=== PATIENT | female | born 1965 | race Two or more races ===

== ENCOUNTER 2024-06-18 14:33 | Emergency (ER) | payer MEDICAID, SELFPAY ==
[2024-06-18 14:44] VITALS: BP 122/66; PULSE 85; RESP 20; TEMP 37.2; O2SAT 97; BMI 31.4
--- NOTE | 2024-06-18 14:49 | XR_ITS ---
Examination: CT abdomen and pelvis without contrast. Coronal 3-D reconstructions. Sagittal 2-D reconstructions. Date and time of exam:June 18, 2024 1520 hours INDICATIONS: Onset generalized abdominal pain today COMPARISON: July 17, 2021 CTDI: vol (mGy): 10.1 DLP: (mGycm): 578 Technique: Axial images of the abdomen have been obtained, 3 mm slice thickness Intravenous contrast material has not been administered. Low dose protocols were performed. One or more of the following dose reduction techniques were used; automated exposure control, adjustment of the mA and/or KV according to patient size, use of iterative reconstruction technique. Findings: Cirrhosis, liver nodular in contour Mild ascites No focal liver lesions Esophageal and perigastric varices Significant splenomegaly Distended gallbladder No hydronephrosis renal or ureteral calculi Aorta is not enlarged Diffuse thickening of the colonic baxter, hepatic colopathy appearance No bowel obstruction Urinary bladder intact Moderate osteopenia IMPRESSION: Cirrhosis. Mild ascites Significant splenomegaly. Esophageal, perigastric varices Diffuse hepatic colopathy
--- NOTE | 2024-06-18 14:49 | EKG_ITS ---
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
--- NOTE | 2024-06-18 14:49 | PD.EDRME ---
Rapid Medical Screening Exam RME Arrival date/time: 06/18/24 14:33 58-year-old female presents to the emergency department complaints of abdominal pain nausea and vomiting Chief Complaint: Abdominal Pain Time Seen by Provider: 06/18/24 14:38 Vital signs: Vital Signs Temperature 99 F 06/18/24 14:44 Pulse Rate 85 06/18/24 14:44 Respiratory Rate 20 06/18/24 14:44 Blood Pressure 122/66 06/18/24 14:44 Pulse Oximetry (%) 97 06/18/24 14:44 Oxygen Delivery Method Room Air 06/18/24 14:44
[2024-06-18] MEDS: HYDROcodone/APAP 5/325 TABLET 1 TAB PO (15:12)
[2024-06-18] MEDS: METOCLOPRAMIDE 5 MG TABLET 10 MG PO (15:12)
[2024-06-18 15:26] LABS: Basophils % (Auto) 0 % (0-2.5); Eosinophils % (Auto) 0 % (0-10); Hematocrit 29.3 % (36.0-46.0); Hemoglobin 9.3 g/dL (12.0-16.0); Immature Granulocytes % (Auto) 0 % (0-0); Immature Granulocytes Auto 0.02 Thou/mm3 (0.00-0.00); Lymphocytes # (Auto) 0.5 Thou/mm3 (1.0-4.8); Lymphocytes % (Auto) 10 % (10-50); Mean Corpuscular HGB Conc 31.7 g/dl (31.0-37.0); Mean Corpuscular Hemoglobin 25.6 pg (25.0-35.0); Mean Corpuscular Volume 81 fL (80-100); Monocytes # (Auto) 0.5 Thou/mm3 (0.0-0.8); Monocytes % (Auto) 9 % (0-12); Neutrophils # (Auto) 4.3 Thou/mm3 (1.8-7.7); Neutrophils % (Auto) 80 % (37-80); Nucleated Red Blood Cell % 0 /100 WBC (0); Platelet Count 110 Thou/mm3 (140-440); RDW Standard Deviation 56.4 fL (36.4-46.3); Red Blood Count 3.63 Miln/mm3 (4.00-5.20); White Blood Count 5.4 Thou/mm3 (3.6-11.0)
[2024-06-18 15:35] LABS: Collection Type, Urine Clean Catch
[2024-06-18 15:43] LABS: Alanine Aminotransferase 63 U/L (10-49); Albumin, Serum 3.4 gm/dL (3.4-4.8); Alkaline Phosphatase 241 U/L (46-116); Anion Gap 6 (7-16); Aspartate Amino Transferase 111 U/L (0-34); BUN/Creatinine Ratio 18 Ratio (12-20); Bilirubin,Total 2.5 mg/dL (0.3-1.2); Blood Urea Nitrogen 14 mg/dL (9-23); Calcium 8.6 mg/dL (8.3-10.6); Calcium (Corrected) 9.1 mg/dL (8.5-10.1); Carbon Dioxide 22.8 mMol/L (20.0-31.0); Chloride 112 mMol/L (98-107); Creatinine (Component) 0.8 mg/dL (0.6-1.3); Estimated Creatinine Clearance 80.8 mL/min (>60); Globulin 3.4 gm/dL (2.3-3.5); Glucose 107 mg/dL (74-106); Lipase 56 U/L (12-53); Osmolality,Calculated 281 (275-295); Sodium 141 mMol/L (136-145); Total Protein 6.8 gm/dL (5.7-8.2); Troponin I < 0.020 ng/mL (0.0-0.045); eGFR > 60 See Note
[2024-06-18 15:54] LABS: Bacteria,Urine Rare; Bilirubin,Urine 1+ (Negative); Blood,Urine Negative (Negative); Color,Urine Drk-Yellow (Lt Yel-Yel); Culture Indicated,Urine Not Indicated; Glucose, Urine Negative (Negative); Ketones,Urine Trace (Negative); Leukocyte Esterase,Urine Positive (Negative); Nitrite,Urine Negative (Negative); PH,Urine 5.5 (5.0-7.0); Protein,Urine 1+ (Neg - Trace); RBC,Urine 9 /hpf (0-3); Specific Gravity,Urine 1.033 (1.001-1.035); Squamous Epithelial Cell,Urine 25 /hpf (0-5); WBC,Urine 4 /hpf (0-5)
[2024-06-18 15:57] LABS: Clarity,Urine Hazy (Clear/Hazy)
--- NOTE | 2024-06-18 16:38 | PD.EDABDPN ---
ED Abdominal Pain RME/HPI General Chief Complaint: Abdominal Pain Stated complaint: Abdominal pain since last night, vomiting Time seen by provider: 06/18/24 14:38 Arrival date/time: 06/18/24 14:33 RME / HPI RME / HPI narrative: 58-year-old female presents to the emergency department complaints of abdominal pain nausea and vomiting. Onset of symptoms since last night. Vomiting is nonbloody. Denies any diarrhea. Denies any fever. Denies any confusion. Denies any other complaints. Patient is taking medication for her liver cirrhosis. Related Data Home Medications ?Medication ?Instructions ?Recorded ?Confirmed furosemide 20 mg tablet 20 mg PO QDAY 05/15/21 05/15/21 Previous Rx's ?Medication ?Instructions ?Recorded rifaximin 550 mg tablet (Xifaxan) 550 mg PO BID #60 tabs 06/26/21 metoclopramide HCl 10 mg tablet 10 mg PO Q6H PRN nausea and 06/18/24 (Reglan) vomiting #20 tabs pantoprazole 40 mg tablet,delayed 40 mg PO QDAY #30 tabs 06/18/24 release (Protonix) Allergies Allergy/AdvReac Type Severity Reaction Status Date / Time No Known Allergies Allergy Verified 04/29/22 22:41 Review of Systems Review of Systems Narrative Review of Systems: Review of system reviewed and within normal limits except mentioned in HPI ED Exam Narrative Physical exam: VITAL SIGNS: Reviewed. GENERAL APPEARANCE: Alert and interactive, follows commands, no acute distress, HEAD AND FACE: Non-traumatic. ENT: PERRL, pale conjunctiva, eyelid no trauma, Mucous membrane moist. NECK: Supple, nontender, no nuchal rigidity. CHEST: No tenderness, no crepitus, no paradoxical movement, no retractions. LUNGS: Clear, well ventilated, symmetric, no rales, no wheezing, no ronchi, no stridor, good breath sounds bilaterally. HEART: Regular rate, regular rhythm, no murmur, no gallops. ABDOMEN: Soft, positive bowel sounds, nondistended, no guarding, nontender, no rebound, no masses, RECTAL: Deferred. GENITAL: Deferred. NEUROLOGICAL: Gross motor function intact sensory function intact, Appropriate for age. MUSCULOSKELETAL: low back nontender, full range of motion. EXTREMITIES: Nontender, full range of motion. SKIN: Color pale, dry, no rash, no lacerations, no abrasions, no contusions. LYMPHATICS: Deferred. Course Quality Measures none Orders Category Date Time Status EKG (ED ONLY) *Do not use* NOW Care 06/18/24 14:[address] abdomen pelvis wo con Stat Exams 06/18/24 14:49 Completed EKG (ED Only) Stat Exams 06/18/24 14:49 Draft CBC Stat Lab 06/18/24 14:59 Completed Comprehensive Metabolic Panel Stat Lab 06/18/24 14:59 Completed Lipase Stat Lab 06/18/24 14:59 Completed Troponin I Stat Lab 06/18/24 14:59 Completed UA, C/S IF [Urinalysis, C/S if Indicated] Stat Lab 06/18/24 15:16 Completed HYDROcodone*/APAP 5/325 [Sanderson 5/325] Med 06/18/24 14:49 Discontinued 1 tab PO X1 ONE Metoclopramide [Reglan] Med 06/18/24 14:49 Discontinued 10 mg PO X1 ONE Vital Signs Vital signs: Vital Signs Temperature 99 F 06/18/24 14:44 Pulse Rate 85 06/18/24 14:44 Respiratory Rate 20 06/18/24 14:44 Blood Pressure 122/66 06/18/24 14:44 Pulse Oximetry (%) 97 06/18/24 14:44 Oxygen Delivery Method Room Air 06/18/24 14:44 Abdominal Pain MDM MDM Narrative MDM Narrative:: 58-year-old female presents to the emergency department complaints of abdominal pain nausea and vomiting. Onset of symptoms since last night. Vomiting is nonbloody. Denies any diarrhea. Denies any fever. Denies any confusion. Denies any other complaints. Patient is taking medication for her liver cirrhosis. Laboratory workup all came back unremarkable except for hemoglobin of 9.28 hematocrit of 29.3 CMP significant for total bili of 12.5 AST of 111 ALT of 63 alkaline phos of 241. Urinalysis no UTI CT scan of the abdomen and pelvis showed no acute pathology except for liver cirrhosis. Results discussed with the patient and family. Patient will be sent home on Protonix and Reglan. Patient data External records reviewed:: None Clinical information provided by:: patient Social determinants that could affect healthcare access:: none Patient has the following chronic illnesses:: Liver cirrhosis How is presenting disease/condition affected by chronic disease/condition?: exacerbated by Evaluation data The following diagnostics were reviewed and interpreted by me:: lab results, radiology exam(s) and EKG tracing(s) Lab and/or radiology exams considered but not ordered:: None Interpretation Summary: Laboratory workup all came back unremarkable except for hemoglobin of 9.28 hematocrit of 29.3 CMP significant for total bili of 12.5 AST of 111 ALT of 63 alkaline phos of 241. Urinalysis no UTI CT scan of the abdomen and pelvis showed Cirrhosis. Mild ascites Significant splenomegaly. Esophageal, perigastric varices Diffuse hepatic colopathy EKG showed normal sinus rhythm, ventricular rate of 62 bpm, no ST segment elevation depression noted. Results discussed with the patient's and family. Medications / Prescriptions Medications or Prescriptions considered but not ordered:: None Medication administrations:: Medication Administration History Discontinued Medications Hydrocodone Bitart/Acetaminophen (Hydrocodone/Apap 5/325 Tablet) 1 tab PO X1 ONE Stop: 06/18/24 14:50 Last Admin: 06/18/24 15:12 Dose: 1 tab Documented By: Metoclopramide HCl (Metoclopramide 5 Mg Tablet) 10 mg PO X1 ONE Stop: 06/18/24 14:50 Last Admin: 06/18/24 15:12 Dose: 10 mg Documented By: Sanderson and Regtyson Consultations Consultation(s) initiated? (list below): No Diagnosis Differential diagnosis abdominal pain: abdominal pain, gastroenteritis and pancreatitis Most likely diagnosis given after review of the tests above:: Abdominal pain Admission Indicated Admission indicated?: not indicated Explain why admission is indicated or not indicated:: Stable for discharge. Patient told me that her abdominal pain is totally gone with Reglan and Sanderson Admission Request Was there a request for admission?: No Disposition Plan Disposition Plan: Discharge Discharge Attestation Discharge Attestation: The patient and all family members were given an opportunity to ask questions and understood the discharge instructions. Discharge instructions specifically effects, indications for sooner follow up or return to the emergency department, and the expected course of current diagnosis. Patient condition: Stable Discharge Plan Plan Patient Disposition: HOME (Self Care) Disposition Comment: stable Prescriptions/Referrals Prescriptions/Med Rec: New pantoprazole [Protonix] 40 mg tablet,delayed release (DR/EC) 40 mg PO QDAY Qty: 30 0RF metoclopramide HCl [Reglan] 10 mg tablet 10 mg PO Q6H PRN (Reason: nausea and vomiting) Qty: 20 0RF No Action Xifaxan 550 mg Tablet 550 mg PO BID Qty: 60 0RF furosemide 20 mg Tablet 20 mg PO QDAY Referrals: Michael Mcneal MD [Primary Care Provider] - In 1 week Problem List Clinical Impression: Abdominal pain, Cirrhosis of liver Patient/Caregiver Discharge Instructions Discharge Activity: activity as tolerated Education Materials: Abdominal Pain Additional Instructions: Thank you for the opportunity for serving you today. You are stable for discharged . You are advised to: Follow-up with your PCP in 1 to 2 days Return to ED for worsening of symptoms Take medication as prescribed Print Language: Syrian Stand Alone Forms: Elvi Award Info., Patient Portal Info Letter PA/KO Supervising Physician PA/KO Supervising Physician: MD Janay
== END 2024-06-18 17:16 | disposition home or self-care (01) ==
PROVIDERS: Nurse Practitioner Primary Care; Emergency Provider Emergency Medicine; PCP Family Medicine
DX: K74.60 Unspecified cirrhosis of liver (principal); R18.8 Other ascites; R16.1 Splenomegaly, not elsewhere classified; I85.10 Secondary esophageal varices without bleeding; I86.4 Gastric varices
CPT/HCPCS: 36415; 74176; 80053; 81001; 83690; 84484; 85025; 93005; 99284; A9270

== ENCOUNTER 2025-01-24 00:01 | Inpatient (IN) | payer MEDICAID, SELFPAY ==
[2025-01-24 00:57] VITALS: BP 118/72; PULSE 78; RESP 18; TEMP 36.9; O2SAT 97; BMI 29.3
--- NOTE | 2025-01-24 01:01 | PD.EDRME ---
Rapid Medical Screening Exam RME Arrival date/time: 01/24/25 00:01 Chief Complaint: Abdominal Pain Time Seen by Provider: 01/24/25 00:03 Vital signs: Vital Signs Temperature 98.4 F 01/24/25 00:57 Pulse Rate 78 01/24/25 00:57 Respiratory Rate 18 01/24/25 00:57 Blood Pressure 118/72 01/24/25 00:57 Pulse Oximetry (%) 97 01/24/25 00:57 Oxygen Delivery Method Room Air 01/24/25 00:57 RME Narrative: Upper abdominal pain, n/v since yesterday. hx cirrhosis
--- NOTE | 2025-01-24 01:04 | EKG_ITS ---
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
--- NOTE | 2025-01-24 01:05 | XR_ITS ---
Examination: CT abdomen and pelvis without contrast. Coronal 3-D reconstructions. Sagittal 2-D reconstructions. Date and time of exam:January 24, 2025, 0235 hours, comparison June 18, 2024 INDICATIONS: Diagnosis cirrhosis, upper abdominal pain today CTDI: vol (mGy): 8. DLP: (mGycm): 490. Technique: Axial images of the abdomen have been obtained, 3 mm slice thickness Intravenous contrast material has not been administered. Low dose protocols were performed. One or more of the following dose reduction techniques were used; automated exposure control, adjustment of the mA and/or KV according to patient size, use of iterative reconstruction technique. Findings: Poorly defined masslike area in the retroareolar region right breast 4.4 cm with skin thickening Cirrhosis, liver nodular in contour Esophageal varices Significant splenomegaly Perigastric varices Portosystemic collateral vessels medial to the spleen Small gallstones and abnormal gallbladder wall thickening Lymph nodes in the anterior mesentery No hydronephrosis No bowel obstruction Normal appendix No diverticulitis Atrophic uterus Rectal wall thickening Urinary bladder wall thickening up to 7 mm Severe osteopenia IMPRESSION: Cirrhosis Esophageal and perigastric varices Splenomegaly. Portal hypertension. Numerous lymph nodes in the anterior mesentery. Normal appendix. Rectal wall thickening, proctitis included in the differential Urinary bladder wall thickening, cystitis included in the differential
[2025-01-24 01:28] LABS: Basophils # (Auto) 0.0 Thou/mm3 (0.0-0.2); Basophils % (Auto) 1 % (0-2.5); Eosinophils # (Auto) 0.0 Thou/mm3 (0.0-0.5); Eosinophils % (Auto) 1 % (0-10); Hematocrit 31.9 % (36.0-46.0); Hemoglobin 10.4 g/dL (12.0-16.0); Immature Granulocytes Auto 0.02 Thou/mm3 (0.00-0.00); Lymphocytes # (Auto) 0.4 Thou/mm3 (1.0-4.8); Lymphocytes % (Auto) 8 % (10-50); Mean Corpuscular HGB Conc 32.6 g/dl (31.0-37.0); Mean Corpuscular Hemoglobin 26.1 pg (25.0-35.0); Mean Corpuscular Volume 80 fL (80-100); Monocytes # (Auto) 0.3 Thou/mm3 (0.0-0.8); Monocytes % (Auto) 5 % (0-12); Neutrophils # (Auto) 4.4 Thou/mm3 (1.8-7.7); Neutrophils % (Auto) 85 % (37-80); Nucleated Red Blood Cell # 0.00 Thou/mm3 (0.00-0.00); Nucleated Red Blood Cell % 0 /100 WBC (0); Platelet Count 103 Thou/mm3 (140-440); RDW Standard Deviation 62.6 fL (36.4-46.3); Red Blood Count 3.99 Miln/mm3 (4.00-5.20); White Blood Count 5.2 Thou/mm3 (3.6-11.0)
[2025-01-24 01:50] LABS: Collection Type, Urine Clean Catch
[2025-01-24 01:56] LABS: Alanine Aminotransferase 29 U/L (10-49); Albumin, Serum 3.3 gm/dL (3.4-4.8); Albumin/Globulin Ratio 0.9 (1.2-2.2); Alkaline Phosphatase 174 U/L (46-116); Anion Gap 7 (7-16); Aspartate Amino Transferase 56 U/L (0-34); BUN/Creatinine Ratio 16 Ratio (12-20); Bilirubin,Total 1.9 mg/dL (0.3-1.2); Blood Urea Nitrogen 13 mg/dL (9-23); Calcium 8.6 mg/dL (8.3-10.6); Calcium (Corrected) 9.2 mg/dL (8.5-10.1); Carbon Dioxide 23.3 mMol/L (20.0-31.0); Chloride 111 mMol/L (98-107); Creatinine (Component) 0.8 mg/dL (0.6-1.3); Estimated Creatinine Clearance 80.0 mL/min (>60); Globulin 3.5 gm/dL (2.3-3.5); Glucose 153 mg/dL (74-106); Lipase 873 U/L (12-53); Osmolality,Calculated 284 (275-295); Potassium 4.0 mMol/L (3.4-5.1); Sodium 141 mMol/L (136-145); Total Protein 6.8 gm/dL (5.7-8.2); Troponin I < 0.020 ng/mL (0.0-0.045); eGFR > 60 See Note
[2025-01-24 01:57] LABS: Bacteria,Urine 3+; Bilirubin,Urine Negative (Negative); Blood,Urine Trace (Negative); Clarity,Urine Turbid (Clear/Hazy); Color,Urine Yellow (Lt Yel-Yel); Glucose, Urine 1+ (Negative); Hyaline Casts,Urine < 1 /hpf (0-1); Ketones,Urine Trace (Negative); Leukocyte Esterase,Urine Negative (Negative); Nitrite,Urine Negative (Negative); PH,Urine 5.5 (5.0-7.0); Protein,Urine 1+ (Neg - Trace); RBC,Urine 8 /hpf (0-3); Specific Gravity,Urine 1.037 (1.001-1.035); Squamous Epithelial Cell,Urine 24 /hpf (0-5); Urobilinogen,Urine Negative mg/dL (0.0-1.0); WBC,Urine 3 /hpf (0-5)
--- NOTE | 2025-01-24 02:00 | XR_ITS ---
Examination: Abdominal series 3 views including upright PA chest TECHNIQUE: Upright PA chest, AP upright AP supine abdomen 3 views Date and time: January 24, 2025, 0 3415 hours INDICATIONS: Abdominal pain today FINDINGS: Mild enlargement cardiac contour with pulmonary vascular congestion Abundant stool in the right colon and rectosigmoid No obstruction No free air IMPRESSION: Suspicious for mild heart failure. Abundant stool in the right colon and rectosigmoid
--- NOTE | 2025-01-24 02:00 | XR_ITS ---
Examination: Abdomen sonogram, Limited Date and time of exam: January 24, 2025, 0218 hours INDICATIONS: Abdominal pain with vomiting beginning several hours ago Technique: Real-time alfaro scale transabdominal sonographic images of the upper abdomen obtained. Findings: Gallbladder sludge, no gallstones, no gallbladder wall thickening Normal common bile duct 0.2 cm Pancreatic head 3.6 cm Liver 15.6 cm lobular contour fatty infiltration Normal hepatopedal portal venous flow Patent IVC IMPRESSION: Negative for cholelithiasis, negative for cholecystitis Suspect primary hepatocellular disease
--- NOTE | 2025-01-24 03:17 | PRELIM_ITS ---
Ultrasound Abdomen. January 24, 2025 0218 hours Clinical history: epigastric abdominal pain, cirrhosis Technique: Grayscale and color flow images of the abdomen are provided. Hepatic and portal veins were also imaged with color flow images. Comparison: Correlated with the prior US study dated December 02, 2024. Findings: The liver demonstrate irrugular borbers. No intrahepatic biliary ductal dilatation. No or pericholecystic fluid is demonstrated. Dependent hyperdensity is identified within the gallbladder, which may represent sludge or small layering calculi. The common bile duct is normal in caliber at 2 mm. The gall bladder wall measures 2 mm. No free fluid is demonstrated on the submitted images. The pancreas is unremarkable to the extent visualized. The inferior vena cava to the extent visualized is within normal limits. Impression: Hepatic cirrhosis. Dependent hyperdensity is identified within the gallbladder, which may represent sludge or small layering calculi. Recommend clinical correlation and follow-up. Report Electronically Signed By: Elmo Ortega 01/24/2025 3:16:46 AM [EST]
--- NOTE | 2025-01-24 03:17 | PRELIM_ITS ---
CT scan of the abdomen and pelvis without intravenous contrast (axial sections with sagittal and coronal reformats) January 24, 2025 at 0235 hours Clinical History: Upper abdominal pain, nausea/vomiting. History of cirrhosis. Comparison: Reference is made to the prior report dated December 02, 2020. Findings: The skin of the right breast is mildly thickened. There is a small 2 cm periareolar solid node of the right breast (axial image 12/279).. Bibasilar dependent and streaky atelectasis are noted. There is no focal consolidation. The liver demonstrates surface nodularity with relative hypertrophy of the left lobe and caudate lobe, suggestive of cirrhosis. The portal vein is mildly dilated and measures 1.7 cm. Periesophageal and upper abdominal collateral veins are prominent. The gallbladder is mildly distended. There is mild gallbladder wall thickening. No pericholecystic fluid is seen. Dependent hyperdensity is identified within the gallbladder, which may represent sludge or small layering calculi. The spleen is borderline enlarged and measures up to 13 cm. The pancreas, spleen, kidneys and adrenals are unremarkable on this noncontrast study. No evidence of bowel obstruction. The appendix is within normal limits (image 192/279). Mild rectal prolapse is seen. Moderate amount of fecal material is present in the colon and rectum, consistent with constipation. There are small paraesophageal and perigastric lymph nodes. The urinary bladder is unremarkable. The uterus and adnexa are unremarkable. There is no free fluid or free air. There is a small uncomplicated fat- containing umbilical hernia. Osseous degenerative changes are noted. Impression: 1. Hepatic cirrhosis with borderline splenomegaly, portal hypertension and collateral veins. 2. Mildly distended gallbladder with apparent wall thickening and sludge or small layering calculi. This may reflect cirrhotic cholecystopathy. 3.Small periareolar solid nodule of the right breast with associated skin thickening, which may reflect malignancy. 4. Other findings as described above. Recommend clinical correlation and follow-up. Report Electronically Signed By: Elmo Ortega 01/24/2025 3:16:58 AM [EST]
[2025-01-24 06:12] VITALS: BP 119/68; PULSE 77; RESP 16; TEMP 36.9; O2SAT 98
[2025-01-24 08:58] VITALS: BP 132/78; PULSE 77; RESP 19; TEMP 37.2; O2SAT 98
--- NOTE | 2025-01-24 08:58 | PC.NURSE ---
PATIENT ATTEMPTED TO GIVE STOOL SAMPLE. WAS NOT ABLE TO. DEMAR RICHARD MADE AWARE
--- NOTE | 2025-01-24 09:26 | PD.EDABDPN ---
ED Abdominal Pain RME/HPI General Chief Complaint: Abdominal Pain Stated complaint: ABD PAIN Time seen by provider: 01/24/25 00:03 Arrival date/time: 01/24/25 00:01 This is a case of 59-year-old female with history of chronic cirrhosis and portal hypertension splenomegaly and varices came in in the emergency room due to abdominal pain on and off for 3 days associated with nausea vomiting worsening of the symptoms this patient decided to sought consult here in the emergency room denies constipation diarrhea or blood in stool Limitations: no limitations RME / HPI RME / HPI narrative: Upper abdominal pain, n/v since yesterday. hx cirrhosis Related Data Home Medications ?Medication ?Instructions ?Recorded ?Confirmed furosemide 20 mg tablet 20 mg PO QDAY 05/15/21 05/15/21 Previous Rx's ?Medication ?Instructions ?Recorded rifaximin 550 mg tablet (Xifaxan) 550 mg PO BID #60 tabs 06/26/21 metoclopramide HCl 10 mg tablet 10 mg PO Q6H PRN nausea and 06/18/24 (Reglan) vomiting #20 tabs pantoprazole 40 mg tablet,delayed 40 mg PO QDAY #30 tabs 06/18/24 release (Protonix) Allergies Allergy/AdvReac Type Severity Reaction Status Date / Time No Known Allergies Allergy Verified 01/24/25 00:01 Review of Systems Review of Systems Systems Reviewed: All systems reviewed, normal except as documented Constitutional Constitutional: Reports system reviewed and no additional complaints, except as documented, Reports as per HPI, Denies anorexia, Denies chills and Denies fever(s) ENT Ears, Nose, Mouth, and Throat: Denies dysphagia and Denies odynophagia Cardiovascular Cardiovascular: Reports system reviewed and no additional complaints, except as documented, Reports as per HPI, Denies chest pain, Denies dyspnea, Denies irregular heart rhythm, Denies rapid heart rate, Denies slow heart rate and Denies syncope Respiratory Respiratory: Reports system reviewed and no additional complaints, except as documented, Denies cough and Denies dyspnea Gastrointestinal Gastrointestinal: Reports system reviewed and no additional complaints, except as documented, Reports abdominal pain, Denies belching, Denies bloating, Denies change in bowel habits, Denies change in stool character, Denies coffee ground emesis, Denies constipation, Denies cramping, Denies diarrhea, Denies dyspepsia, Denies dysphagia, Denies early satiety, Denies excessive flatus, Denies fecal incontinence, Denies heartburn, Denies hematemesis, Denies hematochezia, Denies loose stools, Denies melena, Reports nausea, Denies odynophagia, Denies tenesmus and Reports vomiting Genitourinary Genitourinary: Reports system reviewed and no additional complaints, except as documented and Reports as per HPI Neurologic Neurologic: Reports system reviewed and no additional complaints, except as documented, Reports as per HPI and Denies syncope Past Medical History Past Medical History CARDIAC: Negative Congestive Heart Failure or Hypertension RESPIRATORY: Negative Chronic Obstructive Pulmonary Disease (COPD) GASTROINTESTINAL: Positive Cirrhosis GENITOURINARY: Negative Renal Disease ENDOCRINE: Negative Diabetes Mellitus Type 1 or Diabetes Mellitus Type 2 Surgical History SURGICAL: Positive Tubal Ligation Social History SMOKING STATUS: Never smoker SUBSTANCE USE: does not use ED Exam General Limitations: Present no limitations General appearance: Present alert and in no apparent distress; Absent appears intoxicated, anxious or lethargic Head Head exam: Present atraumatic, normocephalic and normal inspection Eye Eye exam: Present normal appearance, PERRL and EOMI ENT ENT exam: Present normal exam, normal oropharynx and mucous membranes moist Neck Neck exam: Present normal inspection, full ROM and trachea midline Chest Chest inspection: Present normal inspection and symmetric chest wall rise; Absent tenderness, rash or abscess Respiratory Respiratory exam: Present normal lung sounds bilaterally; Absent respiratory distress, wheezes, stridor, accessory muscle use or prolonged expiratory phase Cardiovascular Cardiovascular exam: Present regular rate, normal rhythm and normal heart sounds; Absent bradycardia, tachycardia, irregular rhythm, systolic murmur or diastolic murmur Abdominal Exam Abdominal exam: Present soft, distention (Mild distention), tenderness (Mild to moderate tenderness on all quadrants of the abdomen no guarding no rebound no rigidity negative psoas and obturator negative Rovsing's negative McBurney's negative Aldridge sign negative CVA tenderness), normal bowel sounds and ascites; Absent guarding, rebound, rigidity, diminished bowel sounds, hyperactive bowel sounds, hypoactive bowel sounds, organomegaly, trauma, incision, psoas sign, obturator sign, heel tap sign, Aldridge's sign, Rovsing's sign, tenderness at McBurney's Point, mass, pulsatile mass, hernia or scar Abdominal tenderness: Present RUQ, RLQ, LUQ, LLQ and mild Extremities Exam Extremities exam: Present normal inspection and full ROM Back Exam Back exam: Present normal inspection and full ROM Neurological Exam Neurological exam: Present alert, oriented X3, CN II-XII intact, normal gait and reflexes normal; Absent motor sensory deficit Psychiatric Psychiatric exam: Present normal affect and normal mood Skin Skin exam: Present warm, dry, intact and normal color Course Quality Measures none Orders Category Date Time Status COVID-19 Screening Questionnaire NOW Care 01/24/25 09:20 Active Decision to Admit X1 Care 01/24/25 09:20 Active EKG (ED ONLY) *Do not use* NOW Care 01/24/25 01:04 Completed NPO NOW Care 01/24/25 09:25 Active Occult Blood,Stool (Nursing) NOW Care 01/24/25 08:08 Active Consult to Gastroenterology Stat Cons 01/24/25 09:24 Ordered Diet NPO (NOW) Diet 01/24/25 09:[address] abdomen pelvis wo con Stat Exams 01/24/25 01:05 Completed EKG (ED Only) Stat Exams 01/24/25 01:04 Draft US abdomen limited Stat Exams 01/24/25 02:00 Completed XR abdomen series w chest 1V Stat Exams 01/24/25 02:00 Completed Amylase Stat Lab 01/25/25 06:00 Ordered BNP [B-Type Natriuretic Peptide] Stat Lab 01/24/25 09:24 Ordered CBC Stat Lab 01/24/25 01:17 Completed CMP [Comprehensive Metabolic Panel] Stat Lab 01/24/25 01:17 Completed Lipase Stat Lab 01/24/25 01:17 Completed Lipase Stat Lab 01/25/25 06:00 Ordered Troponin I Stat Lab 01/24/25 01:17 Completed UA [Urinalysis] Stat Lab 01/24/25 01:40 Completed Vital Signs Vital signs: Vital Signs Temperature 98.4 F 01/24/25 00:57 Pulse Rate 78 01/24/25 00:57 Respiratory Rate 18 01/24/25 00:57 Blood Pressure 118/72 01/24/25 00:57 Pulse Oximetry (%) 97 01/24/25 00:57 Oxygen Delivery Method Room Air 01/24/25 00:57 Patient is afebrile not tachycardic not tachypneic not hypoxic BP stable oxygen saturation is 97% in room air Abdominal Pain MDM MDM Narrative MDM Narrative:: This is a case of 59-year-old female with history of chronic cirrhosis and portal hypertension splenomegaly and varices came in in the emergency room due to abdominal pain on and off for 3 days associated with nausea vomiting worsening of the symptoms this patient decided to sought consult here in the emergency room denies constipation diarrhea or blood in stool physical examination patient is awake alert oriented not in distress not toxic looking vital signs stable afebrile nontachycardic nontachypneic BP stable nonhypoxic abdominal exam is noted to be mild distention mild to moderate tenderness on all quadrants no guarding no rebound no rigidity negative psoas negative straight or negative Rovsing's negative McBurney's negative Aldridge sign negative CVA tenderness lungs sound is clear no crackles no rales no retraction no stridor heart normal rate regular rhythm no murmur patient is not complaining of chest pain shortness of breath or palpitation blood test showed no leukocytosis anemia her hemoglobin is 10 thrombocytopenia platelet is 103 patient liver function is elevated total bilirubin is 1.6 AST is 56 alkaline phosphatase is 176 lipase is 873 stool occult blood is negative CT scan showed a cirrhosis gallstone ultrasound showed gallstones chest x-ray showed early possible heart failure based on the result of the blood tests and CT scan and imaging decision to admit the patient was obtained I discussed with Dr. Sommer patient condition history and physical examination relayed the result of the blood tests and CT scan and imaging and agreed that the patient need to be admitted for pancreatitis for elevated lipase Place the patient n.p.o. repeat amylase and lipase and he will be the GI consult I discussed with Dr. Palomo patient condition history and physical examination result of the blood test and CT scan agreed that the patient need to be admitted and accept patient care I discussed with the patient and the daughter who is a OB nurse here the treatment plan admission and agreed Patient data External records reviewed:: [facility] previous records Clinical information provided by:: patient and family Social determinants that could affect healthcare access:: none Patient has the following chronic illnesses:: Cirrhosis How is presenting disease/condition affected by chronic disease/condition?: exacerbated by (Cirrhosis) Evaluation data The following diagnostics were reviewed and interpreted by me:: lab results and radiology exam(s) Lab and/or radiology exams considered but not ordered:: Reviewed Interpretation Summary: Reviewed Medications / Prescriptions Medications or Prescriptions considered but not ordered:: Given Medication administrations:: Given Consultations Consultation(s) initiated? (list below): Yes Consultation #1 (Physician, Specialty, Details): Dr. Sommer discussed patient condition history and physical examination relayed the results of the blood test and imaging agreed that the patient need to be admitted for acute pancreatitis due to elevated lipase Time: 09:00 Time: 09:32 Consultation #3 (Physician, Specialty, Details): Dr. Palomo discussed patient condition history and physical examination and agreed the patient need to be admitted and accept patient care and admission Diagnosis Differential diagnosis abdominal pain: abdominal pain, acute appendicitis, calculus of kidney, diverticulitis, gastroenteritis, pancreatitis and other (Cholelithiasis pancreatitis) Most likely diagnosis given after review of the tests above:: Pancreatitis Admission Indicated Admission indicated?: not indicated Admission Request Was there a request for admission?: Yes Admission Attestation Admission request attestation: Discussed case with [] from Hospitalist service regarding admission. Discussed patients ED course, exam findings, labs, and radiology results. The Hospitalist [agrees,declines] to accept the patient for admission. Disposition Plan Disposition Plan: Admit Discharge Plan Plan Patient Disposition: Admit Acute Care w/in Hospital Patient condition on transfer: Stable Prescriptions/Referrals Prescriptions/Med Rec: No Action Xifaxan 550 mg Tablet 550 mg PO BID Qty: 60 0RF furosemide 20 mg Tablet 20 mg PO QDAY pantoprazole [Protonix] 40 mg tablet,delayed release (DR/EC) 40 mg PO QDAY Qty: 30 0RF metoclopramide HCl [Reglan] 10 mg tablet 10 mg PO Q6H PRN (Reason: nausea and vomiting) Qty: 20 0RF Referrals: Elma Franz MD [Primary Care Provider] - In 1 week Problem List Clinical Impression: Abdominal pain, Cirrhosis, Pancreatitis, Cholelithiasis Patient/Caregiver Discharge Instructions Education Materials: Abdominal Pain, Treating Gallstones, ED Cirrhosis, ED Pancreatitis Print Language: [place] Stand Alone Forms: Elvi Award Info., Patient Portal Info Letter PA/ASSISTANT ASSOCIATE PROFESSOR Supervising Physician PA/ASSISTANT ASSOCIATE PROFESSOR Supervising Physician: dr nunez
[2025-01-24 10:14] LABS: B-Type Natriuretic Peptide 35 pg/mL (0-100)
--- NOTE | 2025-01-24 10:17 | XR_ITS ---
Examination: TULIO, hepatobiliary radioisotope scan Date and time of exam: January 25, 2025 1255 hours INDICATIONS: Diagnosis cirrhosis portal hypertension splenomegaly abdominal pain nausea and vomiting the last 24 hours with elevated bilirubin and alkaline phosphatase Technique: 5.7 mCi of 99M Hepatolite administered. Serial imaging then obtained from immediate through 60 minutes. . Findings: Radioisotope activity within the liver is reasonably homogenous. Common bile duct small bowel activity noted Impression: No definite gallbladder activity consistent with cystic duct obstruction
[2025-01-24] MEDS: HEPARIN SOD INJ 5000 UNIT/ML VIAL SC ×2 (10:46→21:06)
[2025-01-24] MEDS: RINGERS LACTATED 1000 ML 1,000 ML 125 ML IV (10:52)
[2025-01-24] MEDS: cefTRIAXone/D5w 1gm IV premix 1 GM/50 ML BAG IV (10:52)
--- NOTE | 2025-01-24 10:52 | ESHP_ITS ---
<Statement entered by Oumar Houston MD - 01/25/25 17:12> I Oumar Houston MD reviewed the note and agree with the resident's assessment & plan with exceptions as below. I have personally reviewed labs, imaging, home meds/prior records, examined the patient, formulated and discussed management plan with the IM team. A 59-year-old female with history of cirrhosis and variceal bleeding in the past presented to ED with abdominal pain, nausea intractable vomiting noted to have elevated lipase of 800 consistent with acute pancreatitis. Will start on IV fluid resuscitation with NS 125 mL an hour, keep n.p.o, GI is on board, plan for obtain HIDA scan. Will also obtain TTE in the setting of methamphetamine use. Obtain BNP and lipid panel. Will gradually start on clear liquid as tolerated. Patient also noted to have breast mass with nipple retraction, obtain CT chest wall/breast for further delineation of the mass. Documentation for date of: 01/24/25 HPI History of Present Illness History of present illness: 59-year-old female with past medical history of nonalcoholic related liver cirrhosis, portal hypertension, splenomegaly, esophageal varices status post bandage presented to ED with chief complaints of abdominal pain, nausea and vomiting. Patient stated that for the last 24 hours patient symptoms significantly got worse prompting her to present to ED. Patient denied any recent diet changes, any blood in the vomit, any diarrhea or constipation. On presentation patient was hemodynamically stable, further labs revealed anemia of 10.4, thrombocytopenia platelets of 103, T. bili was 1.9, AST 56, ALP 174, albumin 3.3, lipase is 873. Patient stated that doesn't have an history of alcohol use, however previously she was diagnosed with cirrhosis and had EGD done, had 2 banded esophageal varices. Patient also stated that for the last month she has been having more shortness of breath and was feeling more weak.Denied any chest pain, palpitation, diarrhea,/constipation, or any other associated symptoms. Patient will describe pain as colicky, 8 out of 10, mainly in epigastric area and will radiate to the back. Pain is not constant, with, , however the discomfort is constant. The patient reported that for the past 8 months, she has noticed a mass in her left breast. On physical examination, the mass is hard with firmness noted on all to lower quadrants. There is associated nipple retraction and visible scratch georges on the left breast. Patient also endorsed intermittent itching in the area. She stated that the symptoms began approximately 8 months ago, but she has not sought any medical attention until now. Imaging CT A/P showed cirrhosis, esophageal and perigastric varices, splenomegaly, portal hypertension, numerous lymph nodes in the anterolateral mesentery, rectal wall thickening, proctitis included in the differential. Urinary bladder wall thickening, cystitis pattern. Abdominal ultrasound was done which was negative for cholelithiasis, negative for cholecystitis, suspect primary hepatocellular disease. In ED GI was consulted and recommended to admit the patient for further evaluation of idiopathic pancreatitis, patient might need a HIDA scan as well as will continue close monitoring symptoms, approach conservatively at this point #Past medical history as above #Past surgical history unremarkable, negative for major abdominal surgeries #Allergies NKDA #Family history per patient's mother had hepatitis #Social history patient lives with her at home, denies alcohol use, denies smoking or any recreational drug use Exam Vital Signs Temp Pulse Resp BP Pulse Ox O2 Del Method 98.9 F 77 19 132/78 H 98 Room Air 01/24/25 08:58 01/24/25 08:58 01/24/25 08:58 01/24/25 08:58 01/24/25 08:58 01/24/25 08:58 Narrative Exam GENERAL: no acute distress, AAO x3, well nourished. Bulgarian-speaking female HEENT: Head AT/ NC. Mucous membranes moist. PERRL. NECK: Supple, no lymphadenopathy, no carotid bruits. CARDIOVASCULAR: RRR. Normal S1/S2, No m/r/g. No pitting edema of bilateral LEs. RESPIRATORY: CTAB. No wheezing, rhonchi, crackles. GASTROINTESTINAL: Abdomen soft, mild tenderness on epigastric area, negative Aldridge sign. Bowel sounds present in all 4 quadrants. MUSCULOSKELETAL:? No cyanosis or edema, no visible joint swelling. NEUROLOGICAL: CN II-XII grossly intact. No focal deficits. Sensation intact, symmetric. PSYCHIATRIC: Awake and alert, not agitated, normal mood and affect. INTEGUMENTARY: No obvious rashes, no jaundice, normal turgor. Results: Labs 01/24/25 01:17 01/24/25 01:17 Labs: Short CBC 01/24/25 Range/Units 01:17 WBC 5.2 (3.6-11.0) Thou/mm3 Hgb 10.4 L (12.0-16.0) g/dL Hct 31.9 L (36.0-46.0) % Plt Count 103 L (140-440) Thou/mm3 BMP 01/24/25 01:17 Sodium 141 Potassium 4.0 Chloride 111 H Carbon Dioxide 23.3 BUN 13 Creatinine 0.8 Glucose 153 H Calcium 8.6 Cardiac Enzymes 01/24/25 Range/Units 01:17 Troponin I < 0.020 (0.0-0.045) ng/mL Liver Function 01/24/25 Range/Units 01:17 Total Bilirubin 1.9 H (0.3-1.2) mg/dL AST 56 H (0-34) U/L ALT 29 (10-49) U/L Alkaline Phosphatase 174 H (46-116) U/L Albumin 3.3 L (3.4-4.8) gm/dL Urine 01/24/25 Range/Units 01:40 Urine Color Yellow (Lt Yel-Yel) Urine Clarity Turbid A (Clear/Hazy) Urine pH 5.5 (5.0-7.0) Ur Specific [place] 1.037 H (1.001-1.035) Urine Protein 1+ A (Neg - Trace) Urine Glucose (UA) 1+ A (Negative) Quality Measures Quality Measures none Medications Home Medications and Allergies Home Medications ?Medication ?Instructions ?Recorded ?Confirmed ?Type furosemide 20 mg tablet 20 mg PO QDAY 05/15/2105/15 History Allergies Allergy/AdvReac Type Severity Reaction Status Date / Time No Known Allergies Allergy Verified 01/24/25 00:01 Visit Medications Acetaminophen (Acetaminophen 325 Mg Tablet) 650 mg PO Q6HR PRN PRN Reason: PAIN OR FEVER > 101 Stop: 02/23/25 10:09 Heparin Sodium (Porcine) (Heparin Sod Inj 5000 Unit/Ml Vial) 5,000 unit SC Q12HR IGLESIA Stop: 02/07/25 10:14 Lactated Ringer's (Lactated Ringers) 1,000 mls @ 125 mls/hr IV .Q8H ONE Stop: 01/24/25 18:12 Ceftriaxone Sodium/Dextrose (Rocephin/D5w 1gm Iv Premix) 1 gm in 50 mls @ 100 mls/hr IV QDAY [facility] Stop: 01/31/25 10:17 Ondansetron HCl (Ondansetron Inj 2 Mg/Ml Inj 2 Ml) 4 mg IVP Q6H PRN; Protocol PRN Reason: NAUSEA OR VOMITING Stop: 02/23/25 10:09 Pantoprazole Sodium (Pantoprazole 40 Mg Tablet) 40 mg PO Q12HR [facility] Stop: 02/23/25 20:59 Assessment & Plan Plan 59-year-old female with past medical history of nonalcoholic related liver cirrhosis, hypertension, splenomegaly, esophageal varices status post banding age was admitted for abdominal pain secondary due to most likely idiopathic pancreatitis versus biliary dyskinesia treatment and management. #Abdominal pain likely secondary due to pancreatitis given elevated lipase #Pancreatitis most likely idiopathic, as ultrasound is negative for cholelithiasis, patient denies any use of alcohol, currently is not on any medication that can cause drug-induced pancreatitis, will continue further workup.Labs revealed elevated lipase, AST, ALP T.bili are elevated Presented with complaint of abdominal pain, mainly located on epigastric area that would radiate to the back. ? Keep n.p.o. ? IV hydration ? Symptomatic management with pain medication as needed and Zofran ? Will evaluate patient, advance diet as tolerates, but for now keep n.p.o. #? Biliary dyskinesia The symptoms may have been related to gallbladder hypomotility or dyskinesia Patient presented with complaints of pain, Aldridge sign is negative, patient will describe pain as dull and aching Pain does radiate to the shoulder and back, which can also be related with pancreatic symptoms Patient was complaining of nausea, vomiting indigestion, bloating Ultrasound was negative for gallstones ? Keep n.p.o. ? Pending HIDA scan ? Patient may need EUS if there is a suspicion of biliary tract disease that is not visible on the regular ultrasound ? The management would be conservative, dietary modification, low-fat diet to reduce the need for bile secretion and decrease symptoms, pain management as needed, for now continue with IV fluid, conservative with pain management and will follow-up with GI recommendations. #Noncirrhotic portal hypertension CT imaging showed esophageal varices, splenomegaly, patient does have a thrombocytopenia ?We may consider beta-blockers such as propranolol for esophageal varices, however patient currently denies any bleeding, hematemesis, will continue close monitor, has a history of bandage ? HIDA scan to assess biliary function and exclude biliary pathology, cholelithiasis, dysfunction that could explain the abdominal symptoms ?Obtain hepatitis panel ? GI was consulted, recommendations appreciated #Orthopnea Patient presented with complaints of orthopnea that was progressively getting worse Physical exam is negative for crackles and lower extremity edema ? Will obtain echo ? Avoid aggressive IV fluids, close monitor for oxygenation. #Left breast mass with nipple retraction The patient reported that for the past 8 months, she has noticed a mass in her left breast. On physical examination, the mass is hard with firmness noted on all to lower quadrants. There is associated nipple retraction and visible scratch georges on the left breast. Patient also endorsed intermittent itching in the area. She stated that the symptoms began approximately 8 months ago, but she has not sought any medical attention until now - Will obtain breast ultrasound - Ordered CT chest with contrast to rule out any malignancy/metastatic disease - Will follow-up with the results, patient may need a biopsy. #Numerous mesenteric lymph nodes seen on CT The presence of numerous mesenteric lymph nodes in this patient could be related to portal hypertension, chronic liver disease or inflammatory process such as IBD or infectious causes. It also could be a sign of malignancy, either from abdominal cancer example colorectal cancer or gastric cancer or lymphoma. Given the patient's complex presentation, further diagnostic workup including imaging and potentially biopsy will be necessary to clarify the cause. ? GI doctor is on board, will follow-up with the results, ?plan is to update the patient about the CT finding Disposition: MedSurg DVT prophylaxis: Heparin GI prophylaxis: PPI Diet: N.p.o. Lines: PIV CODE STATUS:Full code Patient care was discussed with attending physician Dr. Celso Issa MD PGY-2
[2025-01-24 10:57] LABS: B-Type Natriuretic Peptide 41 pg/mL (0-100)
--- NOTE | 2025-01-24 16:03 | PC.NURSE ---
Report called to MAMTA Alanis. No further questions
[2025-01-24 16:04] VITALS: BP 120/68; PULSE 73; RESP 16; TEMP 36.8; O2SAT 95
[2025-01-24 16:34] VITALS: BMI 29.8
--- NOTE | 2025-01-24 17:20 | PD.IMCONS ---
HPI Data of Consult Requesting Physician: Oumar Houston MD Primary Care Provider: Elam Franz MD Consult Narrative Reason for consult: Pain abdomen, nausea vomiting History of present illness: 59 years old female presents to the hospital for severe abdominal pain and nausea vomiting CT scan of the abdomen pelvis showed cirrhosis splenomegaly numerous anterior mesentery lymph nodes rectal wall thickening as well as periesophageal and perigastric varices, portosystemic collaterals Patient has found to have a lipase of 873 total bilirubin 1.9 AST ALT 5629 and alk phos of 174 Abdominal ultrasound shows biliary sludge no stones Patient no history of any drinking alcohol she most likely has [place] cirrhosis She was subsequently admitted cc:: cc: Oumar Houston MD Review of Systems Review of Systems Systems Reviewed: All systems reviewed, normal except as documented Past Medical History Surgical History OTHER SURGICAL HX: As in the history of present illness Meds Home Medications and Allergies Home Medications ?Medication ?Instructions ?Recorded ?Confirmed ?Type furosemide 20 mg tablet 20 mg PO QDAY 05/15/21 05/15/21 History Allergies Allergy/AdvReac Type Severity Reaction Status Date / Time No Known Allergies Allergy Verified 01/24/25 00:01 Exam Vital Signs Temp Pulse Resp BP Pulse Ox O2 Del Method 98.3 F 73 16 120/68 95 Room Air 01/24/25 16:04 01/24/25 16:04 01/24/25 16:04 01/24/25 16:04 01/24/25 16:04 01/24/25 16:04 Constitutional Comments: Alert oriented Routine Respiratory Exam Comments: Normal to auscultation Routine Abdominal Exam Comments: Soft generalized tenderness Results Labs 01/24/25 01:17 01/24/25 01:17 Labs: Short CBC 01/24/25 Range/Units 01:17 WBC 5.2 (3.6-11.0) Thou/mm3 Hgb 10.4 L (12.0-16.0) g/dL Hct 31.9 L (36.0-46.0) % Plt Count 103 L (140-440) Thou/mm3 BMP 01/24/25 01:17 Sodium 141 Potassium 4.0 Chloride 111 H Carbon Dioxide 23.3 BUN 13 Creatinine 0.8 Glucose 153 H Calcium 8.6 Cardiac Enzymes 01/24/25 Range/Units 01:17 Troponin I < 0.020 (0.0-0.045) ng/mL Liver Function 01/24/25 Range/Units 01:17 Total Bilirubin 1.9 H (0.3-1.2) mg/dL AST 56 H (0-34) U/L ALT 29 (10-49) U/L Alkaline Phosphatase 174 H (46-116) U/L Albumin 3.3 L (3.4-4.8) gm/dL Urine 01/24/25 Range/Units 01:40 Urine Color Yellow (Lt Yel-Yel) Urine Clarity Turbid A (Clear/Hazy) Urine pH 5.5 (5.0-7.0) Ur Specific [place] 1.037 H (1.001-1.035) Urine Protein 1+ A (Neg - Trace) Urine Glucose (UA) 1+ A (Negative) Assessment and Plan Additional Assessment & Plan Additional Plan: # Idiopathic pancreatitis N.p.o. IV Protonix CCK HIDA scan with ejection fraction of the gallbladder Consider fiberoptic esophagogastroduodenoscopy with prophylactic band ligation of the esophageal varices and also evaluate her symptoms of nausea vomiting abdominal pain which could be only related to acute idiopathic pancreatitis Lipid panel ANYA Will follow the patient # Chest x-ray shows pulmonary vascular congestion # AXR shows a lot of stool impaction complicated by rectal wall thickening on CT scan imaging Once her nausea vomiting is better she has to be flushed out and possible colonoscopy prior to discharge to biopsy rectal area Thank you very much for the opportunity to participate in care of this patient
--- NOTE | 2025-01-24 17:26 | XR_ITS ---
Examination: Breast ultrasound, unilateral, left Date and time of exam: January 24, 20252013 hours INDICATIONS: Left breast pain several weeks Technique: Real-time alfaro scale ultrasonographic imaging performed left breast including all 4 quadrants as well as nipple retroareolar and axillary region. Findings: No cystic or solid mass IMPRESSION: BI-RADS Category 0: Incomplete examination Need additional imaging evaluation Recommend diagnostic mammography follow-up
--- NOTE | 2025-01-24 17:29 | XR_ITS ---
Examination: CT chest with intravenous contrast 2-D sagittal and coronal reconstructions Exam date and time: January 25, 2025 1131 hours Comparison July 17, 2021 INDICATIONS: Left breast pain several weeks, diagnosis left breast malignancy CTDI:vol (mGy) 13.6 DLP: (mGycm) 573 Technique: Multiple axial sections of the thorax have been obtained. Sections have been obtained, 3 mm slice thickness. Mediastinal and lung density settings have been obtained. Intravenous contrast administered, 60 cc Isovue-370. 2-D sagittal, coronal images obtained. Low dose protocols were performed. One or more of the following dose reduction techniques were used; automated exposure control, adjustment of the mA and/or KV according to patient size, use of iterative reconstruction technique. Findings: No thoracic aortic aneurysm dilatation No pulmonary artery filling defects on this non-CTA study No paratracheal tracheobronchial or bronchopulmonary adenopathy. Complex mass retroareolar region right breast measuring up to 5 cm in thickness with skin thickening 8mm right axillary lymph node At least 6 subcentimeter noncalcified pulmonary nodules No lobar pneumonia Cirrhosis, liver nodular in contour Gallbladder wall is thickened with possible gallstones Esophageal varices Significant splenomegaly Portosystemic collateral vessels medial to the spleen No pancreatic mass Prominent osteopenia IMPRESSION: Complex right breast mass retroareolar with adjacent skin thickening as above, recommend right breast sonography and diagnostic mammography follow-up to assess for breast cancer Noncalcified likely metastatic pulmonary nodules Cirrhosis Esophageal varices Recommend hepatobiliary sonography follow-up Portal hypertension Significant splenomegaly
--- NOTE | 2025-01-24 18:15 | PC.NURSE ---
med rec not done, pt's will bring medication list when he comes in.
[2025-01-24 20:00] VITALS: BP 102/58; PULSE 70; RESP 16; TEMP 36.7; O2SAT 95
[2025-01-24 20:22] LABS: Hepatitis A Antibody IgM Non Reactive (Non React); Hepatitis B Core Antibody IgM Non Reactive (Non React); Hepatitis B Surface Antigen Non Reactive (Non React); Hepatitis C Antibody Non Reactive (Non React)
[2025-01-24] MEDS: RINGERS LACTATED 1000 ML 1,000 ML 100 ML IV (21:05)
[2025-01-24 21:27] VITALS: PULSE 66; RESP 20; RESP 97
[2025-01-25] VITALS (17 sets, daily range): BP systolic 86–134; BP diastolic 49–67; PULSE 64–92; RESP 17–98; TEMP 36.3–37.1; O2SAT 93–98
[2025-01-25 07:08] LABS: Basophils # (Auto) 0.0 Thou/mm3 (0.0-0.2); Basophils % (Auto) 1 % (0-2.5); Eosinophils # (Auto) 0.2 Thou/mm3 (0.0-0.5); Eosinophils % (Auto) 6 % (0-10); Hematocrit 28.4 % (36.0-46.0); Hemoglobin 9.1 g/dL (12.0-16.0); Immature Granulocytes Auto 0.01 Thou/mm3 (0.00-0.00); Lymphocytes # (Auto) 1.2 Thou/mm3 (1.0-4.8); Lymphocytes % (Auto) 35 % (10-50); Mean Corpuscular HGB Conc 32.0 g/dl (31.0-37.0); Mean Corpuscular Hemoglobin 26.1 pg (25.0-35.0); Mean Corpuscular Volume 81 fL (80-100); Monocytes # (Auto) 0.4 Thou/mm3 (0.0-0.8); Monocytes % (Auto) 12 % (0-12); Neutrophils # (Auto) 1.6 Thou/mm3 (1.8-7.7); Neutrophils % (Auto) 46 % (37-80); Nucleated Red Blood Cell # 0.00 Thou/mm3 (0.00-0.00); Nucleated Red Blood Cell % 0 /100 WBC (0); Platelet Count 100 Thou/mm3 (140-440); RDW Standard Deviation 63.1 fL (36.4-46.3); Red Blood Count 3.49 Miln/mm3 (4.00-5.20); White Blood Count 3.4 Thou/mm3 (3.6-11.0)
[2025-01-25 07:20] LABS: INR 1.3 (0.9-1.3); Partial Thromboplastin Time 33.5 Seconds (22.0-36.0); Prothrombin Time 13.9 Seconds (9.0-12.2)
[2025-01-25 07:35] LABS: Alanine Aminotransferase 24 U/L (10-49); Albumin, Serum 2.7 gm/dL (3.4-4.8); Albumin/Globulin Ratio 0.9 (1.2-2.2); Alkaline Phosphatase 121 U/L (46-116); Amylase 68 U/L (30-118); Anion Gap 5 (7-16); Aspartate Amino Transferase 49 U/L (0-34); BUN/Creatinine Ratio 16 Ratio (12-20); Bilirubin,Total 2.2 mg/dL (0.3-1.2); Blood Urea Nitrogen 11 mg/dL (9-23); Calcium 7.8 mg/dL (8.3-10.6); Calcium (Corrected) 8.8 mg/dL (8.5-10.1); Carbon Dioxide 25.1 mMol/L (20.0-31.0); Cardiac Risk Estimate 3.0 RATIO (3.7-5.6); Chloride 113 mMol/L (98-107); Cholesterol 133 mg/dL (132-200); Creatinine (Component) 0.7 mg/dL (0.6-1.3); Estimated Creatinine Clearance 92.1 mL/min (>60); Globulin 2.9 gm/dL (2.3-3.5); Glucose 82 mg/dL (74-106); HDL Cholesterol 45 mg/dL (40-60); LDL Cholesterol,Calculated 72 mg/dL (0-130); Lipase 35 U/L (12-53); Magnesium 1.9 mg/dL (1.6-2.6); Osmolality,Calculated 283 (275-295); Phosphorous 2.6 mg/dL (2.4-5.1); Potassium 4.1 mMol/L (3.4-5.1); Sodium 143 mMol/L (136-145); Thyroid Stimulating Hormone 1.16 uIU/mL (0.55-4.78); Total Protein 5.6 gm/dL (5.7-8.2); Triglycerides 82 mg/dL (30-150); eGFR > 60 See Note
[2025-01-25] MEDS: HEPARIN SOD INJ 5000 UNIT/ML VIAL SC (09:14)
[2025-01-25] MEDS: cefTRIAXone/D5w 1gm IV premix 1 GM/50 ML BAG IV (09:14)
--- NOTE | 2025-01-25 09:45 | ESPR_ITS ---
Documentation for date of: 01/25/25 Subjective Subjective Interval history: Patient was seen and examined at bedside. No acute overnight events. Labs and vitals stable, without significant changes. Patient remains n.p.o., pending HIDA scan and therapeutic EGD for possible band ligation and GI is on board, will follow-up with recommendations. CT with contrast revealed CT chest revealed complex mass retroareolar region right breast measuring up to 5 cm in thickness with skin thickening. 8 mm right axillary lymph node. At least 6 subcentimeter noncalcified pulmonary nodules, likely metastatic. The left breast ultrasound is within normal limits. Dr. Gustafson was consulted, Biopsy is necessary to determine the type of cancer, or to confirm whether the patient has cancer at all. Will follow-up with pathology results. Daughter was at bedside, updated regarding ongoing concerns and future plan. All questions and concerns were addressed. Exam Vital Signs Temp Pulse Resp BP Pulse Ox O2 Del Method 97.5 F 78 18 117/49 L 94 L Room Air 01/25/25 07:59 01/25/25 07:59 01/25/25 07:59 01/25/25 07:59 01/25/25 07:59 01/25/25 07:59 Narrative Exam GENERAL: no acute distress, AAO x3, well nourished. Icelandic-speaking female HEENT: Head AT/ NC. Mucous membranes moist. PERRL. NECK: Supple, no lymphadenopathy, no carotid bruits. CARDIOVASCULAR: RRR. Normal S1/S2, No m/r/g. No pitting edema of bilateral LEs. L breast mass with firmness noted on lower quadrants. There is associated nipple retraction and visible scratch georges on the left breast. Patient also endorsed intermittent itching in the area. RESPIRATORY: CTAB. No wheezing, rhonchi, crackles. GASTROINTESTINAL: Abdomen soft, mild tenderness on epigastric area, negative Aldridge sign. Bowel sounds present in all 4 quadrants. MUSCULOSKELETAL:? No cyanosis or edema, no visible joint swelling. NEUROLOGICAL: CN II-XII grossly intact. No focal deficits. Sensation intact, symmetric. PSYCHIATRIC: Awake and alert, not agitated, normal mood and affect. INTEGUMENTARY: No obvious rashes, no jaundice, normal turgor. Objective Labs 01/28/25 04:45 01/28/25 04:45 Labs: Laboratory Results - last 24 hr 01/24/25 01/24/25 01/25/25 01:17 10:25 06:40 WBC 3.4 L RBC 3.49 L Hgb 9.1 L Hct 28.4 L MCV 81 MCH 26.1 MCHC 32.0 RDW Std Deviation 63.1 H Plt Count 100 L Neut % (Auto) 46 Lymph % (Auto) 35 [place] % (Auto) 12 Eos % (Auto) 6 Baso % (Auto) 1 Neut # (Auto) 1.6 L Lymph # (Auto) 1.2 [place] # (Auto) 0.4 Eos # (Auto) 0.2 Baso # (Auto) 0.0 Immature Gran # (Auto) 0.01 H Absolute Nucleated RBC 0.00 Immature Gran % 0 Nucleated RBC % 0 PT 13.9 H INR 1.3 APTT 33.5 Sodium 143 Potassium 4.1 Chloride 113 H Carbon Dioxide 25.1 Anion Gap 5 L BUN 11 Creatinine 0.7 Estim Creat Clear Calc 92.1 eGFR > 60 BUN/Creatinine Ratio 16 Glucose 82 D Calculated Osmolality 283 Calcium 7.8 L Corrected Calcium 8.8 Phosphorus 2.6 Magnesium 1.9 Total Bilirubin 2.2 H AST 49 H ALT 24 Alkaline Phosphatase 121 H D B-Natriuretic Peptide 35 41 Total Protein 5.6 L Albumin 2.7 L D Globulin 2.9 Albumin/Globulin Ratio 0.9 L Triglycerides 82 Cholesterol 133 LDL Cholesterol, Calc 72 HDL Cholesterol 45 Cholesterol/HDL Ratio 3.0 L Amylase 68 Lipase 35 D TSH 1.16 Hepatitis A IgM Ab Non Reactive Hep Bs Antigen Non Reactive Hep B Core IgM Ab Non Reactive Hepatitis C Antibody Non Reactive Quality Measures Quality Measures none Assessment & Plan Assessment Current Active Medications: Generic Name Dose Route Start Last Admin Trade Name Freq PRN Reason Stop Dose Admin Acetaminophen 650 mg 01/24/25 17:41 Acetaminophen 325 Mg Tablet PO 02/23/25 10:09 Q6HR PRN PAIN OR FEVER > 101 Hydrocodone Bitart/Acetaminophen 1 tab 01/24/25 17:39 Hydrocodone/Apap 5/325 Tablet PO 01/29/25 17:38 Q6HR PRN PAIN SCALE 4-10(Mod-Sev Heparin Sodium (Porcine) 5,000 unit 01/24/25 10:15 01/25/25 09:14 Heparin Sod Inj 5000 Unit/Ml Vial SC 02/07/25 10:14 5,000 unit Q12HR IGLESIA Administration Ceftriaxone Sodium/Dextrose 1 gm in 50 mls @ 100 mls/hr 01/24/25 10:18 01/25/25 09:14 Rocephin/D5w 1gm Iv Premix IV 01/31/25 10:17 100 mls/hr QDAY IGLESIA Administration Ondansetron HCl 4 mg 01/24/25 10:10 Ondansetron Inj 2 Mg/Ml Inj 2 Ml IVP 02/23/25 10:09 Q6H PRN NAUSEA OR VOMITING Protocol Pantoprazole Sodium 40 mg 01/25/25 09:00 01/25/25 09:12 Pantoprazole Inj 40 Mg Vial IVP 02/24/25 08:59 40 mg BID IGLESIA Administration Plan 59-year-old female with past medical history of nonalcoholic related liver cirrhosis, hypertension, splenomegaly, esophageal varices status post banding age was admitted for abdominal pain secondary due to most likely idiopathic pancreatitis versus biliary dyskinesia treatment and management. #Abdominal pain likely secondary due to pancreatitis given elevated lipase- resolved #Pancreatitis most likely idiopathic, as ultrasound is negative for cholelithiasis, patient denies any use of alcohol, currently is not on any medication that can cause drug-induced pancreatitis, will continue further workup.Labs revealed elevated lipase, AST, ALP T.bili are elevated Presented with complaint of abdominal pain, mainly located on epigastric area that would radiate to the back. ? Keep n.p.o. pending EGD and HIDA scan ? IV hydration, gentle hydration given the history of orthopnea, pending echo ? Symptomatic management with pain medication as needed and Zofran, although pain completely resolved, patient did not need any opioids for pain management. However we will keep n.p.o. for studies, diet per GI ? Will evaluate patient, advance diet as tolerates, #? Biliary dyskinesia The symptoms may have been related to gallbladder hypomotility or dyskinesia Patient presented with complaints of pain, Aldridge sign is negative, patient will describe pain as dull and aching Pain does radiate to the shoulder and back, which can also be related with pancreatic symptoms Patient was complaining of nausea, vomiting indigestion, bloating Ultrasound was negative for gallstones ? Keep n.p.o. for now HIDA scan is taken, pending results, patient will have a EGD done today, after the procedures, diet can be resumed to clear liquid advance as tolerates ? HIDA scan, taken, pending results ? Patient may need EUS if there is a suspicion of biliary tract disease that is not visible on the regular ultrasound ? The management would be conservative, dietary modification, low-fat diet to reduce the need for bile secretion and decrease symptoms, pain management as needed, for now continue with IV fluid, conservative with pain management and will follow-up with GI recommendations. #Portal hypertension CT imaging showed esophageal varices, splenomegaly, patient does have a thrombocytopenia ?We may consider beta-blockers such as propranolol for esophageal varices, however patient currently denies any bleeding, hematemesis, ? Dr. Sommer was consulted, and recommended to do therapeutic EGD for possible bandage ? HIDA scan to assess biliary function and exclude biliary pathology, cholelithiasis, dysfunction that could explain the abdominal symptoms ? Hepatitis panel is negative ? GI was consulted, recommendations appreciated #Orthopnea Patient presented with complaints of orthopnea that was progressively getting worse Physical exam is negative for crackles and lower extremity edema ? Will obtain echo ? Avoid aggressive IV fluids, close monitor for oxygenation. #Left breast mass with nipple retraction The patient reported that for the past 8 months, she has noticed a mass in her left breast. On physical examination, the mass is hard with firmness noted on all to lower quadrants. There is associated nipple retraction and visible scratch georges on the left breast. Patient also endorsed intermittent itching in the area. She stated that the symptoms began approximately 8 months ago, but she has not sought any medical attention until now CT chest revealed complex mass retroareolar region right breast measuring up to 5 cm in thickness with skin thickening. 8 mm right axillary lymph node At least 6 subcentimeter noncalcified pulmonary nodules, likely metastatic The left breast ultrasound is within normal limits. The right breast ultrasound is still pending. ?Dr. Gustafson was consulted, Biopsy is necessary to determine the type of cancer, or to confirm whether the patient has cancer at all ?Ultrasound-guided RT biopsy was ordered, will follow-up with results ?Daughter was at bedside, was updated regarding current concerns and ongoing workup. #Numerous mesenteric lymph nodes seen on CT The presence of numerous mesenteric lymph nodes in this patient could be related to portal hypertension, chronic liver disease or inflammatory process such as IBD or infectious causes. It also could be a sign of malignancy, either from abdominal cancer example colorectal cancer or gastric cancer or lymphoma. Given the patient's complex presentation, further diagnostic workup including imaging and potentially biopsy will be necessary to clarify the cause. Disposition: MedSurg DVT prophylaxis: Heparin GI prophylaxis: PPI Diet: N.p.o. pending EGD, after procedure diet to be resumed per GI Lines: PIV CODE STATUS:Full code Patient care was discussed with attending physician Dr. Colleen Issa MD PGY-2 Attending Provider Attestation/Addendum I have examined the patient, reviewed labs and imaging findings, discussed the case with the resident(s), and reviewed entered orders. I agree with the plan of care as outlined in this note. Dr. Colleen MD
--- NOTE | 2025-01-25 10:14 | ECHO_ITS ---
Transthoracic Echo Report Ht (in): 66 Wt (lb): 182 Exam Location: Echo Lab Status: Inpatient Portrait Painter: Indications: Procedure Performed: BP: 106 / 59 HR: 92 Technical Quality: Adequate MEASUREMENTS (Male / Female) Normal Values 2D ECHO LV Diastolic Diameter PLAX 5.1 cm 4.2 - 5.9 / 3.9 - 5.3 cm LV Systolic Diameter PLAX 2.4 cm IVS Diastolic Thickness 0.8 cm 0.6 - 1.0 / 0.6 - 0.9 cm LVPW Diastolic Thickness 0.8 cm 0.6 - 1.0 / 0.6 - 0.9 cm LV Relative Wall Thickness 0.3 LVOT Diameter 1.9 cm LA Volume Index 51.8 cm?/m? 16 - 28 cm?/m? Ascending Aorta Diameter 3.0 cm DOPPLER AV Peak Velocity 224.0 cm/s AV Peak Gradient 20.1 mmHg AV Mean Gradient 10.0 mmHg AV Velocity Time Integral 48.9 cm LVOT Peak Velocity 132.5 cm/s LVOT Peak Gradient 7.0 mmHg LVOT Velocity Time Integral 31.7 cm LVOT Cardiac Index 4167.8 cm?/min?m? AV Area Cont Eq vti 1.8 cm? AV Area Cont Eq pk 1.7 cm? MV Area PHT 2.6 cm? Mitral E Point Velocity 114.0 cm/s Mitral A Point Velocity 96.0 cm/s Mitral E to A Ratio 1.2 LV E' Lateral Velocity 11.7 cm/s Mitral E to LV E' Lateral Ratio 9.7 LV E' Septal Velocity 6.3 cm/s Mitral E to LV E' Septal Ratio 18.1 PV Peak Velocity 117.0 cm/s PV Peak Gradient 5.5 mmHg FINDINGS Left Ventricle Normal left ventricular size, wall thickness, systolic function with no obvious regional wall motion abnormalities. Normal left ventricular diastolic filling pattern for age. The ejection fraction is visually estimated at 65 %. Right Ventricle The right ventricle is normal in size and systolic function. The estimated right ventricular systolic pressure can not be determined due to innadequate tricuspid signal. Left Atrium The left atrial cavity size is severely increased. Right Atrium The right atrial cavity size is severely increased. Atrial Septum The interatrial septum appears normal with no evidence of a shunt. Aorta The aorta is normal by two-dimensional, color flow and Doppler interrogation. Mitral Valve The mitral valve is normal by two-dimensional, color flow and Doppler interrogation. There is trace mitral valve regurgitation. Aortic Valve The aortic valve is trileaflet and normal by two-dimensional, color flow and Doppler interrogation. There is no significant aortic valve regurgitation. Tricuspid Valve The tricuspid valve is normal by two-dimensional, color flow and Doppler interrogation. There is trace tricuspid valve regurgitation. Pulmonic Valve The pulmonic valve is not well visualized. There is no significant pulmonic valve regurgitation. Vessels The pulmonary artery appears normal. The inferior vena cava pulmonary and hepatic veins appear normal. Pericardium The pericardium is normal by two-dimensional imaging. There is no significant pericardial effusion. CONCLUSIONS Indications: SOB LV Normal. Estimated EF 65%. Normal Diastology. RV Normal. Severe RACHID Trace MR, TR. No Pericardial Effusion. Doug Bradley (Electronically Signed) Final Date: 26 January 2025 11:48
--- NOTE | 2025-01-25 14:04 | XR_ITS ---
Examinations: Ultrasound-guided percutaneous breast biopsy, right breast retroareolar mass Right breast sonography limited. Exam date and time: January 25, 2025 1147 hours INDICATIONS: Complex right breast mass retroareolar with skin thickening on CT chest 05/27/2025. Informed consent provided. Technique: A timeout was completed verifying correct patient, procedure, site, positioning, and special equipment if applicable Informed consent provided. The patient was placed in a supine position for the breast biopsy. Sonographic images of the breast were performed for localization of the suspicious nodule The patient's breast was prepped and draped in sterile fashion. Maximum sterile barrier technique, hand hygiene, ultrasound sterile technique 1% lidocaine was used to anesthetize the skin and breast adjacent to the suspicious nodule. Utilizing ultrasonographic guidance, 8 core biopsies were obtained of the suspicious nodule utilizing an 18-gauge BioPince needle. The specimens appears satisfactory. US guided breast biopsy marker placement. Estimated blood loss 3 cc. The patient tolerated the procedure well and there were no complications. Impression: Successful ultrasound-guided percutaneous breast biopsy, right breast retroareolar mass. Ultrasound guided breast biopsy marker placement.
--- NOTE | 2025-01-25 15:20 | PC.SS ---
SS follow up note; Patient is pending a Hyda-scan and breast biopsy.
--- NOTE | 2025-01-25 15:31 | SUR.PHASEI ---
1531: Pt. wakes to name then drifts back to sleep, vitals stable, breathing unlabored, no complaint of pain or nausea, no dressing in place, no active bleed noted, report received from Viviane OLEARY.
--- NOTE | 2025-01-25 15:42 | PC.SS ---
Patient Radha Perera is a 59 Year old female admitted for Nausea, vomiting. SS met with patient at bedside, however patient was asleep. SS contacted patient's daughter, Jessi Marquez who reports herself and her father Stevan Marquez are medical decision makers, [phone] and [phone]. She reports patient lives at home with her father. Patient is able to complete ADL's and does not utilize any source of DME to assist with ambulation, however patient does need assistance with meal preparation. choice of pharmacy is [facility]. PCP is Elma Franz. At time of discharge patient will return back home. family will provide transportation. Discharge plan: Home NExt of kin: , Stevan Marquez and Daughter, Jessi Marquez
--- NOTE | 2025-01-25 15:55 | SUR.PHASEI ---
1555: Pt. AAOx4, vitals stable, breathing unlabored, no complaint of pain or nausea, no dressing in place, no active bleed noted, report given to Maria L OLEARY prior to transfer to room 355. Family made aware of transfer to room.
--- NOTE | 2025-01-25 16:20 | PD.ONCCONS ---
HPI Data of Consult Consult date: 01/25/25 Requesting Physician: Oumar Houston MD Primary Care Provider: Elma Franz MD Consult Narrative Reason for consult: Suspected advanced left breast cancer History of present illness: Patient is a 59-year-old lady with nonalcohol related liver cirrhosis portal hypertension varices admitted with abdominal pain nausea vomiting who underwent upper endoscopy today, revealing grade 2 esophageal varices banded complete eradicated. CT chest 01/24/2025 revealed esophageal varices portal hypertension significant splenomegaly, but also revealed complex right breast mass retroareolar with skin thickening and likely metastatic pulmonary nodules. Patient reportedly had known growing lesion there for several months duration did not seek medical help. Had HIDA scan showing no definite gallbladder activity consistent with cystic duct obstruction. Labs 01/25/2025 3.4 WBC 9.1 hemoglobin platelets 100,000. CMP mildly elevated alk phos bilirubin AST. Ultrasound-guided biopsy of the right breast has been ordered for tomorrow. cc:: cc: Oumar Houston MD Past Medical History Family History OTHER FAMILY HX: Mother had hepatitis Social History SOCIAL: Denies alcohol abuse Past Medical History Comments PMH COMMENT: Nonalcohol related liver cirrhosis portal hypertension splenomegaly esophageal varices Meds Home Medications and Allergies Home Medications ?Medication ?Instructions ?Recorded ?Confirmed ?Type cardo nicol 120 mg PO DAILY liver 01/25/25 01/25/25 History neomixen 250 mg PO DAILY 01/25/25 01/25/25 History ulsen 20 mg PO DAILY PRN for stomach 01/25/25 01/25/25 History Allergies Allergy/AdvReac Type Severity Reaction Status Date / Time No Known Allergies Allergy Verified 01/24/25 00:01 Exam Vital Signs Temp Pulse Resp BP Pulse Ox O2 Del Method O2 Flow Rate 98.6 F 76 20 86/63 L 94 L Room Air 2 01/25/25 15:52 01/25/25 15:52 01/25/25 15:52 01/25/25 15:52 01/25/25 15:52 01/25/25 07:59 01/25/25 15:52 Narrative Exam Thickened right breast with palpable mass at least 5 cm Results Labs 01/25/25 06:40 01/25/25 06:40 Labs: Short CBC 01/25/25 Range/Units 06:40 WBC 3.4 L (3.6-11.0) Thou/mm3 Hgb 9.1 L (12.0-16.0) g/dL Hct 28.4 L (36.0-46.0) % Plt Count 100 L (140-440) Thou/mm3 BMP 01/25/25 06:40 Sodium 143 Potassium 4.1 Chloride 113 H Carbon Dioxide 25.1 BUN 11 Creatinine 0.7 Glucose 82 D Calcium 7.8 L Liver Function 01/25/25 Range/Units 06:40 Total Bilirubin 2.2 H (0.3-1.2) mg/dL AST 49 H (0-34) U/L ALT 24 (10-49) U/L Alkaline Phosphatase 121 H D (46-116) U/L Albumin 2.7 L D (3.4-4.8) gm/dL Assessment and Plan Additional Assessment & Plan Additional Plan: 1. 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 2. Ultrasound-guided biopsy pending for AM. 3. Underwent upper endoscopy today revealing grade [address] Sommer 4. Nonalcohol related cirrhosis of the liver idiopathic pancreatitis thickened rectal wall, further GI workup in progress. 5. Spoke with patient's family about seeing patient next week at the cancer center following biopsy of the breast and further workup and subsequent treatment to be discussed. 6. Thank you for allowing me to evaluate this patient.
[2025-01-26] VITALS (8 sets, daily range): BP systolic 104–121; BP diastolic 52–66; PULSE 65–76; RESP 16–98; TEMP 36.4–36.6; O2SAT 94–97
[2025-01-26 05:31] LABS: Basophils # (Auto) 0.0 Thou/mm3 (0.0-0.2); Basophils % (Auto) 1 % (0-2.5); Eosinophils # (Auto) 0.2 Thou/mm3 (0.0-0.5); Eosinophils % (Auto) 8 % (0-10); Hematocrit 28.5 % (36.0-46.0); Hemoglobin 9.0 g/dL (12.0-16.0); Immature Granulocytes Auto 0.00 Thou/mm3 (0.00-0.00); Lymphocytes # (Auto) 0.8 Thou/mm3 (1.0-4.8); Lymphocytes % (Auto) 32 % (10-50); Mean Corpuscular HGB Conc 31.6 g/dl (31.0-37.0); Mean Corpuscular Hemoglobin 25.8 pg (25.0-35.0); Mean Corpuscular Volume 82 fL (80-100); Monocytes # (Auto) 0.4 Thou/mm3 (0.0-0.8); Monocytes % (Auto) 14 % (0-12); Neutrophils # (Auto) 1.2 Thou/mm3 (1.8-7.7); Neutrophils % (Auto) 46 % (37-80); Nucleated Red Blood Cell # 0.00 Thou/mm3 (0.00-0.00); Nucleated Red Blood Cell % 0 /100 WBC (0); Platelet Count 92 Thou/mm3 (140-440); RDW Standard Deviation 62.4 fL (36.4-46.3); Red Blood Count 3.49 Miln/mm3 (4.00-5.20)
[2025-01-26 05:41] LABS: Alanine Aminotransferase 23 U/L (10-49); Albumin, Serum 2.7 gm/dL (3.4-4.8); Albumin/Globulin Ratio 0.9 (1.2-2.2); Alkaline Phosphatase 116 U/L (46-116); Anion Gap 3 (7-16); Aspartate Amino Transferase 45 U/L (0-34); BUN/Creatinine Ratio 11 Ratio (12-20); Bilirubin,Total 2.4 mg/dL (0.3-1.2); Blood Urea Nitrogen 9 mg/dL (9-23); Calcium 7.8 mg/dL (8.3-10.6); Calcium (Corrected) 8.8 mg/dL (8.5-10.1); Carbon Dioxide 27.2 mMol/L (20.0-31.0); Chloride 113 mMol/L (98-107); Creatinine (Component) 0.8 mg/dL (0.6-1.3); Estimated Creatinine Clearance 80.6 mL/min (>60); Globulin 2.9 gm/dL (2.3-3.5); Glucose 87 mg/dL (74-106); Magnesium 2.0 mg/dL (1.6-2.6); Osmolality,Calculated 282 (275-295); Phosphorous 3.4 mg/dL (2.4-5.1); Potassium 3.9 mMol/L (3.4-5.1); Sodium 143 mMol/L (136-145); Total Protein 5.6 gm/dL (5.7-8.2); White Blood Count 2.6 Thou/mm3 (3.6-11.0); eGFR > 60 See Note
[2025-01-26] MEDS: cefTRIAXone/D5w 1gm IV premix 1 GM/50 ML BAG IV (09:15)
[2025-01-26] MEDS: ACETAMINOPHEN 325 MG TABLET 650 MG PO (09:15)
--- NOTE | 2025-01-26 09:38 | ESPR_ITS ---
<Statement entered by Sharif Spears MD - 01/28/25 09:23> I have discussed and was present for the essential components of the history, physical examination, diagnosis, and treatment plan with the resident. I agree with the patient's care as documented by the resident and amended herein by me. Sharif Spears MD FACP. Documentation for date of: 01/26/25 Subjective Subjective Interval history: Patient was seen and examined at bedside. No acute overnight events. Labs and vitals stable, without significant changes. Patient reports good appetite, eating and drinking her morning breakfast. She has not had a bowel movement in a day. Yesterday GI performed HIDA scan that positive for cystic duct obstruction with no gall bladder activity. Also performed was a therapeutic EGD with band ligation x2 ion the lower 3rd esophagus, will continue to follow-up with recommendations. CT with contrast revealed CT chest revealed complex mass retroareolar region right breast measuring up to 5 cm in thickness with skin thickening. 8 mm right axillary lymph node. At least 6 subcentimeter noncalcified pulmonary nodules, likely metastatic. The left breast ultrasound is within normal limits. Dr. Gustafson was consulted, Biopsy is necessary to determine the type of cancer, or to confirm whether the patient has cancer at all. Will follow-up with pathology results. Daughter was at bedside, updated regarding ongoing concerns and future plan. All questions and concerns were addressed. Exam Vital Signs Temp Pulse Resp BP Pulse Ox O2 Del Method O2 Flow Rate 97.5 F 67 16 121/59 L 95 Room Air 1 01/26/25 08:00 01/26/25 08:00 01/26/25 08:00 01/26/25 08:00 01/26/25 08:00 01/26/25 08:00 01/26/25 04:00 Narrative Exam VITALS:? All vitals were reviewed and the pulse ox is 95% on room air HEENT: Normocephalic, atraumatic.? Pupils are equal and reactive.? Oral mucosa is moist. Patent Nares NECK: Supple, nontender, no thyromegaly, no meningismus, no JVD, no step offs CARDIOVASCULAR: Heart regular rhythm no murmur or gallop rub or extra beats. LUNGS: Clear to auscultation bilaterally with symmetrical chest rise.? No laboring tachypnea or wheezing.? No intercostal subcostal retraction.? No rales and no rhonchi. ABDOMEN: Soft, flat, nontender to palpation, no guarding or rebound tenderness.? There are no abnormal masses palpated.? Active and normal bowel sounds. EXTREMITIES: Nontender.? No edema.? No cyanosis.? Patient is able to move all 4 extremities well, with full ROM and good CSM. SKIN: Warm and dry, no jaundice or rashes noted. MUSCULOSKELETAL: No lumbar or midline bony tenderness.?s. NEURO: Patient is WILSON x 4, Cranial nerves II through XII grossly intact.? There is no focal neurologic deficits noted.? GCS is 15, PNS and LINING BRUSHER appear grossly intact. PSYCHIATRIC: Patient is in normal mood and affect, cooperative, no SI or HI or hallucinations. Detailed Breast Exam left lower outer: Comments: mass is hard with firmness noted on all to lower quadrants. There is associated nipple retraction and visible scratch georges on the left breast.\ Objective Labs 01/26/25 04:55 01/26/25 04:55 Labs: Laboratory Results - last 24 hr 01/26/25 04:55 WBC 2.6 L RBC 3.49 L Hgb 9.0 L Hct 28.5 L MCV 82 MCH 25.8 MCHC 31.6 RDW Std Deviation 62.4 H Plt Count 92 L Neut % (Auto) 46 Lymph % (Auto) 32 [place] % (Auto) 14 H Eos % (Auto) 8 Baso % (Auto) 1 Neut # (Auto) 1.2 L Lymph # (Auto) 0.8 L [place] # (Auto) 0.4 Eos # (Auto) 0.2 Baso # (Auto) 0.0 Immature Gran # (Auto) 0.00 Absolute Nucleated RBC 0.00 Immature Gran % 0 Nucleated RBC % 0 Sodium 143 Potassium 3.9 Chloride 113 H Carbon Dioxide 27.2 Anion Gap 3 L BUN 9 Creatinine 0.8 Estim Creat Clear Calc 80.6 eGFR > 60 BUN/Creatinine Ratio 11 L Glucose 87 Calculated Osmolality 282 Calcium 7.8 L Corrected Calcium 8.8 Phosphorus 3.4 Magnesium 2.0 Total Bilirubin 2.4 H AST 45 H ALT 23 Alkaline Phosphatase 116 Total Protein 5.6 L Albumin 2.7 L Globulin 2.9 Albumin/Globulin Ratio 0.9 L Quality Measures Quality Measures none Assessment & Plan Assessment Current Active Medications: Generic Name Dose Route Start Last Admin Trade Name Freq PRN Reason Stop Dose Admin Acetaminophen 650 mg 01/24/25 17:41 01/26/25 09:15 Acetaminophen 325 Mg Tablet PO 02/23/25 10:09 650 mg Q6HR PRN Administration PAIN OR FEVER > 101 Hydrocodone Bitart/Acetaminophen 1 tab 01/24/25 17:39 Hydrocodone/Apap 5/325 Tablet PO 01/29/25 17:38 Q6HR PRN PAIN SCALE 4-10(Mod-Sev Heparin Sodium (Porcine) 5,000 unit 01/24/25 10:15 01/25/25 09:14 Heparin Sod Inj 5000 Unit/Ml Vial SC 02/07/25 10:14 5,000 unit Q12HR IGLESIA Administration Ceftriaxone Sodium/Dextrose 1 gm in 50 mls @ 100 mls/hr 01/24/25 10:18 01/26/25 09:15 Rocephin/D5w 1gm Iv Premix IV 01/31/25 10:17 100 mls/hr QDAY IGLESIA Administration Ondansetron HCl 4 mg 01/24/25 10:10 Ondansetron Inj 2 Mg/Ml Inj 2 Ml IVP 02/23/25 10:09 Q6H PRN NAUSEA OR VOMITING Protocol Pantoprazole Sodium 40 mg 01/25/25 09:00 01/26/25 09:15 Pantoprazole Inj 40 Mg Vial IVP 02/24/25 08:59 40 mg BID IGLESIA Administration Plan 59-year-old female with past medical history of nonalcoholic related liver cirrhosis, hypertension, splenomegaly, esophageal varices status post banding age was admitted for abdominal pain secondary due to most likely idiopathic pancreatitis versus biliary dyskinesia treatment and management. #Abdominal pain likely secondary due to pancreatitis given elevated lipase- resolved #Pancreatitis most likely idiopathic, as ultrasound is negative for cholelithiasis, patient denies any use of alcohol, currently is not on any medication that can cause drug-induced pancreatitis, will continue further workup.Labs revealed elevated lipase, AST, ALP T.bili are elevated Presented with complaint of abdominal pain, mainly located on epigastric area that would radiate to the back. ? No longer NPO. Diet can be resumed to clear liquids and solid foods. Per IR patient NPO on Saturday, 01/27, midnight for biliary drainage . ? IV hydration, gentle hydration given the history of orthopnea, pending echo ? Symptomatic management with pain medication as needed and Zofran, although pain completely resolved, patient did not need any opioids for pain management. However we will keep n.p.o. for studies, diet per GI ? Will evaluate patient, advance diet as tolerates, #? Biliary dyskinesia The symptoms may have been related to gallbladder hypomotility or dyskinesia Patient presented with complaints of pain, Ald[place] sign is negative, patient will describe pain as dull and aching Pain does radiate to the shoulder and back, which can also be related with pancreatic symptoms Patient was complaining of nausea, vomiting indigestion, bloating Ultrasound was negative for gallstones ?No longer NPO. Diet can be resumed to clear liquids and solid foods. Per IR patient NPO on Saturday, 01/27, midnight for biliary drainage . ? HIDA scan, cystic duct obstruction noted. - Plan for IR Biliary Drainage, order placed 01/26/2025 -Plan for . Hold heparin due to low platelets. ?EGD showed grade 2 varices in lower 3rd of esophagus, 2 bands placed that resolved. Erythema gastric mucousa noted without active bleeding. ? Patient may need EUS if there is a suspicion of biliary tract disease that is not visible on the regular ultrasound ? The management would be conservative, dietary modification, low-fat diet to reduce the need for bile secretion and decrease symptoms, pain management as needed, for now continue with IV fluid, conservative with pain management and will follow-up with GI recommendations. #Portal hypertension CT imaging showed esophageal varices, splenomegaly, patient does have a thrombocytopenia ?We may consider beta-blockers such as propranolol for esophageal varices, however patient currently denies any bleeding, hematemesis, ? Dr. Sommer was consulted, and recommended to do therapeutic EGD for possible bandage. EGD showed grade 2 varices in lower 3rd of esophagus, 2 bands placed that resolved. Erythema gastric mucousa noted without active bleeding. ? HIDA scan, cystic duct obstruction noted. ? Hepatitis panel is negative ? GI was consulted, recommendations appreciated #Orthopnea Patient presented with complaints of orthopnea that was progressively getting worse Physical exam is negative for crackles and lower extremity edema ? Will obtain echo ? Avoid aggressive IV fluids, close monitor for oxygenation. #Left breast mass with nipple retraction The patient reported that for the past 8 months, she has noticed a mass in her left breast. On physical examination, the mass is hard with firmness noted on all to lower quadrants. There is associated nipple retraction and visible scratch [place] on the left breast. Patient also endorsed intermittent itching in the area. She stated that the symptoms began approximately 8 months ago, but she has not sought any medical attention until now CT chest revealed complex mass retroareolar region right breast measuring up to 5 cm in thickness with skin thickening. 8 mm right axillary lymph node At least 6 subcentimeter noncalcified pulmonary nodules, likely metastatic The left breast ultrasound is within normal limits. The right breast ultrasound is still pending. ?Dr. Gustafson was consulted, Biopsy is necessary to determine the type of cancer, or to confirm whether the patient has cancer at all ?Ultrasound-guided RT biopsy was ordered, will follow-up with results ?Daughter was at bedside, was updated regarding current concerns and ongoing workup. #Numerous mesenteric lymph nodes seen on CT The presence of numerous mesenteric lymph nodes in this patient could be related to portal hypertension, chronic liver disease or inflammatory process such as IBD or infectious causes. It also could be a sign of malignancy, either from abdominal cancer example colorectal cancer or gastric cancer or lymphoma. Given the patient's complex presentation, further diagnostic workup including imaging and potentially biopsy will be necessary to clarify the cause. Disposition: MedSur DVT prophylaxis: Heparin GI prophylaxis: PPI Diet: N.p.o. pending EGD, after procedure diet to be resumed per GI Lines: PIV CODE STATUS:Full code Patient care was discussed with attending physician Dr. Tory Lay MD PGY-1 Patient seen and examined at bedside, no acute overnight events. I discussed and supervised with the machine learning intern physician who tookj care of this patient. I personally saw and examined the patient. I agree with most of the assessment and plan. Patient abdominal pain improving, will continue to advance diet. HIDA scan consistent with cystic duct obstruction, holding heparin with plan for IR percutaneous drain placment 01/28. Biopsy of right breast mass performed, results pending. Plan of care discussed with attending Dr. Spears. Esau Garvin MD PGY-2
[2025-01-26 10:39] LABS: OBS QC OK? Yes
[2025-01-26 10:45] LABS: Occult Blood, Stool Negative (Negative)
--- NOTE | 2025-01-26 14:01 | PC.NURSE ---
consulted Dr. Bansal regarding order for percutanous biliary drain placement, went over labs including platelets currently 92 and patient received last heparin injection yesterday 01/25/25, procedure postponed for possible 01/28/25 if platelet levels improve. Med Surg Nurse Kelley made aware of patient plan of care.
--- NOTE | 2025-01-26 17:08 | ESPR_ITS ---
Documentation for date of: 01/26/25 Subjective Subjective Interval history: Hemoglobin hematocrit 9.0 and 28.5 patient status post band ligation of esophageal varices Advance to peptic ulcer disease diet Exam Vital Signs Temp Pulse Resp BP Pulse Ox O2 Del Method O2 Flow Rate 97.7 F 76 18 109/52 L 94 L Room Air 1 01/26/25 12:00 01/26/25 12:00 01/26/25 12:00 01/26/25 12:00 01/26/25 12:00 01/26/25 12:00 01/26/25 04:00 Objective Labs 01/26/25 04:55 01/26/25 04:55 Labs: Laboratory Results - last 24 hr 01/24/25 01/26/25 09:40 04:55 WBC 2.6 L RBC 3.49 L Hgb 9.0 L Hct 28.5 L MCV 82 MCH 25.8 MCHC 31.6 RDW Std Deviation 62.4 H Plt Count 92 L Neut % (Auto) 46 Lymph % (Auto) 32 [place] % (Auto) 14 H Eos % (Auto) 8 Baso % (Auto) 1 Neut # (Auto) 1.2 L Lymph # (Auto) 0.8 L [place] # (Auto) 0.4 Eos # (Auto) 0.2 Baso # (Auto) 0.0 Immature Gran # (Auto) 0.00 Absolute Nucleated RBC 0.00 Immature Gran % 0 Nucleated RBC % 0 Sodium 143 Potassium 3.9 Chloride 113 H Carbon Dioxide 27.2 Anion Gap 3 L BUN 9 Creatinine 0.8 Estim Creat Clear Calc 80.6 eGFR > 60 BUN/Creatinine Ratio 11 L Glucose 87 Calculated Osmolality 282 Calcium 7.8 L Corrected Calcium 8.8 Phosphorus 3.4 Magnesium 2.0 Total Bilirubin 2.4 H AST 45 H ALT 23 Alkaline Phosphatase 116 Total Protein 5.6 L Albumin 2.7 L Globulin 2.9 Albumin/Globulin Ratio 0.9 L Stool Occult Blood Negative Impressions Impression: Acute posthemorrhagic anemia Esophageal varices requiring band ligation doing well Advance diet Assessment & Plan A&P Narrative 1. 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 2. Ultrasound-guided biopsy pending for AM. 3. Underwent upper endoscopy today revealing grade [address] Sommer 4. Nonalcohol related cirrhosis of the liver idiopathic pancreatitis thickened rectal wall, further GI workup in progress. 5. Spoke with patient's family about seeing patient next week at the cancer center following biopsy of the breast and further workup and subsequent treatment to be discussed. 6. Thank you for allowing me to evaluate this patient. Time Spent With Patient Time: Total time spent is greater than 50% in coordination of care (as documented) at patient's floor/unit and/or counseling patient:
[2025-01-27] VITALS (7 sets, daily range): BP systolic 98–126; BP diastolic 51–69; PULSE 60–74; RESP 16–92; TEMP 36.4–36.8; O2SAT 95–98
[2025-01-27 06:09] LABS: Basophils # (Auto) 0.0 Thou/mm3 (0.0-0.2); Basophils % (Auto) 1 % (0-2.5); Eosinophils # (Auto) 0.2 Thou/mm3 (0.0-0.5); Eosinophils % (Auto) 7 % (0-10); Hematocrit 28.4 % (36.0-46.0); Hemoglobin 9.2 g/dL (12.0-16.0); Immature Granulocytes Auto 0.01 Thou/mm3 (0.00-0.00); Lymphocytes # (Auto) 0.7 Thou/mm3 (1.0-4.8); Lymphocytes % (Auto) 26 % (10-50); Mean Corpuscular HGB Conc 32.4 g/dl (31.0-37.0); Mean Corpuscular Hemoglobin 26.4 pg (25.0-35.0); Mean Corpuscular Volume 81 fL (80-100); Monocytes # (Auto) 0.3 Thou/mm3 (0.0-0.8); Monocytes % (Auto) 12 % (0-12); Neutrophils # (Auto) 1.5 Thou/mm3 (1.8-7.7); Neutrophils % (Auto) 53 % (37-80); Nucleated Red Blood Cell # 0.00 Thou/mm3 (0.00-0.00); Nucleated Red Blood Cell % 0 /100 WBC (0); Platelet Count 86 Thou/mm3 (140-440); RDW Standard Deviation 62.0 fL (36.4-46.3); Red Blood Count 3.49 Miln/mm3 (4.00-5.20)
[2025-01-27 06:34] LABS: White Blood Count 2.7 Thou/mm3 (3.6-11.0)
[2025-01-27 07:31] LABS: Alanine Aminotransferase 25 U/L (10-49); Albumin, Serum 2.8 gm/dL (3.4-4.8); Albumin/Globulin Ratio 0.9 (1.2-2.2); Alkaline Phosphatase 120 U/L (46-116); Anion Gap 6 (7-16); Aspartate Amino Transferase 52 U/L (0-34); BUN/Creatinine Ratio 11 Ratio (12-20); Bilirubin,Total 2.2 mg/dL (0.3-1.2); Blood Urea Nitrogen 9 mg/dL (9-23); Calcium 8.0 mg/dL (8.3-10.6); Calcium (Corrected) 9.0 mg/dL (8.5-10.1); Carbon Dioxide 25.6 mMol/L (20.0-31.0); Chloride 112 mMol/L (98-107); Creatinine (Component) 0.8 mg/dL (0.6-1.3); Estimated Creatinine Clearance 80.6 mL/min (>60); Globulin 3.0 gm/dL (2.3-3.5); Glucose 78 mg/dL (74-106); Magnesium 2.0 mg/dL (1.6-2.6); Osmolality,Calculated 284 (275-295); Phosphorous 3.2 mg/dL (2.4-5.1); Potassium 4.4 mMol/L (3.4-5.1); Sodium 144 mMol/L (136-145); Total Protein 5.8 gm/dL (5.7-8.2); eGFR > 60 See Note
[2025-01-27] MEDS: cefTRIAXone/D5w 1gm IV premix 1 GM/50 ML BAG IV (08:07)
--- NOTE | 2025-01-27 11:44 | PC.SS ---
SS follow up note; IR Guided Drainage tomorrow. Pending Breast biopsy. Patient will return back home when medically cleared.
--- NOTE | 2025-01-27 12:30 | ESPR_ITS ---
Documentation for date of: 01/27/25 Subjective Subjective Interval history: Patient evaluated hemoglobin hematocrit 9.2 and 28.4 Exam Vital Signs Temp Pulse Resp BP Pulse Ox O2 Del Method O2 Flow Rate 97.8 F 60 18 113/61 96 Room Air 1 01/27/25 08:00 01/27/25 08:35 01/27/25 08:35 01/27/25 08:00 01/27/25 08:00 01/27/25 08:00 01/26/25 04:00 Objective Labs 01/27/25 04:43 01/27/25 04:43 Labs: Laboratory Results - last 24 hr 01/27/25 04:43 WBC 2.7 L RBC 3.49 L Hgb 9.2 L Hct 28.4 L MCV 81 MCH 26.4 MCHC 32.4 RDW Std Deviation 62.0 H Plt Count 86 L Neut % (Auto) 53 Lymph % (Auto) 26 [place] % (Auto) 12 Eos % (Auto) 7 Baso % (Auto) 1 Neut # (Auto) 1.5 L Lymph # (Auto) 0.7 L [place] # (Auto) 0.3 Eos # (Auto) 0.2 Baso # (Auto) 0.0 Immature Gran # (Auto) 0.01 H Absolute Nucleated RBC 0.00 Immature Gran % 0 Nucleated RBC % 0 Sodium 144 Potassium 4.4 D Chloride 112 H Carbon Dioxide 25.6 Anion Gap 6 L BUN 9 Creatinine 0.8 Estim Creat Clear Calc 80.6 eGFR > 60 BUN/Creatinine Ratio 11 L Glucose 78 Calculated Osmolality 284 Calcium 8.0 L Corrected Calcium 9.0 Phosphorus 3.2 Magnesium 2.0 Total Bilirubin 2.2 H AST 52 H ALT 25 Alkaline Phosphatase 120 H Total Protein 5.8 Albumin 2.8 L Globulin 3.0 Albumin/Globulin Ratio 0.9 L Impressions Impression: Status post band ligation of the esophageal varices Continue current management Assessment & Plan A&P Narrative 1. 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 2. Ultrasound-guided biopsy pending for AM. 3. Underwent upper endoscopy today revealing grade [address] Sommer 4. Nonalcohol related cirrhosis of the liver idiopathic pancreatitis thickened rectal wall, further GI workup in progress. 5. Spoke with patient's family about seeing patient next week at the cancer center following biopsy of the breast and further workup and subsequent treatment to be discussed. 6. Thank you for allowing me to evaluate this patient. Time Spent With Patient Time: Total time spent is greater than 50% in coordination of care (as documented) at patient's floor/unit and/or counseling patient:
--- NOTE | 2025-01-27 17:39 | ESPR_ITS ---
<Statement entered by Sharif Speasr MD - 01/29/25 09:34> I have discussed and was present for the essential components of the history, physical examination, diagnosis, and treatment plan with the resident. I agree with the patient's care as documented by the resident and amended herein by me. Sharif Spears MD FACP. Documentation for date of: 01/27/25 Subjective Subjective Interval history: No overnight events. Patient seen and examined, resting comfortably. Endorses mild abdominal pain, denies nausea, vomiting, fevers. Plan for IR kimani drain tomorrow. Exam Vital Signs Temp Pulse Resp BP Pulse Ox O2 Del Method O2 Flow Rate 98.2 F 73 18 103/53 L 96 Room Air 1 01/27/25 16:00 01/27/25 16:00 01/27/25 16:00 01/27/25 16:01/27/25 16:01/27/25 16:00 01/26/25 04:00 Narrative Exam PE: Gen: Well-developed and well-nourished. HEENT: NCAT, PERRLA, EOMI, MMM, anicteric conjunctivae. CVS: normal S1 and S2. RRR. No M/R/G. Resp: CTA B/L. No rhonchi, rales, crackles or wheezing. Abd: soft, non-tender, non-distended. BS+ in all 4 quadrants. MSK: Good ROM in BUE & BLE. No edema or rash. Neuro: CN II-XII grossly intact. Strength 5/5 in BUE & BLE. Alert and oriented x3. Psych: appropriate mood and affect. Objective Labs 01/27/25 04:43 01/27/25 04:43 Labs: Laboratory Results - last 24 hr 01/27/25 04:43 WBC 2.7 L RBC 3.49 L Hgb 9.2 L Hct 28.4 L MCV 81 MCH 26.4 MCHC 32.4 RDW Std Deviation 62.0 H Plt Count 86 L Neut % (Auto) 53 Lymph % (Auto) 26 [place] % (Auto) 12 Eos % (Auto) 7 Baso % (Auto) 1 Neut # (Auto) 1.5 L Lymph # (Auto) 0.7 L [place] # (Auto) 0.3 Eos # (Auto) 0.2 Baso # (Auto) 0.0 Immature Gran # (Auto) 0.01 H Absolute Nucleated RBC 0.00 Immature Gran % 0 Nucleated RBC % 0 Sodium 144 Potassium 4.4 D Chloride 112 H Carbon Dioxide 25.6 Anion Gap 6 L BUN 9 Creatinine 0.8 Estim Creat Clear Calc 80.6 eGFR > 60 BUN/Creatinine Ratio 11 L Glucose 78 Calculated Osmolality 284 Calcium 8.0 L Corrected Calcium 9.0 Phosphorus 3.2 Magnesium 2.0 Total Bilirubin 2.2 H AST 52 H ALT 25 Alkaline Phosphatase 120 H Total Protein 5.8 Albumin 2.8 L Globulin 3.0 Albumin/Globulin Ratio 0.9 L Quality Measures Quality Measures VTE prophylaxis Assessment & Plan Assessment Current Active Medications: Generic Name Dose Route Start Last Admin Trade Name Freq PRN Reason Stop Dose Admin Acetaminophen 650 mg 01/24/25 17:41 01/26/25 09:15 Acetaminophen 325 Mg Tablet PO 02/23/25 10:09 650 mg Q6HR PRN Administration PAIN OR FEVER > 101 Hydrocodone Bitart/Acetaminophen 1 tab 01/24/25 17:39 Hydrocodone/Apap 5/325 Tablet PO 01/29/25 17:38 Q6HR PRN PAIN SCALE 4-10(Mod-Sev Heparin Sodium (Porcine) 5,000 unit 01/24/25 10:15 01/25/25 09:14 Heparin Sod Inj 5000 Unit/Ml Vial SC 02/07/25 10:14 5,000 unit Q12HR IGLESIA Administration Ceftriaxone Sodium/Dextrose 1 gm in 50 mls @ 100 mls/hr 01/24/25 10:18 01/27/25 08:07 Rocephin/D5w 1gm Iv Premix IV 01/31/25 10:17 100 mls/hr QDAY IGLESIA Administration Ondansetron HCl 4 mg 01/24/25 10:10 Ondansetron Inj 2 Mg/Ml Inj 2 Ml IVP 02/23/25 10:09 Q6H PRN NAUSEA OR VOMITING Protocol Pantoprazole Sodium 40 mg 01/25/25 09:00 01/27/25 08:06 Pantoprazole Inj 40 Mg Vial IVP 02/24/25 08:59 40 mg BID IGLESIA Administration Plan 59-year-old female with past medical history of nonalcoholic related liver cirrhosis, hypertension, splenomegaly, esophageal varices status post banding age was admitted for abdominal pain secondary due to most likely idiopathic pancreatitis versus biliary dyskinesia treatment and management. #Pancreatitis Ultrasound is negative for cholelithiasis, patient denies any use of alcohol, currently is not on any medication that can cause drug-induced pancreatitis, will continue further workup.Labs revealed elevated lipase, AST, ALP T.bili are elevated. Presented with complaint of abdominal pain, mainly located on epigastric area that would radiate to the back. ? No longer NPO. Diet can be resumed to clear liquids and solid foods. Per IR patient NPO on Saturday, 01/27, midnight for biliary drainage . ? IV hydration, gentle hydration given the history of orthopnea, pending echo ? Symptomatic management with pain medication as needed and Zofran, although pain completely resolved, patient did not need any opioids for pain management. However we will keep n.p.o. for studies, diet per GI ? Will evaluate patient, advance diet as tolerated #Biliary dyskinesia Patient was complaining of nausea, vomiting indigestion, bloating Ultrasound was negative for gallstones HIDA scan shows no gallblader activity, consistent with cystic duct obstruction. - Plan for IR Biliary Drainage tomorrow ?EGD showed grade 2 varices in lower 3rd of esophagus, 2 bands placed that resolved. Erythema gastric mucousa noted without active bleeding. #Portal hypertension CT imaging showed esophageal varices, splenomegaly, patient does have a thrombocytopenia. Dr. Sommer was consulted, and recommended to do therapeutic EGD for possible bandage. EGD showed grade 2 varices in lower 3rd of esophagus, 2 bands placed that resolved. Erythema gastric mucousa noted without active bleeding. HIDA scan, cystic duct obstruction noted. ? Hepatitis panel is negative ? GI was consulted, recommendations appreciated #Left breast mass with nipple retraction #Numerous mesenteric lymph nodes seen on CT The patient reported that for the past 8 months, she has noticed a mass in her left breast. On physical examination, the mass is hard with firmness noted on all to lower quadrants. There is associated nipple retraction and visible scratch [place] on the left breast. Patient also endorsed intermittent itching in the area. She stated that the symptoms began approximately 8 months ago, but she has not sought any medical attention until now CT chest revealed complex mass retroareolar region right breast measuring up to 5 cm in thickness with skin thickening. 8 mm right axillary lymph node At least 6 subcentimeter noncalcified pulmonary nodules, likely metastatic The left breast ultrasound is within normal limits. The right breast ultrasound is still pending. ?Dr. Gustafson was consultedappreciate recommendation ?Ultrasound-guided RT biopsy was performed, will follow-up with results #Orthopnea Patient presented with complaints of orthopnea that was progressively getting worse Physical exam is negative for crackles and lower extremity edema Echo showed LV Normal. Estimated EF 65%. Normal Diastology. RV Normal. ? Avoid aggressive IV fluids, close monitor for oxygenation. Disposition: MedSur DVT prophylaxis: Held pending procedure GI prophylaxis: PPI Diet: NPO pending procedure Lines: PIV CODE STATUS:Full code Plan of care discussed with attending Dr. Spears. Esau Garvin MD PGY-2
[2025-01-28] VITALS (11 sets, daily range): BP systolic 97–145; BP diastolic 49–80; PULSE 64–78; RESP 15–17; TEMP 36.3–37.2; O2SAT 94–100; BMI 29.7
[2025-01-28 06:22] LABS: Basophils # (Auto) 0.0 Thou/mm3 (0.0-0.2); Basophils % (Auto) 1 % (0-2.5); Eosinophils # (Auto) 0.2 Thou/mm3 (0.0-0.5); Eosinophils % (Auto) 7 % (0-10); Hematocrit 29.0 % (36.0-46.0); Hemoglobin 9.1 g/dL (12.0-16.0); INR 1.3 (0.9-1.3); Immature Granulocytes Auto 0.01 Thou/mm3 (0.00-0.00); Lymphocytes # (Auto) 0.7 Thou/mm3 (1.0-4.8); Lymphocytes % (Auto) 24 % (10-50); Mean Corpuscular HGB Conc 31.4 g/dl (31.0-37.0); Mean Corpuscular Hemoglobin 26.2 pg (25.0-35.0); Mean Corpuscular Volume 84 fL (80-100); Monocytes # (Auto) 0.4 Thou/mm3 (0.0-0.8); Monocytes % (Auto) 12 % (0-12); Neutrophils # (Auto) 1.7 Thou/mm3 (1.8-7.7); Neutrophils % (Auto) 56 % (37-80); Nucleated Red Blood Cell # 0.00 Thou/mm3 (0.00-0.00); Nucleated Red Blood Cell % 0 /100 WBC (0); Partial Thromboplastin Time 31.7 Seconds (22.0-36.0); Platelet Count 96 Thou/mm3 (140-440); Prothrombin Time 14.4 Seconds (9.0-12.2); RDW Standard Deviation 63.7 fL (36.4-46.3); Red Blood Count 3.47 Miln/mm3 (4.00-5.20); White Blood Count 3.0 Thou/mm3 (3.6-11.0)
[2025-01-28 06:48] LABS: Alanine Aminotransferase 23 U/L (10-49); Albumin, Serum 2.7 gm/dL (3.4-4.8); Albumin/Globulin Ratio 0.9 (1.2-2.2); Alkaline Phosphatase 124 U/L (46-116); Anion Gap 5 (7-16); Aspartate Amino Transferase 46 U/L (0-34); BUN/Creatinine Ratio 11 Ratio (12-20); Bilirubin,Total 1.6 mg/dL (0.3-1.2); Blood Urea Nitrogen 9 mg/dL (9-23); Calcium 8.1 mg/dL (8.3-10.6); Calcium (Corrected) 9.1 mg/dL (8.5-10.1); Carbon Dioxide 23.8 mMol/L (20.0-31.0); Chloride 113 mMol/L (98-107); Creatinine (Component) 0.8 mg/dL (0.6-1.3); Estimated Creatinine Clearance 80.6 mL/min (>60); Globulin 3.1 gm/dL (2.3-3.5); Glucose 87 mg/dL (74-106); Magnesium 1.9 mg/dL (1.6-2.6); Osmolality,Calculated 280 (275-295); Phosphorous 2.7 mg/dL (2.4-5.1); Potassium 4.3 mMol/L (3.4-5.1); Sodium 142 mMol/L (136-145); Total Protein 5.8 gm/dL (5.7-8.2); eGFR > 60 See Note
[2025-01-28] MEDS: RINGERS LACTATED 1000 ML 500 ML 999 ML IV (08:27)
[2025-01-28] MEDS: cefTRIAXone/D5w 1gm IV premix 1 GM/50 ML BAG IV (08:27)
--- NOTE | 2025-01-28 12:03 | PC.SS ---
SS follow up note; Surgery Recs pending, patient will have drainage placement today. Patient will discharge home when medically cleared.
--- NOTE | 2025-01-28 13:00 | PC.NURSE ---
[address] dertment for drain placement, entry level chemist scan completed, Dr. lindo review images, procedure cancelled. Patient transferred back to room 355, bedside report given to Bea OLEARY
--- NOTE | 2025-01-28 17:06 | ESDS_ITS ---
<Statement entered by Sharif Spears MD - 01/31/25 15:01> I have discussed and was present for the essential components of the history, physical examination, diagnosis, and treatment plan with the resident. I agree with the patient's care as documented by the resident and amended herein by me. Sharif Spears MD FACP. Planned Discharge Date 01/28/25 DS: Providers Provider Date of admission: 01/25/25 07:47 Primary care physician: Elma Franz MD Admitting Provider: Oumar Houston MD Attending Provider on Admission: Sharif Spears MD Consults: 01/24/25 09:24 Consult to Gastroenterology Stat Comment: gi consult Consulting Provider: Emerson Sommer 01/24/25 16:57 Health Equity Referral - Knowledge Deficit Routine Comment: Positive screening for knowledge deficit needs. Health [facility]ity Referral - Nutrition Routine Comment: Positive screening for nutrition needs. Health Equity Referral - Utilities Routine Comment: Positive screening for utility assistance needs. 01/25/25 14:02 Consult to Oncology Stat Comment: Consulting Provider: Miguel Gustafson 01/26/25 12:18 Consult to General Surgery Routine Comment: Consulting Provider: Rosa Montes Attending Provider on DC: Sharif Spears MD Discharging Provider: Esau Garvin MD DS: Diagnosis Problem List Completed Was Problem List Reviewed/Reconciled?: Yes Hospital Course Hospital Course Hospital course: 59-year-old female with past medical history of nonalcoholic related liver cirrhosis, hypertension, splenomegaly, esophageal varices status post banding age was admitted for abdominal pain secondary due to most likely idiopathic pancreatitis versus biliary dyskinesia treatment and management. Patient treated with IV fluids, pain management. HIDA scan showed no gallbladder activity, consistent with cystic duct obstruction. Gen surgery was consulted, recommended IR percutraneous drain placement. Patient shpwed clinical improvement, gallbladder deemed to small for drain placement. General surgery recommend patient be discharged and follow up with PCP. Patient medically stable and clear for discharge. Discharge plan: Please continue taking all home meds as previously prescribed. Please follow up with your primary doctor within 7-10 days. Please avoid high-fat foods. Please return to the ED if you develop new or worsening symptoms. Please follow up with Dr. Gustafson, Oncology, for further management of breast mass. Diagnoses: #Pancreatitis #Biliary dyskinesia #Portal hypertension #Left breast mass with nipple retraction #Numerous mesenteric lymph nodes seen on CT #Orthopnea Plan of care discussed with attending Dr. Spears. Esau Garvin MD PGY-2 Status at Discharge Overall status at discharge: patient is progressing back to baseline Time Spent with Patient Time attestation: Total time spent providing and/or coordinating discharge services: Time spent: Greater than 30 minutes Exam Vital Signs Temp Pulse Resp BP Pulse Ox O2 Del Method O2 Flow Rate 97.4 F 69 15 97/57 L 95 Room Air 3 01/28/25 15:39 01/28/25 15:39 01/28/25 15:39 01/28/25 15:39 01/28/25 15:39 01/28/25 13:18 01/28/25 12:57 Narrative Exam PE: Gen: Well-developed and well-nourished. HEENT: NCAT, PERRLA, EOMI, MMM, anicteric conjunctivae. CVS: normal S1 and S2. RRR. No M/R/G. Resp: CTA B/L. No rhonchi, rales, crackles or wheezing. Abd: soft, non-tender, non-distended. BS+ in all 4 quadrants. MSK: Good ROM in BUE & BLE. No edema or rash. Neuro: CN II-XII grossly intact. Strength 5/5 in BUE & BLE. Alert and oriented x3. Psych: appropriate mood and affect. Discharge Plan Plan Patient Disposition: HOME (Self Care) Patient condition on transfer: Stable Care Plan Goals: Please continue taking all home meds as previously prescribed. Please follow up with your primary doctor within 7-10 days. Please avoid high-fat foods. Please return to the ED if you develop new or worsening symptoms. Please follow up with Dr. Gustafson, Oncology, for further management of breast mass. Contin?e tomando todos los medicamentos que le recetaron en casa. Consulte con silva m?dico de cabecera en un plazo de 7 a 10 d?as. Evite los alimentos ricos en grasas. Regrese a urgencias si presenta s?ntomas nuevos o si estos empeoran. Consulte con el Dr. Gustafson, de Oncolog?a, para el tratamiento de la masa mamaria. Prescriptions/Referrals Prescriptions/Med Rec: Continued ulsen 20 mg capsule 20 mg PO DAILY PRN (Reason: for stomach) cardo nicol tablet 120 mg PO DAILY Patient Comments: herbal supplement for liver neomixen tablet 250 mg PO DAILY Referrals: Elma Franz MD [Primary Care Provider] - Miguel Gustafson MD [Physician] - Patient/Caregiver Discharge Instructions Discharge Activity: activity as tolerated Education Materials: Abdominal Pain, Upper GI Endoscopy, Understanding Pancreatitis, Lumpectomy or Breast Biopsy Dc, Pancreatitis Acute Dc Print Language: French Stand Alone Forms: Elvi Award Info., Patient Portal Info Letter Discharge Order Discharge Orders: Discharge (Routine); Ordered 01/28/25 Ordered By: Esau Garvin Quality Discharge Quality Measures VTE prophylaxis
--- NOTE | 2025-01-28 21:02 | PD.IMPROG ---
Documentation for date of: 01/28/25 Subjective Subjective Interval history: Late entry for the note hemoglobin hematocrit stable okay with discharge planning Exam Vital Signs Temp Pulse Resp BP Pulse Ox O2 Del Method O2 Flow Rate 98.9 F 67 16 118/49 L 98 Room Air 3 01/28/25 17:27 01/28/25 17:27 01/28/25 17:27 01/28/25 17:27 01/28/25 17:27 01/28/25 17:27 01/28/25 12:57 Objective Labs 01/28/25 04:45 01/28/25 04:45 Labs: Laboratory Results - last 24 hr 01/28/25 04:45 WBC 3.0 L RBC 3.47 L Hgb 9.1 L Hct 29.0 L MCV 84 MCH 26.2 MCHC 31.4 RDW Std Deviation 63.7 H Plt Count 96 L Neut % (Auto) 56 Lymph % (Auto) 24 [place] % (Auto) 12 Eos % (Auto) 7 Baso % (Auto) 1 Neut # (Auto) 1.7 L Lymph # (Auto) 0.[address] [place] # (Auto) 0.4 Eos # (Auto) 0.2 Baso # (Auto) 0.0 Immature Gran # (Auto) 0.01 H Absolute Nucleated RBC 0.00 Immature Gran % 0 Nucleated RBC % 0 PT 14.4 H INR 1.3 APTT 31.7 Sodium 142 Potassium 4.3 Chloride 113 H Carbon Dioxide 23.8 Anion Gap 5 L BUN 9 Creatinine 0.8 Estim Creat Clear Calc 80.6 eGFR > 60 BUN/Creatinine Ratio 11 L Glucose 87 Calculated Osmolality 280 Calcium 8.1 L Corrected Calcium 9.1 Phosphorus 2.7 Magnesium 1.9 Total Bilirubin 1.6 H D AST 46 H ALT 23 Alkaline Phosphatase 124 H Total Protein 5.8 Albumin 2.7 L Globulin 3.1 Albumin/Globulin Ratio 0.9 L Impressions Impression: Status post band ligation of the varices patient can be discharged followed by the PCP Assessment & Plan A&P Narrative 1. 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 2. Ultrasound-guided biopsy pending for AM. 3. Underwent upper endoscopy today revealing grade [address] Sommer 4. Nonalcohol related cirrhosis of the liver idiopathic pancreatitis thickened rectal wall, further GI workup in progress. 5. Spoke with patient's family about seeing patient next week at the cancer center following biopsy of the breast and further workup and subsequent treatment to be discussed. 6. Thank you for allowing me to evaluate this patient. Time Spent With Patient Time: Total time spent is greater than 50% in coordination of care (as documented) at patient's floor/unit and/or counseling patient:
== END 2025-01-28 17:50 | disposition home or self-care (01) ==
LOC: SERX 09:23 → SERHOLD 10:19 → S3NX 16:29
PROVIDERS: Nurse Practitioner Family; Physician Assistant; Radiology Diagnostic Radiology; Specialist; Student in an Organized Health Care Education/Training Program; Admitting Provider Student in an Organized Health Care Education/Training Program; Emergency Provider Emergency Medicine; PCP Internal Medicine; Visit Provider Internal Medicine
PROC: (CPT 43239; principal; 2025-01-25 15:00)
DX: K74.60 Unspecified cirrhosis of liver (principal); K76.6 Portal hypertension; R16.1 Splenomegaly, not elsewhere classified; D69.6 Thrombocytopenia, unspecified; N63.20 Unspecified lump in the left breast, unspecified quadrant; R06.01 Orthopnea; D62 Acute posthemorrhagic anemia; N64.53 Retraction of nipple; R59.9 Enlarged lymph nodes, unspecified; K85.90 Acute pancreatitis without necrosis or infection, unspecified; K82.8 Other specified diseases of gallbladder; I85.10 Secondary esophageal varices without bleeding; I10 Essential (primary) hypertension; K80.21 Calculus of gallbladder without cholecystitis with obstruction
CPT/HCPCS: 36415; 71260; 74022; 74176; 76641; 76705; 78227; 80053; 80061; 80074; 81001; 82150; 82270; 83690; 83735; 83880; 84100; 84443; 84484; 85025; 85610; 85730; 93005; 93306; 96365; 96372; 99285; A4649; A9537; G0378; J0696; J1200; J1644; J2250; J2470; J3010; J7120; Q9967; A9270

== ENCOUNTER 2025-02-02 00:24 | Inpatient (IN) | payer MEDICAID, SELFPAY ==
[2025-02-02] VITALS (8 sets, daily range): BP systolic 99–151; BP diastolic 51–77; PULSE 65–76; RESP 16–18; TEMP 36.7–37.1; O2SAT 94–97; BMI 29.0
--- NOTE | 2025-02-02 00:50 | PD.EDABDPN ---
ED Abdominal Pain RME/HPI General Chief Complaint: Abdominal Pain Stated complaint: ABD PAIN Time seen by provider: 02/02/25 00:45 Arrival date/time: 02/02/25 00:24 RME / HPI RME / HPI narrative: This section includes all my notes and documentations, including HPI, PE, and ED course. Krystian Gustafson MD HPI: 59yo female with a history of nonalcoholic related liver cirrhosis, HTN, splenomegaly, esophageal varices status post banding presents to the ED for complaints of diffuse abdominal and back pain and severe intractable vomiting. Patient's symptoms started 2 hours [employer]. No other complaints reported. ROS: All negative except as documented in HPI. Physical Exam: General: Alert and oriented. In severe distress from pain and intractable vomiting. Eyes: Conjunctivae and lids clear. ENT: No nasal congestion. Neck: Supple. Heart: RRR. Lungs: No respiratory distress. Good air movement. No rhonchi, wheezing, rales. Abdomen: Soft with severe tenderness, difficult to localize. Decreased bowel sounds. No distension. No rebound or guarding. Back: Equivocal CVA tenderness. Skin: Warm and dry. Neuro: Alert and oriented X 3. I reviewed all diagnostic test results. My review of the gallbladder US report is: - Fatty liver infiltration with irregular hepatic contour. - Slight gallbladder wall thickening without cholelithiasis or pericholecystic fluid. My review of the CT abdomen pelvis report is acute pancreatitis. Blood tests remarkable for Lactic Acid 2.4, Total Bilirubin 2.6, AST 87, Alkaline Phosphatase 177. At this point, diagnoses include intractable vomiting and vomiting and cirrhosis and pancreatitis. Treatment here included 2 L of IV fluid, Zofran 4 mg IV X 3, Toradol 15 mg IV, morphine 60 mg IV, and Dilaudid 1 mg IV. No significant improvement noted. I discussed the case with our environmental field office manager and hospitalist. About the presentation and exam and diagnostics and treatments here. And need of further care in the hospital. Will accept the patient. Krystian Gustafson MD Related Data Home Medications ?Medication ?Instructions ?Recorded ?Confirmed cardo nicol 120 mg PO DAILY liver 01/25/25 01/25/25 neomixen 250 mg PO DAILY 01/25/25 01/25/25 ulsen 20 mg PO DAILY PRN for stomach 01/25/25 01/25/25 Allergies Allergy/AdvReac Type Severity Reaction Status Date / Time No Known Allergies Allergy Verified 02/02/25 00:29 Review of Systems Review of Systems Systems Reviewed: All systems reviewed, normal except as documented ED Exam Narrative Physical exam: As noted in HPI. Course Quality Measures none Orders Category Date Time Status Bedside COVID-19 Antigen Test NOW Care 02/02/25 00:55 Active Bedside Influenza A&B Antigen Test NOW Care 02/02/25 00:55 Active COVID-19 Screening Questionnaire NOW Care 02/02/25 05:29 Active Decision to Admit X1 Care 02/02/25 05:29 Active Saline [Insert IV] NOW Care 02/02/25 00:55 Active Straight [In and Out Catheter] X1 Care 02/02/25 00:55 Active Consult to Gastroenterology Stat Cons 02/02/25 05:[address] abdomen pelvis wo con Stat Exams 02/02/25 00:55 Taken US gall bladder Stat Exams 02/02/25 00:55 Taken Alcohol, Blood Medical Stat Lab 02/02/25 01:45 Completed Ammonia Stat Lab 02/02/25 01:45 Completed Amylase Stat Lab 02/02/25 01:45 Completed BNP [B-Type Natriuretic Peptide] Stat Lab 02/02/25 01:45 Completed Beta Hydroxybutyrate Stat Lab 02/02/25 01:45 Completed Bilirubin,Direct Stat Lab 02/02/25 01:45 Completed Blood Culture (Lab) Stat Lab 02/02/25 01:48 Received CBC Stat Lab 02/02/25 01:45 Completed CMP [Comprehensive Metabolic Panel] Stat Lab 02/02/25 01:45 Completed CRP [C-Reactive Protein] Stat Lab 02/02/25 01:45 Completed Drug Screen,Urine Stat Lab 02/02/25 00:56 Ordered ESR [Sed Rate (ESR)] Stat Lab 02/02/25 01:45 Completed Free T4 (Free Thyroxine) Stat Lab 02/02/25 01:45 Completed Lactate (Lactic Acid) Stat Lab 02/02/25 01:48 Completed Lactic Acid, 3 HR Stat Lab 02/02/25 04:50 Ordered Lipase Stat Lab 02/02/25 01:45 Completed Magnesium Stat Lab 02/02/25 01:45 Completed PT [Prothrombin Time with INR] Stat Lab 02/02/25 01:45 Completed PTT [Partial Thromboplastin Time] Stat Lab 02/02/25 01:45 Completed Procalcitonin Stat Lab 02/02/25 01:45 Completed TSH [Thyroid Stimulating Hormone] Stat Lab 02/02/25 01:45 Completed UA, C/S IF [Urinalysis, C/S if Indicated] Stat Lab 02/02/25 00:57 Ordered HYDROcodone*/APAP 5/325 [[place] 5/325] Med 02/02/25 00:43 Discontinued 1 tab PO X1 ONE Ketorolac Inj [Toradol Inj] Med 02/02/25 00:55 Discontinued 15 mg IVP X1 ONE Morphine Inj Med 02/02/25 00:55 Discontinued 6 mg IVP X1 ONE Ondansetron Inj [Zofran Inj] Med 02/02/25 00:55 Discontinued 4 mg IVP X1 ONE Ondansetron Inj [Zofran Inj] Med 02/02/25 04:51 Discontinued 4 mg IVP X1 ONE Ondansetron Odt [Zofran Odt] Med 02/02/25 00:43 Discontinued 4 mg PO X1 ONE Sodium Chloride 0.9% 1000 ml [Ns] 1,000 ml Med 02/02/25 04:51 Active IV 500 mls/hr Sodium Chloride 0.9% 1000 ml [Ns] 1,000 ml Med 02/02/25 00:55 Discontinued IV 999 mls/hr Vital Signs Vital signs: Vital Signs Temperature 98.8 F 02/02/25 00:34 Pulse Rate 65 02/02/25 00:34 Respiratory Rate 18 02/02/25 00:34 Blood Pressure 99/51 L 02/02/25 00:34 Pulse Oximetry (%) 97 02/02/25 00:34 Oxygen Delivery Method Room Air 02/02/25 00:34 Abdominal Pain MDM MDM Narrative MDM Narrative:: 59yo female with a history of nonalcoholic related liver cirrhosis, HTN, splenomegaly, esophageal varices status post banding presents to the ED for complaints of diffuse abdominal and back pain and severe intractable vomiting. Patient's symptoms started 2 hours [employer]. No other complaints reported. Patient data External records reviewed:: [facility] previous records (Per chart review, patient was admitted here on 01/24/25 for abdominal pain.) Clinical information provided by:: patient Social determinants that could affect healthcare access:: none Patient has the following chronic illnesses:: nonalcoholic related liver cirrhosis, HTN, splenomegaly, esophageal varices status post banding age How is presenting disease/condition affected by chronic disease/condition?: caused by Evaluation data The following diagnostics were reviewed and interpreted by me:: lab results and radiology exam(s) Lab and/or radiology exams considered but not ordered:: none Interpretation Summary: I reviewed all diagnostic test results. My review of the gallbladder US report is: - Fatty liver infiltration with irregular hepatic contour. - Slight gallbladder wall thickening without cholelithiasis or pericholecystic fluid. My review of the CT abdomen pelvis report is acute pancreatitis. Blood tests remarkable for Lactic Acid 2.4, Total Bilirubin 2.6, AST 87, Alkaline Phosphatase 177. Medications / Prescriptions Medications or Prescriptions considered but not ordered:: none Medication administrations:: Medication Administration History Sodium Chloride (Ns) 1,000 mls @ 500 mls/hr IV .Q2H ONE Stop: 02/02/25 06:50 Discontinued Medications Hydrocodone Bitart/Acetaminophen (Hydrocodone/Apap 5/325 Tablet) 1 tab PO X1 ONE Stop: 02/02/25 00:44 Last Admin: 02/02/25 02:34 Dose: Not Given Documented By: MORRIS Non-Admin Reason: Cancelled by Provider Sodium Chloride (Ns) 1,000 mls @ 999 mls/hr IV .Q1H1M ONE Stop: 02/02/25 01:55 Last Admin: 02/02/25 02:27 Dose: 999 mls/hr Documented By: MORRIS Ketorolac Tromethamine (Ketorolac Inj 30 Mg/Ml Vial) 15 mg IVP X1 ONE Stop: 02/02/25 00:56 Last Admin: 02/02/25 02:27 Dose: 15 mg Documented By: MORRIS Morphine Sulfate (Morphine Sulf Inj 10 Mg/Ml Vial) 6 mg IVP X1 ONE Stop: 02/02/25 00:56 Last Admin: 02/02/25 02:25 Dose: 6 mg Documented By: MORRIS Ondansetron HCl (Ondansetron Odt 4 Mg Tabrap) 4 mg PO X1 ONE; Protocol Stop: 02/02/25 00:44 Last Admin: 02/02/25 02:35 Dose: Not Given Documented By: CG Non-Admin Reason: Cancelled by Provider Ondansetron HCl (Ondansetron Inj 2 Mg/Ml Inj 2 Ml) 4 mg IVP X1 ONE; Protocol Stop: 02/02/25 00:56 Last Admin: 02/02/25 02:25 Dose: 4 mg Documented By: MORRIS Ondansetron HCl (Ondansetron Inj 2 Mg/Ml Inj 2 Ml) 4 mg IVP X1 ONE; Protocol Stop: 02/02/25 04:52 Last Admin: 02/02/25 05:26 Dose: 4 mg Documented By: Treatment here included 2 L of IV fluid, Zofran 4 mg IV X 3, Toradol 15 mg IV, morphine 60 mg IV, and Dilaudid 1 mg IV. Consultations Consultation(s) initiated? (list below): Yes Consultation #1 (Physician, Specialty, Details): I discussed the case with our environmental field office manager and hospitalist. About the presentation and exam and diagnostics and treatments here. And need of further care in the hospital. Will accept the patient. Diagnosis Differential diagnosis abdominal pain: acute appendicitis, calculus of kidney, constipation, diverticulitis, endometriosis, gastroenteritis, pancreatitis and small bowel obstruction Most likely diagnosis given after review of the tests above:: Intractable vomiting and abdominal pain and cirrhosis and pancreatitis. Admission Indicated Admission indicated?: indicated Explain why admission is indicated or not indicated:: Intractable vomiting and abdominal pain and cirrhosis and pancreatitis. Admission Request Was there a request for admission?: Yes Admission Attestation Admission request attestation: Discussed case with Hospitalist service regarding admission. Discussed patients ED course, exam findings, labs, and radiology results. The Hospitalist [agrees] to accept the patient for admission. Disposition Plan Disposition Plan: Admit Discharge Plan Plan Patient Disposition: Admit Acute Care w/in Hospital Prescriptions/Referrals Prescriptions/Med Rec: No Action ulsen 20 mg capsule 20 mg PO DAILY PRN (Reason: for stomach) cardo nicol tablet 120 mg PO DAILY Patient Comments: herbal supplement for liver neomixen tablet 250 mg PO DAILY Referrals: No Primary/Family,Physician [Primary Care Provider] - In 1 week Problem List Clinical Impression: Intractable vomiting, Liver cirrhosis, Pancreatitis, Intractable abdominal pain Patient/Caregiver Discharge Instructions Print Language: Slovenian Stand Alone Forms: [facility] Award Info., Patient Portal Info Letter
--- NOTE | 2025-02-02 00:55 | XR_ITS ---
Examination: CT abdomen and pelvis without contrast. Coronal 3-D reconstructions. Sagittal 2-D reconstructions. Date and time of exam:February 02, 2025, 0331 hours Comparison January 24, 2025 INDICATIONS: Abdominal pain and nausea today, diagnosis cirrhosis CTDI: vol (mGy): 8.43 DLP: (mGycm): 480 Technique: Axial images of the abdomen have been obtained, 3 mm slice thickness Intravenous contrast material has not been administered. Low dose protocols were performed. One or more of the following dose reduction techniques were used; automated exposure control, adjustment of the mA and/or KV according to patient size, use of iterative reconstruction technique. Findings: Cirrhosis, liver nodular in contour Distended gallbladder with gallstones Prominent splenomegaly Esophageal perigastric varices portosystemic collateral vessels medial to the spleen Aorta normal size And no hydronephrosis Suspicious for mild edema about the pancreas Diffuse thickening of the gastric mucosa No bowel obstruction Small fat-containing inguinal hernia No pericecal inflammatory change. Small periaortic pericaval lymph nodes Contracted urinary bladder, urinary bladder wall mild thickening Degenerative changes dorsal spine. IMPRESSION: Cirrhosis Distended gallbladder with gallstones, recommend hepatobiliary sonography follow-up Gastritis pattern Esophageal and perigastric varices Suspicious for mild acute pancreatitis Mild cystitis pattern
--- NOTE | 2025-02-02 00:55 | XR_ITS ---
Examination: Abdomen sonogram, Limited Date and time of exam: February 02, 2025, 0236 hours INDICATIONS: Right lower abdominal pain nausea vomiting beginning 3 hours ago. Technique: Real-time alfaro scale transabdominal sonographic images of the upper abdomen obtained. Findings: Negative for gallstones Gallbladder is distended. Gallbladder wall 0.46 cm Common bile ducts are 0.5 cm. Pancreatic head 3.1 cm Liver 15.7 cm irregular contour fatty infiltration no focal liver lesions. Normal hepatopedal portal venous flow. Patent IVC. IMPRESSION: Abnormally thickened gallbladder wall, consider MRCP follow-up
[2025-02-02 01:52] LABS: Lactate (Lactic Acid) 2.4 mMol/L (0.4-2.0)
[2025-02-02 01:58] LABS: Beta Hydroxybutyrate 0.1 mmol/L (<0.6)
[2025-02-02 02:01] LABS: Basophils # (Auto) 0.0 Thou/mm3 (0.0-0.2); Basophils % (Auto) 1 % (0-2.5); Eosinophils # (Auto) 0.1 Thou/mm3 (0.0-0.5); Eosinophils % (Auto) 2 % (0-10); Hematocrit 32.2 % (36.0-46.0); Hemoglobin 10.2 g/dL (12.0-16.0); Immature Granulocytes Auto 0.03 Thou/mm3 (0.00-0.00); Lymphocytes # (Auto) 0.8 Thou/mm3 (1.0-4.8); Lymphocytes % (Auto) 11 % (10-50); Mean Corpuscular HGB Conc 31.7 g/dl (31.0-37.0); Mean Corpuscular Hemoglobin 25.9 pg (25.0-35.0); Mean Corpuscular Volume 82 fL (80-100); Monocytes # (Auto) 0.6 Thou/mm3 (0.0-0.8); Monocytes % (Auto) 9 % (0-12); Neutrophils # (Auto) 5.3 Thou/mm3 (1.8-7.7); Neutrophils % (Auto) 77 % (37-80); Nucleated Red Blood Cell # 0.00 Thou/mm3 (0.00-0.00); Nucleated Red Blood Cell % 0 /100 WBC (0); Platelet Count 93 Thou/mm3 (140-440); RDW Standard Deviation 63.4 fL (36.4-46.3); Red Blood Count 3.94 Miln/mm3 (4.00-5.20); White Blood Count 6.8 Thou/mm3 (3.6-11.0)
[2025-02-02 02:13] LABS: INR 1.3 (0.9-1.3); Partial Thromboplastin Time 28.6 Seconds (22.0-36.0); Prothrombin Time 13.9 Seconds (9.0-12.2)
[2025-02-02 02:17] LABS: Ammonia 77 uMol/L (11-32); B-Type Natriuretic Peptide 47 pg/mL (0-100)
[2025-02-02 02:24] LABS: Sed Rate (ESR) 16 mm/hr (0-30)
[2025-02-02] MEDS: ONDANSETRON INJ 2 MG/ML INJ 2 ML 4 MG IVP ×2 (02:25→05:26)
[2025-02-02] MEDS: MORPHINE SULF INJ 10 MG/ML VIAL 6 MG IVP (02:25)
[2025-02-02 02:27] LABS: Alanine Aminotransferase 34 U/L (10-49); Albumin, Serum 3.2 gm/dL (3.4-4.8); Albumin/Globulin Ratio 0.9 (1.2-2.2); Alkaline Phosphatase 177 U/L (46-116); Amylase 71 U/L (30-118); Anion Gap 10 (7-16); Aspartate Amino Transferase 87 U/L (0-34); BUN/Creatinine Ratio 14 Ratio (12-20); Bilirubin,Direct 1.2 mg/dL (0.0-0.3); Bilirubin,Total 2.6 mg/dL (0.3-1.2); Blood Urea Nitrogen 13 mg/dL (9-23); C-Reactive Protein 0.7 mg/dL (0.0-0.9); Calcium 8.5 mg/dL (8.3-10.6); Calcium (Corrected) 9.1 mg/dL (8.5-10.1); Carbon Dioxide 23.9 mMol/L (20.0-31.0); Chloride 111 mMol/L (98-107); Creatinine (Component) 0.9 mg/dL (0.6-1.3); Estimated Creatinine Clearance 70.7 mL/min (>60); Free T4 (Free Thyroxine) 0.97 ng/dL (0.89-1.76); Globulin 3.5 gm/dL (2.3-3.5); Glucose 152 mg/dL (74-106); Lipase 53 U/L (12-53); Magnesium 1.8 mg/dL (1.6-2.6); Osmolality,Calculated 291 (275-295); Potassium 3.7 mMol/L (3.4-5.1); Procalcitonin 0.10 ng/ml (0.0-0.49); Sodium 145 mMol/L (136-145); Thyroid Stimulating Hormone 1.91 uIU/mL (0.55-4.78); Total Protein 6.7 gm/dL (5.7-8.2); eGFR > 60 See Note
[2025-02-02] MEDS: KETOROLAC INJ 30 MG/ML VIAL 15 MG IVP (02:27)
[2025-02-02] MEDS: SODIUM CHLORIDE 0.9% 1000 ML 1,000 ML 999 ML IV (02:27)
[2025-02-02 02:28] LABS: Alcohol, Blood Medical < 3.0 mg/dL (0-10.0)
--- NOTE | 2025-02-02 04:12 | PRELIM_ITS ---
Right upper quadrant abdominal ultrasound. February 02, 2025 at 0236 hours Clinical history: Right upper quadrant tenderness. Technique: Grayscale and color flow images of the right upper quadrant are provided. Hepatic and portal veins were also imaged with color flow images. Comparison: No prior study is available for comparison. Findings: The liver measures 15.7 cm and demonstrates increased echogenicity with an irregular contour, consistent with fatty infiltration. No intrahepatic biliary ductal dilatation is observed. The gallbladder demonstrates a slightly thickened wall (measuring 0.5 cm) with no gallstones, though there is a fold in the neck. No pericholecystic fluid is identified. The common bile duct is normal in calibre, measuring 0.5 cm, with no stones seen. The pancreas measures 3.1 cm and is partially visualized due to overlying bowel gas. The main portal vein demonstrates hepatopetal flow, and the IVC is patent. Impression: Fatty liver infiltration with irregular hepatic contour. Slight gallbladder wall thickening without cholelithiasis or pericholecystic fluid. Report Electronically Signed By: Scarlett Lou 02/02/2025 4:11:58 AM [EST]
--- NOTE | 2025-02-02 04:49 | PRELIM_ITS ---
CT scan of the abdomen and pelvis without intravenous contrast (axial sections with sagittal and coronal reformats) February 02, 2025 at 0331 hours Clinical History: Abdominal pain vomiting. Comparison: Reference is made to the prior report dated January 24, 2025. Findings: There is mild cardiomegaly. Bibasilar streaky atelectasis is present. Liver demonstrates nodular contour likely related to cirrhosis. There are multiple portosystemic collaterals in paraesophageal, peripancreatic region and upper abdomen. Dependent hyperdensity is identified within the gallbladder, which may represent sludge or small layering calculi. The entire pancreas is edematous with peripancreatic fat stranding and minimal free fluid. No focal peripancreatic fluid collection. There is mild splenomegaly measuring 14.8 cm. There is nodular thickening of left adrenal gland. The kidneys and right adrenal are unremarkable on this noncontrast study. There is thickening versus underdistention of stomach. No evidence of bowel obstruction. A moderate amount of fecal material is present in the colon. The appendix is not visualized. There are small paraesophageal and perigastric lymph nodes. The urinary bladder is incompletely distended at the time of the examination. The uterus and adnexa are unremarkable. There is no free air. Degenerative changes are identified in the spine. The evaluation is limited due to the absence of intravenous contrast. Impression: Limited evaluation as described. 1. Findings suggestive of acute pancreatitis as described. No focal peripancreatic fluid collection. 2. Findings suggestive of cirrhosis of liver with portal hypertension and portal gastropathy. Recommend clinical correlation. 3. Mild wall thickening of urinary bladder, cystitis cannot be excluded. Recommend clinical and laboratory correlation. 4. Other findings as described above. Report Electronically Signed By: Scarlett Lou 02/02/2025 4:48:29 AM [EST]
[2025-02-02 04:50] LABS: Reflex Lactate? Y
--- NOTE | 2025-02-02 05:51 | PD.RESHP ---
Documentation for date of: 02/02/25 HPI History of Present Illness Chief complaint: Abdominal pain History of present illness: 59-year-old female with past medical history of nonalcoholic related liver cirrhosis, portal hypertension, splenomegaly, esophageal varices status post bandage presented to ED on 02/02/25 with chief complaints of abdominal pain, nausea and vomiting. Patient notes that she had severe epigastric pain which started earlier in the day and progressively worsened. Of note, was admitted for abdominal pain secondary due to most likely idiopathic pancreatitis versus biliary dyskinesia treatment and management on 01/24. HIDA scan showed no gallbladder activity, consistent with cystic duct obstruction. Gen surgery was consulted and recommended IR percutraneous drain placement. Patient showed clinical improvement, gallbladder deemed to small for drain placement. General surgery recommend patient be discharged and follow up with PCP. Past medical history: As above Past surgical history: Unremarkable, negative for major abdominal surgeries Allergies: NKDA Family history: Per patient's mother had hepatitis Social history: Patient lives with her at home, denies alcohol use, denies smoking or any recreational drug use ROS: All 12 systems assessed and the patient denies unless otherwise stated in HPI In the ED, patient presented mildly hypotensive 99/51, heart rate 65, respirate 18, afebrile satting 97 on room air. Pertinent lab findings include hemoglobin 10.2 with MCV of 82, chloride elevated at 111, glucose 152, lactic acid 2.4, magnesium 1.8, T. bili 2.6, D bili 1.2, AST 87, ALT 34, ammonia 77. Urine alcohol less than 3.0. Gallbladder ultrasound showed fatty liver infiltration with irregular hepatic contour, slight gallbladder wall thickening without cholelithiasis or pericholecystic fluid and CT abdomen pelvis showed acute pancreatitis, cirrhosis of liver with portal hypertension and portal gastropathy and mild wall thickening of urinary bladder. Patient will be admitted for IV fluid resuscitation for acute pancreatitis likely secondary to idiopathic versus gallstone etiology. Exam Vital Signs Temp Pulse Resp BP Pulse Ox O2 Del Method 98.8 F 65 18 99/51 L 97 Room Air 02/02/25 00:34 02/02/25 00:34 02/02/25 00:34 02/02/25 00:34 02/02/25 00:34 02/02/25 00:34 Narrative Exam Physical Exam: GENERAL: Awake, answer questions appropriately in Bengali, appears stated age HEENT: NC/AT. Moist mucosa. PERRLA/EOMI. CARDIO: Heart RRR, no obvious murmurs, no JVD. PULM: No coughing or visible SOB. Lungs CTA B/L. GI: Abdomen soft, tenderness to palpation in epigastric area, rebound tenderness, guarding noted. No rigidity SKIN/MSK/EXT: No wounds/discoloration/rashes/edema/amputations noted. +Pedal pulses present B/L. NEURO: Oriented x3, Moves extremities x4, no focal neurologic deficits on Results: Labs 02/03/25 05:11 02/03/25 05:11 Labs: Short CBC 02/02/25 Range/Units 01:45 WBC 6.8 D (3.6-11.0) Thou/mm3 Hgb 10.2 L (12.0-16.0) g/dL Hct 32.2 L (36.0-46.0) % Plt Count 93 L (140-440) Thou/mm3 BMP 02/02/25 01:45 Sodium 145 Potassium 3.7 Chloride 111 H Carbon Dioxide 23.9 BUN 13 Creatinine 0.9 Glucose 152 H Calcium 8.5 Liver Function 02/02/25 Range/Units 01:45 Total Bilirubin 2.6 H (0.3-1.2) mg/dL Direct Bilirubin 1.2 H (0.0-0.3) mg/dL AST 87 H (0-34) U/L ALT 34 (10-49) U/L Alkaline Phosphatase 177 H (46-116) U/L Albumin 3.2 L (3.4-4.8) gm/dL Quality Measures Quality Measures none Medications Home Medications and Allergies Home Medications ?Medication ?Instructions ?Recorded ?Confirmed ?Type cardo nicol 120 mg PO DAILY liver 01/25/25 02/02/25 History neomixen 250 mg PO DAILY 01/25/25 02/02/25 History ulsen 20 mg PO DAILY PRN for stomach 01/25/25 02/02/25 History Allergies Allergy/AdvReac Type Severity Reaction Status Date / Time No Known Allergies Allergy Verified 02/02/25 00:29 Visit Medications Sodium Chloride (Ns) 1,000 mls @ 500 mls/hr IV .Q2H ONE Stop: 02/02/25 06:50 Discontinued Medications Hydrocodone Bitart/Acetaminophen (Hydrocodone/Apap 5/325 Tablet) 1 tab PO X1 ONE Stop: 02/02/25 00:44 Last Admin: 02/02/25 02:34 Dose: Not Given Sodium Chloride (Ns) 1,000 mls @ 999 mls/hr IV .Q1H1M ONE Stop: 02/02/25 01:55 Last Admin: 02/02/25 02:27 Dose: 999 mls/hr Ketorolac Tromethamine (Ketorolac Inj 30 Mg/Ml Vial) 15 mg IVP X1 ONE Stop: 02/02/25 00:56 Last Admin: 02/02/25 02:27 Dose: 15 mg Morphine Sulfate (Morphine Sulf Inj 10 Mg/Ml Vial) 6 mg IVP X1 ONE Stop: 02/02/25 00:56 Last Admin: 02/02/25 02:25 Dose: 6 mg Ondansetron HCl (Ondansetron Odt 4 Mg Tabrap) 4 mg PO X1 ONE; Protocol Stop: 02/02/25 00:44 Last Admin: 02/02/25 02:35 Dose: Not Given Ondansetron HCl (Ondansetron Inj 2 Mg/Ml Inj 2 Ml) 4 mg IVP X1 ONE; Protocol Stop: 02/02/25 00:56 Last Admin: 02/02/25 02:25 Dose: 4 mg Ondansetron HCl (Ondansetron Inj 2 Mg/Ml Inj 2 Ml) 4 mg IVP X1 ONE; Protocol Stop: 02/02/25 04:52 Last Admin: 02/02/25 05:26 Dose: 4 mg Assessment & Plan Plan 59-year-old female with past medical history of nonalcoholic related liver cirrhosis, portal hypertension, splenomegaly, esophageal varices status post bandage presented to ED on 02/02/25 with chief complaints of abdominal pain, nausea and vomiting will be admitted for IV fluid resuscitation for acute pancreatitis likely secondary to idiopathic versus gallstone etiology. #Pancreatitis #Biliary dyskinesia As noted above, patient has significant medical history of pancreatitis in the past, idiopathic versus secondary to biliary dyskinesia No history of alcohol use disorder or elevated triglycerides noted Was admitted on 01/24 with similar presentation and HIDA scan showed cystic duct obstruction Presents with severe abdominal pain epigastric requiring IV morphine in the ED Sherwood criteria of 1, pending LDH Plan: IV fluid resuscitation N.p.o. Multimodal pain management Advance diet as tolerated #Normocytic anemia Likely anemia of chronic disease from cirrhosis, patient has low hemoglobin noted throughout EMR Plan: Monitor with morning labs Transfuse if hemoglobin less than 7 #Non-alcohol related liver cirrhosis #Portal hypertension Chronic medical condition Elevated AST of 87 and ammonia of 77 T. bili and D bili are also elevated but ultrasound gallbladder findings are largely unremarkable Plan: Restart home medications when appropriate Consider GI consultation #Left breast mass with nipple retraction #Numerous mesenteric lymph nodes seen on CT Significant imaging findings, was told to follow-up with Dr. Gustafson oncology on last admission Plan: Make sure patient has followed up with outpatient oncology and PCP Health Maintenance: Lines: PIV Diet: N.p.o. Bowel: Not needed GI prophylaxis: Not needed at this time DVT prophylaxis: SCD Dispo: IV fluid resuscitation for pancreatitis Code: Full Patient seen and assessed with attending Dr. Colleen Cha, PGY-2 Internal Medicine - [facility] Attending Provider Attestation/Addendum I have examined the patient, reviewed labs and imaging findings, discussed the case with the resident(s), and reviewed entered orders. I agree with the plan of care as outlined in this note. Dr. Colleen MD
[2025-02-02] MEDS: Magnesium Sulfate 4 GM Ivpb 4 GM/50 ML BAG IV (06:18)
[2025-02-02] MEDS: SODIUM CHLORIDE 0.9% 1000 ML 1,000 ML 500 ML IV (06:32)
[2025-02-02 06:53] LABS: Collection Type, Urine Clean Catch
[2025-02-02 07:16] LABS: Amphetamine/Methamp Scrn,U Negative (Negative); Barbiturate Screen,Urine Negative (Negative); Benzodiazepines Screen,Urine Negative (Negative); Benzoylecgonine Screen, Ur Negative (Negative); Fentanyl Screen,Urine Negative (Negative); Opiate Screen,Urine Positive (Negative); THC Screen,Urine Negative (Negative)
[2025-02-02 07:17] LABS: Bilirubin,Urine 1+ (Negative); Blood,Urine Negative (Negative); Clarity,Urine Clear (Clear/Hazy); Color,Urine Drk-Yellow (Lt Yel-Yel); Culture Indicated,Urine Not Indicated; Glucose, Urine 1+ (Negative); Ketones,Urine Trace (Negative); Leukocyte Esterase,Urine Negative (Negative); Nitrite,Urine Negative (Negative); PH,Urine 5.5 (5.0-7.0); Protein,Urine Trace (Neg - Trace); RBC,Urine 2 /hpf (0-3); Specific Gravity,Urine 1.033 (1.001-1.035); Squamous Epithelial Cell,Urine 3 /hpf (0-5); Transitional Epi Cells,Urine < 1 /hpf (0-5); Urobilinogen,Urine 2.0 mg/dL (0.0-1.0); WBC,Urine 2 /hpf (0-5)
[2025-02-02 07:30] LABS: Lactic Acid, 3 HR 3.6 mMol/L (0.4-2.0)
[2025-02-02 07:56] LABS: LDH (Lactate Dehydrogenase) 302 U/L (120-246)
[2025-02-02] MEDS: RINGERS LACTATED 1000 ML 1,000 ML 250 ML IV ×2 (08:31→12:39)
[2025-02-02] MEDS: HYDROmorphone INJ 2 MG/ML VIAL 1 MG IVP (10:30)
--- NOTE | 2025-02-02 11:14 | XR_ITS ---
Examination: Abdomen AP single view Technique: AP portable supine abdomen, single view Exam date and time: February 02, 2025 1135 hours INDICATIONS: Constipation today. FINDINGS: Moderate to large amount stool in the rectosigmoid No obstruction No free air Mild bilateral hip osteoarthritis IMPRESSION: Moderate to large amounts of stool in the rectosigmoid
[2025-02-02 12:23] LABS: Lactate (Lactic Acid) 2.5 mMol/L (0.4-2.0)
[2025-02-02 12:29] LABS: Basophils # (Auto) 0.0 Thou/mm3 (0.0-0.2); Basophils % (Auto) 1 % (0-2.5); Eosinophils # (Auto) 0.0 Thou/mm3 (0.0-0.5); Eosinophils % (Auto) 0 % (0-10); Hematocrit 31.0 % (36.0-46.0); Hemoglobin 9.7 g/dL (12.0-16.0); Immature Granulocytes Auto 0.01 Thou/mm3 (0.00-0.00); Lymphocytes # (Auto) 0.3 Thou/mm3 (1.0-4.8); Lymphocytes % (Auto) 7 % (10-50); Mean Corpuscular HGB Conc 31.3 g/dl (31.0-37.0); Mean Corpuscular Hemoglobin 26.4 pg (25.0-35.0); Mean Corpuscular Volume 84 fL (80-100); Monocytes # (Auto) 0.2 Thou/mm3 (0.0-0.8); Monocytes % (Auto) 4 % (0-12); Neutrophils # (Auto) 3.9 Thou/mm3 (1.8-7.7); Neutrophils % (Auto) 88 % (37-80); Nucleated Red Blood Cell # 0.00 Thou/mm3 (0.00-0.00); Nucleated Red Blood Cell % 0 /100 WBC (0); Platelet Count 97 Thou/mm3 (140-440); RDW Standard Deviation 64.3 fL (36.4-46.3); Red Blood Count 3.68 Miln/mm3 (4.00-5.20); White Blood Count 4.4 Thou/mm3 (3.6-11.0)
[2025-02-02 12:54] LABS: Alanine Aminotransferase 50 U/L (10-49); Albumin, Serum 3.1 gm/dL (3.4-4.8); Albumin/Globulin Ratio 0.9 (1.2-2.2); Alkaline Phosphatase 160 U/L (46-116); Anion Gap 11 (7-16); Aspartate Amino Transferase 125 U/L (0-34); BUN/Creatinine Ratio 20 Ratio (12-20); Bilirubin,Total 2.8 mg/dL (0.3-1.2); Blood Urea Nitrogen 14 mg/dL (9-23); Calcium 8.1 mg/dL (8.3-10.6); Calcium (Corrected) 8.8 mg/dL (8.5-10.1); Carbon Dioxide 22.3 mMol/L (20.0-31.0); Chloride 112 mMol/L (98-107); Creatinine (Component) 0.7 mg/dL (0.6-1.3); Estimated Creatinine Clearance 90.9 mL/min (>60); Globulin 3.3 gm/dL (2.3-3.5); Glucose 149 mg/dL (74-106); Magnesium 2.7 mg/dL (1.6-2.6); Osmolality,Calculated 292 (275-295); Phosphorous 2.7 mg/dL (2.4-5.1); Potassium 4.2 mMol/L (3.4-5.1); Sodium 145 mMol/L (136-145); Total Protein 6.4 gm/dL (5.7-8.2); eGFR > 60 See Note
[2025-02-02] MEDS: RINGERS LACTATED 1000 ML 1,000 ML 150 ML IV ×2 (14:22→19:15)
--- NOTE | 2025-02-02 15:04 | ESPR_ITS ---
<Statement entered by Alonso Sheets MD - 02/02/25 17:01> Patient was seen and examined at the bedside. Awaiting general surgery recommendations. Continue IV fluid resuscitation. Keep the patient NPO. Pain management as needed. Follow-up with general surgery recommendations. I discussed and supervised with the internet researcher physician who took care of this patient. I personally saw and examined the patient. I agree with most of the assessment and plan. Disclaimer: Despite multiple revisions, due to the dictation software being used, the document bellow may not be free of grammatical errors including phonetic/typographic errors. However, this does not deter from our commitment to providing health care in the patient's best interest in mind. Plan of care discussed with attending Physician Dr. Amarilys Sheets MD PGY-3 Documentation for date of: 02/02/25 Subjective Subjective Interval history: Patient continues to have severe epigastric abdominal pain that radiates to her back, which she states has worsened since yesterday despite receiving IV morphine overnight. She reports persistent vomiting throughout the night and remains unable to tolerate any oral intake. She denies any bowel movement, fevers, chills, or urinary symptoms. She appears fatigued but is alert and oriented. Labs: * Glucose: 149 * Lactate: 2.5 (improved from initial but still mildly elevated) * Total Bilirubin: 2.8 (mildly increased) * Calcium: 8.1 (corrected 8.8) * Magnesium: 2.7 (slightly high) * Alk Phos: 160 (elevated) * KUB X-ray pending Exam Vital Signs Temp Pulse Resp BP Pulse Ox O2 Del Method 98.3 F 68 16 125/64 94 L Room Air 02/02/25 11:52 02/02/25 12:00 02/02/25 11:52 02/02/25 11:52 02/02/25 11:52 02/02/25 11:52 Narrative Exam General: Alert, uncomfortable, dry mucous membranes Abdomen: Soft, tender in the epigastric region, no rebound, no guarding Skin: No jaundice noted Cardio: RRR Pulm: Regular, no distress Neuro: A&O x3 Objective Labs 02/03/25 05:11 02/03/25 05:11 Labs: Laboratory Results - last 24 hr 02/02/25 02/02/25 02/02/25 01:45 01:48 05:55 WBC 6.8 D RBC 3.94 L Hgb 10.2 L Hct 32.2 L MCV 82 MCH 25.9 MCHC 31.7 RDW Std Deviation 63.4 H Plt Count 93 L Neut % (Auto) 77 Lymph % (Auto) 11 [place] % (Auto) 9 Eos % (Auto) 2 Baso % (Auto) 1 Neut # (Auto) 5.3 Lymph # (Auto) 0.8 L [place] # (Auto) 0.6 Eos # (Auto) 0.1 Baso # (Auto) 0.0 Immature Gran # (Auto) 0.03 H Absolute Nucleated RBC 0.00 Immature Gran % 0 Nucleated RBC % 0 ESR 16 PT 13.9 H INR 1.3 APTT 28.6 Sodium 145 Potassium 3.7 Chloride 111 H Carbon Dioxide 23.9 Anion Gap 10 BUN 13 Creatinine 0.9 Estim Creat Clear Calc 70.7 eGFR > 60 BUN/Creatinine Ratio 14 Glucose 152 H Calculated Osmolality 291 Lactic Acid 2.4 H Calcium 8.5 Corrected Calcium 9.1 Phosphorus Magnesium 1.8 Total Bilirubin 2.6 H Direct Bilirubin 1.2 H AST 87 H ALT 34 Alkaline Phosphatase 177 H Ammonia 77 H Lactate Dehydrogenase C-Reactive Prot, Quant 0.7 B-Natriuretic Peptide 47 Total Protein 6.7 Albumin 3.2 L Globulin 3.5 Albumin/Globulin Ratio 0.9 L Amylase 71 Lipase 53 Beta-Hydroxybutyrate/Acetoacetate 0.1 Procalcitonin 0.10 TSH 1.91 Free T4 0.97 Ur Collection Type Clean Catch Urine Color Drk-Yellow A Urine Clarity Clear Urine pH 5.5 Ur Specific [place] 1.033 Urine Protein Trace Urine Glucose (UA) 1+ A Urine Ketones Trace Urine Blood Negative Urine Nitrite Negative Urine Bilirubin 1+ A Urine Urobilinogen (Auto) 2.0 Ur Leukocyte Esterase Negative Urine RBC 2 Urine WBC 2 Ur Squamous Epith Cells 3 Ur Transition Epith Cell < 1 Urine Bacteria None Ur Culture Indicated? Not Indicated Urine Opiates Screen Positive A Urine Fentanyl Screen Negative Ur Barbiturates Screen Negative U Amphetamin/Meth Scrn Negative U Benzodiazepines Scrn Negative U Cocaine Metab Screen Negative U Marijuana (THC) Screen Negative Ethyl Alcohol < 3.0 02/02/25 02/02/25 07:14 12:01 WBC 4.4 RBC 3.68 L Hgb 9.7 L Hct 31.0 L MCV 84 MCH 26.4 MCHC 31.3 RDW Std Deviation 64.3 H Plt Count 97 L Neut % (Auto) 88 H Lymph % (Auto) 7 L [place] % (Auto) 4 Eos % (Auto) 0 Baso % (Auto) 1 Neut # (Auto) 3.9 Lymph # (Auto) 0.3 L [place] # (Auto) 0.2 Eos # (Auto) 0.0 Baso # (Auto) 0.0 Immature Gran # (Auto) 0.01 H Absolute Nucleated RBC 0.00 Immature Gran % 0 Nucleated RBC % 0 ESR PT INR APTT Sodium 145 Potassium 4.2 D Chloride 112 H Carbon Dioxide 22.3 Anion Gap 11 BUN 14 Creatinine 0.7 Estim Creat Clear Calc 90.9 eGFR > 60 BUN/Creatinine Ratio 20 Glucose 149 H Calculated Osmolality 292 Lactic Acid 3.6 H 2.5 H Calcium 8.1 L Corrected Calcium 8.8 Phosphorus 2.7 Magnesium 2.7 H Total Bilirubin 2.8 H Direct Bilirubin AST 125 H ALT 50 H Alkaline Phosphatase 160 H Ammonia Lactate Dehydrogenase 302 H C-Reactive Prot, Quant B-Natriuretic Peptide Total Protein 6.4 Albumin 3.1 L Globulin 3.3 Albumin/Globulin Ratio 0.9 L Amylase Lipase Beta-Hydroxybutyrate/Acetoacetate Procalcitonin TSH Free T4 Ur Collection Type Urine Color Urine Clarity Urine pH Ur Specific [place] Urine Protein Urine Glucose (UA) Urine Ketones Urine Blood Urine Nitrite Urine Bilirubin Urine Urobilinogen (Auto) Ur Leukocyte Esterase Urine RBC Urine WBC Ur Squamous Epith Cells Ur Transition Epith Cell Urine Bacteria Ur Culture Indicated? Urine Opiates Screen Urine Fentanyl Screen Ur Barbiturates Screen U Amphetamin/Meth Scrn U Benzodiazepines Scrn U Cocaine Metab Screen U Marijuana (THC) Screen Ethyl Alcohol Quality Measures Quality Measures none Assessment & Plan Assessment Current Active Medications: Generic Name Dose Route Start Last Admin Trade Name Freq PRN Reason Stop Dose Admin Hydromorphone HCl 1 mg 02/02/25 08:58 02/02/25 10:30 Hydromorphone Inj 2 Mg/Ml Vial IVP 02/07/25 08:57 1 mg Q4HR PRN Administration Pain7-10 Lactated Ringer's 1,000 mls @ 150 mls/hr 02/02/25 14:10 02/02/25 14:22 Lactated Ringers IV 03/04/25 14:09 150 mls/hr .Q6H40M IGLESIA Administration Ondansetron HCl 4 mg 02/02/25 05:48 Ondansetron Inj 2 Mg/Ml Inj 2 Ml IVP 03/04/25 05:47 Q6H PRN NAUSEA OR VOMITING Protocol Plan 59-year-old female with non-alcoholic cirrhosis and portal hypertension admitted with worsening acute pancreatitis likely due to cystic duct obstruction from gallstones, with persistent severe pain, vomiting, and mild lactic acidosis #Acute Pancreatitis Ddx Gall bladder disease/cyst duct obstruction, Alcohol related, gall stones, hypertriglycedemia, medications related,autoimmune -Likely related to gall bladder disease/cystic duct obstruction Severe pancreatitis with persistent pain and vomiting, CT abdomen showed mild acute pancreatitis, Cirrhosis, distended gallbladder with stones. Patient meets 2 of 3 diagnostic criteria (typical pain, CT findings) Jia score on admission: 1 and after 48 hours: 2 Plan: * Continue aggressive IV fluid resuscitation * Strict I's and O's to monitor volume status * Keep strict NPO--> will reevaluate tomorrow * Optimize pain management, changed her from morphine to Dilaudid. * Monitor electrolytes and replace as needed * KUB X-ray to assess for ileus * Daily labs #Lactic acidosis type B Likely multifactorial- related to underlying liver dysfunction and stress response, less likely due to hypoperfusion given improving creatinine Plan: * Monitor lactate trend daily * Maintain good perfusion with fluids #Gallbladder Disease / Biliary Obstruction Gallstones with cystic duct obstruction, rising bilirubin and Alk Phos support ongoing biliary source. Plan: * Consult General Surgery (Dr. Montes) for possible cholecystostomy drain or other intervention * Monitor LFT trends #Decompnsated liver Cirrhosis / Portal Hypertension Underlying non-alcoholic cirrhosis with portal hypertension, mild hyperbilirubinemia, hypoalbuminemia, and mild coagulopathy. Current scores: -MELD score 10 -Child-Berumen Class B (7 points) Plan: * Monitor daily LFTs, INR, albumin * Avoid hepatotoxic meds * Monitor for ascites or encephalopathy #Normocytic Anemia Stable mild chronic anemia related to cirrhosis. Plan: * Monitor daily CBC * Transfuse if hemoglobin <7 #History of left breast mass with nipple retraction and mesenteric lymphadenopathy. Plan: * Confirm outpatient oncology follow-up with Dr. Gustafson * Reinforce importance of follow-up with patient * Oncology Follow-Up Health Maintenance: * Lines: PIV * Diet: NPO * Bowel: Monitoring for ileus * GI prophylaxis:? * DVT prophylaxis: SCDs in place * Disposition: Continue inpatient care for pancreatitis * Code Status: Full ----- Plan discussed with attending physician Dr. Amarilys Gonzalez MD PGY-1 Internal Medicine Attending Provider Attestation/Addendum Valorie Nielsen, , attest that I was physically present for the hernandez portions of the service and evaluated the patient with the resident and I reviewed and discussed the case with the resident and agree with the resident's findings and plans of care as documented above Patient seen and evaluated this Am. Patient reports pain in her epigastrum. Will continue wtih IV fluids for pancreatitis. Will monitor volume status closely due to concern for volume overload. Continue with Pain control as needed. Will f/u with GI and surgery recs due to recent findings of biliary dyskinesia. Patient had recently been admitted and surgery had recommended placement of cholecystostomy tube. However, placement was unsuccesful, but patient symptoms improved and was discharged.
[2025-02-02 15:12] LABS: Reflex Lactate? Y
[2025-02-02 15:37] LABS: Lactic Acid, 3 HR 2.0 mMol/L (0.4-2.0)
--- NOTE | 2025-02-02 21:52 | PD.IMCONS ---
HPI Data of Consult Requesting Physician: Valorie Panda DO Primary Care Provider: Physician No Primary/Family Consult Narrative Reason for consult: Pain abdomen cholelithiasis abnormal CTAP History of present illness: 59 years old female presented the hospital with nausea vomiting and pain abdomen And CT scan of the abdomen pelvis without contrast showed distended gallbladder stones in the gallbladder esophageal and perigastric varices and moderate acute pancreatitis I have known this patient from previous admission and she had a CCK HIDA scan with ejection fraction done which showed an nonvisualization of the gallbladder on previous admission A cholecystostomy tube was recommended but the gallbladder was too small to have the placement of a tube it was never done Patient also an upper endoscopy on 01/25/2025 and 2 bandS were put on for the esophageal varices Patient is a very high risk for surgical intervention here cc:: cc: Valorie Panda DO Review of Systems Review of Systems Systems Reviewed: All systems reviewed, normal except as documented Past Medical History Surgical History OTHER SURGICAL HX: As in the history of present illness Meds Home Medications and Allergies Home Medications ?Medication ?Instructions ?Recorded ?Confirmed ?Type cardo nicol 120 mg PO DAILY liver 01/25/25 02/02/25 History neomixen 250 mg PO DAILY 01/25/25 02/02/25 History ulsen 20 mg PO DAILY PRN for stomach 01/25/25 02/02/25 History Allergies Allergy/AdvReac Type Severity Reaction Status Date / Time No Known Allergies Allergy Verified 02/02/25 00:29 Exam Vital Signs Temp Pulse Resp BP Pulse Ox O2 Del Method 98.0 F 67 18 110/52 L 94 L Room Air 02/02/25 20:00 02/02/25 20:00 02/02/25 20:00 02/02/25 20:00 02/02/25 20:00 02/02/25 20:00 Constitutional Comments: Chronically ill-appearing Routine Respiratory Exam Comments: Normal to auscultation Routine Abdominal Exam Comments: Midepigastric tenderness Results Labs 02/03/25 05:11 02/03/25 05:11 Labs: Short CBC 02/02/25 02/02/25 Range/Units 01:45 12:01 WBC 6.8 D 4.4 (3.6-11.0) Thou/mm3 Hgb 10.2 L 9.7 L (12.0-16.0) g/dL Hct 32.2 L 31.0 L (36.0-46.0) % Plt Count 93 L 97 L (140-440) Thou/mm3 BMP 02/02/25 02/02/25 01:45 12:01 Sodium 145 145 Potassium 3.7 4.2 D Chloride 111 H 112 H Carbon Dioxide 23.9 22.3 BUN 13 14 Creatinine 0.9 0.7 Glucose 152 H 149 H Calcium 8.5 8.1 L Liver Function 02/02/25 02/02/25 Range/Units 01:45 12:01 Total Bilirubin 2.6 H 2.8 H (0.3-1.2) mg/dL Direct Bilirubin 1.2 H (0.0-0.3) mg/dL AST 87 H 125 H (0-34) U/L ALT 34 50 H (10-49) U/L Alkaline Phosphatase 177 H 160 H (46-116) U/L Albumin 3.2 L 3.1 L (3.4-4.8) gm/dL Urine 02/02/25 Range/Units 05:55 Urine Color Drk-Yellow A (Lt Yel-Yel) Urine Clarity Clear (Clear/Hazy) Urine pH 5.5 (5.0-7.0) Ur Specific [place] 1.033 (1.001-1.035) Urine Protein Trace (Neg - Trace) Urine Glucose (UA) 1+ A (Negative) Assessment and Plan Additional Assessment & Plan Additional Plan: Acute biliary pancreatitis secondary to cholelithiasis bili dyskinesia and normal visualization of the gallbladder on previous CCK HIDA scan Plan N.p.o. 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
[2025-02-03] VITALS (10 sets, daily range): BP systolic 107–127; BP diastolic 59–76; PULSE 66–76; RESP 16–20; TEMP 36.2–36.6; O2SAT 94–96
[2025-02-03] MEDS: RINGERS LACTATED 1000 ML 1,000 ML 150 ML IV ×3 (02:16→17:35)
[2025-02-03 06:05] LABS: Basophils # (Auto) 0.0 Thou/mm3 (0.0-0.2); Basophils % (Auto) 1 % (0-2.5); Eosinophils # (Auto) 0.1 Thou/mm3 (0.0-0.5); Eosinophils % (Auto) 2 % (0-10); Hematocrit 26.9 % (36.0-46.0); Hemoglobin 8.7 g/dL (12.0-16.0); Immature Granulocytes Auto 0.01 Thou/mm3 (0.00-0.00); Lymphocytes # (Auto) 1.0 Thou/mm3 (1.0-4.8); Lymphocytes % (Auto) 23 % (10-50); Mean Corpuscular HGB Conc 32.3 g/dl (31.0-37.0); Mean Corpuscular Hemoglobin 26.3 pg (25.0-35.0); Mean Corpuscular Volume 81 fL (80-100); Monocytes # (Auto) 0.5 Thou/mm3 (0.0-0.8); Monocytes % (Auto) 12 % (0-12); Neutrophils # (Auto) 2.5 Thou/mm3 (1.8-7.7); Neutrophils % (Auto) 61 % (37-80); Nucleated Red Blood Cell # 0.00 Thou/mm3 (0.00-0.00); Nucleated Red Blood Cell % 0 /100 WBC (0); Platelet Count 69 Thou/mm3 (140-440); RDW Standard Deviation 62.2 fL (36.4-46.3); Red Blood Count 3.31 Miln/mm3 (4.00-5.20); White Blood Count 4.1 Thou/mm3 (3.6-11.0)
[2025-02-03 06:36] LABS: Slide Review Platelets confirmed
[2025-02-03 06:39] LABS: Alanine Aminotransferase 38 U/L (10-49); Albumin, Serum 2.7 gm/dL (3.4-4.8); Albumin/Globulin Ratio 1.0 (1.2-2.2); Alkaline Phosphatase 122 U/L (46-116); Anion Gap 8 (7-16); Aspartate Amino Transferase 77 U/L (0-34); BUN/Creatinine Ratio 23 Ratio (12-20); Bilirubin,Total 2.5 mg/dL (0.3-1.2); Blood Urea Nitrogen 16 mg/dL (9-23); Calcium 7.8 mg/dL (8.3-10.6); Calcium (Corrected) 8.8 mg/dL (8.5-10.1); Carbon Dioxide 25.2 mMol/L (20.0-31.0); Chloride 113 mMol/L (98-107); Creatinine (Component) 0.7 mg/dL (0.6-1.3); Estimated Creatinine Clearance 90.9 mL/min (>60); Globulin 2.8 gm/dL (2.3-3.5); Glucose 85 mg/dL (74-106); Magnesium 2.3 mg/dL (1.6-2.6); Osmolality,Calculated 290 (275-295); Phosphorous 2.5 mg/dL (2.4-5.1); Potassium 4.0 mMol/L (3.4-5.1); Sodium 146 mMol/L (136-145); Total Protein 5.5 gm/dL (5.7-8.2); eGFR > 60 See Note
[2025-02-03] MEDS: POLYETHYLENE GLYCOL 17 GM PACKET PO (10:20)
--- NOTE | 2025-02-03 11:24 | PC.SS ---
Radha Perera is a 59 year old female admitted to the [facility] unit for Pancreatitis. SS made contact with the patient in the attempt to complete initial. Role and reason for the contact was explained to the patient. Demographic information was verified with the patient. Patient was able to verify her home address, phone number and contact information for her daughter, Marlene Marquez who she reports is surrogate decision, [phone]. Patient reports that she lives at home with her Stevan Marquez, . SS inquired about the patient being able to perform her own ADL?s at home. Patient reports that she is independent with her ADL?s. Patient reports that she does not utilize any source of DME to assist with ambulation. Choice of pharmacy is [facility]. PCP: Michael Mcneal. At this time patient reports that she has no other needs. Patient reports that her daughter will be able to transport her home upon discharge. Per rounding follow up, patient is getting IV fluids and Diet needs to to be advanced. PCP: Dr. Michael Mcneal Discharge plan: Home Next of Kin: Marilin
--- NOTE | 2025-02-03 12:19 | PC.SS ---
SS follow up note; Patient is getting IV Fluids, patient needs to tolerate diet, patient will discharge when medically cleared.
--- NOTE | 2025-02-03 18:26 | ESPR_ITS ---
<Statement entered by Alonso Sheets MD - 02/03/25 20:34> Patient was seen and examined at the bedside. Currently we are advancing her diet as tolerated. Fluids were discontinued. I discussed and supervised with the electrical engineering intern physician who took care of this patient. I personally saw and examined the patient. I agree with most of the assessment and plan. Disclaimer: Despite multiple revisions, due to the dictation software being used, the document bellow may not be free of grammatical errors including phonetic/typographic errors. However, this does not deter from our commitment to providing health care in the patient's best interest in mind. Plan of care discussed with attending Physician Dr. Amarilys Sheets MD PGY-3 Documentation for date of: 02/03/25 Subjective Subjective Interval history: Patient seen this morning and again this afternoon. She reports feeling better overall, denies any nausea or vomiting overnight, and denies abdominal bloating or distention. She did not have a bowel movement since Saturday. And noted her throat feels sore, likely due to prior vomiting. Diet was advanced from n.p.o. to clear liquid this morning and patient tolerated well without issues. She later had a bowel movement and continued to tolerate intake, so diet was further advanced to full liquids this afternoon. IV fluids were discontinued she remains on as needed Zofran and hydromorphone for nausea and pain. General surgery (Dr Montes) evaluated and determined no surgical intervention needed at this time?if needed, she will require transfer to tertiary center. Exam Vital Signs Temp Pulse Resp BP Pulse Ox O2 Del Method 97.2 F 74 17 112/68 94 L Room Air 02/03/25 16:00 02/03/25 16:00 02/03/25 16:00 02/03/25 16:00 02/03/25 16:00 02/03/25 16:00 Narrative Exam General: Alert, comfortable, no acute distress Abdomen: Soft, nondistended, nontender, no guarding or rebound. Skin: No jaundice noted Cardio: RRR Pulm: Clear to auscultation, no distress Neuro: A&O x3 Objective Labs 02/04/25 05:20 02/04/25 05:20 Labs: Laboratory Results - last 24 hr 02/03/25 05:11 WBC 4.1 RBC 3.31 L Hgb 8.7 L Hct 26.9 L MCV 81 MCH 26.3 MCHC 32.3 RDW Std Deviation 62.2 H Plt Count 69 L D Neut % (Auto) 61 Lymph % (Auto) 23 [place] % (Auto) 12 Eos % (Auto) 2 Baso % (Auto) 1 Neut # (Auto) 2.5 Lymph # (Auto) 1.0 [place] # (Auto) 0.5 Eos # (Auto) 0.1 Baso # (Auto) 0.0 Immature Gran # (Auto) 0.01 H Absolute Nucleated RBC 0.00 Immature Gran % 0 Nucleated RBC % 0 Sodium 146 H Potassium 4.0 Chloride 113 H Carbon Dioxide 25.2 Anion Gap 8 BUN 16 Creatinine 0.7 Estim Creat Clear Calc 90.9 eGFR > 60 BUN/Creatinine Ratio 23 H Glucose 85 D Calculated Osmolality 290 Calcium 7.8 L Corrected Calcium 8.8 Phosphorus 2.5 Magnesium 2.3 Total Bilirubin 2.5 H AST 77 H ALT 38 Alkaline Phosphatase 122 H D Total Protein 5.5 L Albumin 2.7 L Globulin 2.8 Albumin/Globulin Ratio 1.0 L Misc Test Result Platelets confirmed Quality Measures Quality Measures none Assessment & Plan Assessment Current Active Medications: Generic Name Dose Route Start Last Admin Trade Name Freq PRN Reason Stop Dose Admin Hydromorphone HCl 1 mg 02/02/25 08:58 02/02/25 10:30 Hydromorphone Inj 2 Mg/Ml Vial IVP 02/07/25 08:57 1 mg Q4HR PRN Administration Pain7-10 Lactated Ringer's 1,000 mls @ 150 mls/hr 02/02/25 14:10 02/03/25 17:35 Lactated Ringers IV 03/04/25 14:09 150 mls/hr .Q6H40M IGLESIA Administration Ondansetron HCl 4 mg 02/02/25 05:48 Ondansetron Inj 2 Mg/Ml Inj 2 Ml IVP 03/04/25 05:47 Q6H PRN NAUSEA OR VOMITING Protocol Plan 59-year-old female with non-alcoholic cirrhosis and portal hypertension admitted with worsening acute pancreatitis likely due to cystic duct obstruction from gallstones, with persistent severe pain, vomiting, and mild lactic acidosis #Acute Pancreatitis Ddx Gall bladder disease/cyst duct obstruction, Alcohol related, gall stones, hypertriglycedemia, medications related,autoimmune -Likely related to gall bladder disease/cystic duct obstruction Severe pancreatitis with persistent pain and vomiting, CT abdomen showed mild acute pancreatitis, Cirrhosis, distended gallbladder with stones. Patient meets 2 of 3 diagnostic criteria (typical pain, CT findings) Jia score on admission: 1 and after 48 hours: 2 Plan: * Continue to advance diet as tolerated to soft/regular * DC IV fluids (done) * Continue as needed nausea and pain control with Zofran and Dilaudid * Monitor electrolytes and replace as needed * KUB x-ray shows moderate to large amounts of stool in the rectosigmoid * Daily labs #Lactic acidosis type B Likely multifactorial- related to underlying liver dysfunction and stress response, less likely due to hypoperfusion given improving creatinine Plan: * Monitor lactate as needed #Gallbladder Disease / Biliary Obstruction Gallstones with cystic duct obstruction, rising bilirubin and Alk Phos support ongoing biliary source. Plan: * No intervention needed per Dr Montes?transfer to tertiary center if complications arise * Monitor LFT trends #Decompnsated liver Cirrhosis / Portal Hypertension Underlying non-alcoholic cirrhosis with portal hypertension, mild hyperbilirubinemia, hypoalbuminemia, and mild coagulopathy. Current scores: -MELD score 10 -Child-Berumen Class B (7 points) Plan: * Monitor daily LFTs, INR, albumin * Avoid hepatotoxic meds * Monitor for ascites or encephalopathy #Normocytic Anemia Stable mild chronic anemia related to cirrhosis. Plan: * Monitor daily CBC * Transfuse if hemoglobin <7 #History of left breast mass with nipple retraction and mesenteric lymphadenopathy. Plan: * Confirm outpatient oncology follow-up with Dr. Gustafson * Reinforce importance of follow-up with patient * Oncology Follow-Up Health Maintenance: * Lines: PIV * Diet: NPO * Bowel: Monitoring for ileus * GI prophylaxis:? * DVT prophylaxis: Pauda score 5 --> High risk for VTE, SCDs in place * Disposition: Continue inpatient care for pancreatitis * Code Status: Full ----- Plan discussed with attending physician Dr. Panda and senior resident Dr. Sudeep Gonzalez MD PGY-1 Internal Medicine Attending Provider Attestation/Addendum Valorie Nielsen, DO, attest that I was physically present for the hernandez portions of the service and evaluated the patient with the resident and I reviewed and discussed the case with the resident and agree with the resident's findings and plans of care as documented above Patient seen and evaluated this AM. She denies any epigastric pain and only needed one dose of dilaudid yesterday and pain has since resolved. I spoke with general surgeon who stated that given patient's cirrhosis and portal hypertension, patient would need a higher level of care if she is to have cholecystectomy. Daughter and patient were understanding. Will advance diet as tolerated. If patient is able to tolerate diet without needing any pain medicine, anticipate DC within next 24h.
--- NOTE | 2025-02-03 23:19 | ESPR_ITS ---
Documentation for date of: 02/03/25 Subjective Subjective Interval history: Clinically improving Advance to liquid diet Exam Vital Signs Temp Pulse Resp BP Pulse Ox O2 Del Method 97.9 F 72 18 120/63 95 Room Air 02/03/25 19:52 02/03/25 19:52 02/03/25 19:52 02/03/25 19:52 02/03/25 19:52 02/03/25 19:52 Objective Labs 02/03/25 05:11 02/03/25 05:11 Labs: Laboratory Results - last 24 hr 02/03/25 05:11 WBC 4.1 RBC 3.31 L Hgb 8.7 L Hct 26.9 L MCV 81 MCH 26.3 MCHC 32.3 RDW Std Deviation 62.2 H Plt Count 69 L D Neut % (Auto) 61 Lymph % (Auto) 23 [place] % (Auto) 12 Eos % (Auto) 2 Baso % (Auto) 1 Neut # (Auto) 2.5 Lymph # (Auto) 1.0 [place] # (Auto) 0.5 Eos # (Auto) 0.1 Baso # (Auto) 0.0 Immature Gran # (Auto) 0.01 H Absolute Nucleated RBC 0.00 Immature Gran % 0 Nucleated RBC % 0 Sodium 146 H Potassium 4.0 Chloride 113 H Carbon Dioxide 25.2 Anion Gap 8 BUN 16 Creatinine 0.7 Estim Creat Clear Calc 90.9 eGFR > 60 BUN/Creatinine Ratio 23 H Glucose 85 D Calculated Osmolality 290 Calcium 7.8 L Corrected Calcium 8.8 Phosphorus 2.5 Magnesium 2.3 Total Bilirubin 2.5 H AST 77 H ALT 38 Alkaline Phosphatase 122 H D Total Protein 5.5 L Albumin 2.7 L Globulin 2.8 Albumin/Globulin Ratio 1.0 L Misc Test Result Platelets confirmed Impressions Impression: Biliary pancreatitis Symptomatic cholelithiasis Decompensated chronic liver disease status post band ligation of the esophageal varices Plan Advance to clear liquid and advance diet as tolerated Assessment & Plan A&P Narrative Acute biliary pancreatitis secondary to cholelithiasis bili dyskinesia and normal visualization of the gallbladder on previous CCK HIDA scan Plan N.p.o. Conservative management IV fluids Pain control Let us see how she does If she needs surgical intervention it has to be done at a tertiary center because she is very high risk for surgical resection here because of the fear of bleeding because of thrombocytopenia and advanced chronic liver disease Other medical problems include Chronic liver disease nonalcoholic which is decompensated Status post band ligation of the esophageal varices Will follow the patient Time Spent With Patient Time: Total time spent is greater than 50% in coordination of care (as documented) at patient's floor/unit and/or counseling patient:
[2025-02-04] VITALS: PULSE 65
[2025-02-04 04:00] VITALS: BP 118/64; PULSE 64; PULSE 75; RESP 18; TEMP 36.8; O2SAT 95
[2025-02-04 06:33] LABS: Basophils # (Auto) 0.0 Thou/mm3 (0.0-0.2); Basophils % (Auto) 1 % (0-2.5); Eosinophils # (Auto) 0.2 Thou/mm3 (0.0-0.5); Eosinophils % (Auto) 6 % (0-10); Hematocrit 26.2 % (36.0-46.0); Immature Granulocytes Auto 0.00 Thou/mm3 (0.00-0.00); Lymphocytes # (Auto) 0.8 Thou/mm3 (1.0-4.8); Lymphocytes % (Auto) 28 % (10-50); Mean Corpuscular HGB Conc 32.1 g/dl (31.0-37.0); Mean Corpuscular Hemoglobin 26.2 pg (25.0-35.0); Mean Corpuscular Volume 82 fL (80-100); Monocytes # (Auto) 0.3 Thou/mm3 (0.0-0.8); Monocytes % (Auto) 12 % (0-12); Neutrophils # (Auto) 1.6 Thou/mm3 (1.8-7.7); Neutrophils % (Auto) 54 % (37-80); Nucleated Red Blood Cell # 0.00 Thou/mm3 (0.00-0.00); Nucleated Red Blood Cell % 0 /100 WBC (0); RDW Standard Deviation 63.4 fL (36.4-46.3); Red Blood Count 3.21 Miln/mm3 (4.00-5.20); White Blood Count 3.0 Thou/mm3 (3.6-11.0)
[2025-02-04 06:35] LABS: Hemoglobin 8.4 g/dL (12.0-16.0); Platelet Count 72 Thou/mm3 (140-440)
[2025-02-04 06:36] LABS: Slide Review Platelets confirmed
[2025-02-04 06:50] LABS: Alanine Aminotransferase 33 U/L (10-49); Albumin, Serum 2.6 gm/dL (3.4-4.8); Albumin/Globulin Ratio 0.9 (1.2-2.2); Alkaline Phosphatase 120 U/L (46-116); Anion Gap 8 (7-16); Aspartate Amino Transferase 66 U/L (0-34); BUN/Creatinine Ratio 17 Ratio (12-20); Bilirubin,Total 2.5 mg/dL (0.3-1.2); Blood Urea Nitrogen 12 mg/dL (9-23); Calcium 7.8 mg/dL (8.3-10.6); Calcium (Corrected) 8.9 mg/dL (8.5-10.1); Carbon Dioxide 25.5 mMol/L (20.0-31.0); Chloride 111 mMol/L (98-107); Creatinine (Component) 0.7 mg/dL (0.6-1.3); Estimated Creatinine Clearance 90.9 mL/min (>60); Globulin 2.9 gm/dL (2.3-3.5); Glucose 88 mg/dL (74-106); Osmolality,Calculated 285 (275-295); Potassium 4.0 mMol/L (3.4-5.1); Sodium 144 mMol/L (136-145); Total Protein 5.5 gm/dL (5.7-8.2); eGFR > 60 See Note
[2025-02-04 07:41] VITALS: BP 105/58; PULSE 66; RESP 18; TEMP 36.4; O2SAT 94
[2025-02-04 08:00] VITALS: PULSE 72
--- NOTE | 2025-02-04 13:51 | ESDS_ITS ---
<Statement entered by Valorie Panda DO - 02/04/25 19:44> I, Valorie Panda DO, attest that I was physically present for the hernandez portions of the service and evaluated the patient with the resident and I reviewed and discussed the case with the resident and agree with the resident's findings and plans of care as documented above <Statement entered by Alonso Sheets MD - 02/04/25 15:05> I discussed and supervised with the technical intern physician who took care of this patient. I personally saw and examined the patient. I agree with most of the assessment and plan. Disclaimer: Despite multiple revisions, due to the dictation software being used, the document bellow may not be free of grammatical errors including phonetic/typographic errors. However, this does not deter from our commitment to providing health care in the patient's best interest in mind. Plan of care discussed with attending Physician Dr. Amarilys Sheets MD PGY-3 Planned Discharge Date 02/04/25 DS: Providers Provider Date of admission: 02/02/25 05:48 Primary care physician: Physician Judy Primary/Family Admitting Provider: Anthony Macias MD Attending Provider on Admission: Valorie Panda DO Consults: 02/02/25 05:26 Consult to Gastroenterology Stat Comment: cirrhosis and pancreatitis Consulting Provider: Emerson Sommer 02/02/25 09:26 Consult to General Surgery Routine Comment: Returned patient w/ biliary dyskinesia Consulting Provider: Rosa Montes Attending Provider on DC: Valorie Panda DO Discharging Provider: RESIDENT Viviane DS: Diagnosis Problem List Completed Was Problem List Reviewed/Reconciled?: Yes Hospital Course Hospital Course Hospital course: Patient presented to the ED with worsening severe epigastric pain radiating to the back, nausea, and multiple episodes of vomiting. Initial labs showed mild normocytic anemia, elevated bilirubin, elevated alkaline phosphatase, and mildly elevated lactate. CT abdomen showed evidence of cirrhosis, a distended gallbladder with gallstones, and mild acute pancreatitis pattern. General Surgery was consulted - Dr. Montes evaluated the patient and determined that no surgical or IR drainage was appropriate at this time; if the gallbladder required removal, she would need transfer to a tertiary center. Patient was started on aggressive IV fluid resuscitation, NPO, and multimodal pain and nausea management. She was monitored closely for signs of worsening obstruction, ileus, or sepsis. Lactate trended down with fluids. KUB was unremarkable for obstruction. She remained hemodynamically stable. As her pain improved and vomiting resolved, her diet was carefully advanced. She tolerated clear liquids well, progressed to full liquids, and finally to a dysphagia level 2 diet due to throat soreness from prior vomiting ? she tolerated this without issues. She also had bowel movements after being started on MiraLAX. Her pain, nausea, and vomiting resolved completely. Throughout admission, her cirrhosis remained stable with a calculated MELD-->10 and Child-Berumen Class B. VTE risk was high (Manoj 5) so she remained on SCDs and pharmacologic prophylaxis as appropriate. She was monitored daily with labs which remained stable. No signs of decompensation or encephalopathy were noted. Outpatient follow-up for her known left breast mass and mesenteric lymph nodes was reinforced with her primary care and oncology teams. She is now clinically stable, tolerating diet, and ready for discharge with instructions for follow-up and clear return precautions. 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 Panda and senior resident Dr. Sudeep Gonzalez MD PGY-1 Internal Medicine Time Spent with Patient Time attestation: Total time spent providing and/or coordinating discharge services: Time spent: Greater than 30 minutes Exam Vital Signs Temp Pulse Resp BP Pulse Ox O2 Del Method 97.6 F 72 18 105/58 L 94 L Room Air 02/04/25 07:41 02/04/25 08:00 02/04/25 07:41 02/04/25 07:41 02/04/25 07:41 02/04/25 04:00 Narrative Exam General: Alert, comfortable, no acute distress HEENT: No icterus, throat mild soreness improved CV: RRR, no murmurs Resp: Clear to auscultation bilaterally Abdomen: Soft, non-tender, non-distended, normal bowel sounds Skin: No jaundice, no bruising Neuro: A&O x3, no focal deficits Discharge Plan Plan Patient Disposition: HOME (Self Care) Patient condition on transfer: Stable Care Plan Goals: -Follow-up with PCP within 1 week of discharge -Will need referral to general surgery at a [facility] if right upper quadrant pain continues or worsens -Continue taking lactulose as prescribed -Return to ED if severe pain, worseing vomiting, fever, yellow eyes/skin, confusion or black stools Prescriptions/Referrals Prescriptions/Med Rec: New lactulose [Enulose] 10 gram/15 mL solution 20 g PO TID Qty: 3785 0RF Continued ulsen 20 mg capsule 20 mg PO DAILY PRN (Reason: for stomach) cardo nicol tablet 120 mg PO DAILY Patient Comments: herbal supplement for liver neomixen tablet 250 mg PO DAILY Referrals: Emerson Sommer MD [Physician] - No Primary/Family,Physician [Primary Care Provider] - Patient/Caregiver Discharge Instructions Other Discharge Activity Instructions:: Please f/u with PCP within 1 week of discharge Will need referral for general surgery at [place] if patient continues to have RUQ pain. Print Language: Jamaican Stand Alone Forms: Elvi Award Info., Patient Portal Info Letter Discharge Order Discharge Orders: Discharge (Routine); Ordered 02/04/25 Ordered By: Valorie Panda Quality Discharge Quality Measures VTE prophylaxis
--- NOTE | 2025-02-04 21:30 | PD.IMPROG ---
Documentation for date of: 02/04/25 Subjective Subjective Interval history: Late entry for the note Case discussed with internal medicine team Okay to discharge patient home on a PPI Exam Vital Signs Temp Pulse Resp BP Pulse Ox O2 Del Method 97.6 F 72 18 105/58 L 94 L Room Air 02/04/25 07:41 02/04/25 08:00 02/04/25 07:41 02/04/25 07:41 02/04/25 07:41 02/04/25 04:00 Objective Labs 02/04/25 05:20 02/04/25 05:20 Labs: Laboratory Results - last 24 hr 02/04/25 05:20 WBC 3.0 L RBC 3.21 L Hgb 8.4 L Hct 26.2 L MCV 82 MCH 26.2 MCHC 32.1 RDW Std Deviation 63.4 H Plt Count 72 L Neut % (Auto) 54 Lymph % (Auto) 28 Shoshone % (Auto) 12 Eos % (Auto) 6 Baso % (Auto) 1 Neut # (Auto) 1.6 L Lymph # (Auto) 0.8 L Shoshone # (Auto) 0.3 Eos # (Auto) 0.2 Baso # (Auto) 0.0 Immature Gran # (Auto) 0.00 Absolute Nucleated RBC 0.00 Immature Gran % 0 Nucleated RBC % 0 Sodium 144 Potassium 4.0 Chloride 111 H Carbon Dioxide 25.5 Anion Gap 8 BUN 12 Creatinine 0.7 Estim Creat Clear Calc 90.9 eGFR > 60 BUN/Creatinine Ratio 17 Glucose 88 Calculated Osmolality 285 Calcium 7.8 L Corrected Calcium 8.9 Total Bilirubin 2.5 H AST 66 H ALT 33 Alkaline Phosphatase 120 H Total Protein 5.5 L Albumin 2.6 L Globulin 2.9 Albumin/Globulin Ratio 0.9 L Misc Test Result Platelets confirmed Impressions Impression: Esophageal ulceration Biliary pancreatitis in the setting of cirrhotic liver disease Cholelithiasis Recommend surgical intervention at a tertiary center Assessment & Plan A&P Narrative Acute biliary pancreatitis secondary to cholelithiasis bili dyskinesia and normal visualization of the gallbladder on previous CCK HIDA scan Plan N.p.o. Conservative management IV fluids Pain control Let us see how she does If she needs surgical intervention it has to be done at a tertiary center because she is very high risk for surgical resection here because of the fear of bleeding because of thrombocytopenia and advanced chronic liver disease Other medical problems include Chronic liver disease nonalcoholic which is decompensated Status post band ligation of the esophageal varices Will follow the patient Time Spent With Patient Time: Total time spent is greater than 50% in coordination of care (as documented) at patient's floor/unit and/or counseling patient:
== END 2025-02-04 11:53 | disposition home or self-care (01) | DRG 282 ==
LOC: SERX 05:30 → SERHOLD 08:08 → S3SX 09:05
PROVIDERS: Admitting Provider Student in an Organized Health Care Education/Training Program; Emergency Provider Emergency Medicine; Visit Provider Internal Medicine
DX: K85.90 Acute pancreatitis without necrosis or infection, unspecified (principal); K76.6 Portal hypertension; R16.1 Splenomegaly, not elsewhere classified; K82.8 Other specified diseases of gallbladder; N64.53 Retraction of nipple; N63.20 Unspecified lump in the left breast, unspecified quadrant; D63.8 Anemia in other chronic diseases classified elsewhere; D68.9 Coagulation defect, unspecified; D69.6 Thrombocytopenia, unspecified; E87.20 Acidosis, unspecified; E88.09 Other disorders of plasma-protein metabolism, not elsewhere classified; I10 Essential (primary) hypertension; G24.9 Dystonia, unspecified; K70.30 Alcoholic cirrhosis of liver without ascites; K80.21 Calculus of gallbladder without cholecystitis with obstruction; K85.10 Biliary acute pancreatitis without necrosis or infection
CPT/HCPCS: 36415; 74018; 74176; 76705; 80053; 80307; 80320; 81001; 82010; 82140; 82150; 82248; 83605; 83615; 83690; 83735; 83880; 84100; 84145; 84439; 84443; 85025; 85610; 85652; 85730; 86140; 87040; 87081; 87400; 87811; 93225; 96361; 96374; 96375; 96376; J1171; J1885; J2270; J2405; J3475; J7030; J7120; A9270; G0480

== ENCOUNTER 2025-02-23 14:36 | Outpatient (RCR) | payer MEDICAID, SELFPAY ==
--- NOTE | 2025-02-23 17:20 | CTCCONSULT_ITS ---
[facility] [address] [place], [place] [address] Consultation Note Date: 02/23/2025 MR#: [id number] Name: PAULINE GUADARRAMA : 1965 Dx: C50.011 Malignant neoplasm of areola right breast Attending physician. [facility] Reason for consultation. Patient with recent diagnosis of invasive carcinoma right breast retroareolar area History of Present Illness: Patient is 59-year-old lady who has been seen at the cancer treatment center for cirrhosis of liver iron deficient anemia and pancytopenia. Last seen over 3 years ago and noncompliant about follow-ups. Patient did see doctors in [place] until about 2 years ago. Recently noted to have pain in left breast BI-RADS 0 no cystic or solid mass ultrasound left breast 01/24/1995. CT scan of the chest 01/24/2025 revealed a complex right breast mass retroareolar with adjacent skin thickening up to 5 cm in thickness. There was also a 8 mm right axilla lymph node and at least 6 subcentimeter noncalcified pulmonary nodules. Also noted was cirrhosis esophageal varices with prior banding procedure portal hypertension significant splenomegaly. Underwent ultrasound-guided biopsy 01/26/2025 revealing invasive ductal carcinoma grade 1 largest focus 1.4 cm. ER/OK positive HER2/nader overexpressed 3+. Ki-67 low 20% CT scan abdomen pelvis 02/02/2025 cirrhosis distended gallbladder with gallstones gastritis pattern esophageal and perigastric varices and suspicion for mild acute pancreatitis. Gallbladder ultrasound 02/02/2025 abnormal thickened gallbladder wall. Patient was recently evaluated by Dr. Sommer, who noted the above, and recommended follow-up with Dr. Ibrahim esl professor. Patient now referred for oncological consultation. Past Medical History nonalcohol related cirrhosis pancreatitis esophageal varices with bleeding status post banding procedure Meds. Lactulose ulsen neomycin Allergies none known Family history. No family history of cancer mother had hepatitis Social History: Patient Brazilian-speaking denies alcohol abuse or recreational drug use or smoking Review of Systems: Has mild abdominal pain relieved by antiulcer meds. Denies significant weight loss or body pains. Physical Exam: General: Adequately nourished appearing lady in no acute distress HEENT: Atraumatic normocephalic extraocular is intact no oral lesion no cervical or supraclavicular adenopathy. CV: Tumor in the central region of her right breast measuring about 4 x 5 cm which clearly involves the skin. Right axillary adenopathy palpated. Lungs clear ABD: Soft no organomegaly or tenderness EXT: No signs of clubbing edema. Assessment:#1 locally advanced right breast CA involving skin with possible right axillary adenopathy. ER/OK positive HER2/nader overexpressed. May have lung mets noted on CT. #2. port placement echocardiogram PET Dr. Jackson to see patient #3. Significant GI symptoms with nonalcohol related cirrhosis history of esophageal varices pancreatitis distended gallbladder. Has been referred to Dr. Ibrahim GI specialist. #4. Noted to have pancytopenia iron deficiency anemia. Previous seen at [facility], but no one has followed her closely for this problem in recent years. #5 Thank for allowing us to evaluate and manage this patient Cc: [facility] Electronically signed by: Miguel Gustafson MD, DABR 02/23/2025 5:18 PM
== END 2025-02-25 23:59 | disposition home or self-care (01) ==
LOC: SCTC 14:36
PROVIDERS: PCP Family Medicine; Referring Provider Family Medicine; Visit Provider Radiology Therapeutic Radiology
DX: C50.011 Malignant neoplasm of nipple and areola, right female breast (principal); Z17.0 Estrogen receptor positive status [ER+]; Z17.21 Progesterone receptor positive status; Z17.32 Human epidermal growth factor receptor 2 negative status; K74.60 Unspecified cirrhosis of liver; I85.00 Esophageal varices without bleeding; K82.8 Other specified diseases of gallbladder; Z87.19 Personal history of other diseases of the digestive system; D61.818 Other pancytopenia; D50.9 Iron deficiency anemia, unspecified
CPT/HCPCS: 99213; G0463

== ENCOUNTER 2025-03-22 08:36 | Outpatient (CLI) | payer MEDICAID, SELFPAY ==
[2025-03-18 15:07] VITALS: BMI 28.1
[2025-03-19 09:05] LABS: Basophils # (Auto) 0.0 Thou/mm3 (0.0-0.2); Basophils % (Auto) 1 % (0-2.5); Eosinophils # (Auto) 0.2 Thou/mm3 (0.0-0.5); Eosinophils % (Auto) 6 % (0-10); Hematocrit 31.9 % (36.0-46.0); Hemoglobin 10.1 g/dL (12.0-16.0); Immature Granulocytes Auto 0.00 Thou/mm3 (0.00-0.00); Lymphocytes # (Auto) 1.2 Thou/mm3 (1.0-4.8); Lymphocytes % (Auto) 30 % (10-50); Mean Corpuscular HGB Conc 31.7 g/dl (31.0-37.0); Mean Corpuscular Hemoglobin 26.0 pg (25.0-35.0); Mean Corpuscular Volume 82 fL (80-100); Monocytes # (Auto) 0.4 Thou/mm3 (0.0-0.8); Monocytes % (Auto) 10 % (0-12); Neutrophils # (Auto) 2.1 Thou/mm3 (1.8-7.7); Neutrophils % (Auto) 53 % (37-80); Nucleated Red Blood Cell # 0.00 Thou/mm3 (0.00-0.00); Nucleated Red Blood Cell % 0 /100 WBC (0); Platelet Count 101 Thou/mm3 (140-440); RDW Standard Deviation 65.2 fL (36.4-46.3); Red Blood Count 3.89 Miln/mm3 (4.00-5.20); White Blood Count 4.0 Thou/mm3 (3.6-11.0)
[2025-03-19 09:30] LABS: Blood Urea Nitrogen 11 mg/dL (9-23); Creatinine (Component) 0.8 mg/dL (0.6-1.3); Estimated Creatinine Clearance 78.5 mL/min (>60); eGFR > 60 See Note
[2025-03-19 10:06] LABS: INR 1.2 (0.9-1.3); Partial Thromboplastin Time 28.6 Seconds (22.0-36.0); Prothrombin Time 13.3 Seconds (9.0-12.2)
[2025-03-22] VITALS (21 sets, daily range): BP systolic 105–140; BP diastolic 47–64; PULSE 64–77; RESP 14–20; TEMP 36.7–37; O2SAT 95–99
[2025-03-22] MEDS: HEPARIN SOD LOCK SYR 100 UNIT/ML 500 UNIT STFIELD (09:25)
[2025-03-22] MEDS: ceFAZolin/D5W 1 GM IVPB 1 GM/50 ML BAG IV (09:25)
[2025-03-22] MEDS: LIDOCAINE INJ PF 1% 30 ML VIAL INFL (09:25)
[2025-03-22] MEDS: LIDOCAINE 1% W/EPI 1:100K 20 ML VIAL INFL (09:25)
[2025-03-22] MEDS: SODIUM CHLORIDE 0.9% 250 ML 250 ML 20 ML IV (09:25)
--- NOTE | 2025-03-22 09:30 | XR_ITS ---
Exam: Fluoroscopic and ultrasound-guided left IJ port placement. Date: 03/22/2025, 8:44 AM Indication: Right-sided breast cancer. Fluoroscopy time 2.0 minutes Dose: 19.85 mGy Technique: After a discussion of risks and benefits informed consent was obtained from the patient. Patient was brought to the angiography suite and placed supine on the exam table. Preliminary ultrasound evaluation showed the left IJ to be patent. The skin overlying the left neck and upper chest was cleaned and draped in normal sterile surgical fashion. 20 cc's of 1% lidocaine was used for local anesthesia. Conscious sedation was begun with direct nursing supervision. Using ultrasound guidance access to the IJ was obtained with a micropuncture needle. An 0.018 wire was advanced through the needle into the SVC and the needle was withdrawn. A 5 Spanish micropuncture change sheath was advanced over the wire, and the wire removed. The sheath was capped. A 4 cm incision was made over left chest. Small pouch was created with a combination of sharp and blunt dissection. The port and catheter tubing were attached to the tunneling device and pulled underneath the skin and exiting at the left IJ access site. Left IJ 5 inch sheath was replaced with a 7 Spanish peel-away sheath. Catheter was advanced through the peel-away sheath and peel-away sheath was removed. Distal catheter tip was appropriately positioned at the cavoatrial junction. The port pocket was closed with deep interrupted sutures using 2-0 Vicryl and superficial running sutures utilized 3-0 Vicryl. IJ access site was closed with 3-0 Vicryl and Dermabond glue Port flushed and aspirated easily and is ready for use. Impression: Successful placement of left IJ port as above with distal tip at the caval atrial junction Catheter is ready for use.
[2025-03-22] MEDS: MIDAZOLAM INJ 1 MG/ML VIAL 2 ML IVP (09:46)
[2025-03-22] MEDS: fentaNYL CIT INJ 50 mCg/ML AMP 2ML 150 MCG IVP (09:46)
== END 2025-03-22 11:25 | disposition home or self-care (01) ==
PROVIDERS: Radiology Diagnostic Radiology; PCP Family Medicine; Referring Provider Radiology Therapeutic Radiology; Visit Provider Radiology Therapeutic Radiology
DX: D50.9 Iron deficiency anemia, unspecified (principal); C50.011 Malignant neoplasm of nipple and areola, right female breast; Z01.812 Encounter for preprocedural laboratory examination
CPT/HCPCS: 36558; 36415; 76937; 77001; 82565; 84520; 85025; 85610; 85730; 99152; 99153; C1769; C1788; C1894; J0689; J1642; J2250; J3010; J3490; J7050

== ENCOUNTER 2025-03-23 08:43 | Outpatient (RCR) | payer MEDICAID, SELFPAY ==
--- NOTE | 2025-03-23 12:07 | CTCCONSULT_ITS ---
Patient: PAULINE GUADARRAMA : 1965 MR#: [id number] Page 3 of 4 CONSULTATION NOTE DATE OF CONSULTATION: 03/23/2025 NAME: PAULINE GUADARRAMA ACCOUNT: [id number] : 1965 AGE: 59 REFERRING PHYSICIAN: Barrie Jackson MD PRIMARY PHYSICIAN: Barrie Jackson MD REASON FOR VISIT: New breast cancer ER/IA HER2 positive ONCOLOGY HISTORY: DIAGNOSIS: Iron deficiency anemia, unspecified [ICD10] D50.9; Malignant neoplasm of nipple and areola, right female breast [ICD10] C50.011 DATE OF DIAGNOSIS: 01/26/2025 STAGE/TNM: At least stage II [id number] TREATMENT HISTORY: Care?Plan Start?Date Cycle Day Intent VENOfer?200mg?IV?wkly 06/01/2021 1 70 Palliative TCH?1 03/23/2025 1 21 Curative?(adjuvant) HISTORY OF PRESENT ILLNESS: 59-year-old female with a known history of iron deficiency anemia and liver cirrhosis very noncompliant is now diagnosed with right breast cancer. Patient have developed breast cancer. Patient found to have about 6 x 6 cm mass in the clinic today. Patient is having oozing at the site of biopsy. Tumor found to be involving the nipple. Patient and family here for follow-up and wishes to retain the breast. OTHER MEDICAL HISTORY/CONDITIONS: FAMILY HISTORY: SOCIAL HISTORY: [employer] HISTORY: MEDICATIONS: 1. Constulose - 10 gram/15 mL 30 mg/mL Three times a day 2. traZODone - 50 mg 1 tab Daily Medications Last Reconciled by Margaret Simon RN on 03/23/2025 ALLERGIES: No Known Drug Allergies REVIEW OF SYSTEMS: A complete 14-point review of systems was performed and is negative except as noted in interval history. PHYSICAL EXAMINATION: VITAL SIGNS: Temperature?99.3, B/P?112/64, Oxygen?Saturation?98% PAIN: 3 - Between mild and moderate pain ECOG Performance Status: 1 - Symptomatic; ambulatory; restricted in strenuous activity GENERAL APPEARANCE: Appears well, in no apparent distress, appropriately interactive. HEENT: Normocephalic, no temporal wasting, normal conjunctiva, no scleral icterus, normal hearing, lips without lesions, neck normal range of motion. CARDIOVASCULAR: Not assessed. PULMONARY: Normal respiratory effort, no respiratory distress or use of accessory muscles, speaking in full sentences, no tachypnea. EXTREMITIES: No pedal edema or cyanosis. SKIN: Normal skin appearance. NEUROLOGIC: Alert and oriented x4. PSHYCHIATRIC: Appropriate affect, mood normal, behavior normal, intact thought and speech. Breast examination shows at least 6 x 6 cm mass involving nipple and oozing noted at the wound of biopsy. Patient's nipple area is likely involved with the breast cancer. LABORATORY DATA: I have personally reviewed and interpreted each of the patient?s relevant lab tests, abnormal findings are below: Date 02/04/25 03/19/25 ??WHITE?BLOOD?COUNT?(Thou/mm3) 3.0?L 4.0 ??RED?BLOOD?COUNT?(Miln/mm3) 3.21?L 3.89?L ??HEMOGLOBIN?(gm/dl) 8.4?L 10.1?L ??HEMATOCRIT?(%) 26.2?L 31.9?L ??PLATELET?COUNT?(Thou/mm3) 72?L 101?L ??NEUTROPHILS?%,?AUTO?(%) 54 53 ??LYMPH?%,?AUTO?(%) 28 30 ??NEUTROPHILS,?AUTO?(Thou/mm3) 1.6?L 2.1 ??BLOOD?UREA?NITROGEN?(mg/dL) ? 11 ??CREATININE?(mg/dL) ? 0.80 ASSESSMENT/PLAN: Right breast cancer ER/IA HER2 positive Patient already scheduled for PET and echo Once patient has completed echocardiogram can start chemotherapy. Do not wait for final PET scan Will start on T CH Once patient has completed chemotherapy will follow with Herceptin and Perjeta to help tolerate better Labs reviewed and are stable Patient have anemia likely from iron deficiency Advised to complete the labs and if needed will infuse iron Will refer to general surgery for evaluation of mastectomy as patient is not a good candidate for lumpectomy as mass is retroareolar involving the skin and nipple heal the wound as well as surgical planning Discussed cold therapy with patient and daughter and advised to buy socks and mittens for cold therapy during chemotherapy to prevent neuropathy. Patient have minimal neuropathy on the physical exam today Patient is very anxious having hard time sleeping, will start on trazodone Patient already have port placement done Please start chemotherapy as soon as possible ORDERS: Order # Description [id number] Reticulocyte Count + Iron Panel + Ferritin + Vitamin B-12 + Folic Acid; Serum [id number] Serum Protein Electrophoresis + Serum Immunofixation Electrophoresis + Beta-2 Microglobulin + Quant Immunoglobulins + Free kappa and lambda light chains plus ratio, quantitative [id number] HIV-1/HIV-2 Single Assay [id number] Hep A, B and C panel [id number] Port Placement [id number] Cardiac ECHO [id number] Follow Up Appointment [id number] CBC + Comprehensive Metabolic Panel [id number] Lab Appointment [id number] Follow Up Appointment [id number] CBC + Comprehensive Metabolic Panel [id number] Lab Appointment [id number] Follow Up Appointment [id number] Cardiac ECHO [id number] CBC + Comprehensive Metabolic Panel [id number] Lab Appointment [id number] Cardiac ECHO [id number] Follow Up Appointment [id number] CBC + Comprehensive Metabolic Panel [id number] Lab Appointment [id number] Follow Up Appointment [id number] CBC + Comprehensive Metabolic Panel [id number] Lab Appointment [id number] Follow Up Appointment [id number] Cardiac ECHO [id number] CBC + Comprehensive Metabolic Panel [id number] Lab Appointment [id number] Cardiac ECHO [id number] Follow Up Appointment [id number] CBC + Comprehensive Metabolic Panel [id number] Lab Appointment [id number] Follow Up Appointment [id number] CBC + Comprehensive Metabolic Panel [id number] Lab Appointment [id number] Follow Up Appointment [id number] Cardiac ECHO [id number] CBC + Comprehensive Metabolic Panel [id number] Lab Appointment [id number] Cardiac ECHO [id number] Follow Up Appointment [id number] CBC + Comprehensive Metabolic Panel [id number] Lab Appointment [id number] Follow Up Appointment [id number] CBC + Comprehensive Metabolic Panel [id number] Lab Appointment [id number] Follow Up Appointment [id number] Cardiac ECHO [id number] CBC + Comprehensive Metabolic Panel [id number] Lab Appointment [id number] Cardiac ECHO [id number] Follow Up Appointment MD [id number] CBC + Comprehensive Metabolic Panel [id number] Lab Appointment [id number] Follow Up Appointment MD [id number] CBC + Comprehensive Metabolic Panel [id number] Lab Appointment [id number] Follow Up Appointment MD [id number] Cardiac ECHO [id number] CBC + Comprehensive Metabolic Panel [id number] Lab Appointment [id number] Cardiac ECHO [id number] Follow Up Appointment MD [id number] CBC + Comprehensive Metabolic Panel [id number] Lab Appointment [id number] Follow Up Appointment MD [id number] CBC + Comprehensive Metabolic Panel [id number] Lab Appointment RETURN TO CLINIC: I reviewed the diagnosis, prognosis, and recommended treatment/procedure options with the patient (and/or their legal medical device sales representative), including the potential benefits, risks, side effects and alternative therapies. We also discussed the option of no treatment and the possibility of clinical trial participation, if applicable. All questions were addressed, and they demonstrated understanding. They provided informed consent to proceed with the proposed plan of care. BILLING AND COMPLIANCE: I reviewed external records from providers outside my specialty as summarized above. I spent a total of 50 minutes on this patient?s care on the day of their visit excluding time spent related to any billed procedures. This time includes time spent with the patient as well as time spent documenting in the medical record, reviewing patients records and tests, obtaining history, placing orders, communicating with other healthcare professionals, counseling the patient, family or caregiver, and/or care coordination for the diagnoses above. Electronically Signed by: {Object.Sanct_ID*PnP.NameFL@M}, {Object.Sanct_ID*PnP.Suffix@U} D: {Object.Sanct_Date} T: {Object.Sanct_Time} CC: Elma?Maria M??Suleman,? PCP: Barrie Jackson Referring: Barrie Jackson This document was completed utilizing speech recognition software. Grammatical errors, random word insertions, pronoun errors, and incomplete sentences are an occasional consequence of this system due to software limitations, ambient noise, and hardware issues. Any formal questions or concerns about the content, text or information contained within the body of this dictation should be directly addressed to the provider for clarification.
== END 2025-03-28 23:59 | disposition home or self-care (01) ==
LOC: SCTC 08:43
PROVIDERS: PCP Nurse Practitioner Family; Referring Provider Internal Medicine Hematology & Oncology; Visit Provider Internal Medicine Hematology & Oncology
DX: C50.111 Malignant neoplasm of central portion of right female breast (principal); Z17.0 Estrogen receptor positive status [ER+]; Z17.21 Progesterone receptor positive status; Z17.31 Human epidermal growth factor receptor 2 positive status; D64.9 Anemia, unspecified
CPT/HCPCS: 99213; G0463

== ENCOUNTER → 2025-04-06 | Outpatient (CLI) | payer MEDICAID, SELFPAY ==
--- NOTE | 2025-04-06 10:30 | ECHO_ITS ---
Transthoracic Echo Report Ht (in): 67 Wt (lb): 175 Exam Location: Echo Lab Status: Outpatient Schedule Planning Manager: Mariela Baron Indications: Procedure Performed: BP: 119 / 72 HR: 92 MEASUREMENTS (Male / Female) Normal Values 2D ECHO LV Diastolic Diameter PLAX 5.2 cm 4.2 - 5.9 / 3.9 - 5.3 cm LV Systolic Diameter PLAX 3.5 cm IVS Diastolic Thickness 0.9 cm 0.6 - 1.0 / 0.6 - 0.9 cm LVPW Diastolic Thickness 1.1 cm 0.6 - 1.0 / 0.6 - 0.9 cm LV Relative Wall Thickness 0.4 LVOT Diameter 1.9 cm Ascending Aorta Diameter 2.7 cm DOPPLER AV Peak Velocity 241.0 cm/s AV Peak Gradient 23.2 mmHg AV Mean Gradient 12.0 mmHg AV Velocity Time Integral 54.7 cm LVOT Peak Velocity 173.0 cm/s LVOT Peak Gradient 12.0 mmHg LVOT Velocity Time Integral 35.5 cm LVOT Cardiac Index 4738.6 cm?/min?m? AV Area Cont Eq vti 1.8 cm? AV Area Cont Eq pk 2.0 cm? MV Area PHT 2.6 cm? Mitral E Point Velocity 110.0 cm/s Mitral A Point Velocity 91.7 cm/s Mitral E to A Ratio 1.2 LV E' Lateral Velocity 9.6 cm/s Mitral E to LV E' Lateral Ratio 11.5 LV E' Septal Velocity 6.7 cm/s Mitral E to LV E' Septal Ratio 16.3 TR Peak Velocity 259.5 cm/s TR Peak Gradient 26.9 mmHg PV Peak Velocity 122.0 cm/s PV Peak Gradient 6.0 mmHg FINDINGS Left Ventricle Normal left ventricular size, wall thickness, systolic function with no obvious regional wall motion abnormalities. Normal left ventricular diastolic filling pattern for age. The ejection fraction is visually estimated at 65%. Right Ventricle The right ventricle is normal in size and systolic function. The estimated right ventricular systolic pressure, __ mmHg. Left Atrium The left atrial cavity size is severely increased. Right Atrium The right atrial cavity size is severely increased. Atrial Septum The interatrial septum appears normal with no evidence of a shunt. Aorta The aorta is normal by two-dimensional, color flow and Doppler interrogation. Mitral Valve The mitral valve is normal by two-dimensional, color flow and Doppler interrogation.trace to mild mitral regurgitation. Aortic Valve The aortic valve is trileaflet and normal by two-dimensional, color flow and Doppler interrogation. There is no significant aortic valve regurgitation. Tricuspid Valve The tricuspid valve is normal by two-dimensional, color flow and Doppler interrogation. There is mild tricuspid valve regurgitation. Pulmonic Valve The pulmonic valve is not well visualized. There is no significant pulmonic valve regurgitation. Vessels The pulmonary artery appears normal. The inferior vena cava pulmonary and hepatic veins appear normal. Pericardium The pericardium is normal by two-dimensional imaging. There is no significant pericardial effusion. CONCLUSIONS Indication: Malignant neoplasm of nipple and areola, right female breast Normal left ventricular size and function. Approximate ejection fraction is 65%. RV normal ventricular size and function. Severe LA dilatation and mild RA dilatation Mild TR and MR. Moderate aortic valve sclerosis without stenosis. V-max of 2.4 m/s No pericardial effusion. Same as previous echo 01/25/25 Bimal Mejias (Electronically Signed) Final Date: 07 April 2025 04:02
== END | disposition home or self-care (01) ==
PROVIDERS: PCP Family Medicine; Referring Provider Radiology Therapeutic Radiology; Visit Provider Radiology Therapeutic Radiology
DX: I35.8 Other nonrheumatic aortic valve disorders (principal); I08.1 Rheumatic disorders of both mitral and tricuspid valves; C50.011 Malignant neoplasm of nipple and areola, right female breast; D50.9 Iron deficiency anemia, unspecified
CPT/HCPCS: 93306

== ENCOUNTER → 2025-04-13 | Outpatient (CLI) | payer MEDICAID, SELFPAY ==
--- NOTE | 2025-04-13 08:00 | XR_ITS ---
EXAMINATION: PET/CT FUSION SKULL TO THIGH EXAM DATE AND TIME: April 13, 2025, 0923 hours, comparison CT abdomen pelvis February 02, 2025 INDICATIONS: Diagnosis breast cancer, staging prior to treatment CTDI:vol (mGy) 7.51 DLP: (mGycm) 685.83 PROCEDURE: 15.6 mCi FDG was administered intravenously To allow for distribution and uptake of radiotracer, the patient was allowed to rest quietly in a shielded room. Imaging was performed on an integrated 16-slice PET/CT scanner, with scanning from the skull base to the mid thigh. Serum blood glucose at the time of the injection was measured 98 mg/dL. CT scanning was performed without oral or intravenous contrast material. FINDINGS: Head and Neck: 12 mm hypermetabolic left cervical lymph node posterior to the left mandibular angle, image 33 Chest: 8mm retroclavicular hypermetabolic right lymph node axial image 64 6 mm hypermetabolic high right paratracheal lymph node axial image 67 4 cm hypermetabolic retroareolar right breast mass image 114 Numerous non hypermetabolic bilateral pulmonary nodules, the largest 6 mm in the right upper lobe Abdomen and Pelvis: There is no arely hypermetabolism in retroperitoneal or pelvic chains. The spleen is normal in size and FDG avidity. Musculoskeletal: Marrow uptake is within normal range. IMPRESSION: 12 mm hypermetabolic left cervical lymph node posterior to the left mandibular angle 8mm retroclavicular hypermetabolic metastatic lymph node. 4 cm hypermetabolic retroareolar right breast mass 6 mm hypermetabolic right paratracheal lymph node. Numerous subcentimeter metastatic pulmonary nodules Consider high resolution CT chest post intravenous contrast follow-up
== END | disposition home or self-care (01) ==
PROVIDERS: PCP Family Medicine; Referring Provider Radiology Therapeutic Radiology; Visit Provider Radiology Therapeutic Radiology
DX: N63.41 Unspecified lump in right breast, subareolar (principal); C78.00 Secondary malignant neoplasm of unspecified lung; C77.9 Secondary and unspecified malignant neoplasm of lymph node, unspecified; C50.011 Malignant neoplasm of nipple and areola, right female breast
CPT/HCPCS: 78815; A9552

== ENCOUNTER 2025-04-20 13:55 | Outpatient (RCR) | payer MEDICAID, SELFPAY ==
[2025-04-16 09:42] LABS: Basophils # (Auto) 0.0 Thou/mm3 (0.0-0.2); Basophils % (Auto) 1 % (0-2.5); Eosinophils # (Auto) 0.3 Thou/mm3 (0.0-0.5); Eosinophils % (Auto) 8 % (0-10); Hematocrit 28.4 % (36.0-46.0); Hemoglobin 8.9 g/dL (12.0-16.0); Immature Granulocytes Auto 0.01 Thou/mm3 (0.00-0.00); Lymphocytes # (Auto) 0.9 Thou/mm3 (1.0-4.8); Lymphocytes % (Auto) 26 % (10-50); Mean Corpuscular HGB Conc 31.3 g/dl (31.0-37.0); Mean Corpuscular Hemoglobin 26.0 pg (25.0-35.0); Mean Corpuscular Volume 83 fL (80-100); Monocytes # (Auto) 0.3 Thou/mm3 (0.0-0.8); Monocytes % (Auto) 9 % (0-12); Neutrophils # (Auto) 1.8 Thou/mm3 (1.8-7.7); Neutrophils % (Auto) 55 % (37-80); Nucleated Red Blood Cell # 0.00 Thou/mm3 (0.00-0.00); Nucleated Red Blood Cell % 0 /100 WBC (0); Platelet Count 92 Thou/mm3 (140-440); RDW Standard Deviation 66.4 fL (36.4-46.3); Red Blood Count 3.42 Miln/mm3 (4.00-5.20); White Blood Count 3.3 Thou/mm3 (3.6-11.0)
[2025-04-16 09:44] LABS: Immature Reticulocyte Fraction 26.5 % (3.0-15.9); Reticulocyte % (Auto) 2.2 % (0.5-1.5); Reticulocyte Absolute Auto 74.3 Biln/L (25.0-75.0); Reticulocyte Hgb Content 27.4 pg (28.0-35.0)
[2025-04-16 10:14] LABS: Alanine Aminotransferase 19 U/L (10-49); Albumin, Serum 2.8 gm/dL (3.4-4.8); Albumin/Globulin Ratio 1.0 (1.2-2.2); Alkaline Phosphatase 168 U/L (46-116); Anion Gap 10 (7-16); Aspartate Amino Transferase 37 U/L (0-34); BUN/Creatinine Ratio 17 Ratio (12-20); Bilirubin,Total 2.0 mg/dL (0.3-1.2); Blood Urea Nitrogen 10 mg/dL (9-23); Calcium 8.3 mg/dL (8.3-10.6); Calcium (Corrected) 9.3 mg/dL (8.5-10.1); Carbon Dioxide 21.9 mMol/L (20.0-31.0); Chloride 112 mMol/L (98-107); Creatinine (Component) 0.6 mg/dL (0.6-1.3); Globulin 2.9 gm/dL (2.3-3.5); Glucose 95 mg/dL (74-106); Osmolality,Calculated 285 (275-295); Potassium 3.6 mMol/L (3.4-5.1); Sodium 144 mMol/L (136-145); Total Protein 5.7 gm/dL (5.7-8.2); eGFR > 60 See Note
[2025-04-16 10:26] LABS: Ferritin 9 ng/mL (7.3-270.7); Iron 47 mcg/dL (50-170); Percent Iron Saturation 14 % (20-55); Total Iron Binding Capacity 331 mcg/dL (250-425); Unsaturated Iron Binding 284 (225-295)
[2025-04-16 10:39] LABS: HIV (1&2) Antibody Rapid Non-Reactive
[2025-04-16 10:59] LABS: Folate 11.91 ng/mL (>5.38); Hepatitis A Antibody IgM Non Reactive (Non React); Hepatitis B Core Antibody IgM Non Reactive (Non React); Hepatitis B Surface Antigen Non Reactive (Non React); Hepatitis C Antibody Non Reactive (Non React); Vitamin B12 832 pg/mL (211-911)
[2025-04-20 13:48] LABS: Immunoglobulin A 499 mg/dL (70-320); Immunoglobulin G 1530 mg/dL (600-1540); Kappa Light Chain, Free 42.0 mg/L (3.3-19.4); Lambda Light Chain, Free 22.7 mg/L (5.7-26.3)
[2025-04-21 06:36] LABS: Beta 2 Microglobulin 2.14 mg/L (< OR = 2.51); Immunoglobulin M 219 mg/dL (50-300); Kappa/Lambda, Free Ratio 1.85 (0.26-1.65)
[2025-04-21 19:51] LABS: Albumin 2.9 g/dL (3.8-4.8); Alpha-1-Globulin 0.2 g/dL (0.2-0.3); Alpha-2-Globulin 0.4 g/dL (0.5-0.9); Beta-1-Globulin 0.4 g/dL (0.4-0.6); Beta-2-globulin 0.4 g/dL (0.2-0.5); Gamma Globulin 1.5 g/dL (0.8-1.7)
[2025-04-22 06:55] LABS: Protein, total, serum 5.8 g/dL (6.1-8.1)
== END 2025-04-27 23:59 | disposition home or self-care (01) ==
LOC: SCTC 13:55
PROVIDERS: PCP Family Medicine; Referring Provider Family Medicine; Visit Provider Internal Medicine Hematology & Oncology
DX: Z51.11 Encounter for antineoplastic chemotherapy (principal); C50.111 Malignant neoplasm of central portion of right female breast; Z17.0 Estrogen receptor positive status [ER+]; Z17.21 Progesterone receptor positive status; Z17.31 Human epidermal growth factor receptor 2 positive status; G62.9 Polyneuropathy, unspecified; D50.9 Iron deficiency anemia, unspecified
CPT/HCPCS: 36591; 80053; 80074; 82232; 82607; 82728; 82746; 82784; 83521; 83540; 83550; 84155; 84165; 85025; 85046; 86334; 86703; 96367; 96368; 96372; 96413; 96415; 96417; A4216; J1642; J7040; J7050; J7060; J9045; J9171; Q5111; Q5117

== ENCOUNTER 2025-04-21 08:40 | Inpatient (IN) | payer MEDICAID, SELFPAY ==
[2025-04-21] VITALS (9 sets, daily range): BP systolic 126–143; BP diastolic 64–84; PULSE 75–91; RESP 15–97; TEMP 36.5–37.1; O2SAT 94–99; BMI 30.7
--- NOTE | 2025-04-21 08:47 | EKG_ITS ---
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
--- NOTE | 2025-04-21 08:47 | XR_ITS ---
Examination: CT brain head without contrast. 2-D sagittal coronal reconstructions Date and time of exam:April 21, 2025, 0911 hours INDICATIONS: Altered mental status today, breast cancer diagnosis CTDI: vol (mGy):54.1 DLP: (mGycm):1126 Technique: Multiple CT axial sections of the brain have been obtained, 5 mm slice thickness. Contrast has not been administered. 2-D sagittal, coronal reconstructions have been obtained Low dose protocols were performed. One or more of the following dose reduction techniques were used; automated exposure control, adjustment of the mA and/or KV according to patient size, use of iterative reconstruction technique. Findings: Extensive artifacts degrades scan image quality Ventricles are not enlarged No mass effect No gross hemorrhage IMPRESSION: Limited study, extensive motion artifacts No gross hemorrhage or mass effect Repeat this study as clinically warranted
--- NOTE | 2025-04-21 08:48 | EDNOTE_ITS ---
Altered Mental Status RME/HPI General Chief Complaint: Altered Mental Status Stated Complaint: AMS Time Seen by Provider: 04/21/25 08:47 Source: patient and EMS Arrival date/time: 04/21/25 08:40 Mode of arrival: EMS Limitations: no limitations and altered mental status RME / HPI RME / HPI narrative: Patient is a 59-year-old female with medical history notable for breast cancer, cirrhosis, pancytopenia to the emergency department with confusion. Patient this morning when family went to wake her up was confused, intermittently combative. No trauma. Patient does not take any blood thinners. Family states that she becomes this way when her ammonia level is elevated. Unclear what medications patient takes at home. Does not have any allergies to medications. No drugs alcohol or smoking. No fevers nausea vomiting. Related Data Previous Rx's ?Medication ?Instructions ?Recorded rifaximin 550 mg tablet 550 mg PO BID hyperammonemia #60 04/23/25 tabs lactulose 20 gram oral packet 20 g NE TID 1 month #15 ea 04/29/25 nystatin 100,000 unit/mL oral 1 ml PO QDAY 1 month #30 mL 04/29/25 suspension Allergies Allergy/AdvReac Type Severity Reaction Status Date / Time No Known Allergies Allergy Verified 04/24/25 22:57 Review of Systems Review of Systems Systems Reviewed: All systems reviewed, normal except as documented Past Medical History Past Medical History CARDIAC: Positive Hypertension GASTROINTESTINAL: Positive Cirrhosis, Pancreatitis, Gall Bladder Disease, Gastrointestinal Bleed, Esophageal Varices, Ulcer, Hemorrhoids and Gastroesophageal Reflux Disease REPRODUCTIVE: Positive Breast Cancer HEMATOLOGIC: Positive Anemia OTHER HISTORY: Positive Blood Transfusions and Breast Cancer Family History FAMILY HISTORY: Positive Family Gastrointestinal Problems and Family Surgery Surgical History SURGICAL: Positive Tubal Ligation Social History SMOKING STATUS: Never smoker SUBSTANCE USE: does not use ED Exam General Limitations: Present no limitations and altered mental status General appearance: Present alert Head Head exam: Present atraumatic and normocephalic Eye Eye exam: Present normal appearance, PERRL and other ENT ENT exam: Present normal exam and normal oropharynx Neck Neck exam: Present normal inspection and full ROM Chest Chest inspection: Present normal inspection and symmetric chest wall rise Respiratory Respiratory exam: Present normal lung sounds bilaterally; Absent respiratory distress, wheezes or stridor Cardiovascular Cardiovascular exam: Present regular rate and normal rhythm Abdominal Exam Abdominal exam: Present soft; Absent distention, tenderness, guarding or rebound Extremities Exam Extremities exam: Present normal inspection Neurological Exam Neurological exam: Present alert and other (Not following commands, he is moving all 4 extremities, sensation intact Extremities, no gross focal neurodeficits) Skin Skin exam: Present dry Course Quality Measures none Orders Category Date Time Status Admit to Inpatient Status Routine Admission 04/21/25 16:53 Active Patient Condition Routine Admission 04/21/25 16:[address] Screening NOW Care 04/21/25 12:49 Completed EKG (ED ONLY) *Do not use* NOW Care 04/21/25 08:48 Completed Pugh [Urinary Catheter] QSHIFT Care 04/21/25 17:07 Completed In and Out Catheter X1 Care 04/21/25 11:29 Completed MRI Screening NOW Care 04/21/25 14:08 Completed Miscellaneous Nursing Order NOW Care 04/21/25 17:05 Completed Notify provider NEEDED Care 04/21/25 16:53 Completed Sequential Compression Device QSHIFT Care 04/21/25 17:[address] abdomen pelvis w con Stat Exams 04/21/25 12:[address] head/brain wo con Stat Exams 04/21/25 08:47 Completed EKG (ED Only) Stat Exams 04/21/25 08:47 Draft US abdomen limited Stat Exams 04/21/25 14:09 Completed Acetaminophen Stat Lab 04/21/25 09:31 Completed Ammonia Stat Lab 04/21/25 09:31 Completed Blood Culture (Lab) Stat Lab 04/21/25 11:55 Completed CBC AM DRAW Lab 04/22/25 04:27 Completed CBC AM DRAW Lab 04/23/25 04:35 Completed CBC Stat Lab 04/21/25 09:31 Completed CMP [Comprehensive Metabolic Panel] Stat Lab 04/21/25 09:31 Completed Comprehensive Metabolic Panel AM DRAW Lab 04/22/25 04:27 Completed Comprehensive Metabolic Panel AM DRAW Lab 04/23/25 04:35 Completed Lipid Panel AM DRAW Lab 04/22/25 04:27 Completed Magnesium AM DRAW Lab 04/22/25 04:27 Completed PT [Prothrombin Time with INR] Stat Lab 04/21/25 09:31 Completed Procalcitonin Stat Lab 04/21/25 12:14 Completed Salicylate Stat Lab 04/21/25 09:31 Completed T4 (Thyroxine) Stat Lab 04/21/25 09:31 Completed TSH [Thyroid Stimulating Hormone] Stat Lab 04/21/25 09:31 Completed Troponin I Stat Lab 04/21/25 09:31 Completed UA, C/S IF [Urinalysis, C/S if Indicated] Stat Lab 04/21/25 12:13 Completed Acetaminophen Tab [Tylenol Tab] Med 04/21/25 17:02 Discontinued 650 mg PO Q6H PRN Lactulose Syrup [Enulose Syrup] Med 04/21/25 11:06 Discontinued 20 gm PO X1 ONE Lactulose Syrup [Enulose Syrup] Med 04/21/25 17:05 Discontinued 20 gm PO X1 ONE Morphine* Inj Med 04/21/25 16:51 Discontinued 2 mg IV STAT STA Morphine* Inj Med 04/21/25 11:05 Discontinued 2 mg IVP X1 ONE Ondansetron Inj [Zofran Inj] Med 04/21/25 17:02 Discontinued 4 mg IVP Q6H PRN Pantoprazole Inj [Protonix Inj] Med 04/22/25 09:00 Discontinued 40 mg IVP QDAY carVEDILOL [Coreg] Med 04/21/25 17:30 Discontinued 3.125 mg PO BIDWM cefTRIAXone [Rocephin] 2 gm Med 04/21/25 17:29 Discontinued SODIUM CHLORIDE 0.9% (Popper) [Ns 0.9% (P)] 50 ml IV QDAY fentaNYL INJ [Sublimaze Inj] Med 04/21/25 09:35 Discontinued 25 mcg IVP X1 ONE Code Status Routine Oth 04/21/25 16:53 Completed Oxygen Delivery PRN RT 04/21/25 17:02 Completed Vital Signs Vital signs: Vital Signs Temperature 97.8 F 04/21/25 08:52 Pulse Rate 89 04/21/25 08:52 Respiratory Rate 15 04/21/25 08:52 Blood Pressure 142/84 H 04/21/25 08:52 Pulse Oximetry (%) 98 04/21/25 08:52 Oxygen Delivery Method Room Air 04/21/25 08:52 Pulse ox is 98% on room air which is adequate. Altered Mental Status MDM Narrative MDM Narrative:: Patient is a 59-year-old female is in emergency department brought in by EMS for confusion. Vital signs and exam as listed. Concern for hepatic encephalopathy, intracranial hemorrhage, urinary tract infection, metabolic derangement, among others. Ordered labs EKG CT brain. Work up with evidence of hepatic encephalopathy. chronic hyperbilirubinemia, 10:44h I reviewed todays results with patient and daughter at bedside. At this time patient is complaining of pain in abdomen, will order Morphine and CT. Lactulose ordered. 1420: I updated patients at bedside. CT without any acute findings. RUQ non diagnostic. On re-eval, patient calm after having her bladder drained by straight cath. I spoke with hospitalist team B regarding admission. Patient data External records reviewed:: [facility] previous records and EMS form Clinical information provided by:: EMS Social determinants that could affect healthcare access:: mental health Patient has the following chronic illnesses:: See MDM How is presenting disease/condition affected by chronic disease/condition?: exacerbated by Evaluation data The following diagnostics were reviewed and interpreted by me:: lab results, radiology exam(s) and EKG tracing(s) Lab and/or radiology exams considered but not ordered:: None Interpretation Summary: See MDM Medications / Prescriptions Medications or Prescriptions considered but not ordered:: None Medication administrations:: Medication Administration History Discontinued Medications Acetaminophen (Acetaminophen 325 Mg Tablet) 650 mg PO Q6H PRN PRN Reason: Fever >101.5 and pain 1-3 Stop: 05/21/25 17:01 Last Admin: 04/23/25 08:53 Dose: 650 mg Documented By: Admin: 04/22/25 08:50 Dose: 650 mg Documented By: OSVALDO Carvedilol (Carvedilol 3.125 Mg Tablet) 3.125 mg PO BIDWM IGLESIA Stop: 05/21/25 17:29 Last Admin: 04/23/25 07:38 Dose: 3.125 mg Documented By: Admin: 04/22/25 17:31 Dose: 3.125 mg Documented By: Admin: 04/22/25 08:40 Dose: 3.125 mg Documented By: Admin: 04/21/25 18:26 Dose: 3.125 mg Documented By: MARCEL Dextrose (Dextrose 50%-Water Inj 50 Ml Syringe) 25 ml IV Q15MIN PRN PRN Reason: BG 50-70 responsive npo pt Stop: 05/21/25 18:15 Dextrose (Dextrose 50%-Water Inj 50 Ml Syringe) 50 ml IV Q15MIN PRN PRN Reason: BG <50 OR BG <70 & pt unresponsive Stop: 05/21/25 18:15 Fentanyl Citrate (Fentanyl Cit Inj 50 Mcg/Ml Amp 2ml) 25 mcg IVP X1 ONE Stop: 04/21/25 09:36 Last Admin: 04/21/25 09:41 Dose: 25 mcg Documented By: JANI Glucagon (Glucagon Inj 1 Mg Vial) 1 mg IM Q15MIN PRN PRN Reason: BG <70, and no IV access Ceftriaxone Sodium 2 gm/ (Sodium Chloride) 50 mls @ 100 mls/hr IV QDAY [facility] Stop: 04/28/25 17:28 Last Admin: 04/21/25 18:27 Dose: 100 mls/hr Documented By: MARCEL Ceftriaxone Sodium 1 gm/ (Sodium Chloride) 50 mls @ 100 mls/hr IV QDAY [facility] Stop: 04/29/25 08:59 Ceftriaxone Sodium/Dextrose (Rocephin/D5w 1gm Iv Premix) 1 gm in 50 mls @ 100 mls/hr IV QDAY [facility] Stop: 04/29/25 08:59 Last Admin: 04/23/25 08:56 Dose: 100 mls/hr Documented By: Infusion: 04/22/25 09:17 Dose: Infused Documented By: Admin: 04/22/25 08:47 Dose: 100 mls/hr Documented By: OSVALDO Insulin Human Lispro (Insulin Lispro (Admelog) 1 Unit/0.01 Ml Unit) 0 unit [facility]; Protocol Stop: 05/21/25 20:59 Last Admin: 04/23/25 12:11 Dose: 1 unit Documented By: OSVALDO Co-signed By: FABIOLA Admin: 04/23/25 07:38 Dose: 1 unit Documented By: OSVALDO Co-signed By: NE Admin: 04/22/25 20:23 Dose: 2 unit Documented By: SIMONA Co-signed By: YOHANNES Admin: 04/22/25 17:32 Dose: 1 unit Documented By: OSVALDO Co-signed By: FABIOLA Admin: 04/22/25 11:39 Dose: 1 unit Documented By: OSVALDO Co-signed By: NE Admin: 04/22/25 08:43 Dose: 1 unit Documented By: OSVALDO Co-signed By: SG Admin: 04/21/25 22:42 Dose: 2 unit Documented By: SIOMNA Co-signed By: MARGARITO Lactulose (Lactulose Syrup 20 Gm/30 Ml Udc) 20 gm PO X1 ONE; Protocol Stop: 04/21/25 11:07 Last Admin: 04/21/25 11:52 Dose: 20 gm Documented By: EF Lactulose (Lactulose Syrup 20 Gm/30 Ml Udc) 20 gm PO X1 ONE; Protocol Stop: 04/21/25 17:06 Last Admin: 04/21/25 17:25 Dose: 20 gm Documented By: EF Lactulose (Lactulose Syrup 20 Gm/30 Ml Udc) 20 gm PO TID IGLESIA; Protocol Stop: 05/22/25 08:59 Last Admin: 04/22/25 08:38 Dose: 20 gm Documented By: LS Lactulose (Lactulose Syrup 20 Gm/30 Ml Udc) 20 gm PO X1 ONE; Protocol Stop: 04/22/25 08:54 Last Admin: 04/22/25 10:16 Dose: 20 gm Documented By: LS Lactulose (Lactulose Syrup 20 Gm/30 Ml Udc) 30 gm PO TID IGLESIA; Protocol Stop: 05/22/25 13:59 Lactulose (Lactulose Syrup 20 Gm/30 Ml Udc) 30 gm PO Q6HR IGLESIA; Protocol Stop: 05/22/25 11:59 Last Admin: 04/23/25 05:24 Dose: 30 gm Documented By: Admin: 04/22/25 23:16 Dose: 30 gm Documented By: Admin: 04/22/25 17:31 Dose: 30 gm Documented By: Admin: 04/22/25 11:40 Dose: 30 gm Documented By: LS Lactulose (Lactulose Syrup 20 Gm/30 Ml Udc) 20 gm PO TID IGLESIA; Protocol Stop: 05/23/25 13:59 Lactulose (Lactulose Syrup 20 Gm/30 Ml Udc) 20 gm PO TID IGLESIA; Protocol Stop: 05/23/25 13:59 Last Admin: 04/23/25 14:09 Dose: Not Given Documented By: OSVALDO Non-Admin Reason: Contraindicated Lidocaine (Lidocaine 5% Hemorrhoidal Cream 30 Gm Tube) 0 gm TOP X1 ONE Stop: 04/23/25 09:36 Last Admin: 04/23/25 11:08 Dose: 1 applicatio Documented By: OSVALDO Melatonin (Melatonin 3 Mg Tablet) 6 mg PO HS IGLESIA Stop: 05/22/25 20:59 Last Admin: 04/22/25 23:16 Dose: Not Given Documented By: SIMONA Non-Admin Reason: Patient Refused Morphine Sulfate (Morphine Sulf Inj 4 Mg/Ml Vial) 2 mg IVP X1 ONE Stop: 04/21/25 11:06 Last Admin: 04/21/25 11:52 Dose: 2 mg Documented By: JANI Morphine Sulfate (Morphine Sulf Inj 4 Mg/Ml Vial) 2 mg IV STAT STA Stop: 04/21/25 16:52 Last Admin: 04/21/25 17:53 Dose: Not Given Documented By: EF Non-Admin Reason: Change of Condition Morphine Sulfate (Morphine Sulf Inj 4 Mg/Ml Vial) 2 mg IVP Q4HR PRN PRN Reason: pain 7-10 Last Admin: 04/21/25 23:52 Dose: 2 mg Documented By: SIMONA Morphine Sulfate (Morphine Sulf Inj 4 Mg/Ml Vial) 1 mg IVP Q2HR PRN PRN Reason: pain 4-6 Stop: 04/21/25 22:01 Last Admin: 04/21/25 19:11 Dose: 1 mg Documented By: SIMONA Ondansetron HCl (Ondansetron Inj 2 Mg/Ml Inj 2 Ml) 4 mg IVP Q6H PRN; Protocol PRN Reason: NAUSEA OR VOMITING Stop: 05/21/25 17:01 Pantoprazole Sodium (Pantoprazole Inj 40 Mg Vial) 40 mg IVP QDAY [facility] Stop: 05/22/25 08:59 Last Admin: 04/23/25 09:02 Dose: 40 mg Documented By: Admin: 04/22/25 08:55 Dose: 40 mg Documented By: OSVALDO Polyethylene Glycol (Polyethylene Glycol 17 Gm Packet) 17 gm PO QDAY [facility] Stop: 05/22/25 08:59 Polyethylene Glycol (Polyethylene Glycol 17 Gm Packet) 17 gm PO QDAY [facility] Stop: 05/21/25 22:14 Last Admin: 04/22/25 08:43 Dose: 17 gm Documented By: Admin: 04/21/25 22:28 Dose: 17 gm Documented By: SIMONA Potassium Chloride (Potassium Chloride 20 Meq Tabcr) 20 meq PO X1 ONE Stop: 04/23/25 08:42 Last Admin: 04/23/25 08:54 Dose: 20 meq Documented By: OSVALDO Rifaximin (Rifaximin 550 Mg Tablet) 550 mg PO X1 ONE Stop: 04/22/25 08:54 Last Admin: 04/22/25 10:16 Dose: 550 mg Documented By: OSVALDO Rifaximin (Rifaximin 550 Mg Tablet) 550 mg PO BID IGLESIA Stop: 04/29/25 20:59 Last Admin: 04/23/25 08:54 Dose: 550 mg Documented By: Admin: 04/22/25 20:24 Dose: 550 mg Documented By: SIMONA Sennosides (Senna/Docusate Sod 1 Tab Tablet) 1 tab PO QDAY IGLESIA; Protocol Stop: 05/22/25 08:59 Sennosides (Senna/Docusate Sod 1 Tab Tablet) 1 tab PO QDAY IGLESIA; Protocol Stop: 05/21/25 22:14 Last Admin: 04/22/25 08:40 Dose: 1 tab Documented By: Admin: 04/21/25 22:27 Dose: 1 tab Documented By: SIMONA See above Consultations Consultation(s) initiated? (list below): Yes Consultation #1 (Physician, Specialty, Details): See MDM Diagnosis Most likely diagnosis given after review of the tests above:: Hepatic encephalopathy Admission Indicated Admission indicated?: indicated Admission Request Was there a request for admission?: Yes Admission Attestation Admission request attestation: Discussed case with Hospitalist service regarding admission. Discussed patients ED course, exam findings, labs, and radiology results. The Hospitalist [agrees] to accept the patient for admission. Disposition Plan Disposition Plan: Admit Critical Care Time Critical Care Time Critical Care Time: Yes Total Critical Care Time (min.): 60 Attestation: Due to a high probability of clinically significant, life threatening deterioration, the patient required my highest level of preparedness to intervene emergently and I personally spent this critical care time directly and personally managing the patient. This critical care time included obtaining a history; examining the patient; pulse oximetry; ordering and review of studies; arranging urgent treatment with development of a management plan; evaluation of patient's response to treatment; frequent reassessment; and, discussions with other providers. This critical care time was performed to assess and manage the high probability of imminent, life-threatening deterioration that could result in multi-organ failure. It was exclusive of separately billable procedures and treating other patients and teaching time. Please see MDM section and the rest of the note for further information on patient assessment and treatment. Discharge Plan Plan Patient Disposition: Admit Acute Care w/in Hospital Problem List Clinical Impression: Hepatic encephalopathy Patient/Caregiver Discharge Instructions Other Activity Instructions:: Please follow-up with your primary care physician within 5 to 10 days of discharge Please return to the emergency department for any persistent or worsening symptoms Please take all medications as prescribed, see below for new medications added
[2025-04-21] MEDS: fentaNYL CIT INJ 50 mCg/ML AMP 2ML 25 MCG IVP (09:41)
[2025-04-21 09:43] LABS: Basophils # (Auto) 0.0 Thou/mm3 (0.0-0.2); Basophils % (Auto) 0 % (0-2.5); Eosinophils # (Auto) 0.0 Thou/mm3 (0.0-0.5); Eosinophils % (Auto) 0 % (0-10); Hematocrit 27.6 % (36.0-46.0); Hemoglobin 8.9 g/dL (12.0-16.0); Immature Granulocytes Auto 1.42 Thou/mm3 (0.00-0.00); Lymphocytes # (Auto) 0.2 Thou/mm3 (1.0-4.8); Lymphocytes % (Auto) 1 % (10-50); Mean Corpuscular HGB Conc 32.2 g/dl (31.0-37.0); Mean Corpuscular Hemoglobin 26.0 pg (25.0-35.0); Mean Corpuscular Volume 81 fL (80-100); Monocytes # (Auto) 0.2 Thou/mm3 (0.0-0.8); Monocytes % (Auto) 1 % (0-12); Neutrophils # (Auto) 18.8 Thou/mm3 (1.8-7.7); Neutrophils % (Auto) 91 % (37-80); Nucleated Red Blood Cell # 0.00 Thou/mm3 (0.00-0.00); Nucleated Red Blood Cell % 0 /100 WBC (0); RDW Standard Deviation 60.0 fL (36.4-46.3); Red Blood Count 3.42 Miln/mm3 (4.00-5.20); White Blood Count 20.6 Thou/mm3 (3.6-11.0)
[2025-04-21 09:56] LABS: INR 1.4 (0.9-1.3); Prothrombin Time 14.8 Seconds (9.0-12.2)
[2025-04-21 09:59] LABS: Platelet Count 67 Thou/mm3 (140-440)
[2025-04-21 10:01] LABS: T4 (Thyroxine) 5.5 mcg/dL (4.5-10.9)
[2025-04-21 10:05] LABS: Ammonia 92 uMol/L (11-32)
[2025-04-21 10:06] LABS: Acetaminophen < 2.0 mcg/mL (10.0-20.0); Alanine Aminotransferase 32 U/L (10-49); Albumin, Serum 3.1 gm/dL (3.4-4.8); Albumin/Globulin Ratio 1.1 (1.2-2.2); Alkaline Phosphatase 157 U/L (46-116); Anion Gap 9 (7-16); Aspartate Amino Transferase 57 U/L (0-34); BUN/Creatinine Ratio 19 Ratio (12-20); Bilirubin,Total 2.5 mg/dL (0.3-1.2); Blood Urea Nitrogen 15 mg/dL (9-23); Calcium 8.4 mg/dL (8.3-10.6); Calcium (Corrected) 9.1 mg/dL (8.5-10.1); Carbon Dioxide 20.4 mMol/L (20.0-31.0); Chloride 113 mMol/L (98-107); Creatinine (Component) 0.8 mg/dL (0.6-1.3); Globulin 2.8 gm/dL (2.3-3.5); Glucose 211 mg/dL (74-106); Osmolality,Calculated 289 (275-295); Potassium 4.2 mMol/L (3.4-5.1); Salicylate < 3.0 mg/dL; Sodium 142 mMol/L (136-145); Thyroid Stimulating Hormone 0.37 uIU/mL (0.55-4.78); Total Protein 5.9 gm/dL (5.7-8.2); Troponin I < 0.020 ng/mL (0.0-0.045); eGFR > 60 See Note
[2025-04-21 10:40] LABS: Slide Review Platelets confirmed
[2025-04-21] MEDS: LACTULOSE SYRUP 20 GM/30 ML UDC PO ×2 (11:52→17:25)
[2025-04-21] MEDS: MORPHINE SULF INJ 4 MG/ML VIAL 2 MG IVP ×2 (11:52→23:52)
[2025-04-21 12:36] LABS: Collection Type, Urine Catheter
[2025-04-21 12:40] LABS: Procalcitonin 0.11 ng/ml (0.0-0.49)
[2025-04-21 12:47] LABS: Bilirubin,Urine Negative (Negative); Blood,Urine Negative (Negative); Clarity,Urine Clear (Clear/Hazy); Color,Urine Lt Yellow (Lt Yel-Yel); Culture Indicated,Urine Not Indicated; Glucose, Urine Trace (Negative); Ketones,Urine Negative (Negative); Leukocyte Esterase,Urine Negative (Negative); Nitrite,Urine Negative (Negative); PH,Urine 6.5 (5.0-7.0); Protein,Urine Negative (Neg - Trace); RBC,Urine 1 /hpf (0-3); Specific Gravity,Urine 1.015 (1.001-1.035); Squamous Epithelial Cell,Urine < 1 /hpf (0-5); Urobilinogen,Urine 1.0 mg/dL (0.0-1.0); WBC,Urine 1 /hpf (0-5)
--- NOTE | 2025-04-21 12:49 | XR_ITS ---
Examination: CT abdomen with intravenous contrast CT pelvis with intravenous contrast 2-D coronal reconstructions 2-D sagittal reconstructions Date and time of exam:April 21, 2025, 1257 hours COMPARISON: PET CT scan 04/13/2025 INDICATIONS: Onset lower abdominal pain today, diagnosis breast cancer, 8mm retroclavicular metastatic lymph node, 4 cm hypermetabolic retroareolar right breast mass, 6 mm hypermetabolic right paratracheal lymph node, numerous metastatic pulmonary nodules on PET CT scan 04/13/2025. CTDI: vol (mGy) 19.7 DLP: (mGycm) 1142 Technique: Multiple axial sections of the abdomen and pelvis have been obtained. 64 slice high-resolution scanner used. 3 mm axial sections have been obtained, post intravenous injection 60 cc [id number] 2-D sagittal, coronal reconstructions obtained. Low dose protocols were performed. One or more of the following dose reduction techniques were used; automated exposure control, adjustment of the mA and/or KV according to patient size, use of iterative reconstruction technique. Findings: 11 mm pulmonary nodule left lower lobe image 70 Atelectasis versus pneumonia right base Retroareolar right breast mass with spiculated margins, 38 x 27 mm with breast marker Skin thickening and edema in the right breast Cirrhosis, no visualized liver lesions Contracted gallbladder gallstones, gallbladder wall is thickened Splenomegaly, 14 cm Mucosal thickening involving the stomach diffusely No pancreatic mass Portosystemic collateral vessels medial to the spleen Multiple esophageal varices Perigastric varices Trace ascites Aorta normal size No bowel obstruction Normal appendix No diverticulitis Atrophic uterus Urinary bladder intact Prominent osteopenia IMPRESSION: 11 mm pulmonary nodule left lower lobe Atelectasis versus pneumonia right base 38 x 27 mm spiculated nodule right breast retroareolar, posttreatment changes right breast Cirrhosis Esophageal perigastric varices Trace ascites Splenomegaly Gastritis pattern Normal appendix No bowel obstruction Recommend hepatobiliary sonography follow-up to exclude gallbladder wall thickening
--- NOTE | 2025-04-21 14:09 | XR_ITS ---
Examination: Abdomen sonogram, Limited Date and time of exam: April 26, 2025 at 1425 hours INDICATIONS: Abdominal pain beginning 2 days ago Technique: Real-time alfaro scale transabdominal sonographic images of the upper abdomen obtained. Findings: Very poor visualization of the gallbladder Common bile duct 0.3 cm Pancreas obscured by bowel gas Liver 15 cm lobular contour no focal liver lesions Normal hepatopedal portal venous flow Patent IVC IMPRESSION: Recommend repeating this study with fasting
--- NOTE | 2025-04-21 17:17 | ESHP_ITS ---
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 Patient is unable to provide history due to altered mentation but complaining of abdominal pain. Patient's daughter is main engagement lead. Reports that she has not been compliant with her lactulose which she was prescribed for her last similar episode 2 years ago. Reports has been confused since 1 AM this morning, at baseline usually conversational and independent. Follows oncologist Dr. Jackson for breast cancer, was started on two new IV chemotherapy medications on Saturday and Saturday of this week. Experienced nausea and vomiting day after second treatment, given Zofran and Claritin per oncologist instructions. Also endorses of urinary retention and dysuria. Denies history of UTIs. Denies recent sick contacts or travel. Denies hematemesis, hematuria, blood in stool, melena. Not on anticoagulation. Recently started following GI specialist Dr. Ibrahim, only recommended upcoming colonoscopy. ED Course: -Initial vitals were BP 142/84, HR 89, afebrile, saturating well on room air. -Labs significant for WBC 20.6, hemoglobin 8.9, platelets 67. Total bilirubin 2.5, AST 57, alk phos 157, ammonia 92. Albumin 3.1. Pro-Iain 0.11. TSH low at 0.37.. Troponin negative. EKG shows sinus rhythm with inverted T waves in V1-V3. -Imaging included head CT negative but limited study due to extensive motion artifacts. CT A/P shows 11 mm pulmonary left lower lobe nodule, retroareolar right breast mass with spiculated margins, cirrhosis, contracted gallbladder, stones, splenomegaly, multiple esophageal varices, trace ascites. Urinary bladder intact. Abdominal ultrasound had poor visualization. -In the ED, patient was given morphine, lactulose, and zofran. -Patient was admitted for altered mental status secondary to acute hepatic encephalopathy. Review of Systems Review of systems otherwise negative except what is mentioned above. Past Medical History: As above Surgical History: Unremarkable, negative for major abdominal surgeries Social History: Denies history of smoking, denies current alcohol use, denies recreational drug use Current Medications: Lactulose 20 mg 3 times daily (Source: Pending official med rec) Allergies: No known drug allergies Exam Vital Signs Temp Pulse Resp BP Pulse Ox O2 Del Method 98.7 F 76 18 136/64 H 96 Room Air 04/21/25 16:05 04/21/25 16:05 04/21/25 16:05 04/21/25 16:05 04/21/25 16:05 04/21/25 16:05 Narrative Exam Physical Exam General: Awake, agitated. Confused. HEENT: Normocephalic, atraumatic, mucous membranes moist. Heart: Tachycardic. Regular rate and rhythm, normal S1 and S2, no murmurs appreciated. Lungs: Clear to auscultation with no wheezing or crackles. Abdomen: Soft, nondistended, tender in right upper quadrant and epigastric region, positive bowel sounds. No guarding or rebound tenderness. Negative Aldridge's sign. Neurologic: Alert, unable to assess orientation due to agitation, no gross neurological deficit, and patient able to move all 4 extremities. Skin: No rash or ecchymoses. Results: Labs 04/22/25 04:27 04/22/25 04:27 Labs: Short CBC 04/21/25 Range/Units 09:31 WBC 20.6 H D (3.6-11.0) Thou/mm3 Hgb 8.9 L (12.0-16.0) g/dL Hct 27.6 L (36.0-46.0) % Plt Count 67 L D (140-440) Thou/mm3 BMP 04/21/25 09:31 Sodium 142 Potassium 4.2 Chloride 113 H Carbon Dioxide 20.4 BUN 15 Creatinine 0.8 Glucose 211 H Calcium 8.4 Cardiac Enzymes 04/21/25 Range/Units 09:31 Troponin I < 0.020 (0.0-0.045) ng/mL Liver Function 04/21/25 Range/Units 09:31 Total Bilirubin 2.5 H (0.3-1.2) mg/dL AST 57 H (0-34) U/L ALT 32 (10-49) U/L Alkaline Phosphatase 157 H (46-116) U/L Albumin 3.1 L (3.4-4.8) gm/dL Urine 04/21/25 Range/Units 12:13 Urine Color Lt Yellow (Lt Yel-Yel) Urine Clarity Clear (Clear/Hazy) Urine pH 6.5 (5.0-7.0) Ur Specific [place] 1.015 (1.001-1.035) Urine Protein Negative (Neg - Trace) Urine Glucose (UA) Trace (Negative) Quality Measures Quality Measures VTE prophylaxis Medications Home Medications and Allergies Allergies Allergy/AdvReac Type Severity Reaction Status Date / Time No Known Allergies Allergy Verified 03/22/25 09:26 Visit Medications Acetaminophen (Acetaminophen 325 Mg Tablet) 650 mg PO Q6H PRN PRN Reason: Fever >101.5 and pain 1-3 Stop: 05/21/25 17:01 Ondansetron HCl (Ondansetron Inj 2 Mg/Ml Inj 2 Ml) 4 mg IVP Q6H PRN; Protocol PRN Reason: NAUSEA OR VOMITING Stop: 05/21/25 17:01 Pantoprazole Sodium (Pantoprazole Inj 40 Mg Vial) 40 mg IVP QDAY IGLESIA Stop: 05/22/25 08:59 Discontinued Medications Fentanyl Citrate (Fentanyl Cit Inj 50 Mcg/Ml Amp 2ml) 25 mcg IVP X1 ONE Stop: 04/21/25 09:36 Last Admin: 04/21/25 09:41 Dose: 25 mcg Lactulose (Lactulose Syrup 20 Gm/30 Ml Udc) 20 gm PO X1 ONE; Protocol Stop: 04/21/25 11:07 Last Admin: 04/21/25 11:52 Dose: 20 gm Lactulose (Lactulose Syrup 20 Gm/30 Ml Udc) 20 gm PO X1 ONE; Protocol Stop: 04/21/25 17:06 Morphine Sulfate (Morphine Sulf Inj 4 Mg/Ml Vial) 2 mg IVP X1 ONE Stop: 04/21/25 11:06 Last Admin: 04/21/25 11:52 Dose: 2 mg Morphine Sulfate (Morphine Sulf Inj 4 Mg/Ml Vial) 2 mg IV STAT STA Stop: 04/21/25 16:52 Assessment & Plan Plan Patient is a 59-year-old female with past medical history of 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 #Acute hepatic encephalopathy #Nonalcoholic related liver cirrhosis #Hyperammonemia Likely secondary to long history of cirrhosis multiple complications versus iatrogenic given recent chemotherapy session and hydroxyzine Per patient's daughter, patient is alert and oriented at baseline, conversational and independent. Episode of confusion started at 1 AM this morning. Last episode was 2 years ago, also caused by high level of ammonia, resolved after prescribed lactulose however patient has not been compliant with lactulose medication per daughter. Took 1 dose morning of admission but did not have bowel movement. On admission, ammonia was 92. Pro-Iain within normal limits. UA was unremarkable, low suspicion for infectious source. S/p lactulose 20 mg x 2 in ED. Plan: ?Lactulose 20 mg 3 times daily ?CTM labs - Strict I's & O's #Portal hypertension #Splenomegaly #Esophageal varices status post banding #Contracted gallbladder Chronic complications from long history of MCLAUGHLIN. Minimal ascites on imaging at this time. Recently started following GI specialist Dr. Ibrahim. Plan: - Coreg 3.125 mg BID - Lactulose as above - IV CFX 1 gm for SBP prophylaxis # Leukocytosis, reactive versus infection WBC 20.6 on admission. Patient recently had IV chemotherapy on Saturday and Saturday. Possibly reactive in setting of metastatic cancer. Endorses dysuria and urinary retention but UA is unremarkable. CT A/P shows possible atelectasis versus right lung base pneumonia but vitals are stable and not complaining of respiratory symptoms. Lung exam was benign. Possible SBP but low suspicion for infection at this time. Denies recent sick contacts. Plan: ? Pending blood cultures ?CTM CBC - Abx as above #Urinary retention Possibly iatrogenic. Patient took hydroxyzine prior to arrival and is complaining of urinary retention. - Pugh in place #Hx malignant neoplasm of right breast, metastasis to lungs #Pulmonary nodule in LLL Follows oncologist Dr. Jackson. S/p IV chemo on 04/19 and 04/20. - Will reach out to oncologist Dr. Jackson for possible recommendations Health Maintenance Disposition: med surg DVT prophylaxis: SCDs GI prophylaxis: protonix Diet: carb consistent low CODE STATUS: FULL Patient plan of care was discussed with the attending physician, Dr. Barr. Brenda Suarez, PGY-1 Attending Provider Attestation/Addendum After examination of the patient and review of the clinical data I feel that this patient needs admission to the hospital for further treatment/evaluation. I have discussed and was present for the essential components of the history, physical examination, diagnosis, and treatment plan with the resident. I agree with the patient's care as documented by the resident and amended herein by me. Bulmaro Barr DO. Although this document has been carefully reviewed, there may still be some phonetic and other typographical errors. These errors are purely grammatical due to imperfections in the software program and should not be construed in any way to compromise the substance of the patient's medical care during this visit.
[2025-04-21] MEDS: cefTRIAXone 2 GM in SODIUM CHLORIDE 0.9% (Popper) 50 ML IV (18:27)
[2025-04-21] MEDS: MORPHINE SULF INJ 4 MG/ML VIAL 1 MG IVP (19:11)
--- NOTE | 2025-04-21 21:30 | PC.NURSE ---
Patient very restless , refused to stay on bed. Complaining of discomfort along stratton catheter site area, draining to light migdalia urine. Been assisted to BSC several times, gait very unsteady, patient is 2 full assist. Several calls been made to MD regarding patient status.
[2025-04-21] MEDS: SENNA/DOCUSATE SOD 1 TAB TABLET PO (22:27)
[2025-04-21] MEDS: POLYETHYLENE GLYCOL 17 GM PACKET PO (22:28)
[2025-04-21] MEDS: INSULIN LISPRO (AdmeLOG) 1 UNIT/0.01 ML UNIT SC (22:42)
[2025-04-22] VITALS (10 sets, daily range): BP systolic 112–156; BP diastolic 59–81; PULSE 60–77; RESP 17–96; TEMP 36.1–36.4; O2SAT 95–97
--- NOTE | 2025-04-22 04:17 | PC.NURSE ---
Patient been sitting on and off, on the toilet for almost 2 hours, refused to go back to bed, become very combative when attempt /assisted to return to bed. Daughter and at bedside, requesting for restraint. ( did have an episode that literally jump out of bed to use the commode, gait very unsteady). will inform .
[2025-04-22 05:52] LABS: Basophils # (Auto) 0.2 Thou/mm3 (0.0-0.2); Basophils % (Auto) 1 % (0-2.5); Eosinophils # (Auto) 0.0 Thou/mm3 (0.0-0.5); Eosinophils % (Auto) 0 % (0-10); Hematocrit 28.7 % (36.0-46.0); Hemoglobin 9.1 g/dL (12.0-16.0); Immature Granulocytes Auto 1.20 Thou/mm3 (0.00-0.00); Lymphocytes # (Auto) 0.2 Thou/mm3 (1.0-4.8); Lymphocytes % (Auto) 1 % (10-50); Mean Corpuscular HGB Conc 31.7 g/dl (31.0-37.0); Mean Corpuscular Hemoglobin 26.2 pg (25.0-35.0); Mean Corpuscular Volume 83 fL (80-100); Monocytes # (Auto) 0.1 Thou/mm3 (0.0-0.8); Monocytes % (Auto) 0 % (0-12); Neutrophils # (Auto) 14.3 Thou/mm3 (1.8-7.7); Neutrophils % (Auto) 90 % (37-80); Nucleated Red Blood Cell # 0.00 Thou/mm3 (0.00-0.00); Nucleated Red Blood Cell % 0 /100 WBC (0); RDW Standard Deviation 61.5 fL (36.4-46.3); Red Blood Count 3.47 Miln/mm3 (4.00-5.20); White Blood Count 15.9 Thou/mm3 (3.6-11.0)
[2025-04-22 06:08] LABS: Platelet Count 51 Thou/mm3 (140-440)
[2025-04-22 06:16] LABS: Glucose Estimated Average 105 mg/dL (80-131); Hemoglobin A1C 5.3 % Hgb (4.8-6.0)
[2025-04-22 06:18] LABS: Alanine Aminotransferase 35 U/L (10-49); Albumin, Serum 3.0 gm/dL (3.4-4.8); Albumin/Globulin Ratio 1.0 (1.2-2.2); Alkaline Phosphatase 130 U/L (46-116); Anion Gap 11 (7-16); Aspartate Amino Transferase 44 U/L (0-34); BUN/Creatinine Ratio 25 Ratio (12-20); Bilirubin,Total 4.1 mg/dL (0.3-1.2); Blood Urea Nitrogen 20 mg/dL (9-23); Calcium 7.9 mg/dL (8.3-10.6); Calcium (Corrected) 8.7 mg/dL (8.5-10.1); Carbon Dioxide 20.2 mMol/L (20.0-31.0); Cardiac Risk Estimate 3.1 RATIO (3.7-5.6); Chloride 113 mMol/L (98-107); Cholesterol 189 mg/dL (132-200); Creatinine (Component) 0.8 mg/dL (0.6-1.3); Estimated Creatinine Clearance 79.0 mL/min (>60); Globulin 2.9 gm/dL (2.3-3.5); Glucose 193 mg/dL (74-106); HDL Cholesterol 61 mg/dL (40-60); LDL Cholesterol,Calculated 107 mg/dL (0-130); Magnesium 2.4 mg/dL (1.6-2.6); Osmolality,Calculated 294 (275-295); Potassium 3.9 mMol/L (3.4-5.1); Sodium 144 mMol/L (136-145); Total Protein 5.9 gm/dL (5.7-8.2); Triglycerides 105 mg/dL (30-150); eGFR > 60 See Note
[2025-04-22 06:37] LABS: Slide Review Platelets confirmed
[2025-04-22 06:58] LABS: Percent Iron Saturation 90 % (20-55); Total Iron Binding Capacity 366 mcg/dL (250-425); Unsaturated Iron Binding 34 (225-295)
[2025-04-22 07:20] LABS: Iron 332 mcg/dL (50-170)
[2025-04-22] MEDS: LACTULOSE SYRUP 20 GM/30 ML UDC PO ×2 (08:38→10:16)
[2025-04-22] MEDS: SENNA/DOCUSATE SOD 1 TAB TABLET PO (08:40)
[2025-04-22] MEDS: POLYETHYLENE GLYCOL 17 GM PACKET PO (08:43)
[2025-04-22] MEDS: INSULIN LISPRO (AdmeLOG) 1 UNIT/0.01 ML UNIT SC ×4 (08:43→20:23)
[2025-04-22] MEDS: cefTRIAXone/D5w 1gm IV premix 1 GM/50 ML BAG IV (08:47)
[2025-04-22] MEDS: ACETAMINOPHEN 325 MG TABLET 650 MG PO (08:50)
--- NOTE | 2025-04-22 08:57 | XR_ITS ---
Examination: Abdomen sonogram, complete Date and time of exam: April 22, 2025 1314 hours INDICATIONS: Right upper abdominal pain beginning 3 days ago, diagnosis right breast cancer. Technique: Multiple real-time grayscale transabdominal sonographic images of the abdomen have been obtained. Findings: Negative for gallstones Gallbladder wall 0.5 cm Common bile duct 0.5 cm no stones Pancreatic head 3.1 cm Mid distal aorta visualized not enlarged Liver 13.2 cm lobular contour Normal hepatopedal portal venous flow Patent IVC Right kidney 9.0 cm cortex 1.1 cm Left kidney 9.2 cm cortex 1.5 cm No splenomegaly IMPRESSION: Abnormally thickened gallbladder wall, consider HIDA scan or MRCP follow-up to exclude cholecystitis
[2025-04-22] MEDS: LACTULOSE SYRUP 20 GM/30 ML UDC 30 GM PO ×3 (11:40→23:16)
--- NOTE | 2025-04-22 11:55 | ESPR_ITS ---
<Statement entered by Darrell Samaniego MD - 04/23/25 07:31> Overnight, patient reported to be combative and was placed on restraints. Reported to had a large bowel movement. On examination at the bedtime patient is trying to get out of the bed and talking irrelevantly. Vitals are stable. Labs done today showed uptrending bilirubin. Increase the dose of lactulose and started on rifaximin. Will titrate the lactulose to produce 3-4 bowel movements in a day. Will reevaluate tomorrow. Daughter is at the bedside and explained about the poor prognosis in the setting of liver failure, metastatic breast cancer I have personally seen and examined the patient, agree with residents assessment and plan Patient plan of care was discussed with the attending physician, Dr. Momo Samaniego, PGY2 Documentation for date of: 04/22/25 Subjective Subjective Interval history: Overnight, patient continued to be agitated. Restraints were placed. This morning, nurse reported the patient had a large bowel movement last night. Patient continues to be agitated and confused, not at baseline per daughter. Continues to have asterixis on exam. Will increase lactulose to 40 3 times daily and add rifaximin. Will continue to monitor patient's mentation. Patient endorses headache and dysuria. Pugh in place, draining about 800 cc of dark yellow urine. Also continues to endorse right upper quadrant and epigastric pain. Patient has not eaten since Saturday dinner. Bilirubin level increased. Will get repeat abdominal ultrasound fasting. Exam Vital Signs Temp Pulse Resp BP Pulse Ox O2 Del Method 97.5 F 72 18 156/68 H 95 Room Air 04/22/25 07:40 04/22/25 08:40 04/22/25 07:40 04/22/25 08:40 04/22/25 07:40 04/22/25 07:40 Narrative Exam Physical Exam General: Awake, agitated. Confused. HEENT: Normocephalic, atraumatic, mucous membranes moist. Heart: Tachycardic. Regular rate and rhythm, normal S1 and S2, no murmurs appreciated. Lungs: Clear to auscultation with no wheezing or crackles. Abdomen: Soft, nondistended, tender in right upper quadrant and epigastric region, positive bowel sounds. No guarding or rebound tenderness. Negative Aldridge's sign. Neurologic: Alert and oriented x2 (oriented to self and place, not time), no gross neurological deficit, and patient able to move all 4 extremities. A sterixis present. Skin: Some redness at wrists. Objective Labs 04/23/25 04:35 04/23/25 04:35 Labs: Laboratory Results - last 24 hr 04/21/25 04/21/25 04/22/25 12:13 12:14 04:27 WBC 15.9 H RBC 3.47 L Hgb 9.1 L Hct 28.7 L MCV 83 MCH 26.2 MCHC 31.7 RDW Std Deviation 61.5 H Plt Count 51 L D Neut % (Auto) 90 H Lymph % (Auto) 1 L [place] % (Auto) 0 Eos % (Auto) 0 Baso % (Auto) 1 Neut # (Auto) 14.3 H Lymph # (Auto) 0.2 L [place] # (Auto) 0.1 Eos # (Auto) 0.0 Baso # (Auto) 0.2 Immature Gran # (Auto) 1.20 H Absolute Nucleated RBC 0.00 Immature Gran % 8 H Nucleated RBC % 0 Sodium 144 Potassium 3.9 Chloride 113 H Carbon Dioxide 20.2 Anion Gap 11 BUN 20 Creatinine 0.8 Estim Creat Clear Calc 79.0 eGFR > 60 BUN/Creatinine Ratio 25 H Glucose [address] Glu mg/dL 105 Hemoglobin A1c 5.3 Calculated Osmolality 294 Calcium 7.9 L Corrected Calcium 8.7 Magnesium 2.4 Iron 332 H* TIBC 366 Iron Saturation 90 H Unsat Iron Binding 34 L Total Bilirubin 4.1 H D AST 44 H ALT 35 Alkaline Phosphatase 130 H D Total Protein 5.9 Albumin 3.0 L Globulin 2.9 Albumin/Globulin Ratio 1.0 L Triglycerides 105 Cholesterol 189 LDL Cholesterol, Calc 107 HDL Cholesterol 61 H Cholesterol/HDL Ratio 3.1 L Procalcitonin 0.11 Ur Collection Type Catheter Urine Color Lt Yellow Urine Clarity Clear Urine pH 6.5 Ur Specific [place] 1.015 Urine Protein Negative Urine Glucose (UA) Trace Urine Ketones Negative Urine Blood Negative Urine Nitrite Negative Urine Bilirubin Negative Urine Urobilinogen (Auto) 1.0 Ur Leukocyte Esterase Negative Urine RBC 1 Urine WBC 1 Ur Squamous Epith Cells < 1 Urine Bacteria None Ur Culture Indicated? Not Indicated Misc Test Result Platelets confirmed Quality Measures Quality Measures VTE prophylaxis Assessment & Plan Assessment Current Active Medications: Generic Name Dose Route Start Last Admin Trade Name Emily PRN Reason Stop Dose Admin Acetaminophen 650 mg 04/21/25 17:02 04/22/25 08:50 Acetaminophen 325 Mg Tablet PO 05/21/25 17:01 650 mg Q6H PRN Administration Fever >101.5 and pain 1-3 Carvedilol 3.125 mg 04/21/25 17:30 04/22/25 08:40 Carvedilol 3.125 Mg Tablet PO 05/21/25 17:29 3.125 mg BIDWM IGLESIA Administration Dextrose 25 ml 04/21/25 18:16 Dextrose 50%-Water Inj 50 Ml Syringe IV 05/21/25 18:15 Q15MIN PRN BG 50-70 responsive npo pt Dextrose 50 ml 04/21/25 18:16 Dextrose 50%-Water Inj 50 Ml Syringe IV 05/21/25 18:15 Q15MIN PRN BG <50 OR BG <70 & pt unresponsive Glucagon 1 mg 04/21/25 18:16 Glucagon Inj 1 Mg Vial IM Q15MIN PRN BG <70, and no IV access Ceftriaxone Sodium/Dextrose 1 gm in 50 mls @ 100 mls/hr 04/22/25 09:00 04/22/25 08:47 Rocephin/D5w 1gm Iv Premix IV 04/29/25 08:59 100 mls/hr QDAY IGLESIA Administration Insulin Human Lispro 0 unit 04/21/25 21:00 04/22/25 11:39 Insulin Lispro (Admelog) 1 Unit/0.01 Ml Unit SC 05/21/25 20:59 1 unit ACHS IGLESIA Administration Protocol Lactulose 30 gm 04/22/25 12:00 04/22/25 11:40 Lactulose Syrup 20 Gm/30 Ml Udc PO 05/22/25 11:59 30 gm Q6HR IGLESIA Administration Protocol Morphine Sulfate 2 mg 04/21/25 17:36 04/21/25 23:52 Morphine Sulf Inj 4 Mg/Ml Vial IVP 2 mg Q4HR PRN Administration pain 7-10 Ondansetron HCl 4 mg 04/21/25 17:02 Ondansetron Inj 2 Mg/Ml Inj 2 Ml IVP 05/21/25 17:01 Q6H PRN NAUSEA OR VOMITING Protocol Pantoprazole Sodium 40 mg 04/22/25 09:00 04/22/25 08:55 Pantoprazole Inj 40 Mg Vial IVP 05/22/25 08:59 40 mg QDAY IGLESIA Administration Polyethylene Glycol 17 gm 04/21/25 22:15 04/22/25 08:43 Polyethylene Glycol 17 Gm Packet PO 05/21/25 22:14 17 gm QDAY IGLESIA Administration Rifaximin 550 mg 04/22/25 21:00 Rifaximin 550 Mg Tablet PO 04/29/25 20:59 BID IGLESIA Sennosides 1 tab 04/21/25 22:15 04/22/25 08:40 Senna/Docusate Sod 1 Tab Tablet PO 05/21/25 22:14 1 tab QDAY IGLESIA Administration Protocol Plan Patient is a 59-year-old female with past medical history of malignant neoplasm of right breast (ER/AL HER2 positive with metastasis to lungs), nonalcoholic related liver cirrhosis, portal hypertension, splenomegaly, esophageal varices status post bandage presented on 04/17/2025 with chief complaint of abdominal pain and confusion since 1 AM this morning, admitted for acute hepatic encephalopathy. #Acute hepatic encephalopathy #Nonalcoholic related liver cirrhosis #Hyperammonemia Likely secondary to long history of nonalcoholic cirrhosis with multiple complications. Also possibly iatrogenic (recent chemotherapy session and hydroxyzine). Per patient's daughter, patient is alert and oriented at baseline, conversational and independent. Episode of confusion started at 1 AM this morning. Last episode was 2 years ago, also caused by high level of ammonia, resolved after prescribed lactulose however patient has not been compliant with lactulose medication per daughter. Took 1 dose morning of admission but did not have bowel movement. On admission, ammonia was 92, total bilirubin 2.5. Albumin 3.1. S/p lactulose 20 mg x 2 in ED. Scores: MELD Na 16, <2% estimated 90 day mortality Child [place] 11, Class C, life expectancy 1-3 years, abdominal surgery preoperative mortality 82% Stas: patient does not have alcoholic hepatitis Plan: ?Increase lactulose to 40 mg 3 times daily - Start Rifaximin 550 mg BID - Senna daily ?CTM labs - Strict I's & O's - Avoid hepatotoxic agents # Leukocytosis, reactive versus infection, improving WBC 20.6 on admission. Patient recently had IV chemotherapy on Saturday and Saturday. Possibly reactive in setting of metastatic cancer. Endorses dysuria and urinary retention but UA is unremarkable. CT A/P shows possible atelectasis versus right lung base pneumonia but vitals are stable and not complaining of respiratory symptoms. Lung exam was benign. Possible SBP but low suspicion for infection at this time. Denies recent sick contacts. Plan: ? Pending final blood cultures, no growth over 24 hours ?CTM CBC - Abx as above #Portal hypertension #Splenomegaly #Grade II esophageal varices status post banding (01/25/25) #Gallbladder wall thickening Chronic complications from long history of MCLAUGHLIN. Minimal ascites on imaging at this time. Recently started following GI specialist Dr. Ibrahim. Does not take carvedilol or protonix at home. Denies recent hematemesis or melena. US abdomen in ED limited due to agitation. Repeat US abdomen shows abnormally thickened gallbladder wall, no stones and no splenomegaly. Plan: - Coreg 3.125 mg BID - Lactulose and rifaximin as above - IV Protonix daily - IV CFX 1 gm for SBP prophylaxis (04/21- - Patient is not a candidate for transplant at this time however encouraged patient to establish care with wafer fabricator #Urinary retention Likely iatrogenic. Per daughter, patient took hydroxyzine prior to arrival and is complaining of urinary retention. Denies history of prior urinary retention. Plan: - Pugh in place - Avoid anti-muscarinic agents - Voiding trials prior to discharge once back to baseline #Hx malignant neoplasm of right breast, metastasis to lungs #Pulmonary nodule in LLL Follows oncologist Dr. Jackson. S/p IV chemotherapy on 04/19 and 04/20. Per daughter, patient received Udenyca on 04/20. PET scan 04/13 showed hypermetabolic right breast mass with extensive metastasis to lungs with hypermetabolic right cervical and paratracheal lymph node. Noted the largest pulmonary nodule was 6 mm in right upper lobe, [address] A/P. - Will reach out to oncologist Dr. Jackson for recommendations and clarification on chemotherapy treatments #KARIE Per previous iron panel, had low iron and saturation. Upon new admission, iron is elevated at 332, likely secondary to iron transfusion at cancer center. - No inpatient treatment required at this time - CTM for signs of acute bleeds - Transfuse if Hgb <7 Health Maintenance Disposition: Med surg DVT prophylaxis: SCDs GI prophylaxis: protonix Diet: carb consistent low CODE STATUS: FULL Patient plan of care was discussed with the attending physician, Dr. Barr. Brenda Suarez, PGY-1 Attending Provider Attestation/Addendum I have discussed and was present for the essential components of the history, physical examination, diagnosis, and treatment plan with the resident. I agree with the patient's care as documented by the resident and amended herein by me. Bulmaro Barr, DO. Although this document has been carefully reviewed, there may still be some phonetic and other typographical errors. These errors are purely grammatical due to imperfections in the software program and should not be construed in any way to compromise the substance of the patient's medical care during this visit.
--- NOTE | 2025-04-22 13:07 | PC.CC ---
PA for Xifaxan approved through 04/22/26
[2025-04-23] VITALS: BP 112/51; PULSE 65; RESP 19; TEMP 36.2; O2SAT 97
[2025-04-23 04:00] VITALS: BP 119/71; PULSE 69; RESP 19; TEMP 36.5; O2SAT 97
[2025-04-23] MEDS: LACTULOSE SYRUP 20 GM/30 ML UDC 30 GM PO (05:24)
[2025-04-23 06:12] LABS: Basophils # (Auto) 0.2 Thou/mm3 (0.0-0.2); Basophils % (Auto) 2 % (0-2.5); Eosinophils # (Auto) 0.0 Thou/mm3 (0.0-0.5); Eosinophils % (Auto) 0 % (0-10); Hematocrit 25.5 % (36.0-46.0); Immature Granulocytes Auto 0.39 Thou/mm3 (0.00-0.00); Lymphocytes # (Auto) 0.2 Thou/mm3 (1.0-4.8); Lymphocytes % (Auto) 3 % (10-50); Mean Corpuscular HGB Conc 32.2 g/dl (31.0-37.0); Mean Corpuscular Hemoglobin 26.1 pg (25.0-35.0); Mean Corpuscular Volume 81 fL (80-100); Monocytes # (Auto) 0.0 Thou/mm3 (0.0-0.8); Monocytes % (Auto) 0 % (0-12); Neutrophils # (Auto) 6.6 Thou/mm3 (1.8-7.7); Neutrophils % (Auto) 89 % (37-80); Nucleated Red Blood Cell # 0.00 Thou/mm3 (0.00-0.00); Nucleated Red Blood Cell % 0 /100 WBC (0); RDW Standard Deviation 59.4 fL (36.4-46.3); Red Blood Count 3.14 Miln/mm3 (4.00-5.20); White Blood Count 7.4 Thou/mm3 (3.6-11.0)
[2025-04-23 06:13] LABS: Hemoglobin 8.2 g/dL (12.0-16.0); Platelet Count 34 Thou/mm3 (140-440)
[2025-04-23 06:16] LABS: Path Review Blood Smear Sent to Pathologist; Slide Review Platelets confirmed
[2025-04-23 06:33] LABS: Alanine Aminotransferase 31 U/L (10-49); Albumin, Serum 2.6 gm/dL (3.4-4.8); Albumin/Globulin Ratio 1.0 (1.2-2.2); Alkaline Phosphatase 107 U/L (46-116); Anion Gap 10 (7-16); Aspartate Amino Transferase 37 U/L (0-34); BUN/Creatinine Ratio 28 Ratio (12-20); Bilirubin,Total 3.7 mg/dL (0.3-1.2); Blood Urea Nitrogen 25 mg/dL (9-23); Calcium 7.9 mg/dL (8.3-10.6); Calcium (Corrected) 9.0 mg/dL (8.5-10.1); Carbon Dioxide 22.8 mMol/L (20.0-31.0); Chloride 111 mMol/L (98-107); Creatinine (Component) 0.9 mg/dL (0.6-1.3); Estimated Creatinine Clearance 70.2 mL/min (>60); Globulin 2.5 gm/dL (2.3-3.5); Glucose 207 mg/dL (74-106); Osmolality,Calculated 297 (275-295); Potassium 3.8 mMol/L (3.4-5.1); Sodium 144 mMol/L (136-145); Total Protein 5.1 gm/dL (5.7-8.2); eGFR > 60 See Note
[2025-04-23 07:38] VITALS: BP 124/68; PULSE 78
[2025-04-23] MEDS: INSULIN LISPRO (AdmeLOG) 1 UNIT/0.01 ML UNIT SC ×2 (07:38→12:11)
[2025-04-23 07:39] VITALS: BP 124/68; PULSE 78; RESP 18; TEMP 36.5; O2SAT 96
[2025-04-23] MEDS: ACETAMINOPHEN 325 MG TABLET 650 MG PO (08:53)
[2025-04-23] MEDS: cefTRIAXone/D5w 1gm IV premix 1 GM/50 ML BAG IV (08:56)
--- NOTE | 2025-04-23 09:14 | PC.SS ---
Follow up note: Treating with Lactulose for liver disease. On IV antibiotic. Pt will return home upon dc.
--- NOTE | 2025-04-23 09:27 | PC.SS ---
Late note 04-23-25: SS met with patient and dtr, Katie regarding her d/c plan. Pt was admitted for Altered Mental Status. Dtr states patient's baseline is alert/oriented. Dtr confirmed demographic and contact information is correct on facesheet. Pt resides with . Pt ambulates independently without assistance or DME. Pt is ok with all ADLs. Patient?s pharmacy of choice is [facility] [address]. Dtr, Katie Sanders medical decision maker if she is unable. Daughter's choice is for pt to return home upon d/c. Pt does not have an advance directive, SS offered, and dtr declined. Dtr states pt is not diabetic and is not on dialysis. Daughters will provide transportation home upon dc. Pt followed up with PCP 3 weeks ago, the end of February. D/C plan: Return home Next of Kin: katie Sanders dtr, phone# [phone] PCP: Dr. Michael Mcneal Address: Correct on facesheet
--- NOTE | 2025-04-23 10:37 | PD.RESDS ---
Planned Discharge Date 04/23/25 DS: Providers Provider Date of admission: 04/21/25 17:30 Primary care physician: Michael Mcneal MD Admitting Provider: Ruddy Barr DO Attending Provider on Admission: Ruddy Barr DO Consults: 04/21/25 19:17 Consult to Oncology Routine Comment: Consulting Provider: Barrie Jackson Attending Provider on DC: Ruddy Barr DO Discharging Provider: Brenda Suarez DO Hospital Course Hospital Course Hospital course: Summary: Discharge Recommendations: -Follow up with PCP within 1 week of discharge -Continue rest of medications as previously prescribed -Return to the ED or call EMS if symptoms return and/or worsen. Hospital Diagnoses: Disposition: Time Spent with Patient Time attestation: Total time spent providing and/or coordinating discharge services: Exam Vital Signs Temp Pulse Resp BP Pulse Ox O2 Del Method 97.7 F 78 18 124/68 96 Room Air 04/23/25 07:39 04/23/25 07:39 04/23/25 07:39 04/23/25 07:39 04/23/25 07:39 04/23/25 07:39 Discharge Plan Prescriptions/Referrals Prescriptions/Med Rec: No Action lactulose [Enulose] 10 gram/15 mL solution 20 g PO TID Qty: 3785 0RF Referrals: Michael Mcneal MD [Primary Care Provider, Family Practice] Patient/Caregiver Discharge Instructions Print Language: Vietnamese
[2025-04-23] MEDS: LIDOCAINE 5% HEMORRHOIDAL CREAM 30 GM TUBE TOP (11:08)
[2025-04-23 12:00] VITALS: BP 107/53; PULSE 66; RESP 18; TEMP 36.5; O2SAT 96
--- NOTE | 2025-04-23 13:07 | ESPR_ITS ---
Documentation for date of: 04/23/25 Subjective Subjective Interval history: Patient had 9 bowel movements overnight. Patient is now alert and oriented, back to baseline but reports feeling fatigued. Abdominal pain likely secondary to lactulose and rifaximin. Also complaining of rectal pain from hemorrhoids, will give hemorrhoid cream. Vitals are stable. WBC now within normal limits. Plan to remove Pugh today as patient is back to baseline, planned voiding trials. If passes able to return home. Exam Vital Signs Temp Pulse Resp BP Pulse Ox O2 Del Method 97.7 F 66 18 107/53 L 96 Room Air 04/23/25 12:00 04/23/25 12:00 04/23/25 12:00 04/23/25 12:00 04/23/25 12:00 04/23/25 12:00 Narrative Exam Physical Exam General: Awake and in no acute distress. Conversational and nontoxic appearing. Slightly fatigued. HEENT: Normocephalic, atraumatic, mucous membranes moist. Heart: Regular rate and rhythm, normal S1 and S2, no murmurs appreciated. Lungs: Clear to auscultation with no wheezing or crackles. Abdomen: Soft, nondistended, tender in right upper quadrant and epigastric region, positive bowel sounds. No guarding or rebound tenderness. Negative Aldridge's sign. Neurologic: Alert and oriented x3, no gross neurological deficit, and patient able to move all 4 extremities. Skin: Some redness at wrists. Objective Labs 04/23/25 04:35 04/23/25 04:35 Labs: Laboratory Results - last 24 hr 04/23/25 04:35 WBC 7.4 D RBC 3.14 L Hgb 8.2 L Hct 25.5 L MCV 81 MCH 26.1 MCHC 32.2 RDW Std Deviation 59.4 H Plt Count 34 L D Neut % (Auto) 89 H Lymph % (Auto) 3 L [place] % (Auto) 0 Eos % (Auto) 0 Baso % (Auto) 2 Neut # (Auto) 6.6 Lymph # (Auto) 0.2 L [place] # (Auto) 0.0 Eos # (Auto) 0.0 Baso # (Auto) 0.2 Immature Gran # (Auto) 0.39 H Absolute Nucleated RBC 0.00 Immature Gran % 5 H Nucleated RBC % 0 Smear Path Review Sent to Pathologist Sodium 144 Potassium 3.8 Chloride 111 H Carbon Dioxide 22.8 Anion Gap 10 BUN 25 H Creatinine 0.9 Estim Creat Clear Calc 70.2 eGFR > 60 BUN/Creatinine Ratio 28 H Glucose 207 H Calculated Osmolality 297 H Calcium 7.9 L Corrected Calcium 9.0 Total Bilirubin 3.7 H AST 37 H ALT 31 Alkaline Phosphatase 107 D Total Protein 5.1 L Albumin 2.6 L Globulin 2.5 Albumin/Globulin Ratio 1.0 L Misc Test Result Platelets confirmed Quality Measures Quality Measures VTE prophylaxis Assessment & Plan Assessment Current Active Medications: Generic Name Dose Route Start Last Admin Trade Name Silasq PRN Reason Stop Dose Admin Acetaminophen 650 mg 04/21/25 17:02 04/23/25 08:53 Acetaminophen 325 Mg Tablet PO 05/21/25 17:01 650 mg Q6H PRN Administration Fever >101.5 and pain 1-3 Carvedilol 3.125 mg 04/21/25 17:30 04/23/25 07:38 Carvedilol 3.125 Mg Tablet PO 05/21/25 17:29 3.125 mg BIDWM IGLESIA Administration Dextrose 25 ml 04/21/25 18:16 Dextrose 50%-Water Inj 50 Ml Syringe IV 05/21/25 18:15 Q15MIN PRN BG 50-70 responsive npo pt Dextrose 50 ml 04/21/25 18:16 Dextrose 50%-Water Inj 50 Ml Syringe IV 05/21/25 18:15 Q15MIN PRN BG <50 OR BG <70 & pt unresponsive Glucagon 1 mg 04/21/25 18:16 Glucagon Inj 1 Mg Vial IM Q15MIN PRN BG <70, and no IV access Ceftriaxone Sodium/Dextrose 1 gm in 50 mls @ 100 mls/hr 04/22/25 09:00 04/23/25 08:56 Rocephin/D5w 1gm Iv Premix IV 04/29/25 08:59 100 mls/hr QDAY IGLESIA Administration Insulin Human Lispro 0 unit 04/21/25 21:00 04/23/25 12:11 Insulin Lispro (Admelog) 1 Unit/0.01 Ml Unit SC 05/21/25 20:59 1 unit ACHS IGLESIA Administration Protocol Lactulose 20 gm 04/23/25 14:00 Lactulose Syrup 20 Gm/30 Ml Udc PO 05/23/25 13:59 TID IGLESIA Protocol Melatonin 6 mg 04/22/25 21:00 04/22/25 23:16 Melatonin 3 Mg Tablet PO 05/22/25 20:59 Not Given HS [facility] Morphine Sulfate 2 mg 04/21/25 17:36 04/21/25 23:52 Morphine Sulf Inj 4 Mg/Ml Vial IVP 2 mg Q4HR PRN Administration pain 7-10 Ondansetron HCl 4 mg 04/21/25 17:02 Ondansetron Inj 2 Mg/Ml Inj 2 Ml IVP 05/21/25 17:01 Q6H PRN NAUSEA OR VOMITING Protocol Pantoprazole Sodium 40 mg 04/22/25 09:00 04/23/25 09:02 Pantoprazole Inj 40 Mg Vial IVP 05/22/25 08:59 40 mg QDAY IGLESIA Administration Rifaximin 550 mg 04/22/25 21:00 04/23/25 08:54 Rifaximin 550 Mg Tablet PO 04/29/25 20:59 550 mg BID IGLESIA Administration Plan Patient is a 59-year-old female with past medical history of 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 #Acute hepatic encephalopathy #Nonalcoholic related liver cirrhosis #Hyperammonemia Likely secondary to long history of nonalcoholic cirrhosis with multiple complications. Also possibly iatrogenic (recent chemotherapy session and hydroxyzine). Per patient's daughter, patient is alert and oriented at baseline, conversational and independent. Episode of confusion started at 1 AM this morning. Last episode was 2 years ago, also caused by high level of ammonia, resolved after prescribed lactulose however patient has not been compliant with lactulose medication per daughter. Took 1 dose morning of admission but did not have bowel movement. On admission, ammonia was 92, total bilirubin 2.5. Albumin 3.1. S/p lactulose 20 mg x 2 in ED. Scores: MELD Na 16, <2% estimated 90 day mortality Child Berumen 11, Class C, life expectancy 1-3 years, abdominal surgery preoperative mortality 82% Maddrey: patient does not have alcoholic hepatitis Plan: ? Lactulose 20 mg 3 times daily, parameters to hold if more than 3 bowel movements - Rifaximin 550 mg BID ?CTM labs - Strict I's & O's - Avoid hepatotoxic agents #Portal hypertension #Splenomegaly #Grade II esophageal varices status post banding (01/25/25) #Gallbladder wall thickening Chronic complications from long history of MCLAUGHLIN. Minimal ascites on imaging at this time. Recently started following GI specialist Dr. Ibrahim. Does not take carvedilol or protonix at home. Denies recent hematemesis or melena. US abdomen in ED limited due to agitation. Repeat US abdomen shows abnormally thickened gallbladder wall, no stones and no splenomegaly. Plan: - Coreg 3.125 mg BID - Lactulose and rifaximin as above - IV Protonix daily - IV CFX 1 gm for SBP prophylaxis (04/21- - Patient is not a candidate for transplant at this time however encouraged patient to establish care with general store manager # Leukocytosis, reactive versus infection, resolved WBC 20.6 on admission. Patient recently had IV chemotherapy on Saturday and Saturday. Possibly reactive in setting of metastatic cancer. Endorses dysuria and urinary retention but UA is unremarkable. CT A/P shows possible atelectasis versus right lung base pneumonia but vitals are stable and not complaining of respiratory symptoms. Lung exam was benign. Possible SBP but low suspicion for infection at this time. Denies recent sick contacts. Plan: ?Final blood cultures negative ?CTM CBC #Urinary retention Likely iatrogenic. Per daughter, patient took hydroxyzine prior to arrival and is complaining of urinary retention. Denies history of prior urinary retention. Plan: - Removed Pugh - Voiding trials - Avoid anti-muscarinic agents #Hx malignant neoplasm of right breast, metastasis to lungs #Pulmonary nodule in LLL Follows oncologist Dr. Jackson. S/p IV chemotherapy on 04/19 and 04/20. Per daughter, patient received Udenyca on 04/20. PET scan 04/13 showed hypermetabolic right breast mass with extensive metastasis to lungs with hypermetabolic right cervical and paratracheal lymph node. Noted the largest pulmonary nodule was 6 mm in right upper lobe, [address] A/P. Plan: - Reached out to oncologist Dr. Jackson, unable to get ahold - Patient has upcoming appointment, recommend close follow up #Normocytic anemia, likely KARIE and ACD in setting of malignancy Per previous iron panel, had low iron and saturation. Upon new admission, iron is elevated at 332, likely secondary to iron transfusion at cancer center. - No inpatient treatment required at this time - CTM for signs of acute bleeds - Transfuse if Hgb <7 Health Maintenance Disposition: Med surg DVT prophylaxis: SCDs GI prophylaxis: protonix Diet: carb consistent low CODE STATUS: FULL Patient plan of care was discussed with the attending physician, Dr. Barr. Brenda Suarez, PGY-1 Attending Provider Attestation/Addendum I have discussed and was present for the essential components of the history, physical examination, diagnosis, and treatment plan with the resident. I agree with the patient's care as documented by the resident and amended herein by me. Bulmaro Barr, DO. Although this document has been carefully reviewed, there may still be some phonetic and other typographical errors. These errors are purely grammatical due to imperfections in the software program and should not be construed in any way to compromise the substance of the patient's medical care during this visit. Patient seen and evaluated this AM. Patient to be discharged pending voiding trial, back to baseline, will DC on lactulose and rifaximin.
[2025-04-23 16:00] VITALS: BP 119/65; PULSE 72; RESP 18; TEMP 36.5; O2SAT 96
== END 2025-04-23 16:19 | disposition home or self-care (01) ==
LOC: SERX 09:36 → SERHOLD 17:34 → S3SX 18:13
PROVIDERS: Admitting Provider Student in an Organized Health Care Education/Training Program; Emergency Provider Emergency Medicine; PCP Family Medicine; Visit Provider Student in an Organized Health Care Education/Training Program
DX: K74.60 Unspecified cirrhosis of liver (principal); R16.1 Splenomegaly, not elsewhere classified; Z17.31 Human epidermal growth factor receptor 2 positive status; C78.00 Secondary malignant neoplasm of unspecified lung; C50.911 Malignant neoplasm of unspecified site of right female breast; K76.6 Portal hypertension; K76.82 Hepatic encephalopathy; R33.9 Retention of urine, unspecified; D72.829 Elevated white blood cell count, unspecified; I85.10 Secondary esophageal varices without bleeding; K64.9 Unspecified hemorrhoids; Z79.899 Other long term (current) drug therapy; Z78.1 Physical restraint status; Z91.148 Patient's other noncompliance with medication regimen for other reason
CPT/HCPCS: 36415; 70450; 74177; 76700; 76705; 80053; 80061; 80329; 81001; 82140; 83036; 83540; 83550; 83735; 84145; 84436; 84443; 84484; 85025; 85610; 87040; 93005; 96374; 96375; 96376; 99284; A4314; A4649; J0696; J1815; J2270; J2470; J3010; J7050; Q9967; A9270; G0480

== ENCOUNTER 2025-04-24 22:47 | Inpatient (IN) | payer MEDICAID, SELFPAY ==
[2025-04-24 22:49] VITALS: BMI 29.1
[2025-04-24 23:03] VITALS: BP 131/77; PULSE 76; RESP 18; TEMP 37.3; O2SAT 97
--- NOTE | 2025-04-24 23:09 | XR_ITS ---
Examination: CT abdomen and pelvis without contrast. Coronal 3-D reconstructions. Sagittal 2-D reconstructions. Date and time of exam:April 21, 2025, 1257 hrs., Comparison April 21, 2025 Indications: Lower abdominal pain and rectal bleeding today CTDI: vol (mGy): 8.66 DLP: (mGycm): 522 Technique: Axial images of the abdomen have been obtained, 3 mm slice thickness Intravenous contrast material has not been administered. Low dose protocols were performed. One or more of the following dose reduction techniques were used; automated exposure control, adjustment of the mA and/or KV according to patient size, use of iterative reconstruction technique. Findings: Atelectasis at the lung bases, multiple pulmonary nodules, the largest 12 mm in the left lower lobe, please see the PET/CT scan April 13, 2025 Cirrhosis, liver nodular in contour with splenomegaly Esophageal perigastric varices Gallstones No pancreatic mass No renal or ureteral calculi, no hydronephrosis Abundant stool in the right colon especially cecum No bowel obstruction Atrophic uterus Contracted urinary bladder Impression: Metastatic pulmonary nodules, please see the PET/CT scan April 13, 2025 Cirrhosis, splenomegaly Esophageal, perigastric varices, early anasarca Cholelithiasis Large amounts of stool throughout the colon especially right colon and cecum
--- NOTE | 2025-04-24 23:09 | PD.EDRME ---
Rapid Medical Screening Exam RME Arrival date/time: 04/24/25 22:47 This is a case of 59-year-old female with history of cirrhosis cancer hepatic encephalopathy just discharged last Saturday came in in the emergency room due to abdominal pain and rectal bleeding due to persistence of the symptoms this daughter decided to bring patient here in the emergency room Chief Complaint: GI Bleed Time Seen by Provider: 04/24/25 23:09 Vital signs: Vital Signs Temperature 99.1 F 04/24/25 23:03 Pulse Rate 76 04/24/25 23:03 Respiratory Rate 18 04/24/25 23:03 Blood Pressure 131/77 H 04/24/25 23:03 Pulse Oximetry (%) 97 04/24/25 23:03 Oxygen Delivery Method Room Air 04/24/25 23:03
[2025-04-24 23:32] LABS: Basophils # (Auto) 0.0 Thou/mm3 (0.0-0.2); Basophils % (Auto) 0 % (0-2.5); Eosinophils # (Auto) 0.0 Thou/mm3 (0.0-0.5); Eosinophils % (Auto) 0 % (0-10); Hematocrit 27.5 % (36.0-46.0); Hemoglobin 9.0 g/dL (12.0-16.0); Immature Granulocytes Auto 0.01 Thou/mm3 (0.00-0.00); Lymphocytes # (Auto) 0.4 Thou/mm3 (1.0-4.8); Lymphocytes % (Auto) 81 % (10-50); Mean Corpuscular HGB Conc 32.7 g/dl (31.0-37.0); Mean Corpuscular Hemoglobin 25.5 pg (25.0-35.0); Mean Corpuscular Volume 78 fL (80-100); Monocytes # (Auto) 0.0 Thou/mm3 (0.0-0.8); Monocytes % (Auto) 4 % (0-12); Neutrophils # (Auto) 0.1 Thou/mm3 (1.8-7.7); Neutrophils % (Auto) 13 % (37-80); Nucleated Red Blood Cell # 0.00 Thou/mm3 (0.00-0.00); Nucleated Red Blood Cell % 0 /100 WBC (0); RDW Standard Deviation 56.0 fL (36.4-46.3); Red Blood Count 3.53 Miln/mm3 (4.00-5.20)
[2025-04-24 23:52] LABS: Ammonia 81 uMol/L (11-32)
[2025-04-24 23:56] VITALS: BP 148/75; PULSE 68; RESP 18; O2SAT 96
[2025-04-24 23:56] LABS: Platelet Count 17 Thou/mm3 (140-440); White Blood Count 0.5 Thou/mm3 (3.6-11.0)
[2025-04-24 23:57] LABS: Slide Review Platelets confirmed
[2025-04-25] VITALS (22 sets, daily range): BP systolic 104–143; BP diastolic 57–80; PULSE 70–89; RESP 13–25; TEMP 36.4–37.2; O2SAT 94–97
[2025-04-25] LABS: Path Review Blood Smear Sent to Pathologist
[2025-04-25 00:57] LABS: Alanine Aminotransferase 34 U/L (10-49); Albumin, Serum 2.9 gm/dL (3.4-4.8); Albumin/Globulin Ratio 1.1 (1.2-2.2); Alkaline Phosphatase 106 U/L (46-116); Anion Gap 7 (7-16); Aspartate Amino Transferase 36 U/L (0-34); BUN/Creatinine Ratio 29 Ratio (12-20); Bilirubin,Total 3.9 mg/dL (0.3-1.2); Blood Urea Nitrogen 38 mg/dL (9-23); Calcium 8.1 mg/dL (8.3-10.6); Calcium (Corrected) 9.0 mg/dL (8.5-10.1); Carbon Dioxide 24.2 mMol/L (20.0-31.0); Chloride 101 mMol/L (98-107); Creatinine (Component) 1.3 mg/dL (0.6-1.3); Estimated Creatinine Clearance 47.3 mL/min (>60); Globulin 2.6 gm/dL (2.3-3.5); Glucose 161 mg/dL (74-106); Lipase 28 U/L (12-53); Osmolality,Calculated 276 (275-295); Potassium 3.6 mMol/L (3.4-5.1); Sodium 132 mMol/L (136-145); Total Protein 5.5 gm/dL (5.7-8.2); eGFR 47 See Note
--- NOTE | 2025-04-25 01:45 | EDNOTE_ITS ---
ED GI Bleed RME/HPI General Chief complaint: GI Bleed Stated complaint: RECTAL BLEEDING Time Seen by Provider: 04/24/25 23:09 Arrival date/time: 04/24/25 22:47 RME / HPI RME / HPI Narrative: 04/24/25 22:47 This is a case of 59-year-old female with history of cirrhosis cancer hepatic encephalopathy just discharged last Sanchez came in in the emergency room due to abdominal pain and rectal bleeding due to persistence of the symptoms this daughter decided to bring patient here in the emergency room DR. VIDAL MAIN ED EVALUATION: Patient is Hx of cirrhotic liver disease, pancytopenia, and metastatic breast cancer, recently admitted to [facility] for hepatic encephalopathy represents after grossly bloody BM. No reported near-syncope or complaints of shortness of breath or chest pain. No fever, additionally no reported hematemesis. PMH: Hypertension, Cirrhosis, Pancreatitis, Gall Bladder Disease, Esophageal Varices, Ulcer, Hemorrhoids, Gastroesophageal Reflux Disease, Breast Cancer, Anemia, Breast Cancer PSH: Tubal Ligation. Social: Negative for alcohol, tobacco, and illicit drug use. Allergies: None reported. Related Data Previous Rx's ?Medication ?Instructions ?Recorded lactulose 10 gram/15 mL oral 20 g (30 mL) PO TID #3,78 5 mL 02/04/25 solution (Enulose) rifaximin 550 mg tablet 550 mg PO BID hyperammonemia #60 04/23/25 tabs Allergies Allergy/AdvReac Type Severity Reaction Status Date / Time No Known Allergies Allergy Verified 04/24/25 22:57 Review of Systems Review of Systems Systems Reviewed: All systems reviewed, normal except as documented Past Medical History Past Medical History CARDIAC: Positive Hypertension GASTROINTESTINAL: Positive Cirrhosis, Pancreatitis, Gall Bladder Disease, Esophageal Varices, Ulcer, Hemorrhoids and Gastroesophageal Reflux Disease REPRODUCTIVE: Positive Breast Cancer HEMATOLOGIC: Positive Anemia OTHER HISTORY: Positive Hospitalization, Blood Transfusions and Breast Cancer Family History FAMILY HISTORY: Positive Family Gastrointestinal Problems Surgical History SURGICAL: Positive Tubal Ligation ED Exam Narrative Physical exam: GEN. APPEARANCE: The patient is alert awake oriented X-3 in no distress, lying down comfortably, appears chronically ill. Patient has good eye contact. Patient is cooperative. VITALS: All vitals were reviewed and the pulse ox is 96% on room air which is normal according to my interpretation. HEENT: Normocephalic, atraumatic. Pupils are equal and reactive. Oral mucosa is moist. Patent Nares NECK: Supple, nontender, no thyromegaly, no meningismus, no JVD, no step offs CHEST: Symmetrical, atraumatic, and with equal expansion , Nontender on palpation no deformity and no crepitus. CARDIOVASCULAR: Heart regular rhythm no murmur or gallop rub or extra beats. LUNGS: Clear to auscultation bilaterally with symmetrical chest rise. No laboring tachypnea or wheezing. No intercostal subcostal retraction. No rales and no rhonchi. ABDOMEN: Soft, mildly distended, no gross food wave, minimal TTP., no guarding or rebound tenderness. There are no abnormal masses palpated. Active and normal bowel sounds. EXTREMITIES: Nontender. No edema. No cyanosis. Patient is able to move all 4 extremities well, with full ROM and good CSM. SKIN: Warm and dry, no jaundice or rashes noted. MUSCULOSKELETAL: No lubar or midline bony tenderness. There is no CVA tenderness. No paraspinal muscle spasm or tenderness. NEURO: Patient is WILSON x 4, Cranial nerves II through XII grossly intact. There is no focal neurologic deficits noted. GCS is 15, PNS and RECRUITMENT CONSULTANT appear grossly intact. PSYCHIATRIC: Patient is in normal mood and affect, cooperative, no SI or HI or hallucinations. RECTAL: ? Condyloma without obvious hemmorhoidal disease, digit with scant gross blood present. * Female administrative processor present at bedside during rectal exam. Course Quality Measures none Orders Category Date Time Status Transfuse,blood/blood products NOW Care 04/25/25 02:[address] abdomen pelvis wo con Stat Exams 04/24/25 23:09 Completed Ammonia Stat Lab 04/24/25 23:23 Completed CBC Stat Lab 04/24/25 23:23 Completed Comprehensive Metabolic Panel Stat Lab 04/24/25 23:23 Completed Lipase Stat Lab 04/24/25 23:23 Completed PLATELETS [Pheresis Platelets] Stat Lab 04/25/25 02:24 Completed Path Review Blood Smear Stat Lab 04/24/25 23:23 Completed Type and Screen Stat Lab 04/24/25 23:23 Completed Urinalysis Stat Lab 04/26/25 00:20 Completed Ondansetron Inj [Zofran Inj] Med 04/25/25 01:47 Discontinued 4 mg IVP X1 ONE fentaNYL INJ [Sublimaze Inj] Med 04/25/25 01:47 Discontinued 25 mcg IVP X1 ONE Vital Signs Vital signs: Vital Signs Temperature 99.1 F 04/24/25 23:03 Pulse Rate 76 04/24/25 23:03 Respiratory Rate 18 04/24/25 23:03 Blood Pressure 131/77 H 04/24/25 23:03 Pulse Oximetry (%) 97 04/24/25 23:03 Oxygen Delivery Method Room Air 04/24/25 23:03 GI Bleed MDM Narrative MDM Narrative:: Scribe Attestation: I, Elsa Abbott, am scribing for and in the presence of Dr. Vidal. Provider Notation: Although this document has been carefully reviewed, there may still be some phonetic and other typographical errors. These errors are purely grammatical due to imperfections in the software program and should not be construed in any way to compromise the substance of the patient's medical care during this visit. Patient is Hx of cirrhotic liver disease, pancytopenia, and metastatic breast cancer, recently admitted to [facility] for hepatic encephalopathy represents after ilia, bloody BM. No reported near-syncope or complaints of shortness of breath or chest pain. Please see PE findings. Laboratory markers pertinent for WBC 25, HNH of 04/24 and platelet count of 17. Relative lymphocytosis. Serum chemistries demonstrate an increase in BUN to 38 and reduction in creatinine clearance of 47. Glucose mildly elevated at 161 and BUN/Creatinine ratio elevated to 29. Serum ammonia at 81 and lipase at 28. Total bilirubin stable at 3.9. Serum ammonia essentially unchanged. Patient typed and screen and will receive one packet of platelets. No recurrent GI hemorrhage while in ED. Remained hemodynamically stable and will require respiratory isolation and consi deration of imperic ABX. Discuss Clinical impression include absolute neutropenia, Hepatic encephalopathy, Recent gastrointestinal hemorrhage, advanced cirrhotic liver disease. Patient will be admitted to hospital service for further evaluation and treatment. Patient data External records reviewed:: [facility] previous records (Reviewed prior ED records from 04/21/25. Patient was seen for Hepatic encephalopathy.) Clinical information provided by:: patient Social determinants that could affect healthcare access:: none Patient has the following chronic illnesses:: Hypertension, Cirrhosis, Pancreatitis, Gall Bladder Disease, Esophageal Varices, Ulcer, Hemorrhoids, Gastroesophageal Reflux Disease, Breast Cancer, Anemia, Breast Cancer How is presenting disease/condition affected by chronic disease/condition?: exacerbated by Evaluation data The following diagnostics were reviewed and interpreted by me:: lab results and radiology exam(s) Lab and/or radiology exams considered but not ordered:: None Interpretation Summary: RADIOLOGY Abdomen/Pelvis CT: Findings: Atelectasis at the lung bases, multiple pulmonary nodules, the largest 12 mm in the left lower lobe, please see the PET/CT scan April 13, 2025 Cirrhosis, liver nodular in contour with splenomegaly Esophageal perigastric varices Gallstones No pancreatic mass No renal or ureteral calculi, no hydronephrosis Abundant stool in the right colon especially cecum No bowel obstruction Atrophic uterus Contracted urinary bladder Impression: Metastatic pulmonary nodules, please see the PET/CT scan April 13, 2025 Cirrhosis, splenomegaly Esophageal, perigastric varices, early anasarca Cholelithiasis Large amounts of stool throughout the colon especially right colon and cecum Medications / Prescriptions Medications or Prescriptions considered but not ordered:: None Medication administrations:: Medication Administration History Acetaminophen (Acetaminophen 325 Mg Tablet) 650 mg PO Q6H PRN PRN Reason: Fever >101.5 &pain 1-3 Stop: 05/25/25 03:21 Ceftriaxone Sodium/Dextrose (Rocephin/D5w 1gm Iv Premix) 1 gm in 50 mls @ 100 mls/hr IV QDAY IGLESIA Stop: 05/02/25 07:45 Last Admin: 04/25/25 09:39 Dose: Not Given Documented By: LARS Non-Admin Reason: Duplicate Medication on eMAR Admin: 04/25/25 09:14 Dose: 100 mls/hr Documented By: LARS Octreotide Acetate 1,000 mcg/ (Sodium Chloride) 102 mls @ 5.1 mls/hr IV .Q20H IGLESIA; Protocol Stop: 04/30/25 08:56 Last Admin: 04/26/25 05:08 Dose: 50 mcg/hr, 5.1 mls/hr Documented By: Infusion: 04/26/25 05:08 Dose: Infused Documented By: Admin: 04/25/25 09:20 Dose: 50 mcg/hr, 5.1 mls/hr Documented By: LARS Lactulose (Lactulose Syrup 20 Gm/30 Ml Udc) 20 gm PO QID [facility]; Protocol Stop: 05/25/25 11:59 Last Admin: 04/26/25 05:08 Dose: 20 gm Documented By: Admin: 04/25/25 20:55 Dose: 20 gm Documented By: Admin: 04/25/25 17:40 Dose: 20 gm Documented By: Admin: 04/25/25 12:10 Dose: 20 gm Documented By: honorio Levofloxacin (Levofloxacin 250 Mg Tablet) 500 mg PO QDAY [facility] Stop: 05/02/25 08:59 Last Admin: 04/25/25 09:20 Dose: 500 mg Documented By: LARS Morphine Sulfate (Morphine Sulf Inj 4 Mg/Ml Vial) 2 mg IV Q3HR PRN PRN Reason: PAIN SCALE 4-6 (Moderate Stop: 04/30/25 03:25 Pantoprazole Sodium (Pantoprazole Inj 40 Mg Vial) 40 mg IVP BID I[facility] Stop: 05/25/25 08:59 Last Admin: 04/25/25 20:56 Dose: 40 mg Documented By: Admin: 04/25/25 09:20 Dose: 40 mg Documented By: LARS Rifaximin (Rifaximin 550 Mg Tablet) 550 mg PO BID [facility] Stop: 05/02/25 08:59 Last Admin: 04/25/25 20:55 Dose: 550 mg Documented By: Admin: 04/25/25 09:20 Dose: 550 mg Documented By: LARS Discontinued Medications Acetaminophen (Acetaminophen 325 Mg Tablet) 650 mg PO Q6H PRN PRN Reason: Fever >101.5 &pain 1-3 Stop: 05/25/25 03:21 Carvedilol (Carvedilol 3.125 Mg Tablet) 3.125 mg PO BIDWM [facility] Stop: 05/25/25 07:59 Fentanyl Citrate (Fentanyl Cit Inj 50 Mcg/Ml Amp 2ml) 25 mcg IVP X1 ONE Stop: 04/25/25 01:48 Last Admin: 04/25/25 03:01 Dose: 25 mcg Documented By: LARS(2) Filgrastim (Filgrastim Inj (Neupogen) 300 Mcg/Ml Vial) 300 mcg SC X1 ONE Stop: 04/25/25 03:24 Last Admin: 04/25/25 04:47 Dose: Not Given Documented By: GUSTABO Non-Admin Reason: Discontinued Lactulose (Lactulose Syrup 20 Gm/30 Ml Udc) 20 gm PO TID IGLESIA; Protocol Stop: 05/25/25 05:59 Last Admin: 04/25/25 06:44 Dose: 20 gm Documented By: Ondansetron HCl (Ondansetron Inj 2 Mg/Ml Inj 2 Ml) 4 mg IVP X1 ONE; Protocol Stop: 04/25/25 01:48 Last Admin: 04/25/25 03:02 Dose: 4 mg Documented By: ONUR2) Ondansetron HCl (Ondansetron Inj 2 Mg/Ml Inj 2 Ml) 4 mg IVP Q6H PRN; Protocol PRN Reason: NAUSEA OR VOMITING Stop: 05/25/25 03:21 See above if any Consultations Consultation(s) initiated? (list below): Yes Consultation #1 (Physician, Specialty, Details): Discussed with resident physician for Dr. Jackson for admission. Reviewed the patient?s HPI, PMHx, lab and/or radiology results. Discussed treatment plan. Will consult an admission to the hospitalist. Time: 02:15 Diagnosis GI bleed differential diagnosis: hemorrhoids, infectious diarrhea, Lower gastrointestinal hemorrhage, hematochezia, melena and anal fissure Most likely diagnosis given after review of the tests above:: Absolute neutropenia, Hepatic encephalopathy, Recent gastrointestinal hemorrhage, advanced cirrhotic liver disease. Admission Indicated Admission indicated?: indicated Explain why admission is indicated or not indicated:: Absolute neutropenia, Hepatic encephalopathy, Recent gastrointestinal hemorrhage, advanced cirrhotic liver disease. Admission Request Was there a request for admission?: Yes Admission Attestation Admission request attestation: Discussed case with [] from Hospitalist service regarding admission. Discussed patients ED course, exam findings, labs, and radiology results. The Hospitalist [agrees,declines] to accept the patient for admission. Disposition Plan Disposition Plan: Admit Discharge Plan Plan Patient Disposition: Admit Acute Care w/in Hospital Problem List Clinical Impression: Neutropenia, Hepatic encephalopathy, Hx of gastrointestinal hemorrhage, Advanced hepatic cirrhosis
[2025-04-25] MEDS: fentaNYL CIT INJ 50 mCg/ML AMP 2ML 25 MCG IVP (03:01)
[2025-04-25] MEDS: ONDANSETRON INJ 2 MG/ML INJ 2 ML 4 MG IVP (03:02)
--- NOTE | 2025-04-25 03:36 | PD.RESHP ---
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 The patient was discharged one day ago following improvement in hepatic encephalopathy and was prescribed lactulose and rifaximin. According to the patient and family, she has now returned due to persistent abdominal pain and new-onset rectal bleeding. The family reports that yesterday, while in the restroom, the patient noticed blood in the toilet. She denies hematuria or vaginal bleeding. They are also concerned that the patient has not had a bowel movement in the past day, which they believe may be contributing to her abdominal discomfort. The patient is currently under the care of Dr. Jackson for malignancy treatment and received her first dose of immunotherapy on Saturday, the . The family notes a decrease in appetite, poor oral intake, increased fatigue, and lethargy, with the patient sleeping more than usual. ED Course: -Initial vitals were BP 131/77, pulse 70s, respiratory 18, temp 98.1, O2 sat 97% on room air -Labs significant for WBC 0.5, platelet count 17, neutrophil % 13, sodium 132, GFR 47, glucose 161, calcium 8.1, T. bili 3.9, AST 36, ammonia 81. UA was negative -Imaging included abdominal/pelvis CT showed send findings from last admissions which are metastatic pulmonary nodule, cirrhosis, esophageal varices, cholelithiasis and large amount of stool throughout the colon. -In the ED, patient was given fentanyl 25 x 1 and Zofran x1 -Patient was admitted for pancytopenia evaluation and management. Review of Systems Review of systems otherwise negative except what is mentioned above. Past Medical History: As above Family History: Noncontributory Surgical History: Unremarkable, negative for major abdominal surgeries Social History: Denies history of smoking, denies current alcohol use, denies recreational drug use Current Medications: lactulose 20gm and rifaximin 550mg BID Allergies: No known drug allergies Exam Vital Signs Temp Pulse Resp BP Pulse Ox O2 Del Method 97.8 F 70 16 136/75 H 96 Room Air 04/25/25 03:17 04/25/25 03:17 04/25/25 03:17 04/25/25 03:17 04/25/25 03:17 04/25/25 01:40 Narrative Exam General: Alert, no acute distress.Conversational and non-toxic appearing. Skin: Warm, dry, intact. No rash or ecchymoses. Head: Normocephalic, atraumatic. Eye: Normal conjunctiva, PERRL. Throat: Oral mucosa moist. No obvious lesions in oropharynx. Cardiovascular: Regular rate and rhythm, no murmur, +S1/S2. Respiratory: Lungs are clear to auscultation, respirations unlabored, no crackles, no wheezing. Gastrointestinal: Soft, nontender, non-distended. Mild tenderness to palpation on right lower quadrant No guarding or rebound tenderness. Extremities: No edema, no cyanosis, no clubbing. Neuro: Alert and oriented x3.No focal deficits observed. Conversant, moving all extremities. No overt cerebellar signs/incoordination. Psychiatric: Cooperative, appropriate affect Results: Labs 04/26/25 04:59 04/26/25 04:59 Labs: Short CBC 04/24/25 Range/Units 23:23 WBC 0.5 L* D (3.6-11.0) Thou/mm3 Hgb 9.0 L (12.0-16.0) g/dL Hct 27.5 L (36.0-46.0) % Plt Count 17 L* D (140-440) Thou/mm3 BMP 04/24/25 23:23 Sodium 132 L D Potassium 3.6 Chloride 101 Carbon Dioxide 24.2 BUN 38 H Creatinine 1.3 Glucose 161 H Calcium 8.1 L Liver Function 04/24/25 Range/Units 23:23 Total Bilirubin 3.9 H (0.3-1.2) mg/dL AST 36 H (0-34) U/L ALT 34 (10-49) U/L Alkaline Phosphatase 106 (46-116) U/L Albumin 2.9 L (3.4-4.8) gm/dL Quality Measures Quality Measures none Medications Home Medications and Allergies Allergies Allergy/AdvReac Type Severity Reaction Status Date / Time No Known Allergies Allergy Verified 04/24/25 22:57 Visit Medications Acetaminophen (Acetaminophen 325 Mg Tablet) 650 mg PO Q6H PRN PRN Reason: Fever >101.5 &pain 1-3 Stop: 05/25/25 03:21 Filgrastim (Filgrastim Inj (Neupogen) 300 Mcg/Ml Vial) 300 mcg SC X1 ONE Stop: 04/25/25 03:24 Lactulose (Lactulose Syrup 20 Gm/30 Ml Udc) 20 gm PO TID [facility]; Protocol Stop: 05/25/25 05:59 Levofloxacin (Levofloxacin 250 Mg Tablet) 500 mg PO QDAY [facility] Stop: 05/02/25 08:59 Morphine Sulfate (Morphine Sulf Inj 4 Mg/Ml Vial) 2 mg IV Q3HR PRN PRN Reason: PAIN SCALE 4-6 (Moderate Stop: 04/30/25 03:25 Pantoprazole Sodium (Pantoprazole Inj 40 Mg Vial) 40 mg IVP BID [facility] Stop: 05/25/25 08:59 Rifaximin (Rifaximin 550 Mg Tablet) 550 mg PO BID [facility] Stop: 05/02/25 08:59 Discontinued Medications Fentanyl Citrate (Fentanyl Cit Inj 50 Mcg/Ml Amp 2ml) 25 mcg IVP X1 ONE Stop: 04/25/25 01:48 Last Admin: 04/25/25 03:01 Dose: 25 mcg Ondansetron HCl (Ondansetron Inj 2 Mg/Ml Inj 2 Ml) 4 mg IVP X1 ONE; Protocol Stop: 04/25/25 01:48 Last Admin: 04/25/25 03:02 Dose: 4 mg Ondansetron HCl (Ondansetron Inj 2 Mg/Ml Inj 2 Ml) 4 mg IVP Q6H PRN; Protocol PRN Reason: NAUSEA OR VOMITING Stop: 05/25/25 03:21 Assessment & Plan Plan Patient is a 63-year-old male past medical significant for 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 Found to have pancytopenia on labs hence admitted for pancytopenia evaluation and management. #Pancytopenia S/P immunotherapy #Severe neutropenia #Thrombocytopenia #Hx malignant neoplasm of right breast, metastasis to lungs #Pulmonary nodule in LLL Patient presented to ED with with pancytopenia with WBC<0.4, Platelet 17, Neutro%5,and auto % due to possible new immunotherapy April 19 per patient family. They do not recall the name of the immunotherapy. However immunotherapy can cause pancytopenia by triggering immune-mediated attack on bone marrow cell, leading to decreased production of white blood cell lines as seen in this patient. - Oncology consulted, recommendation appreciated - GI consulted, recommendation appreciated - Platelets ordered, pending - Type and screen - Started levofloxacin 500 mg p.o. daily - Started reverse isolation protocol-due to severe neutropenia #Lower GI bleed/ Hematochezia #Microcytic anemia, chronic, likely in setting of malignancy On admission hemoglobin 8.6 hematocrit 26.2, patient microcytic anemia is chronic. Although patient reports hematochezia it is mild. Patient is not actively bleeding, H&H is stable patient has a history of hemorrhoids, and hematochezia likely secondary to hemorrhoids. -Continue to monitor H&H -Continue transfusion if hemoglobin less than 7 #Hyperammonemia, improving #Nonalcoholic related liver cirrhosis #Portal hypertension #Splenomegaly #Grade II esophageal varices status post banding (01/25/25) Chronic complication from long history of [id number]. Per last admission pt is not a candidate for transplant at this time however encouraged patient to establish care with crm coordinator. Per last admisionUS abdomen in ED was limited due to agitation. Repeat US abdomen shows abnormally thickened gallbladder wall, no stones and no splenomegaly. Plan: Ammonia is downtrending for from last admission, currently 81. - Resume home lactulose 40 mg p.o. 3 times daily - Resume home rifaximin 550 mg p.o. twice daily Hospital management: Lines: peripheral IV GI prophylaxis: Lactulose DVT prophylaxis-SCD Disposition: tele for positive pain and severe neutropenia evaluation and management CODE STATUS: Full code Patient seen and assessed under supervision of attending physician Dr.Alhalaibeh Peyton Butts MD PGY-1, Internal Medicine Please note: this document was transcribed using voice recognition technology; minor inaccuracies may be present. Attending Provider Attestation/Addendum After examination of the patient and review of the clinical data I feel that this patient needs admission to the hospital for further treatment/evaluation. Plan of care discussed with patient and is in agreement. I Willis Jackson MD, attest that I was physically present for hernandez portions of evaluation, and examined patient, labs and imagings and plan of care were discussed with IM residents team, and I agree with the findings and plans documented above.
[2025-04-25 05:52] LABS: Basophils # (Auto) 0.0 Thou/mm3 (0.0-0.2); Basophils % (Auto) 0 % (0-2.5); Eosinophils # (Auto) 0.0 Thou/mm3 (0.0-0.5); Eosinophils % (Auto) 0 % (0-10); Hematocrit 26.2 % (36.0-46.0); Immature Granulocytes Auto 0.00 Thou/mm3 (0.00-0.00); Lymphocytes # (Auto) 0.3 Thou/mm3 (1.0-4.8); Lymphocytes % (Auto) 87 % (10-50); Mean Corpuscular HGB Conc 32.8 g/dl (31.0-37.0); Mean Corpuscular Hemoglobin 25.7 pg (25.0-35.0); Mean Corpuscular Volume 78 fL (80-100); Monocytes # (Auto) 0.0 Thou/mm3 (0.0-0.8); Monocytes % (Auto) 8 % (0-12); Neutrophils # (Auto) 0.0 Thou/mm3 (1.8-7.7); Neutrophils % (Auto) 5 % (37-80); Nucleated Red Blood Cell # 0.00 Thou/mm3 (0.00-0.00); Nucleated Red Blood Cell % 0 /100 WBC (0); RDW Standard Deviation 55.8 fL (36.4-46.3); Red Blood Count 3.35 Miln/mm3 (4.00-5.20)
[2025-04-25 05:53] LABS: Hemoglobin 8.6 g/dL (12.0-16.0)
[2025-04-25 05:55] LABS: Platelet Count 17 Thou/mm3 (140-440); White Blood Count < 0.4 Thou/mm3 (3.6-11.0)
[2025-04-25 05:57] LABS: Slide Review Platelets confirmed
[2025-04-25 06:08] LABS: INR 1.6 (0.9-1.3); Partial Thromboplastin Time 38.3 Seconds (22.0-36.0); Prothrombin Time 17.2 Seconds (9.0-12.2)
[2025-04-25 06:11] LABS: Alanine Aminotransferase 32 U/L (10-49); Albumin, Serum 2.7 gm/dL (3.4-4.8); Albumin/Globulin Ratio 1.0 (1.2-2.2); Alkaline Phosphatase 100 U/L (46-116); Anion Gap 7 (7-16); Aspartate Amino Transferase 31 U/L (0-34); BUN/Creatinine Ratio 21 Ratio (12-20); Bilirubin,Total 4.2 mg/dL (0.3-1.2); Blood Urea Nitrogen 27 mg/dL (9-23); Calcium 8.0 mg/dL (8.3-10.6); Calcium (Corrected) 9.0 mg/dL (8.5-10.1); Carbon Dioxide 24.4 mMol/L (20.0-31.0); Chloride 101 mMol/L (98-107); Creatinine (Component) 1.3 mg/dL (0.6-1.3); Estimated Creatinine Clearance 47.3 mL/min (>60); Globulin 2.6 gm/dL (2.3-3.5); Glucose 155 mg/dL (74-106); Magnesium 2.5 mg/dL (1.6-2.6); Osmolality,Calculated 272 (275-295); Potassium 3.4 mMol/L (3.4-5.1); Sodium 132 mMol/L (136-145); Total Protein 5.3 gm/dL (5.7-8.2); eGFR 47 See Note
[2025-04-25] MEDS: LACTULOSE SYRUP 20 GM/30 ML UDC PO ×4 (06:44→20:55)
--- NOTE | 2025-04-25 07:50 | PD.RESDS ---
Planned Discharge Date 04/23/25 DS: Providers Provider Date of admission: 04/21/25 17:17 Primary care physician: Michael Mcneal MD Admitting Provider: Ruddy Barr DO Attending Provider on Admission: Ruddy Barr DO Attending Provider on DC: Jay Cha MD Discharging Provider: Jay Cha MD DS: Diagnosis Problem List Completed Was Problem List Reviewed/Reconciled?: Yes Hospital Course Hospital Course Hospital course: This discharge summary is for patient who was discharged on 04/23/2025 59-year-old female with past medical history of malignant neoplasm of right breast, nonalcoholic related liver cirrhosis, portal hypertension, splenomegaly, esophageal varices status post banding presented to the ED on 04/21 with episode of abdominal pain along with associated altered mental status and acute encephalopathy. In the ED, patient was mildly hypertensive, tachycardic and afebrile but labs were significant for leukocytosis, thrombocytopenia, elevated liver function enzymes including T bilirubin, EKG showed sinus rhythm with inverted T waves in V1?V3 but troponins were negative. Imaging including head CT was limited due to extensive motion artifact, CT abdomen pelvis showed an 11 mm pulmonary left lower lobe nodule, retroareolar right breast mass with spiculated margins, cirrhosis, trace ascites and multiple esophageal varices, splenomegaly. Patient was admitted for hepatic encephalopathy likely secondary to liver cirrhosis and was started on lactulose. Patient was also started on cirrhosis medications including carvedilol, ceftriaxone for SBP prophylaxis and blood cultures were ordered which were negative. There was some concern about urinary retention as a result Pugh catheter was placed but upon voiding trial afterwards, Pugh catheter was discontinued. Patient made remarkable improvement with lactulose and mental status was back to baseline. 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 #Pulmonary nodule in LLL #Normocytic anemia, likely KARIE and ACD in setting of malignancy Jay Cha DO PGY-2 Internal Medicine - [facility] Status at Discharge Overall status at discharge: patient is progressing back to baseline Time Spent with Patient Time attestation: Total time spent providing and/or coordinating discharge services: 45 minutes Time spent: Greater than 30 minutes Exam Vital Signs Temp Pulse Resp BP Pulse Ox O2 Del Method 98.6 F 74 18 104/73 95 Room Air 04/25/25 06:36 04/25/25 06:36 04/25/25 06:36 04/25/25 06:36 04/25/25 06:36 04/25/25 06:36 Narrative Exam Physical Exam General: Awake and in no acute distress. Conversational and nontoxic appearing. Slightly fatigued. HEENT: Normocephalic, atraumatic, mucous membranes moist. Heart: Regular rate and rhythm, normal S1 and S2, no murmurs appreciated. Lungs: Clear to auscultation with no wheezing or crackles. Abdomen: Soft, nondistended, mild tenderness in right upper quadrant and epigastric region, positive bowel sounds. No guarding or rebound tenderness. Negative Aldridge's sign. Neurologic: Alert and oriented x3, no gross neurological deficit, and patient able to move all 4 extremities. Skin: Some redness at wrists. Discharge Plan Prescriptions/Referrals Prescriptions/Med Rec: No Action lactulose [Enulose] 10 gram/15 mL solution 20 g PO TID Qty: 3785 0RF rifaximin 550 mg tablet 550 mg PO BID Qty: 60 0RF Referrals: Michael Mcneal MD [Primary Care Provider, Family Practice] Patient/Caregiver Discharge Instructions Print Language: Vietnamese Quality Discharge Quality Measures VTE prophylaxis Attestestation MD Attestation I have discussed and was present for the essential components of the discharge history, physical examination, diagnosis, and discharge treatment plan with the resident. I agree with the patient's discharge care as documented by the resident and amended herein by me. Bulmaro Barr DO. The patient understood all discharge instructions, all questions were answered satisfactorily. The patient was instructed to return to the Emergency Department is symptoms worsened or persisted. Patient back to her baseline mentation, much more pleasant and amenable to questions, ANO x 3 at time of discharge. We did explain the importance of continuing her lactulose and now Right[employer] [place] at time of discharge and the family understood. Patient was stable, afebrile and tolerate p.o. intake at time of discharge home. Although this document has been carefully reviewed, there may still be some phonetic and other typographical errors. These errors are purely grammatical due to imperfections in the software program and should not be construed in any way to compromise the substance of the patient's medical care during this visit.
[2025-04-25] MEDS: cefTRIAXone/D5w 1gm IV premix 1 GM/50 ML BAG IV (09:14)
[2025-04-25] MEDS: OCTREOTIDE ACET INJ 1,000 MCG in SODIUM CHLORIDE 0.9% 100 ML 5.1 MCG IV (09:20)
[2025-04-25] MEDS: LEVOFLOXACIN 250 MG TABLET 500 MG PO (09:20)
--- NOTE | 2025-04-25 09:55 | PC.SS ---
Patient is a 59 year old female presenting to the hospital for pancytopenia. [employer]ACHUTE [employer]ER placed phone call to Jessi Marquez, daughter, role and reason for telephone call was explained. Patients daughter confirmed demographic information and stated that her mother lives at home with her . Patient is unemployed, does not use DME, PCP is Dr. Mcneal last visit was in March and her next visit is on 04/28/25, her pharmacy of choice is [facility] [address]. Daughter stated that in case patient is unable to make medical decisions on her own, her sister Katie Marquez will make them PH: [phone]. Jessi stated that her sister Katie has been visiting. Once medically clear, Jessi stated she would like patient to retrun home. PCP: Dr. Mcneal Decision maker: Katie PH: [phone] D/c: home
--- NOTE | 2025-04-25 13:20 | PD.RESPRO ---
Documentation for date of: 04/25/25 Subjective Subjective Interval history: Patient seen and examined in hospital bed reporting feeling tired. Patient's daughter was bedside and noted that after the patient was discharged last time she started developing more constipation and has not had a bowel movement even with the medications on board. Patient then developed what was initially thought to be paulino blood per rectum; however, on reassessment patient's later stated that the patient's been having hematuria. Patient's bleeding likely secondary to worsening liver function along with thrombocytopenia. Transfusing 1 unit of platelets and closely monitoring patient's hemoglobin/hematocrit. Gastroenterology and oncology have both been consulted; however, patient's prognosis remains guarded and goals of care discussions will need to happen tomorrow. Exam Vital Signs Temp Pulse Resp BP Pulse Ox O2 Del Method 98.3 F 81 21 H 117/67 97 Room Air 04/25/25 12:00 04/25/25 12:00 04/25/25 12:00 04/25/25 12:00 04/25/25 12:04/25/25 12:00 Narrative Exam Physical Exam General: Awake but somnolent, answers questions appropriately but slowly HEENT: Normocephalic, atraumatic, mucous membranes moist. Heart: Regular rate and rhythm, normal S1 and S2, no murmurs appreciated. Lungs: Clear to auscultation with no wheezing or crackles. Abdomen: Soft, nondistended, mild tenderness in right upper quadrant and epigastric region, positive bowel sounds. No guarding or rebound tenderness. Negative Aldridge's sign. Neurologic: Alert and oriented x3, no gross neurological deficit, and patient able to move all 4 extremities. Skin: Some redness at wrists. Objective Labs 04/25/25 05:45 04/25/25 05:45 Labs: Laboratory Results - last 24 hr 04/24/25 04/25/25 23:23 05:45 WBC 0.5 L* D < 0.4 L* RBC 3.53 L 3.35 L Hgb 9.0 L 8.6 L Hct 27.5 L 26.2 L MCV 78 L 78 L MCH 25.5 25.7 MCHC 32.7 32.8 RDW Std Deviation 56.0 H 55.8 H Plt Count 17 L* D 17 L* Neut % (Auto) 13 L 5 L Lymph % (Auto) 81 H 87 H [place] % (Auto) 4 8 Eos % (Auto) 0 0 Baso % (Auto) 0 0 Neut # (Auto) 0.1 L 0.0 L Lymph # (Auto) 0.4 L 0.3 L [place] # (Auto) 0.0 0.0 Eos # (Auto) 0.0 0.0 Baso # (Auto) 0.0 0.0 Immature Gran # (Auto) 0.01 H 0.00 Absolute Nucleated RBC 0.00 0.00 Immature Gran % 2 H 0 Nucleated RBC % 0 0 Smear Path Review Sent to Pathologist PT 17.2 H INR 1.6 H APTT 38.3 H Sodium 132 L D 132 L Potassium 3.6 3.4 Chloride 101 101 Carbon Dioxide 24.2 24.4 Anion Gap 7 7 BUN 38 H 27 H Creatinine 1.3 1.3 Estim Creat Clear Calc 47.3 L 47.3 L eGFR 47 L 47 L BUN/Creatinine Ratio 29 H 21 H Glucose 161 H 155 H Calculated Osmolality 276 272 L Calcium 8.1 L 8.0 L Corrected Calcium 9.0 9.0 Magnesium 2.5 Total Bilirubin 3.9 H 4.2 H AST 36 H 31 ALT 34 32 Alkaline Phosphatase 106 100 Ammonia 81 H* Total Protein 5.5 L 5.3 L Albumin 2.9 L 2.7 L Globulin 2.6 2.6 Albumin/Globulin Ratio 1.1 L 1.0 L Lipase 28 Misc Test Result Platelets confirmed Platelets confirmed Blood Type O Negative Antibody Screen NEGATIVE Blood Bank Wristband ID Yes Blood Bank Comment PLATP Ready Quality Measures Quality Measures VTE prophylaxis Assessment & Plan Assessment Current Active Medications: Generic Name Dose Route Start Last Admin Trade Name Emily PRN Reason Stop Dose Admin Acetaminophen 650 mg 04/25/25 11:40 Acetaminophen 325 Mg Tablet PO 05/25/25 03:21 Q6H PRN Fever >101.5 &pain 1-3 Ceftriaxone Sodium/Dextrose 1 gm in 50 mls @ 100 mls/hr 04/25/25 07:46 04/25/25 09:39 Rocephin/D5w 1gm Iv Premix IV 05/02/25 07:45 Not Given QDAY IGLESIA Octreotide Acetate 1,000 mcg/ 102 mls @ 5.1 mls/hr 04/25/25 08:56 04/25/25 09:20 Sodium Chloride IV 04/30/25 08:56 50 mcg/hr .Q20H IGLESIA 5.1 mls/hr Protocol Administration 50 MCG/HR Lactulose 20 gm 04/25/25 12:00 04/25/25 12:10 Lactulose Syrup 20 Gm/30 Ml Udc PO 05/25/25 11:59 20 gm QID IGLESIA Administration Protocol Levofloxacin 500 mg 04/25/25 09:00 04/25/25 09:20 Levofloxacin 250 Mg Tablet PO 05/02/25 08:59 500 mg QDAY IGLESIA Administration Morphine Sulfate 2 mg 04/25/25 03:26 Morphine Sulf Inj 4 Mg/Ml Vial IV 04/30/25 03:25 Q3HR PRN PAIN SCALE 4-6 (Moderate Pantoprazole Sodium 40 mg 04/25/25 09:00 04/25/25 09:20 Pantoprazole Inj 40 Mg Vial IVP 05/25/25 08:59 40 mg BID IGLESIA Administration Rifaximin 550 mg 04/25/25 09:00 04/25/25 09:20 Rifaximin 550 Mg Tablet PO 05/02/25 08:59 550 mg BID IGLESIA Administration Plan Patient is a 59-year-old female with past medical history of malignant neoplasm of right breast (ER/CT HER2 positive with metastasis to lungs), nonalcoholic related liver cirrhosis, portal hypertension, splenomegaly, esophageal varices status post bandage presented on 04/17/2025 with chief complaint of abdominal pain and confusion since 1 AM this morning, admitted for acute hepatic encephalopathy. #Acute blood loss anemia #Normocytic anemia, likely multifactorial with ACD in setting of malignancy #Thrombocytopenia Acute blood loss anemia in the setting of thrombocytopenia from the acute on chronic decompensated liver cirrhosis As per HPI, initially thought was that the patient was having lower GI bleed from possible internal hemorrhoids; however, there is concern for hematuria at this point Per previous iron panel, had low iron and saturation. Upon new admission, iron is elevated at 332, likely secondary to iron transfusion at cancer center. Hematuria noted above likely secondary to patient having Pugh catheter removed on last admission for urinary retention Platelets of 17 Plan: Transfuse 1 unit of platelet pheresis CTM for signs of acute bleeds Transfuse PRBC if Hgb <7 Gastroenterology consulted, appreciate recommendations #Nonalcoholic related liver cirrhosis #Hyperammonemia Likely secondary to long history of nonalcoholic cirrhosis with multiple complications. Also possibly iatrogenic (recent chemotherapy session and hydroxyzine). Per patient's daughter, patient is alert and oriented at baseline, conversational and independent. Episode of confusion started at 1 AM this morning. Last episode was 2 years ago, also caused by high level of ammonia, resolved after prescribed lactulose however patient has not been compliant with lactulose medication per daughter. Took 1 dose morning of admission but did not have bowel movement. On admission, ammonia was 92, total bilirubin 2.5. Albumin 3.1. S/p lactulose 20 mg x 2 in ED. Scores: MELD Na 16, <2% estimated 90 day mortality Child Berumen 11, Class C, life expectancy 1-3 years, abdominal surgery preoperative mortality 82% Maddrey: patient does not have alcoholic hepatitis Plan: Lactulose 20 mg increased to 4 times daily, hold if bowel movements greater than 30/day Continue rifaximin 550 mg BID CTM labs Strict I's & O's Avoid hepatotoxic agents Hepatic diet #Portal hypertension #Splenomegaly #Grade II esophageal varices status post banding (01/25/25) #Gallbladder wall thickening Chronic complications from long history of MCLAUGHLIN. Minimal ascites on imaging at this time. Recently started following GI specialist Dr. Ibrahim. Does not take carvedilol or protonix at home. Denies recent hematemesis or melena. US abdomen in ED limited due to agitation. Repeat US abdomen shows abnormally thickened gallbladder wall, no stones and no splenomegaly. 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 Jackson. S/p IV chemotherapy on 04/19 and 04/20. Per daughter, patient received Udenyca on 04/20. PET scan 04/13 showed hypermetabolic right breast mass with extensive metastasis to lungs with hypermetabolic right cervical and paratracheal lymph node. Noted the largest pulmonary nodule was 6 mm in right upper lobe, [address] A/P. Plan: Continue Levaquin 500 mg p.o. daily No indication on starting Filgrastim at this time Oncology, Dr. Gustafson consulted Contact Dr. Sneed regarding patient's treatment course Goals of care discussion with patient's family on 04/26 Health Maintenance: Disposition: Telemetry DVT prophylaxis: SCDs GI prophylaxis: protonix Diet: Hepatic CODE STATUS: FULL Patient seen and assessed with attending Dr. Momo Cha DO PGY-2 Internal Medicine - [facility] Attending Provider Attestation/Addendum I have discussed and was present for the essential components of the history, physical examination, diagnosis, and treatment plan with the resident. I agree with the patient's care as documented by the resident and amended herein by me. Bulmaro Barr DO. Although this document has been carefully reviewed, there may still be some phonetic and other typographical errors. These errors are purely grammatical due to imperfections in the software program and should not be construed in any way to compromise the substance of the patient's medical care during this visit.
--- NOTE | 2025-04-25 13:26 | PC.SS ---
Addendum entered by CHRISTINE Singh 04/25/25 15:07: Rounding note: goals of care meeting tomorrow. Original Note: SS update: PO feed, on IV antibiotics.
--- NOTE | 2025-04-25 13:32 | PC.NURSE ---
PATIENT ARRIVED IN [facility], REPORTS GENERALIZE WEAKNESS, ALERT TO SELF AND PLACE WITH INTERMITTENT CONFUSION.
--- NOTE | 2025-04-25 14:57 | PC.NURSE ---
coordinated care with Dr. Gustafson, while rounding.
--- NOTE | 2025-04-25 15:23 | PD.ONCCONS ---
HPI Data of Consult Requesting Physician: Willis Jackson MD Primary Care Provider: Michael Mcneal MD Consult Narrative Reason for consult: Stage IV breast CA patient History of present illness: Patient is a 63-year-old lady noted to have advanced breast CA receptor positive HER2 positive with suspected lung mets noted on PET. CT on admission also suggested metastatic pulmonary nodules. On 04/19/2025 patient received TCH under Dr. Sneed's direction. Patient with history of hepatic encephalopathy cirrhosis noted to have lower GI bleeding and came to the ER this a.m. WBC dropped from 7.4 -0.5 04 24 25 and as of this a.m. less than 0.4 platelets 17,000 hemoglobin 8.6 . Patient received 1 unit of platelets, but being afebrile filgastrim was not ordered. Patient receiving antibiotics laxatives and other supportive care. Referred for oncological consultation. cc:: cc: Willis Jackson MD Past Medical History Past Medical History Comments PMH COMMENT: History of nonalcohol related cirrhosis pancreatitis esophageal varices with bleeding status post banding procedure. Meds Home Medications and Allergies Allergies Allergy/AdvReac Type Severity Reaction Status Date / Time No Known Allergies Allergy Verified 04/24/25 22:57 Exam Vital Signs Temp Pulse Resp BP Pulse Ox O2 Del Method 98.3 F 81 21 H 117/67 97 Room Air 04/25/25 12:00 04/25/25 12:00 04/25/25 12:00 04/25/25 12:00 04/25/25 12:00 04/25/25 12:00 Narrative Exam Appears comfortable lying in no acute distress Results Labs 04/25/25 05:45 04/25/25 05:45 Labs: Short CBC 04/24/25 04/25/25 Range/Units 23:23 05:45 WBC 0.5 L* D < 0.4 L* (3.6-11.0) Thou/mm3 Hgb 9.0 L 8.6 L (12.0-16.0) g/dL Hct 27.5 L 26.2 L (36.0-46.0) % Plt Count 17 L* D 17 L* (140-440) Thou/mm3 BMP 04/24/25 04/25/25 23:23 05:45 Sodium 132 L D 132 L Potassium 3.6 3.4 Chloride 101 101 Carbon Dioxide 24.2 24.4 BUN 38 H 27 H Creatinine 1.3 1.3 Glucose 161 H 155 H Calcium 8.1 L 8.0 L Liver Function 04/24/25 04/25/25 Range/Units 23:23 05:45 Total Bilirubin 3.9 H 4.2 H (0.3-1.2) mg/dL AST 36 H 31 (0-34) U/L ALT 34 32 (10-49) U/L Alkaline Phosphatase 106 100 (46-116) U/L Albumin 2.9 L 2.7 L (3.4-4.8) gm/dL Assessment and Plan Additional Assessment & Plan Additional Plan: 1. Receptor positive HER2/nader overexpressed right breast CA with suspected lung mets stage IV. 2. Received first cycle TCH under Dr. Jackson's direction 04/19/2025. 3. Myelosuppression with low WBC low hemoglobin platelets noted on admission. 1 unit of platelets given; filgastrim felt not needed at this time because of no fever. 4. Receiving antibiotics and other supportive care. Will follow. Thank you for allowing me to evaluate this patient.
--- NOTE | 2025-04-25 17:40 | PD.IMCONS ---
HPI Data of Consult Requesting Physician: Willis Jackson MD Primary Care Provider: Michael Mcneal MD Consult Narrative Reason for consult: Dropping hemoglobin hematocrit History of present illness: 59 years old female I been consulted for possible lower GI bleeding versus hematuria Patient has a stage IV breast carcinoma cardia cycle of TCH by Dr. Sneed [address] Gustafson our radiation oncology on board On the CT scan imaging done on 04/21/2025 and 04/24/2025 patient has multiple pulmonary nodules spicule nodule under the right breast retroareolar esophageal varices splenomegaly and abdominal ultrasound shows thickening of the gallbladder wall Also shows large amount of stool in the rectum and the colon cc:: cc: Willis Jackson MD Review of Systems Review of Systems Systems Reviewed: All systems reviewed, normal except as documented Past Medical History Surgical History OTHER SURGICAL HX: As in the history of present illness Meds Home Medications and Allergies Allergies Allergy/AdvReac Type Severity Reaction Status Date / Time No Known Allergies Allergy Verified 04/24/25 22:57 Exam Vital Signs Temp Pulse Resp BP Pulse Ox O2 Del Method 97.6 F 87 14 114/71 97 Room Air 04/25/25 16:00 04/25/25 16:00 04/25/25 16:00 04/25/25 16:00 04/25/25 16:00 04/25/25 16:00 Constitutional Comments: Chronically ill-appearing Routine Respiratory Exam Comments: Normal to auscultation Routine Abdominal Exam Comments: Soft nontender Results Labs 04/25/25 05:45 04/25/25 05:45 Labs: Short CBC 04/24/25 04/25/25 Range/Units 23:23 05:45 WBC 0.5 L* D < 0.4 L* (3.6-11.0) Thou/mm3 Hgb 9.0 L 8.6 L (12.0-16.0) g/dL Hct 27.5 L 26.2 L (36.0-46.0) % Plt Count 17 L* D 17 L* (140-440) Thou/mm3 BMP 04/24/25 04/25/25 23:23 05:45 Sodium 132 L D 132 L Potassium 3.6 3.4 Chloride 101 101 Carbon Dioxide 24.2 24.4 BUN 38 H 27 H Creatinine 1.3 1.3 Glucose 161 H 155 H Calcium 8.1 L 8.0 L Liver Function 04/24/25 04/25/25 Range/Units 23:23 05:45 Total Bilirubin 3.9 H 4.2 H (0.3-1.2) mg/dL AST 36 H 31 (0-34) U/L ALT 34 32 (10-49) U/L Alkaline Phosphatase 106 100 (46-116) U/L Albumin 2.9 L 2.7 L (3.4-4.8) gm/dL Assessment and Plan Additional Assessment & Plan Additional Plan: # Pancytopenia secondary to recently given first cycle of TCH for stage IV breast carcinoma of the right breast # Questionable rectal bleeding, anemia blood loss Before any invasive GI workup should be instituted goals of care needs to be discussed with the family and if they want everything else done then I will schedule invasive GI workup # Cirrhotic liver disease with advanced portal hypertension and periesophageal varices most likely MCLAUGHLIN cirrhosis will follow the patient Thank you for the opportunity to participate in the care of this patient
[2025-04-26] VITALS (13 sets, daily range): BP systolic 119–139; BP diastolic 56–88; PULSE 75–90; RESP 16–19; TEMP 36.8–37.8; O2SAT 92–95
[2025-04-26 00:58] LABS: Collection Type, Urine Clean Catch
[2025-04-26 01:09] LABS: Bilirubin,Urine Negative (Negative); Blood,Urine 3+ (Negative); Clarity,Urine Clear (Clear/Hazy); Color,Urine Yellow (Lt Yel-Yel); Glucose, Urine 3+ (Negative); Ketones,Urine Negative (Negative); Leukocyte Esterase,Urine Negative (Negative); Nitrite,Urine Negative (Negative); PH,Urine 6.0 (5.0-7.0); Protein,Urine Trace (Neg - Trace); RBC,Urine 192 /hpf (0-3); Specific Gravity,Urine 1.020 (1.001-1.035); Squamous Epithelial Cell,Urine 1 /hpf (0-5); Urobilinogen,Urine Negative mg/dL (0.0-1.0); WBC,Urine 9 /hpf (0-5)
[2025-04-26] MEDS: LACTULOSE SYRUP 20 GM/30 ML UDC PO (05:08)
[2025-04-26] MEDS: OCTREOTIDE ACET INJ 1,000 MCG in SODIUM CHLORIDE 0.9% 100 ML 5.1 MCG IV (05:08)
[2025-04-26 05:50] LABS: Basophils # (Auto) 0.0 Thou/mm3 (0.0-0.2); Basophils % (Auto) 0 % (0-2.5); Eosinophils # (Auto) 0.0 Thou/mm3 (0.0-0.5); Eosinophils % (Auto) 0 % (0-10); Hematocrit 24.3 % (36.0-46.0); Immature Granulocytes Auto 0.00 Thou/mm3 (0.00-0.00); Lymphocytes # (Auto) 0.3 Thou/mm3 (1.0-4.8); Lymphocytes % (Auto) 56 % (10-50); Mean Corpuscular HGB Conc 33.3 g/dl (31.0-37.0); Mean Corpuscular Hemoglobin 25.9 pg (25.0-35.0); Mean Corpuscular Volume 78 fL (80-100); Monocytes # (Auto) 0.2 Thou/mm3 (0.0-0.8); Monocytes % (Auto) 33 % (0-12); Neutrophils # (Auto) 0.1 Thou/mm3 (1.8-7.7); Neutrophils % (Auto) 11 % (37-80); Nucleated Red Blood Cell # 0.00 Thou/mm3 (0.00-0.00); Nucleated Red Blood Cell % 0 /100 WBC (0); RDW Standard Deviation 55.0 fL (36.4-46.3); Red Blood Count 3.13 Miln/mm3 (4.00-5.20)
--- NOTE | 2025-04-26 05:57 | PC.NURSE ---
Dr. Butts was made aware that pt's blood sugar was 236, 172, per Dr. Butts, they won't add coverage for pt due to her current health condition.
[2025-04-26 06:03] LABS: Hemoglobin 8.1 g/dL (12.0-16.0); Platelet Count 27 Thou/mm3 (140-440); White Blood Count 0.6 Thou/mm3 (3.6-11.0)
[2025-04-26 06:24] LABS: Alanine Aminotransferase 26 U/L (10-49); Albumin, Serum 2.6 gm/dL (3.4-4.8); Albumin/Globulin Ratio 1.2 (1.2-2.2); Alkaline Phosphatase 91 U/L (46-116); Anion Gap 8 (7-16); Aspartate Amino Transferase 22 U/L (0-34); BUN/Creatinine Ratio 19 Ratio (12-20); Bilirubin,Total 3.4 mg/dL (0.3-1.2); Blood Urea Nitrogen 34 mg/dL (9-23); Calcium 8.1 mg/dL (8.3-10.6); Calcium (Corrected) 9.2 mg/dL (8.5-10.1); Carbon Dioxide 24.2 mMol/L (20.0-31.0); Chloride 102 mMol/L (98-107); Creatinine (Component) 1.8 mg/dL (0.6-1.3); Estimated Creatinine Clearance 34.2 mL/min (>60); Globulin 2.2 gm/dL (2.3-3.5); Glucose 177 mg/dL (74-106); Magnesium 2.4 mg/dL (1.6-2.6); Osmolality,Calculated 279 (275-295); Phosphorous 2.8 mg/dL (2.4-5.1); Potassium 3.6 mMol/L (3.4-5.1); Sodium 134 mMol/L (136-145); Total Protein 4.8 gm/dL (5.7-8.2); eGFR 32 See Note
[2025-04-26 06:52] LABS: Slide Review Platelets confirmed
--- NOTE | 2025-04-26 07:41 | PC.NURSE ---
Called Dr. Samaniego regarding critical lab value WBC 0.6 and Plt 27. No new orders received at this time.
[2025-04-26] MEDS: LEVOFLOXACIN 250 MG TABLET 500 MG PO (08:51)
[2025-04-26] MEDS: MIDODRINE 5 MG TABLET 10 MG PO ×3 (08:51→21:26)
[2025-04-26] MEDS: FILGRASTIM INJ (ZARXIO) 300 MCG/0.5 ML SYRINGE SC (09:03)
[2025-04-26] MEDS: cefTRIAXone/D5w 1gm IV premix 1 GM/50 ML BAG IV (09:04)
--- NOTE | 2025-04-26 09:19 | PC.SS ---
Follow up note: Low blood count monitoring. On IV antibiotic and IV Octreotride. Pt will return home upon dc.
[2025-04-26] MEDS: ALBUMIN HUMAN-KJDA 25% IVPB 25 GM/100 ML BTL IV ×2 (09:51→17:52)
--- NOTE | 2025-04-26 10:34 | PC.NURSE ---
Dr. Samaniego on floor, clarified Albumin orders, there are 2 doses ordered. Per MD only one dose is needed.
--- NOTE | 2025-04-26 11:16 | PC.NURSE ---
Dr. Samaniego on floor, informed of hematuria and showed MD urine. No new orders received at this time.
[2025-04-26] MEDS: LACTULOSE SYRUP 20 GM/30 ML UDC 30 GM PO ×3 (11:34→21:27)
--- NOTE | 2025-04-26 11:48 | ESPR_ITS ---
<Statement entered by Darrell Samaniego MD - 04/27/25 17:10> I have personally seen and examined the patient, agree with residents assessment and plan Patient plan of care was discussed with the attending physician, Dr. Momo Samaniego, PGY2 Documentation for date of: 04/26/25 Subjective Subjective Interval history: No acute events overnight. Reported redness and soreness of mouth, possible side effect of lactulose or rifaximin. Will continue to monitor for bowel movements, none overnight. WBC and platelet slightly improved, will continue to monitor. Continues to have hematuria, Hgb stable at 8.1. Will transfuse if Hgb <7. Spoke with Dr. Jackson who states that had good progonsis with breast cancer stage and treatment however, in setting of worsening cirrhosis and inability to tolerate treatment, now had poor prognosis. Had goals of care discussion today with family. Informed family of poor prognosis per Dr. Jackson. No changes in care were made at this time as family needed time to absorb and discuss new information. Will revisit discussion and plan for care at a later time. Will continue conservative treatment at this time. In light of worsening hepatorenal syndrome, will start on midodrine and consult nephrology. Exam Vital Signs Temp Pulse Resp BP Pulse Ox O2 Del Method 98.5 F 84 17 119/60 95 Room Air 04/26/25 07:37 04/26/25 11:42 04/26/25 07:37 04/26/25 08:51 04/26/25 07:37 04/26/25 07:37 Narrative Exam Physical Exam General: Awake but somnolent, answers questions appropriately but slowly HEENT: Normocephalic, atraumatic, mucous membranes moist. Heart: Regular rate and rhythm, normal S1 and S2, no murmurs appreciated. Lungs: Clear to auscultation with no wheezing or crackles. Abdomen: Soft, nondistended, mild tenderness in right upper quadrant and epigastric region, positive bowel sounds. No guarding or rebound tenderness. Negative Aldridge's sign. Neurologic: Alert and oriented x3, no gross neurological deficit, and patient able to move all 4 extremities. Skin: Some redness at wrists. Objective Labs 04/27/25 04:20 04/27/25 04:20 Labs: Laboratory Results - last 24 hr 04/26/25 04/26/25 00:20 04:59 WBC 0.6 L* D RBC 3.13 L Hgb 8.1 L Hct 24.3 L MCV 78 L MCH 25.9 MCHC 33.3 RDW Std Deviation 55.0 H Plt Count 27 L* D Neut % (Auto) 11 L Lymph % (Auto) 56 H [place] % (Auto) 33 H Eos % (Auto) 0 Baso % (Auto) 0 Neut # (Auto) 0.1 L Lymph # (Auto) 0.3 L [place] # (Auto) 0.2 Eos # (Auto) 0.0 Baso # (Auto) 0.0 Immature Gran # (Auto) 0.00 Absolute Nucleated RBC 0.00 Immature Gran % 0 Nucleated RBC % 0 Sodium 134 L Potassium 3.6 Chloride 102 Carbon Dioxide 24.2 Anion Gap 8 BUN 34 H Creatinine 1.8 H D Estim Creat Clear Calc 34.2 L eGFR 32 L BUN/Creatinine Ratio 19 Glucose 177 H Calculated Osmolality 279 Calcium 8.1 L Corrected Calcium 9.2 Phosphorus 2.8 Magnesium 2.4 Total Bilirubin 3.4 H D AST 22 ALT 26 Alkaline Phosphatase 91 Total Protein 4.8 L Albumin 2.6 L Globulin 2.2 L Albumin/Globulin Ratio 1.2 Ur Collection Type Clean Catch Urine Color Yellow Urine Clarity Clear Urine pH 6.0 Ur Specific [place] 1.020 Urine Protein Trace Urine Glucose (UA) 3+ A Urine Ketones Negative Urine Blood 3+ A Urine Nitrite Negative Urine Bilirubin Negative Urine Urobilinogen (Auto) Negative Ur Leukocyte Esterase Negative Urine RBC 192 H Urine WBC 9 H Ur Squamous Epith Cells 1 Urine Bacteria None Misc Test Result Platelets confirmed Quality Measures Quality Measures VTE prophylaxis Assessment & Plan Assessment Current Active Medications: Generic Name Dose Route Start Last Admin Trade Name Freq PRN Reason Stop Dose Admin Acetaminophen 650 mg 04/25/25 11:40 Acetaminophen 325 Mg Tablet PO 05/25/25 03:21 Q6H PRN Fever >101.5 &pain 1-3 Filgrastim 300 mcg 04/26/25 09:00 04/26/25 09:03 Filgrastim Inj (Zarxio) 300 Mcg/0.5 Ml Syringe SC 04/28/25 08:59 300 mcg QDAY IGLESIA Administration Ceftriaxone Sodium/Dextrose 1 gm in 50 mls @ 100 mls/hr 04/25/25 07:46 04/26/25 09:04 Rocephin/D5w 1gm Iv Premix IV 05/02/25 07:45 100 mls/hr QDAY IGLESIA Administration Octreotide Acetate 1,000 mcg/ 102 mls @ 5.1 mls/hr 04/25/25 08:56 04/26/25 05:08 Sodium Chloride IV 04/30/25 08:56 50 mcg/hr .Q20H IGLESIA 5.1 mls/hr Protocol Administration 50 MCG/HR Albumin Human 25 gm in 100 mls @ 100 mls/hr 04/26/25 08:56 04/26/25 10:34 Albuminex 25% Ivpb IV 05/26/25 08:55 Not Given QDAY IGLESIA Lactulose 30 gm 04/26/25 12:00 04/26/25 11:34 Lactulose Syrup 20 Gm/30 Ml Udc PO 05/26/25 11:59 30 gm QID IGLESIA Administration Protocol Levofloxacin 500 mg 04/25/25 09:00 04/26/25 08:51 Levofloxacin 250 Mg Tablet PO 05/02/25 08:59 500 mg QDAY IGLESIA Administration Midodrine 10 mg 04/26/25 07:45 04/26/25 08:51 Midodrine 5 Mg Tablet PO 05/26/25 07:44 10 mg TID IGLESIA Administration Morphine Sulfate 2 mg 04/25/25 03:26 Morphine Sulf Inj 4 Mg/Ml Vial IV 04/30/25 03:25 Q3HR PRN PAIN SCALE 4-6 (Moderate Pantoprazole Sodium 40 mg 04/25/25 09:00 04/26/25 08:56 Pantoprazole Inj 40 Mg Vial IVP 05/25/25 08:59 40 mg BID IGLESIA Administration Rifaximin 550 mg 04/25/25 09:00 04/26/25 08:49 Rifaximin 550 Mg Tablet PO 05/02/25 08:59 550 mg BID IGLESIA Administration Plan Patient is a 59-year-old female with past medical history of 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 #Acute blood loss anemia #Hematuria #Normocytic anemia, likely multifactorial with ACD in setting of malignancy #Thrombocytopenia Acute blood loss anemia in the setting of thrombocytopenia from the acute on chronic decompensated liver cirrhosis As per HPI, initially thought was that the patient was having lower GI bleed from possible internal hemorrhoids; however, there is concern for hematuria at this point Per previous iron panel, had low iron and saturation. Upon new admission, iron is elevated at 332, likely secondary to iron transfusion at cancer center. Hematuria noted above likely secondary to patient having Pugh catheter removed on last admission for urinary retention Platelets of 17 Plan: - Transfuse 1 unit of platelet - CTM for signs of acute bleeds - Transfuse PRBC if Hgb <7 - Gastroenterology consulted, appreciate recommendations - Goals of care discussion 04/26: updated family on poor prognosis, no changes made in care at this time but will follow up with family again at a later time #Nonalcoholic related liver cirrhosis #Hyperammonemia Likely secondary to long history of nonalcoholic cirrhosis with multiple complications. Also possibly iatrogenic (recent chemotherapy session and hydroxyzine). Per patient's daughter, patient is alert and oriented at baseline, conversational and independent. Episode of confusion started at 1 AM this morning. Last episode was 2 years ago, also caused by high level of ammonia, resolved after prescribed lactulose however patient has not been compliant with lactulose medication per daughter. Took 1 dose morning of admission but did not have bowel movement. On admission, ammonia was 92, total bilirubin 2.5. Albumin 3.1. S/p lactulose 20 mg x 2 in ED. Scores: MELD Na 16, <2% estimated 90 day mortality Child Ber[place] 11, Class C, life expectancy 1-3 years, abdominal surgery preoperative mortality 82% Maddrey: patient does not have alcoholic hepatitis Plan: - Lactulose 20 mg TID - Rifaximin 550 mg BID - CTM labs - Strict I's & O's - Avoid hepatotoxic agents - Hepatic diet #Hypotension with worsening hepatorenal syndrome Patient is now hypotensive on this admission. Likely secondary to hepatorenal syndrome in setting of worsening liver decompensation. Creatinine increased to 1.8. Plan: - Midodrine 10 mg TID - Octreotide drip - CTM BP - Consulted nephrology, appreciate recommendations #Portal hypertension #Splenomegaly #Grade II esophageal varices status post banding (01/25/25) #Gallbladder wall thickening Chronic complications from long history of MCLAUGHLIN. Minimal ascites on imaging at this time. Recently started following GI specialist Dr. Ibrahim. Does not take carvedilol or protonix at home. Denies recent hematemesis or melena. US abdomen in ED limited due to agitation. Repeat US abdomen shows abnormally thickened gallbladder wall, no stones and no splenomegaly. Plan: - Hold Coreg 3.125 mg BID - Lactulose and rifaximin as above - IV Protonix twice daily - IV octreotide - IV CFX 1 gm for SBP prophylaxis (04/25- #Neutropenia #Hx malignant neoplasm of right breast, metastasis to lungs #Pulmonary nodule in LLL 20?cells/?L Absolute Neutrophil Count Severe?neutropenia with no fever Follows oncologist Dr. Jackson. S/p IV chemotherapy on 04/19 and 04/20. Per daughter, patient received Udenyca on 04/20. PET scan 04/13 showed hypermetabolic right breast mass with extensive metastasis to lungs with hypermetabolic right cervical and paratracheal lymph node. Noted the largest pulmonary nodule was 6 mm in right upper lobe, [address] A/P. Followed up with Dr. Jackson, patient initially had good prognosis for treatment however in light of worsening cirrhosis, will likely have poor prognosis. Plan: - Continue Levaquin 500 mg p.o. daily - No indication on starting Filgrastim at this time - Oncology, Dr. Gustafson consulted Health Maintenance: Disposition: Telemetry DVT prophylaxis: SCDs GI prophylaxis: protonix Diet: Hepatic CODE STATUS: FULL Patient plan of care was discussed with the resident, Dr. Samaniego, and attending physician, Dr. Barr . Brenda Suarez, PGY-1 Attending Provider Attestation/Addendum I have discussed and was present for the essential components of the history, physical examination, diagnosis, and treatment plan with the resident. I agree with the patient's care as documented by the resident and amended herein by me. Bulamro Barr DO. Although this document has been carefully reviewed, there may still be some phonetic and other typographical errors. These errors are purely grammatical due to imperfections in the software program and should not be construed in any way to compromise the substance of the patient's medical care during this visit.
--- NOTE | 2025-04-26 12:19 | PC.SS ---
Addendum entered by Nu Haynes 04/26/25 13:53: SS has arrranged goals of care meeting with patient's dtrKatie for 2:30pm, per Dr. Barr's requests. Katie states she will inform family. Physician residents are aware. Bedside nurse, Bert is aware. Original Note: SS met with shereerKatie who states pt follows up at [facility] and [employer] was going to provide a letter for the [employer]. SS has provided Katie with [employer]'s phone number to follow up her. Dtr is aware Lorene will be at [facility] tomorrow.
--- NOTE | 2025-04-26 13:48 | ESPR_ITS ---
Documentation for date of: 04/26/25 Subjective Subjective Interval history: I am is going decide as to the future course of how aggressive they want to be with this patient Exam Vital Signs Temp Pulse Resp BP Pulse Ox O2 Del Method 98.2 F 77 16 119/56 L 94 L Room Air 04/26/25 12:00 04/26/25 13:46 04/26/25 12:00 04/26/25 13:46 04/26/25 12:00 04/26/25 12:00 Objective Labs 04/26/25 04:59 04/26/25 04:59 Labs: Laboratory Results - last 24 hr 04/26/25 04/26/25 00:20 04:59 WBC 0.6 L* D RBC 3.13 L Hgb 8.1 L Hct 24.3 L MCV 78 L MCH 25.9 MCHC 33.3 RDW Std Deviation 55.0 H Plt Count 27 L* D Neut % (Auto) 11 L Lymph % (Auto) 56 H [place] % (Auto) 33 H Eos % (Auto) 0 Baso % (Auto) 0 Neut # (Auto) 0.1 L Lymph # (Auto) 0.3 L [place] # (Auto) 0.2 Eos # (Auto) 0.0 Baso # (Auto) 0.0 Immature Gran # (Auto) 0.00 Absolute Nucleated RBC 0.00 Immature Gran % 0 Nucleated RBC % 0 Sodium 134 L Potassium 3.6 Chloride 102 Carbon Dioxide 24.2 Anion Gap 8 BUN 34 H Creatinine 1.8 H D Estim Creat Clear Calc 34.2 L eGFR 32 L BUN/Creatinine Ratio 19 Glucose 177 H Calculated Osmolality 279 Calcium 8.1 L Corrected Calcium 9.2 Phosphorus 2.8 Magnesium 2.4 Total Bilirubin 3.4 H D AST 22 ALT 26 Alkaline Phosphatase 91 Total Protein 4.8 L Albumin 2.6 L Globulin 2.2 L Albumin/Globulin Ratio 1.2 Ur Collection Type Clean Catch Urine Color Yellow Urine Clarity Clear Urine pH 6.0 Ur Specific [place] 1.020 Urine Protein Trace Urine Glucose (UA) 3+ A Urine Ketones Negative Urine Blood 3+ A Urine Nitrite Negative Urine Bilirubin Negative Urine Urobilinogen (Auto) Negative Ur Leukocyte Esterase Negative Urine RBC 192 H Urine WBC 9 H Ur Squamous Epith Cells 1 Urine Bacteria None Misc Test Result Platelets confirmed Impressions Impression: Pancytopenia Anemia multifactorial Wait for family's decision And the family meeting is at 2:30 PM today Assessment & Plan A&P Narrative # Pancytopenia secondary to recently given first cycle of TCH for stage IV breast carcinoma of the right breast # Questionable rectal bleeding, anemia blood loss Before any invasive GI workup should be instituted goals of care needs to be discussed with the family and if they want everything else done then I will schedule invasive GI workup # Cirrhotic liver disease with advanced portal hypertension and periesophageal varices most likely MCLAUGHLIN cirrhosis will follow the patient Thank you for the opportunity to participate in the care of this patient Time Spent With Patient Time: Total time spent is greater than 50% in coordination of care (as documented) at patient's floor/unit and/or counseling patient:
[2025-04-26 14:51] LABS: Albumin, Serum 2.9 gm/dL (3.4-4.8); Anion Gap 10 (7-16); BUN/Creatinine Ratio 18 Ratio (12-20); Blood Urea Nitrogen 36 mg/dL (9-23); Calcium 8.1 mg/dL (8.3-10.6); Calcium (Corrected) 9.0 mg/dL (8.5-10.1); Carbon Dioxide 23.0 mMol/L (20.0-31.0); Chloride 101 mMol/L (98-107); Creatinine (Component) 2.0 mg/dL (0.6-1.3); Estimated Creatinine Clearance 30.8 mL/min (>60); Glucose 215 mg/dL (74-106); Osmolality,Calculated 282 (275-295); Phosphorous 2.4 mg/dL (2.4-5.1); Potassium 3.6 mMol/L (3.4-5.1); Sodium 134 mMol/L (136-145); eGFR 28 See Note
[2025-04-26] MEDS: BENZOCAINE 10% TOP (17:54)
[2025-04-26] MEDS: MULTIVITAMINS TABLET 1 TAB PO (17:57)
[2025-04-27] VITALS (16 sets, daily range): BP systolic 101–116; BP diastolic 44–76; PULSE 63–84; RESP 17–27; TEMP 36.1–37.4; O2SAT 92–99; BMI 29.9
[2025-04-27] MEDS: OCTREOTIDE ACET INJ 1,000 MCG in SODIUM CHLORIDE 0.9% 100 ML 5.1 MCG IV ×2 (00:20→21:21)
[2025-04-27 05:36] LABS: Basophils # (Auto) 0.0 Thou/mm3 (0.0-0.2); Basophils % (Auto) 2 % (0-2.5); Eosinophils # (Auto) 0.0 Thou/mm3 (0.0-0.5); Eosinophils % (Auto) 0 % (0-10); Hematocrit 21.5 % (36.0-46.0); Immature Granulocytes Auto 0.23 Thou/mm3 (0.00-0.00); Lymphocytes # (Auto) 0.4 Thou/mm3 (1.0-4.8); Lymphocytes % (Auto) 19 % (10-50); Mean Corpuscular HGB Conc 33.5 g/dl (31.0-37.0); Mean Corpuscular Hemoglobin 26.4 pg (25.0-35.0); Mean Corpuscular Volume 79 fL (80-100); Monocytes # (Auto) 0.5 Thou/mm3 (0.0-0.8); Monocytes % (Auto) 20 % (0-12); Neutrophils # (Auto) 1.1 Thou/mm3 (1.8-7.7); Neutrophils % (Auto) 49 % (37-80); Nucleated Red Blood Cell # 0.04 Thou/mm3 (0.00-0.00); Nucleated Red Blood Cell % 2 /100 WBC (0); RDW Standard Deviation 56.8 fL (36.4-46.3); Red Blood Count 2.73 Miln/mm3 (4.00-5.20); White Blood Count 2.3 Thou/mm3 (3.6-11.0)
[2025-04-27] MEDS: MIDODRINE 5 MG TABLET 10 MG PO ×3 (05:48→21:20)
[2025-04-27 05:57] LABS: Hemoglobin 7.2 g/dL (12.0-16.0); Platelet Count 11 Thou/mm3 (140-440)
[2025-04-27 06:20] LABS: Alanine Aminotransferase 19 U/L (10-49); Albumin, Serum 3.0 gm/dL (3.4-4.8); Albumin/Globulin Ratio 1.6 (1.2-2.2); Alkaline Phosphatase 79 U/L (46-116); Anion Gap 10 (7-16); Aspartate Amino Transferase 20 U/L (0-34); BUN/Creatinine Ratio 16 Ratio (12-20); Bilirubin,Total 4.1 mg/dL (0.3-1.2); Blood Urea Nitrogen 33 mg/dL (9-23); Calcium 8.3 mg/dL (8.3-10.6); Calcium (Corrected) 9.1 mg/dL (8.5-10.1); Carbon Dioxide 23.2 mMol/L (20.0-31.0); Chloride 103 mMol/L (98-107); Creatinine (Component) 2.1 mg/dL (0.6-1.3); Estimated Creatinine Clearance 29.3 mL/min (>60); Globulin 1.9 gm/dL (2.3-3.5); Glucose 178 mg/dL (74-106); Magnesium 2.5 mg/dL (1.6-2.6); Osmolality,Calculated 283 (275-295); Phosphorous 2.4 mg/dL (2.4-5.1); Potassium 3.4 mMol/L (3.4-5.1); Sodium 136 mMol/L (136-145); Total Protein 4.9 gm/dL (5.7-8.2); eGFR 26 See Note
--- NOTE | 2025-04-27 06:48 | PC.NURSE ---
platelet count 11, Dr. Butts was made aware, no new orders received for pt at this time.
--- NOTE | 2025-04-27 06:49 | PC.NURSE ---
pt shows severe weakness needing 2 person assist to use bedside commode, race and sports book writer explained to pt's daughter at bedside that for safety purposes it would be better for pt to use bedpan or brief. Daughter verbalized understanding but stated that she wants the pt to continue getting out of bed to use bedside commode since it could help to prevent build up of fluid in the body. [place] explained to daughter again that for the pt's safety it is better to use bedpan or brief. Pt did agree to use bedpan but when needed to pee pt requested to use bedside commode.
--- NOTE | 2025-04-27 08:27 | PC.NURSE ---
DR. AGUILAR ROUNDING ON PATIENT AND DISCUSSING POC
--- NOTE | 2025-04-27 08:32 | PC.NURSE ---
COORDINATED CARE WITH DR. Kim ANGELA AND JAKUB WITH [facility]OD [facility].
[2025-04-27] MEDS: ALBUMIN HUMAN-KJDA 25% IVPB 25 GM/100 ML BTL IV ×2 (08:39→13:39)
[2025-04-27] MEDS: FILGRASTIM INJ (ZARXIO) 300 MCG/0.5 ML SYRINGE SC (08:40)
[2025-04-27] MEDS: cefTRIAXone/D5w 1gm IV premix 1 GM/50 ML BAG IV (08:40)
[2025-04-27] MEDS: LEVOFLOXACIN 250 MG TABLET 500 MG PO (09:08)
[2025-04-27] MEDS: POTASSIUM CHLORIDE 10% 20 MEQ/15 ML UDC PO (09:08)
[2025-04-27] MEDS: MULTIVITAMINS TABLET 1 TAB PO (09:08)
[2025-04-27 10:26] LABS: Path Review Blood Smear Sent to Pathologist
[2025-04-27 10:30] LABS: Slide Review Platelets confirmed
--- NOTE | 2025-04-27 11:22 | ESPR_ITS ---
<Statement entered by Darrell Samaniego MD - 04/27/25 18:48> I have personally seen and examined the patient, agree with residents assessment and plan Patient plan of care was discussed with the attending physician, Dr. Momo Samaniego, PGY2 Documentation for date of: 04/27/25 Subjective Subjective Interval history: No acute overnight events. Patient continues to have swelling of inner mouth and pain with swallowing, now has bleeding sores. Otherwise just overall fatigued. On exam, did not visualize white film but in setting of severe neutropenia, will start empiric treatment with fluconazole 200 mg IV. Patient had 1 bowel movement this morning, and 2 overnight. No hematuria since yesterday, continues to have good urine output. Will transition to lactulose enema as patient has difficulty swallowing at this time. Absolute neutrophil count improving on filgastrim. Hemoglobin however down trended to 7.2, dropped to 6.7 on repeat. Transfused 1 unit pRBC. Continues to have worsening thrombocytopenia (platelets 11,000), will transfuse another unit. Pending repeat CBC 1 hour post transfusion. Creatinine still elevated at around 2.1 and total bilirubin increased to 4.1. Lactate also elevated at 3.8, will trend every 4 hrs. Scheduled another discussion today regarding transition to hospice care with patient and family, led by oncologist Dr. Gustafson. Daughters were agreeable and understood patient's prognosis, will have further discussion with patient and her who were not agreeable to transitioning to hospice care at this time. Exam Vital Signs Temp Pulse Resp BP Pulse Ox O2 Del Method 97.9 F 80 21 H 108/56 L 93 L Room Air 04/27/25 08:00 04/27/25 08:00 04/27/25 08:00 04/27/25 08:00 04/27/25 08:00 04/27/25 08:00 Narrative Exam Physical Exam General: Awake but somnolent, answers questions appropriately but slowly. Fatigued. HEENT: Normocephalic, atraumatic, mucous membranes moist. Diffusedly erythematous with multiple sores on inner lip and buccal, bleeding. No white membranes observed. Heart: Regular rate and rhythm, normal S1 and S2, no murmurs appreciated. Lungs: Clear to auscultation with no wheezing or crackles. Abdomen: Soft, nondistended, mild tenderness in right upper quadrant and epigastric region, positive bowel sounds. No guarding or rebound tenderness. Negative Aldridge's sign. Neurologic: Alert and oriented x3, no gross neurological deficit, and patient able to move all 4 extremities. Skin: Ecchymosis on right inner arm. Objective Labs 04/27/25 15:27 04/27/25 15:27 Labs: Laboratory Results - last 24 hr 04/26/25 04/27/25 13:52 04:20 WBC 2.3 L D RBC 2.73 L Hgb 7.2 L Hct 21.5 L* MCV 79 L MCH 26.4 MCHC 33.5 RDW Std Deviation 56.8 H Plt Count 11 L* D Neut % (Auto) 49 Lymph % (Auto) 19 Sac % (Auto) 20 H Eos % (Auto) 0 Baso % (Auto) 2 Neut # (Auto) 1.1 L Lymph # (Auto) 0.4 L Sac # (Auto) 0.5 Eos # (Auto) 0.0 Baso # (Auto) 0.0 Immature Gran # (Auto) 0.23 H Absolute Nucleated RBC 0.04 H Immature Gran % 10 H Nucleated RBC % 2 H Smear Path Review Sent to Pathologist Sodium 134 L 136 Potassium 3.6 3.4 Chloride 101 103 Carbon Dioxide 23.0 23.2 Anion Gap 10 10 BUN 36 H 33 H Creatinine 2.0 H 2.1 H Estim Creat Clear Calc 30.8 L 29.3 L eGFR 28 L 26 L BUN/Creatinine Ratio 18 16 Glucose 215 H 178 H Calculated Osmolality 282 283 Calcium 8.1 L 8.3 Corrected Calcium 9.0 9.1 Phosphorus 2.4 2.4 Magnesium 2.5 Total Bilirubin 4.1 H D AST 20 ALT 19 Alkaline Phosphatase 79 Total Protein 4.9 L Albumin 2.9 L 3.0 L Globulin 1.9 L Albumin/Globulin Ratio 1.6 Misc Test Result Platelets confirmed Quality Measures Quality Measures VTE prophylaxis Assessment & Plan Assessment Current Active Medications: Generic Name Dose Route Start Last Admin Trade Name Freq PRN Reason Stop Dose Admin Acetaminophen 650 mg 04/25/25 11:40 Acetaminophen 325 Mg Tablet PO 05/25/25 03:21 Q6H PRN Fever >101.5 &pain 1-3 Filgrastim 300 mcg 04/26/25 09:00 04/27/25 08:40 Filgrastim Inj (Zarxio) 300 Mcg/0.5 Ml Syringe SC 04/28/25 08:59 300 mcg QDAY IGLESIA Administration Ceftriaxone Sodium/Dextrose 1 gm in 50 mls @ 100 mls/hr 04/25/25 07:46 04/27/25 08:40 Rocephin/D5w 1gm Iv Premix IV 05/02/25 07:45 100 mls/hr QDAY IGLESIA Administration Octreotide Acetate 1,000 mcg/ 102 mls @ 5.1 mls/hr 04/25/25 08:56 04/27/25 00:20 Sodium Chloride IV 04/30/25 08:56 50 mcg/hr .Q20H IGLESIA 5.1 mls/hr Protocol Administration 50 MCG/HR Albumin Human 25 gm in 100 mls @ 100 mls/hr 04/26/25 08:56 04/27/25 08:39 Albuminex 25% Ivpb IV 05/26/25 08:55 100 mls/hr QDAY IGLESIA Administration Fluconazole 200 mg in 100 mls @ 100 mls/hr 04/27/25 11:00 Diflucan/Ns Ivpb IV 05/11/25 10:59 QDAY IGLESIA Lactulose 30 gm 04/26/25 12:00 04/27/25 05:49 Lactulose Syrup 20 Gm/30 Ml Udc PO 05/26/25 11:59 Not Given QID IGLESIA Protocol Lactulose 200 gm 04/27/25 14:00 Lactulose Syrup 20 Gm/30 Ml Udc FL 05/27/25 13:59 TID IGLESIA Protocol Levofloxacin 500 mg 04/25/25 09:00 04/27/25 09:08 Levofloxacin 250 Mg Tablet PO 05/02/25 08:59 500 mg QDAY IGLESIA Administration Midodrine 10 mg 04/26/25 07:45 04/27/25 05:48 Midodrine 5 Mg Tablet PO 05/26/25 07:44 10 mg TID IGLESIA Administration Morphine Sulfate 2 mg 04/25/25 03:26 Morphine Sulf Inj 4 Mg/Ml Vial IV 04/30/25 03:25 Q3HR PRN PAIN SCALE 4-6 (Moderate Multivitamins 1 tab 04/26/25 17:00 04/27/25 09:08 Multivitamins Tablet PO 05/26/25 16:59 1 tab QDAY IGLESIA Administration Pantoprazole Sodium 40 mg 04/25/25 09:00 04/27/25 08:40 Pantoprazole Inj 40 Mg Vial IVP 05/25/25 08:59 40 mg BID IGLESIA Administration Rifaximin 550 mg 04/25/25 09:00 04/27/25 09:09 Rifaximin 550 Mg Tablet PO 05/02/25 08:59 550 mg BID IGLESIA Administration Plan Patient is a 59-year-old female with past medical history of 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 #? Oral candidiasis Complaining of swelling of mouth and difficulty swallowing. Concern for oral candidiasis given neutropenic, immunocompromised state. On exam, had diffuse erythema of interior mouth, no white membranes noted. - Fluconazole 200 mg IV daily - Filgastrim as below #Acute blood loss anemia #Hematuria #Normocytic anemia, likely multifactorial with ACD in setting of malignancy #Thrombocytopenia #Malignant neoplastm of right breast (ER/FL HER2 positive) s/p chemo Acute blood loss anemia in the setting of thrombocytopenia from the acute on chronic decompensated liver cirrhosis As per HPI, initially thought was that the patient was having lower GI bleed from possible internal hemorrhoids; however, there is concern for hematuria at this point Per previous iron panel, had low iron and saturation. Upon new admission, iron is elevated at 332, likely secondary to iron transfusion at cancer center. Hematuria noted above likely secondary to patient having Pugh catheter removed on last admission for urinary retention Platelets of 17, s/p 1 unit platelet on admission. Repeat platelet count 11,000 -> 10,000. Hgb 7.2 -> 6.7. Plan: - Transfuse another unit of platelets - Transfuse 1 unit pRBC - Follow up repeat CBC 1 hour post transfusion - CTM for signs of acute bleeds - Transfuse PRBC if Hgb <7 - Gastroenterology consulted, appreciate recommendations - Goals of care discussion 04/26 and 04/27: updated family on poor prognosis, will discuss hospice, no changes made in care at this time but will follow up with family again at a later time #Nonalcoholic related liver cirrhosis #Hyperammonemia Likely secondary to long history of nonalcoholic cirrhosis with multiple complications. Also possibly iatrogenic (recent chemotherapy session and hydroxyzine). Per patient's daughter, patient is alert and oriented at baseline, conversational and independent. Episode of confusion started at 1 AM this morning. Last episode was 2 years ago, also caused by high level of ammonia, resolved after prescribed lactulose however patient has not been compliant with lactulose medication per daughter. Took 1 dose morning of admission but did not have bowel movement. On admission, ammonia was 92, total bilirubin 2.5. Albumin 3.1. S/p lactulose 20 mg x 2 in ED. Scores: MELD Na 16, <2% estimated 90 day mortality Child Berumen 11, Class C, life expectancy 1-3 years, abdominal surgery preoperative mortality 82% Maddrey: patient does not have alcoholic hepatitis Plan: - Lactulose FL - Rifaximin 550 mg BID - CTM labs - Strict I's & O's - Avoid hepatotoxic agents - Hepatic diet #Hypotension likely secondary to worsening hepatorenal syndrome Patient is now hypotensive on this admission. Likely secondary to hepatorenal syndrome in setting of worsening liver decompensation versus poor oral intake. Creatinine increased to 1.8. Plan: - Midodrine 10 mg TID - Octreotide drip - CTM BP - Pending urine creatinine and electrolytes - Consider consulting nephrology #Portal hypertension #Splenomegaly #Grade II esophageal varices status post banding (01/25/25) #Gallbladder wall thickening Chronic complications from long history of MCLAUGHLIN. Minimal ascites on imaging at this time. Recently started following GI specialist Dr. Ibrahim. Does not take carvedilol or protonix at home. Denies recent hematemesis or melena. US abdomen in ED limited due to agitation. Repeat US abdomen shows abnormally thickened gallbladder wall, no stones and no splenomegaly. Plan: - Hold Coreg 3.125 mg BID - Lactulose and rifaximin as above - IV Protonix twice daily - IV CFX 1 gm for SBP prophylaxis (04/25- #Neutropenia, improving #Hx malignant neoplasm of right breast, metastasis to lungs #Pulmonary nodule in LLL 20?cells/?L Absolute Neutrophil Count Severe?neutropenia with no fever Follows oncologist Dr. Jackson. S/p IV chemotherapy on 04/19 and 04/20. Per daughter, patient received Udenyca on 04/20. PET scan 04/13 showed hypermetabolic right breast mass with extensive metastasis to lungs with hypermetabolic right cervical and paratracheal lymph node. Noted the largest pulmonary nodule was 6 mm in right upper lobe, [address] A/P. Followed up with Dr. Jackson, patient initially had good prognosis for treatment however in light of worsening cirrhosis, will likely have poor prognosis. Plan: - Levaquin 500 mg p.o. daily - Filgastrim 300 mcg daily - Oncology Dr. Gustafson consulted Health Maintenance: Disposition: Telemetry DVT prophylaxis: SCDs GI prophylaxis: protonix Diet: Hepatic CODE STATUS: FULL Patient plan of care was discussed with the resident, Dr. Samaniego, and attending physician, Dr. Barr . Brenda Suarez, PGY-1 Attending Provider Attestation/Addendum Patient seen and evaluated this AM. 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 Significant labs today demonstrate an uptrending WBC after Neupogen was administered yesterday, hemoglobin 7.2, platelets low again at 11, had downtrended overnight, transfusion pending, BUN 33, ANC 1.1 which is an uptrend, creatinine 2.1 which is slightly worse than previous day. Will continue Neupogen dose today, platelets will be transfused as stated above. Neupogen again given today, as well as will continue to transfuse and keep the patient on broad-spectrum antibiotics for now. We did have a goals of care meeting with the family yesterday and also spoke with Dr. Sneed prior for prognosis and plan going forward. The patient had chemotherapy approximately 1 week ago and came in this admission with severe neutropenia and pancytopenia, Dr. Sneed determined that is not safe for her to continue full dose chemotherapy at this time in setting of liver cirrhosis and may consider immunotherapy from this point forward. We did discuss hospice care with the patient's family yesterday however they were not on board with that plan yesterday, the patient was still under the impression yesterday that she could just get a vasectomy and she would be cured, there seems to be a lack of understanding of the severity of her condition between her and her however her daughters understand. Dr. Gustafson had hospice come speak with the patient's family today and again it does not appear like the patient's is understanding of the severity of the patient's condition however the daughters are thinking about hospice at this time and may pursue that route. In the meantime we will continue treating the patient, did give platelet transfusion today, will continue lactulose rectally today, will start fluconazole for suspected oral candidiasis, will continue rifaximin and broad- spectrum antibiotics. Will continue to monitor closely while she is here, guarded prognosis at this point unfortunately.
[2025-04-27] MEDS: FLUCONAZOLE/NS 200 MG IVPB 200 MG/100 ML BAG 100 MG IV (12:06)
--- NOTE | 2025-04-27 12:09 | PC.SS ---
Addendum entered by Nu Haynes 04/27/25 15:21: SS received call from bedside nurse, Radha is requesting to speak with different Hospice Agency. SS has met with to provide him with [facility] which contains different Hospice Agencies. SS also provided Hospice Brochures from [facility], [facility], [facility], and [facility]. RonrMarlene is aware. Original Note: SS was informed by bedside nurse, family is requesting to meet with [facility] and an senior mechanical designer. Per bedside nurse, Radha family is requesting [facility]. SS called ilene Shelley and arranged a meeting with Jenna from [facility] to meet with family at 11:30. SS met with Jenna from [facility] who state family is still undecided about Hospice Services.
[2025-04-27] MEDS: LACTULOSE SYRUP 20 GM/30 ML UDC 200 GM PR (13:40)
--- NOTE | 2025-04-27 14:34 | XR_ITS ---
Examination: AP chest single view TECHNIQUE: Upright portable AP chest single view Date and time: April 27, 2025 1443 hours, comparison January 24, 2025 INDICATIONS: Chest pain shortness of breath today. FINDINGS: Pneumonia right base with mild to moderate right pleural fluid Elevation right hemidiaphragm Mild enlargement cardiac contour with moderate vascular congestion Left subclavian Port-A-Cath tip satisfactory position Prominent osteopenia IMPRESSION: Pneumonia right base with mild to moderate right pleural fluid
--- NOTE | 2025-04-27 14:37 | PC.PT ---
Will cancel PT evaluation. Patient is referred to Hospice services.
[2025-04-27 15:38] LABS: Lactate (Lactic Acid) 3.8 mMol/L (0.4-2.0)
[2025-04-27 15:45] LABS: Basophils # (Auto) 0.1 Thou/mm3 (0.0-0.2); Basophils % (Auto) 2 % (0-2.5); Eosinophils # (Auto) 0.0 Thou/mm3 (0.0-0.5); Eosinophils % (Auto) 0 % (0-10); Hematocrit 20.9 % (36.0-46.0); Immature Granulocytes Auto 0.42 Thou/mm3 (0.00-0.00); Lymphocytes # (Auto) 0.5 Thou/mm3 (1.0-4.8); Lymphocytes % (Auto) 10 % (10-50); Mean Corpuscular HGB Conc 33.0 g/dl (31.0-37.0); Mean Corpuscular Hemoglobin 25.9 pg (25.0-35.0); Mean Corpuscular Volume 79 fL (80-100); Monocytes # (Auto) 0.8 Thou/mm3 (0.0-0.8); Monocytes % (Auto) 16 % (0-12); Neutrophils # (Auto) 3.1 Thou/mm3 (1.8-7.7); Neutrophils % (Auto) 64 % (37-80); Nucleated Red Blood Cell # 0.09 Thou/mm3 (0.00-0.00); Nucleated Red Blood Cell % 2 /100 WBC (0); RDW Standard Deviation 56.9 fL (36.4-46.3); Red Blood Count 2.66 Miln/mm3 (4.00-5.20); White Blood Count 4.9 Thou/mm3 (3.6-11.0)
[2025-04-27 15:54] LABS: Hemoglobin 6.9 g/dL (12.0-16.0)
[2025-04-27 15:55] LABS: Platelet Count 10 Thou/mm3 (140-440)
[2025-04-27 16:07] LABS: Albumin, Serum 3.6 gm/dL (3.4-4.8); Anion Gap 12 (7-16); BUN/Creatinine Ratio 15 Ratio (12-20); Blood Urea Nitrogen 30 mg/dL (9-23); Calcium 8.6 mg/dL (8.3-10.6); Calcium (Corrected) 8.9 mg/dL (8.5-10.1); Carbon Dioxide 22.0 mMol/L (20.0-31.0); Chloride 103 mMol/L (98-107); Creatinine (Component) 2.0 mg/dL (0.6-1.3); Estimated Creatinine Clearance 31.2 mL/min (>60); Glucose 171 mg/dL (74-106); Osmolality,Calculated 284 (275-295); Phosphorous 2.3 mg/dL (2.4-5.1); Potassium 3.6 mMol/L (3.4-5.1); Sodium 137 mMol/L (136-145); eGFR 28 See Note
--- NOTE | 2025-04-27 16:21 | PC.SS ---
SS met with and dtr, Marlene and they have chosen [facility]. Jenna from [facility] is aware.
--- NOTE | 2025-04-27 16:40 | PC.NURSE ---
FAMILY EDUCATED ON SAFETY AND FALL PRECAUTION, FAMILY WISHES TO HAVE BED HIGHER, EDUCATED ON SAFETY AND EMPHASIZED RISK OF FALL. FAMILY AND PATIENT VERBALIZE UNDERSTANDING.
--- NOTE | 2025-04-27 16:40 | PC.NURSE ---
DR. Kim DUARTE MADE AWARE OF CRITICAL LABS; HGB 6.9 AND LACTIC ACID 3.8. PER MD SHE WILL PUT IN ORDERS.
[2025-04-27 17:25] LABS: Slide Review Platelets confirmed
[2025-04-27 18:36] LABS: Reflex Lactate? Y
[2025-04-27 19:27] LABS: Lactate (Lactic Acid) 4.2 mMol/L (0.4-2.0)
--- NOTE | 2025-04-27 21:44 | ESPR_ITS ---
Documentation for date of: 04/27/25 Subjective Subjective Interval history: Internal medicine team and discussion of transitioning patient to hospice care The daughters agree A couple of family members including who is not on board she had further discussion with Exam Vital Signs Temp Pulse Resp BP Pulse Ox O2 Del Method O2 Flow Rate 97.9 F 79 19 103/56 L 99 Room Air 2 04/27/25 20:06 04/27/25 21:20 04/27/25 20:06 04/27/25 21:20 04/27/25 20:06 04/27/25 20:06 04/27/25 20:06 Objective Labs 04/27/25 15:27 04/27/25 15:27 Labs: Laboratory Results - last 24 hr 04/24/25 04/27/25 04/27/25 23:23 04:20 07:23 WBC 2.3 L D RBC 2.73 L Hgb 7.2 L Hct 21.5 L* MCV 79 L MCH 26.4 MCHC 33.5 RDW Std Deviation 56.8 H Plt Count 11 L* D Neut % (Auto) 49 Lymph % (Auto) 19 [place] % (Auto) 20 H Eos % (Auto) 0 Baso % (Auto) 2 Neut # (Auto) 1.1 L Lymph # (Auto) 0.4 L [place] # (Auto) 0.5 Eos # (Auto) 0.0 Baso # (Auto) 0.0 Immature Gran # (Auto) 0.23 H Absolute Nucleated RBC 0.04 H Immature Gran % 10 H Nucleated RBC % 2 H Smear Path Review Sent to Pathologist Sodium 136 Potassium 3.4 Chloride 103 Carbon Dioxide 23.2 Anion Gap 10 BUN 33 H Creatinine 2.1 H Estim Creat Clear Calc 29.3 L eGFR 26 L BUN/Creatinine Ratio 16 Glucose 178 H Calculated Osmolality 283 Lactic Acid Calcium 8.3 Corrected Calcium 9.1 Phosphorus 2.4 Magnesium 2.5 Total Bilirubin 4.1 H D AST 20 ALT 19 Alkaline Phosphatase 79 Total Protein 4.9 L Albumin 3.0 L Globulin 1.9 L Albumin/Globulin Ratio 1.6 Misc Test Result Platelets confirmed Blood Type O Negative Antibody Screen NEGATIVE Crossmatch See Detail See Detail Blood Bank Wristband ID Yes Blood Bank Comment PLATP Ready PLATP Ready 04/27/25 04/27/25 15:27 19:19 WBC 4.9 D RBC 2.66 L Hgb 6.9 L* Hct 20.9 L* MCV 79 L MCH 25.9 MCHC 33.0 RDW Std Deviation 56.9 H Plt Count 10 L* Neut % (Auto) 64 Lymph % (Auto) 10 [place] % (Auto) 16 H Eos % (Auto) 0 Baso % (Auto) 2 Neut # (Auto) 3.1 Lymph # (Auto) 0.5 L [place] # (Auto) 0.8 Eos # (Auto) 0.0 Baso # (Auto) 0.1 Immature Gran # (Auto) 0.42 H Absolute Nucleated RBC 0.09 H Immature Gran % 9 H Nucleated RBC % 2 H Smear Path Review Sodium 137 Potassium 3.6 Chloride 103 Carbon Dioxide 22.0 Anion Gap 12 BUN 30 H Creatinine 2.0 H Estim Creat Clear Calc 31.2 L eGFR 28 L BUN/Creatinine Ratio 15 Glucose 171 H Calculated Osmolality 284 Lactic Acid 3.8 H 4.2 H* Calcium 8.6 Corrected Calcium 8.9 Phosphorus 2.3 L Magnesium Total Bilirubin AST ALT Alkaline Phosphatase Total Protein Albumin 3.6 D Globulin Albumin/Globulin Ratio Misc Test Result Platelets confirmed Blood Type Antibody Screen Crossmatch Blood Bank Wristband ID Blood Bank Comment Impressions Impression: Multifactorial anemia including bone marrow suppression as well as possible occult GI blood losses continue conservative management No plans so far for any invasive GI workup Assessment & Plan A&P Narrative # Pancytopenia secondary to recently given first cycle of TCH for stage IV breast carcinoma of the right breast # Questionable rectal bleeding, anemia blood loss Before any invasive GI workup should be instituted goals of care needs to be discussed with the family and if they want everything else done then I will schedule invasive GI workup # Cirrhotic liver disease with advanced portal hypertension and periesophageal varices most likely MCLAUGHLIN cirrhosis will follow the patient Thank you for the opportunity to participate in the care of this patient Time Spent With Patient Time: Total time spent is greater than 50% in coordination of care (as documented) at patient's floor/unit and/or counseling patient:
[2025-04-27 21:59] LABS: Basophils # (Auto) 0.0 Thou/mm3 (0.0-0.2); Basophils % (Auto) 0 % (0-2.5); Eosinophils # (Auto) 0.0 Thou/mm3 (0.0-0.5); Eosinophils % (Auto) 0 % (0-10); Hematocrit 24.5 % (36.0-46.0); Immature Granulocytes Auto 0.66 Thou/mm3 (0.00-0.00); Lymphocytes # (Auto) 0.5 Thou/mm3 (1.0-4.8); Lymphocytes % (Auto) 6 % (10-50); Mean Corpuscular HGB Conc 33.5 g/dl (31.0-37.0); Mean Corpuscular Hemoglobin 26.4 pg (25.0-35.0); Mean Corpuscular Volume 79 fL (80-100); Monocytes # (Auto) 1.2 Thou/mm3 (0.0-0.8); Monocytes % (Auto) 17 % (0-12); Neutrophils # (Auto) 4.7 Thou/mm3 (1.8-7.7); Neutrophils % (Auto) 67 % (37-80); Nucleated Red Blood Cell # 0.22 Thou/mm3 (0.00-0.00); Nucleated Red Blood Cell % 3 /100 WBC (0); RDW Standard Deviation 54.5 fL (36.4-46.3); Red Blood Count 3.11 Miln/mm3 (4.00-5.20); White Blood Count 7.0 Thou/mm3 (3.6-11.0)
[2025-04-27 22:23] LABS: Hemoglobin 8.2 g/dL (12.0-16.0); Platelet Count 25 Thou/mm3 (140-440)
[2025-04-27 22:24] LABS: Reflex Lactate? Y
--- NOTE | 2025-04-27 22:26 | PC.NURSE ---
Dr. Issa made aware of the Hgb, Hct, and Platelet results post blood transfusion. No new orders at this time.
[2025-04-27 22:58] LABS: Slide Review Platelets confirmed
[2025-04-27 23:59] LABS: Lactic Acid, 3 HR 4.4 mMol/L (0.4-2.0)
[2025-04-28] VITALS (13 sets, daily range): BP systolic 96–118; BP diastolic 53–62; PULSE 70–88; RESP 18–23; TEMP 36.1–36.9; O2SAT 92–97; BMI 29.9
--- NOTE | 2025-04-28 00:15 | PC.NURSE ---
No orders received yet for the uptrending lactic acid. Dr. Butts here to see patient.
--- NOTE | 2025-04-28 00:33 | PC.NURSE ---
Per Dr. Butts, keep monitoring patient for now for the high lactic acid.
[2025-04-28 05:06] LABS: Lactate (Lactic Acid) 4.1 mMol/L (0.4-2.0)
[2025-04-28 05:39] LABS: Basophils # (Auto) 0.0 Thou/mm3 (0.0-0.2); Basophils % (Auto) 0 % (0-2.5); Eosinophils # (Auto) 0.0 Thou/mm3 (0.0-0.5); Eosinophils % (Auto) 0 % (0-10); Hematocrit 23.4 % (36.0-46.0); Immature Granulocytes Auto 0.78 Thou/mm3 (0.00-0.00); Lymphocytes # (Auto) 0.6 Thou/mm3 (1.0-4.8); Lymphocytes % (Auto) 8 % (10-50); Mean Corpuscular HGB Conc 33.8 g/dl (31.0-37.0); Mean Corpuscular Hemoglobin 26.3 pg (25.0-35.0); Mean Corpuscular Volume 78 fL (80-100); Monocytes # (Auto) 0.7 Thou/mm3 (0.0-0.8); Monocytes % (Auto) 9 % (0-12); Neutrophils # (Auto) 5.6 Thou/mm3 (1.8-7.7); Neutrophils % (Auto) 72 % (37-80); Nucleated Red Blood Cell # 0.22 Thou/mm3 (0.00-0.00); Nucleated Red Blood Cell % 3 /100 WBC (0); RDW Standard Deviation 53.5 fL (36.4-46.3); Red Blood Count 3.00 Miln/mm3 (4.00-5.20); White Blood Count 7.8 Thou/mm3 (3.6-11.0)
[2025-04-28 05:52] LABS: Hemoglobin 7.9 g/dL (12.0-16.0); Platelet Count 19 Thou/mm3 (140-440)
[2025-04-28 06:02] LABS: Chloride,Urine Random < 20.0 mMol/L (55.0-125.0); Creatinine,Random Urine 91 mg/dL (30-125); Potassium,Urine Random 27 mMol/L (12-62); Sodium,Urine Random < 10.0 mMol/L (20.0-110.0)
[2025-04-28 06:06] LABS: Phosphorous 2.7 mg/dL (2.4-5.1)
[2025-04-28] MEDS: MIDODRINE 5 MG TABLET 10 MG PO ×3 (06:31→22:04)
[2025-04-28] MEDS: LACTULOSE SYRUP 20 GM/30 ML UDC 200 GM PR ×3 (06:32→22:29)
[2025-04-28 06:34] LABS: Slide Review Platelets confirmed
[2025-04-28 08:04] LABS: Reflex Lactate? Y
[2025-04-28] MEDS: ALBUMIN HUMAN-KJDA 25% IVPB 25 GM/100 ML BTL IV (08:31)
[2025-04-28] MEDS: FLUCONAZOLE/NS 200 MG IVPB 200 MG/100 ML BAG 100 MG IV (08:31)
[2025-04-28] MEDS: cefTRIAXone/D5w 1gm IV premix 1 GM/50 ML BAG IV (08:31)
[2025-04-28] MEDS: MULTIVITAMINS TABLET 1 TAB PO (08:32)
[2025-04-28] MEDS: LEVOFLOXACIN 250 MG TABLET 500 MG PO (08:32)
[2025-04-28 09:36] LABS: Lactic Acid, 3 HR 4.6 mMol/L (0.4-2.0)
[2025-04-28 10:09] LABS: Alanine Aminotransferase 18 U/L (10-49); Albumin, Serum 3.4 gm/dL (3.4-4.8); Albumin/Globulin Ratio 2.0 (1.2-2.2); Alkaline Phosphatase 99 U/L (46-116); Anion Gap 13 (7-16); Aspartate Amino Transferase 20 U/L (0-34); BUN/Creatinine Ratio 18 Ratio (12-20); Bilirubin,Total 6.2 mg/dL (0.3-1.2); Blood Urea Nitrogen 37 mg/dL (9-23); Calcium 8.9 mg/dL (8.3-10.6); Calcium (Corrected) 9.4 mg/dL (8.5-10.1); Carbon Dioxide 22.3 mMol/L (20.0-31.0); Chloride 102 mMol/L (98-107); Creatinine (Component) 2.1 mg/dL (0.6-1.3); Estimated Creatinine Clearance 29.7 mL/min (>60); Globulin 1.7 gm/dL (2.3-3.5); Glucose 198 mg/dL (74-106); Magnesium 2.9 mg/dL (1.6-2.6); Osmolality,Calculated 288 (275-295); Potassium 3.7 mMol/L (3.4-5.1); Sodium 137 mMol/L (136-145); Total Protein 5.1 gm/dL (5.7-8.2); eGFR 26 See Note
--- NOTE | 2025-04-28 13:50 | ESPR_ITS ---
<Statement entered by Alea Alvarado MD - 05/07/25 08:16> I reviewed above note and agree with findings and plans. I have also personally examined the patient with medicine team and went over assessment and plan with medical team including pharmacy grad intern and resident physician. <Statement entered by Jay Cha MD - 04/28/25 16:37> Patient seen and assessed in hospital bed remains at current baseline with difficulty swallowing at this time. Goals of care discussion had with family, at this time patient's family would like to continue full treatment. Will reconvene with gastroenterology regarding possible need for endoscopy as the patient is having dysphagia likely secondary to candidiasis which is being worsened from neutropenia. Will continue IV antibiotic regimen for neutropenia and underlying pneumonia seen on lung imaging studies. Will also monitor patient's CBC as platelets continue to be low even with transfusion of platelets. Patient's prognosis remains guarded and will have ongoing goals of care discussion with patient's family. I have personally seen and examined the patient. I agree with the resident's assessment and plan as documented below. Jay Cha DO PGY-2 Internal Medicine - GME Documentation for date of: 04/28/25 Subjective Subjective Interval history: No Overnight events. Labs reviewed and patient examined at the bedside. Discussed the goals of care with all of patient's family members. During the discussion, it was noted that patient's presentation likely resulted due to patient's stage IV cancer, liver cirrhosis, and chemo treatment, and patient is unlikely to be recovering from her current state. Patient's family has agreed to do full treatment instead of hospice care. Will update on the family if any changes are made to the patient. CXR (04/27/2025) showed Pneumonia right base with mild to moderate right pleural fluid. Patient will continue on with ceftriaxone treament. On examination, patient was somnolent, but was reactive on stimultion and lound sounds. Exam Vital Signs Temp Pulse Resp BP Pulse Ox O2 Del Method O2 Flow Rate 97.7 F 70 21 H 96/53 L 94 L Room Air 2 04/28/25 08:00 04/28/25 12:00 04/28/25 08:00 04/28/25 08:00 04/28/25 08:00 04/28/25 08:00 04/28/25 00:00 Narrative Exam General: Frail, elderly, somnlent Eye: normal conjunctiva, no scleral icterus HENT: Normocephalic, atraumatic, hearing intact to conversation at normal volume, Diffusedly erythematous with multiple sores on inner lip and buccal, bleeding. Neck: Supple, non-tender, no JVD, no lymphadenopathy Lungs: Non-labored respirations, symmetric chest rise, Clear to auscultate bilaterally, No wheezing, rhonchi, crackles Heart: Peripheral pulses intact bilaterally, Regular Rate and Rhythm. Abdomen: Soft, non-tender, non-distended, no palpable masses Musculoskeletal: Normal range of motion and strength, No cyanosis or edema, No visible joint swelling, Mild ecchymosis on right arm Skin: Skin is warm, dry, no rashes or lesions. Psychiatric: Cooperative, appropriate mood and affect, Awake and alert, not agitated Neuro: Cranial nerves II-XII grossly intact. Strength 5/5 throughout. Sensations intact to light touch. Objective Labs 04/28/25 04:15 04/28/25 09:02 Labs: Laboratory Results - last 24 hr 04/24/25 04/27/25 04/27/25 23:23 07:23 15:27 WBC 4.9 D RBC 2.66 L Hgb 6.9 L* Hct 20.9 L* MCV 79 L MCH 25.9 MCHC 33.0 RDW Std Deviation 56.9 H Plt Count 10 L* Neut % (Auto) 64 Lymph % (Auto) 10 [place] % (Auto) 16 H Eos % (Auto) 0 Baso % (Auto) 2 Neut # (Auto) 3.1 Lymph # (Auto) 0.5 L [place] # (Auto) 0.8 Eos # (Auto) 0.0 Baso # (Auto) 0.1 Immature Gran # (Auto) 0.42 H Absolute Nucleated RBC 0.09 H Immature Gran % 9 H Nucleated RBC % 2 H Sodium 137 Potassium 3.6 Chloride 103 Carbon Dioxide 22.0 Anion Gap 12 BUN 30 H Creatinine 2.0 H Estim Creat Clear Calc 31.2 L eGFR 28 L BUN/Creatinine Ratio 15 Glucose 171 H Calculated Osmolality 284 Lactic Acid 3.8 H Calcium 8.6 Corrected Calcium 8.9 Phosphorus 2.3 L Magnesium Total Bilirubin AST ALT Alkaline Phosphatase Total Protein Albumin 3.6 D Globulin Albumin/Globulin Ratio Ur Random Creatinine Ur Random Sodium Ur Random Potassium Ur Random Chloride Misc Test Result Platelets confirmed Blood Type O Negative Antibody Screen NEGATIVE Crossmatch See Detail See Detail Blood Bank Wristband ID Yes Blood Bank Comment PLATP Ready PLATP Ready 04/27/25 04/27/25 04/27/25 19:19 21:36 23:34 WBC 7.0 D RBC 3.11 L Hgb 8.2 L Hct 24.5 L MCV 79 L MCH 26.4 MCHC 33.5 RDW Std Deviation 54.5 H Plt Count 25 L* D Neut % (Auto) 67 Lymph % (Auto) 6 L [place] % (Auto) 17 H Eos % (Auto) 0 Baso % (Auto) 0 Neut # (Auto) 4.7 Lymph # (Auto) 0.5 L [place] # (Auto) 1.2 H Eos # (Auto) 0.0 Baso # (Auto) 0.0 Immature Gran # (Auto) 0.66 H Absolute Nucleated RBC 0.22 H Immature Gran % 9 H Nucleated RBC % 3 H Sodium Potassium Chloride Carbon Dioxide Anion Gap BUN Creatinine Estim Creat Clear Calc eGFR BUN/Creatinine Ratio Glucose Calculated Osmolality Lactic Acid 4.2 H* 4.4 H* Calcium Corrected Calcium Phosphorus Magnesium Total Bilirubin AST ALT Alkaline Phosphatase Total Protein Albumin Globulin Albumin/Globulin Ratio Ur Random Creatinine Ur Random Sodium Ur Random Potassium Ur Random Chloride Misc Test Result Platelets confirmed Blood Type Antibody Screen Crossmatch Blood Bank Wristband ID Blood Bank Comment 04/28/25 04/28/25 04/28/25 04:15 04:30 09:02 WBC 7.8 RBC 3.00 L Hgb 7.9 L Hct 23.4 L MCV 78 L MCH 26.3 MCHC 33.8 RDW Std Deviation 53.5 H Plt Count 19 L* D Neut % (Auto) 72 Lymph % (Auto) 8 L [place] % (Auto) 9 Eos % (Auto) 0 Baso % (Auto) 0 Neut # (Auto) 5.6 Lymph # (Auto) 0.6 L [place] # (Auto) 0.7 Eos # (Auto) 0.0 Baso # (Auto) 0.0 Immature Gran # (Auto) 0.78 H Absolute Nucleated RBC 0.22 H Immature Gran % 10 H Nucleated RBC % 3 H Sodium 137 Potassium 3.7 Chloride 102 Carbon Dioxide 22.3 Anion Gap 13 BUN 37 H Creatinine 2.1 H Estim Creat Clear Calc 29.7 L eGFR 26 L BUN/Creatinine Ratio 18 Glucose 198 H Calculated Osmolality 288 Lactic Acid 4.1 H* 4.6 H* Calcium 8.9 Corrected Calcium 9.4 Phosphorus 2.7 Magnesium 2.9 H Total Bilirubin 6.2 H D AST 20 ALT 18 Alkaline Phosphatase 99 D Total Protein 5.1 L Albumin 3.4 Globulin 1.7 L Albumin/Globulin Ratio 2.0 Ur Random Creatinine 91 Ur Random Sodium < 10.0 L Ur Random Potassium 27 Ur Random Chloride < 20.0 L Misc Test Result Platelets confirmed Blood Type Antibody Screen Crossmatch Blood Bank Wristband ID Blood Bank Comment Quality Measures Quality Measures VTE prophylaxis Assessment & Plan Assessment Current Active Medications: Generic Name Dose Route Start Last Admin Trade Name Freq PRN Reason Stop Dose Admin Acetaminophen 650 mg 04/25/25 11:40 Acetaminophen 325 Mg Tablet PO 05/25/25 03:21 Q6H PRN Fever >101.5 &pain 1-3 Ceftriaxone Sodium/Dextrose 1 gm in 50 mls @ 100 mls/hr 04/25/25 07:46 04/28/25 08:31 Rocephin/D5w 1gm Iv Premix IV 05/02/25 07:45 100 mls/hr QDAY IGLESIA Administration Octreotide Acetate 1,000 mcg/ 102 mls @ 5.1 mls/hr 04/25/25 08:56 04/27/25 21:21 Sodium Chloride IV 04/30/25 08:56 50 mcg/hr .Q20H IGLESIA 5.1 mls/hr Protocol Administration 50 MCG/HR Albumin Human 25 gm in 100 mls @ 100 mls/hr 04/26/25 08:56 04/28/25 08:31 Albuminex 25% Ivpb IV 05/26/25 08:55 100 mls/hr QDAY IGLESIA Administration Fluconazole 200 mg in 100 mls @ 100 mls/hr 04/27/25 11:00 04/28/25 08:31 Diflucan/Ns Ivpb IV 05/11/25 10:59 100 mls/hr QDAY IGLESIA Administration Lactulose 200 gm 04/27/25 14:00 04/28/25 06:32 Lactulose Syrup 20 Gm/30 Ml Udc KS 05/27/25 13:59 200 gm TID IGLESIA Administration Protocol Levofloxacin 250 mg 04/29/25 09:00 Levofloxacin 250 Mg Tablet PO 05/06/25 08:59 QDAY IGLESIA Midodrine 10 mg 04/26/25 07:45 04/28/25 06:31 Midodrine 5 Mg Tablet PO 05/26/25 07:44 10 mg TID IGLESIA Administration Multivitamins 1 tab 04/26/25 17:00 04/28/25 08:32 Multivitamins Tablet PO 05/26/25 16:59 1 tab QDAY IGLESIA Administration Pantoprazole Sodium 40 mg 04/25/25 09:00 04/28/25 08:31 Pantoprazole Inj 40 Mg Vial IVP 05/25/25 08:59 40 mg BID IGLESIA Administration Rifaximin 550 mg 04/25/25 09:00 04/28/25 08:32 Rifaximin 550 Mg Tablet PO 05/02/25 08:59 550 mg BID IGLESIA Administration Plan Patient is a 59-year-old female with past medical history of 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 #? Oral candidiasis Complaining of swelling of mouth and difficulty swallowing. Concern for oral candidiasis given neutropenic, immunocompromised state. On exam, had diffuse erythema of interior mouth, no white membranes noted. - Fluconazole 200 mg IV daily - Filgastrim as below #Acute blood loss anemia #Hematuria #Normocytic anemia, likely multifactorial with ACD in setting of malignancy #Thrombocytopenia #Malignant neoplastm of right breast (ER/[place] HER2 positive) s/p chemo Acute blood loss anemia in the setting of thrombocytopenia from the acute on chronic decompensated liver cirrhosis As per HPI, initially thought was that the patient was having lower GI bleed from possible internal hemorrhoids; however, there is concern for hematuria at this point Per previous iron panel, had low iron and saturation. Upon new admission, iron is elevated at 332, likely secondary to iron transfusion at cancer center. Hematuria noted above likely secondary to patient having Pugh catheter removed on last admission for urinary retention Platelets of 17, s/p 1 unit platelet on admission. Repeat platelet count 11,000 -> 10,000. Hgb 7.2 -> 6.7. -Currently, Platelets: 19,000, Hgb: 7.9 Plan: - CTM for signs of acute bleeds - Transfuse PRBC if Hgb <7 - Gastroenterology consulted, appreciate recommendations - Goals of care discussion 04/26 and 04/27: updated family on poor prognosis, will discuss hospice, no changes made in care at this time but will follow up with family again at a later time - Goals of Care discussion 04/28: Patient's family agreed on continuing full treatment. #Decompensated liver disease #Hyperammonemia Likely secondary to long history of nonalcoholic cirrhosis with multiple complications. Also possibly iatrogenic (recent chemotherapy session and hydroxyzine). Per patient's daughter, patient is alert and oriented at baseline, conversational and independent. Episode of confusion started at 1 AM this morning. Last episode was 2 years ago, also caused by high level of ammonia, resolved after prescribed lactulose however patient has not been compliant with lactulose medication per daughter. Took 1 dose morning of admission but did not have bowel movement. On admission, ammonia was 92, total bilirubin 2.5. Albumin 3.1. S/p lactulose 20 mg x 2 in ED. Scores: MELD Na 16, <2% estimated 90 day mortality Child Berumen 11, Class C, life expectancy 1-3 years, abdominal surgery preoperative mortality 82% Maddrey: patient does not have alcoholic hepatitis Plan: - Lactulose KS - Rifaximin 550 mg BID - CTM labs - Strict I's & O's - Avoid hepatotoxic agents - Hepatic diet #Pneumonia - CXR (04/27/2025): Pneumonia right base with mild to moderate right pleural fluid -Patient did not have any cough or fevers. Plan: -Continue Ceftriaxone 1g IV qd (04/25-05/02) #Dysphagia #2/2 Candidiasis 2/2 neutropenia -Per family, patient was noted to have hard time swallowing food. Plan: -Consulted Gastroenterology, appreciate recommendations. #Hypotension likely secondary to worsening hepatorenal syndrome Patient is now hypotensive on this admission. Likely secondary to hepatorenal syndrome in setting of worsening liver decompensation versus poor oral intake. Creatinine increased to 1.8. -Current Cr: 2.1 Plan: - Midodrine 10 mg TID - Octreotide drip - CTM BP - Pending urine creatinine and electrolytes - Consider consulting nephrology #Portal hypertension #Splenomegaly #Grade II esophageal varices status post banding (01/25/25) #Gallbladder wall thickening Chronic complications from long history of MCLAUGHLIN. Minimal ascites on imaging at this time. Recently started following GI specialist Dr. Ibrahim. Does not take carvedilol or protonix at home. Denies recent hematemesis or melena. US abdomen in ED limited due to agitation. Repeat US abdomen shows abnormally thickened gallbladder wall, no stones and no splenomegaly. Plan: - Hold Coreg 3.125 mg BID - Lactulose and rifaximin as above - IV Protonix twice daily - IV CFX 1 gm for SBP prophylaxis (04/25- #Neutropenia, improving #Hx malignant neoplasm of right breast, metastasis to lungs #Pulmonary nodule in LLL 20?cells/?L Absolute Neutrophil Count Severe?neutropenia with no fever Follows oncologist Dr. Jackson. S/p IV chemotherapy on 04/19 and 04/20. Per daughter, patient received Udenyca on 04/20. PET scan 04/13 showed hypermetabolic right breast mass with extensive metastasis to lungs with hypermetabolic right cervical and paratracheal lymph node. Noted the largest pulmonary nodule was 6 mm in right upper lobe, [address] A/P. Followed up with Dr. Jackson, patient initially had good prognosis for treatment however in light of worsening cirrhosis, will likely have poor prognosis. Plan: - Levaquin 500 mg p.o. daily - Filgastrim 300 mcg daily - Oncology Dr. Gustafson consulted Health Maintenance: Disposition: Telemetry DVT prophylaxis: SCDs GI prophylaxis: protonix Diet: Hepatic CODE STATUS: FULL Assessment and plan discussed with my attending physician Dr. Alvarado and Dr. Cha (PGY-2) Dr. Scales (PGY-1) - Internal medicine resident
--- NOTE | 2025-04-28 15:03 | PC.NURSE ---
spoke with pharmacy, they will send the bottle of lactulose for the enema
--- NOTE | 2025-04-28 16:21 | PC.SS ---
Follow up note: SS met with and dtr who are physicians will meet with them to discuss Hospice Services. Physicians are aware family has been communicating with [facility] and referral is required for Hospice.
[2025-04-28] MEDS: OCTREOTIDE ACET INJ 1,000 MCG in SODIUM CHLORIDE 0.9% 100 ML 5.1 MCG IV (19:38)
--- NOTE | 2025-04-28 21:47 | ESPR_ITS ---
Documentation for date of: 04/28/25 Subjective Subjective Interval history: Family has decided the patient to be full care Will schedule the patient for an upper endoscopy tomorrow for her anemia blood loss Exam Vital Signs Temp Pulse Resp BP Pulse Ox O2 Del Method O2 Flow Rate 97.7 F 72 22 H 117/55 L 95 Nasal Cannula 2 04/28/25 20:00 04/28/25 20:00 04/28/25 20:00 04/28/25 20:00 04/28/25 20:00 04/28/25 20:00 04/28/25 00:00 Objective Labs 04/28/25 04:15 04/28/25 09:02 Labs: Laboratory Results - last 24 hr 04/27/25 04/27/25 04/28/25 21:36 23:34 04:15 WBC 7.0 D 7.8 RBC 3.11 L 3.00 L Hgb 8.2 L 7.9 L Hct 24.5 L 23.4 L MCV 79 L 78 L MCH 26.4 26.3 MCHC 33.5 33.8 RDW Std Deviation 54.5 H 53.5 H Plt Count 25 L* D 19 L* D Neut % (Auto) 67 72 Lymph % (Auto) 6 L 8 L [place] % (Auto) 17 H 9 Eos % (Auto) 0 0 Baso % (Auto) 0 0 Neut # (Auto) 4.7 5.6 Lymph # (Auto) 0.5 L 0.6 L [place] # (Auto) 1.2 H 0.7 Eos # (Auto) 0.0 0.0 Baso # (Auto) 0.0 0.0 Immature Gran # (Auto) 0.66 H 0.78 H Absolute Nucleated RBC 0.22 H 0.22 H Immature Gran % 9 H 10 H Nucleated RBC % 3 H 3 H Sodium Potassium Chloride Carbon Dioxide Anion Gap BUN Creatinine Estim Creat Clear Calc eGFR BUN/Creatinine Ratio Glucose Calculated Osmolality Lactic Acid 4.4 H* Calcium Corrected Calcium Phosphorus Magnesium Total Bilirubin AST ALT Alkaline Phosphatase Total Protein Albumin Globulin Albumin/Globulin Ratio Ur Random Creatinine 91 Ur Random Sodium < 10.0 L Ur Random Potassium 27 Ur Random Chloride < 20.0 L Misc Test Result Platelets confirmed Platelets confirmed 04/28/25 04/28/25 04:30 09:02 WBC RBC Hgb Hct MCV MCH MCHC RDW Std Deviation Plt Count Neut % (Auto) Lymph % (Auto) [place] % (Auto) Eos % (Auto) Baso % (Auto) Neut # (Auto) Lymph # (Auto) [place] # (Auto) Eos # (Auto) Baso # (Auto) Immature Gran # (Auto) Absolute Nucleated RBC Immature Gran % Nucleated RBC % Sodium 137 Potassium 3.7 Chloride 102 Carbon Dioxide 22.3 Anion Gap 13 BUN 37 H Creatinine 2.1 H Estim Creat Clear Calc 29.7 L eGFR 26 L BUN/Creatinine Ratio 18 Glucose 198 H Calculated Osmolality 288 Lactic Acid 4.1 H* 4.6 H* Calcium 8.9 Corrected Calcium 9.4 Phosphorus 2.7 Magnesium 2.9 H Total Bilirubin 6.2 H D AST 20 ALT 18 Alkaline Phosphatase 99 D Total Protein 5.1 L Albumin 3.4 Globulin 1.7 L Albumin/Globulin Ratio 2.0 Ur Random Creatinine Ur Random Sodium Ur Random Potassium Ur Random Chloride Misc Test Result Impressions Impression: Anemia multifactorial Plan Clear liquid diet starting in the morning N.p.o. at 11 AM for an endoscopic procedure tomorrow evening Assessment & Plan A&P Narrative # Pancytopenia secondary to recently given first cycle of TCH for stage IV breast carcinoma of the right breast # Questionable rectal bleeding, anemia blood loss Before any invasive GI workup should be instituted goals of care needs to be discussed with the family and if they want everything else done then I will schedule invasive GI workup # Cirrhotic liver disease with advanced portal hypertension and periesophageal varices most likely MCLAUGHLIN cirrhosis will follow the patient Thank you for the opportunity to participate in the care of this patient Time Spent With Patient Time: Total time spent is greater than 50% in coordination of care (as documented) at patient's floor/unit and/or counseling patient:
--- NOTE | 2025-04-28 22:10 | PC.NURSE ---
seen and examined by Dr. Sommer, family at bedside.
--- NOTE | 2025-04-28 23:00 | PC.NURSE ---
family prefers to sign consent for egd in the morning.
[2025-04-29] VITALS (8 sets, daily range): BP systolic 106–122; BP diastolic 52–68; PULSE 66–80; RESP 19–21; TEMP 36.3–36.7; O2SAT 9–100; BMI 29.9
[2025-04-29 05:25] LABS: Basophils # (Auto) 0.0 Thou/mm3 (0.0-0.2); Basophils % (Auto) 0 % (0-2.5); Eosinophils # (Auto) 0.0 Thou/mm3 (0.0-0.5); Eosinophils % (Auto) 0 % (0-10); Hematocrit 24.1 % (36.0-46.0); Immature Granulocytes Auto 1.66 Thou/mm3 (0.00-0.00); Lymphocytes # (Auto) 0.7 Thou/mm3 (1.0-4.8); Lymphocytes % (Auto) 5 % (10-50); Mean Corpuscular HGB Conc 34.0 g/dl (31.0-37.0); Mean Corpuscular Hemoglobin 26.5 pg (25.0-35.0); Mean Corpuscular Volume 78 fL (80-100); Monocytes # (Auto) 1.3 Thou/mm3 (0.0-0.8); Monocytes % (Auto) 10 % (0-12); Neutrophils # (Auto) 9.5 Thou/mm3 (1.8-7.7); Neutrophils % (Auto) 72 % (37-80); Nucleated Red Blood Cell # 0.25 Thou/mm3 (0.00-0.00); Nucleated Red Blood Cell % 2 /100 WBC (0); RDW Standard Deviation 53.4 fL (36.4-46.3); Red Blood Count 3.10 Miln/mm3 (4.00-5.20); White Blood Count 13.2 Thou/mm3 (3.6-11.0)
[2025-04-29 05:38] LABS: Hemoglobin 8.2 g/dL (12.0-16.0)
[2025-04-29 05:39] LABS: Platelet Count 17 Thou/mm3 (140-440)
[2025-04-29 06:08] LABS: Slide Review Platelets confirmed
[2025-04-29] MEDS: MIDODRINE 5 MG TABLET 10 MG PO ×2 (06:31→13:44)
[2025-04-29] MEDS: ALBUMIN HUMAN-KJDA 25% IVPB 25 GM/100 ML BTL IV (08:08)
[2025-04-29] MEDS: FLUCONAZOLE/NS 200 MG IVPB 200 MG/100 ML BAG 100 MG IV (08:09)
[2025-04-29] MEDS: cefTRIAXone/D5w 1gm IV premix 1 GM/50 ML BAG IV (08:09)
[2025-04-29] MEDS: LEVOFLOXACIN 250 MG TABLET PO (08:09)
[2025-04-29] MEDS: MULTIVITAMINS TABLET 1 TAB PO (08:09)
[2025-04-29 08:29] LABS: Alanine Aminotransferase 17 U/L (10-49); Albumin, Serum 3.3 gm/dL (3.4-4.8); Albumin/Globulin Ratio 1.8 (1.2-2.2); Alkaline Phosphatase 112 U/L (46-116); Anion Gap 9 (7-16); Aspartate Amino Transferase 32 U/L (0-34); BUN/Creatinine Ratio 17 Ratio (12-20); Bilirubin,Total 6.6 mg/dL (0.3-1.2); Blood Urea Nitrogen 38 mg/dL (9-23); Calcium 8.5 mg/dL (8.3-10.6); Calcium (Corrected) 9.1 mg/dL (8.5-10.1); Carbon Dioxide 24.7 mMol/L (20.0-31.0); Chloride 103 mMol/L (98-107); Creatinine (Component) 2.3 mg/dL (0.6-1.3); Estimated Creatinine Clearance 27.1 mL/min (>60); Globulin 1.8 gm/dL (2.3-3.5); Glucose 188 mg/dL (74-106); Osmolality,Calculated 287 (275-295); Potassium 3.9 mMol/L (3.4-5.1); Sodium 137 mMol/L (136-145); Total Protein 5.1 gm/dL (5.7-8.2); eGFR 24 See Note
--- NOTE | 2025-04-29 11:51 | PC.NURSE ---
Pt caregiver daughter states she doesnt want to do endoscopy today. family will decide if family will take pt home today.
[2025-04-29] MEDS: OCTREOTIDE ACET INJ 1,000 MCG in SODIUM CHLORIDE 0.9% 100 ML 5.1 MCG IV (12:16)
[2025-04-29 12:58] LABS: Lactate (Lactic Acid) 2.6 mMol/L (0.4-2.0)
[2025-04-29 13:17] LABS: Ammonia 44 uMol/L (11-32)
[2025-04-29] MEDS: LIDOCAINE 2% VISCOUS 10 ML, DiphenhydrAMINE 25 MG, MG HYD/AL HYD/SIME SUSP 30 ML, NYSTA... PO (14:06)
--- NOTE | 2025-04-29 14:46 | PC.SS ---
SS met with family, pt, , and dtr Katie to confirm dc plan is still to home with [facility]. Dtr explained [facility] has delivered DME to patient's home and family will provide transportation. SS has sent Hospice Referral to [facility] and communicated with Jenna from [place] pt will d/c home today.
--- NOTE | 2025-04-29 15:49 | ESDS_ITS ---
<Statement entered by Alea Alvarado MD - 05/07/25 08:17> I reviewed above note and agree with findings and plans. I have also personally examined the patient with medicine team and went over assessment and plan with medical team including qa internship and resident physician. Planned Discharge Date 04/29/25 DS: Providers Provider Date of admission: 04/25/25 03:22 Primary care physician: Michael Mcneal MD Admitting Provider: Willis Jackson MD Attending Provider on Admission: Alea Alvarado MD Consults: 04/25/25 03:34 Consult to Gastroenterology Stat Comment: Consulting Provider: Emerson Sommer 04/25/25 04:54 Consult to Oncology Stat Comment: Consulting Provider: Miguel Gustafson 04/29/25 14:26 Referral Hospice Routine Comment: Attending Provider on DC: Deepali Scales DO Discharging Provider: Deepali Scales DO DS: Diagnosis Problem List Completed Was Problem List Reviewed/Reconciled?: Yes Hospital Course Hospital Course Hospital course: Summary: 59-year-old female with past medical history of 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 Patient had pancytopenia due to combination of liver cirrhosis, stage IV metastatic breast cancer, and chemotherapy. Patient was noted to have acute blood loss anemia in the setting of thrombocytopenia due to decompensated liver cirrhosis. Patient received multiple platelet and blood transfusions. Was given lactulose, rifaximin, IV octreotide, Levaquin, IV ceftriaxone. Patient's platelet levels have been fluctuating, and it was noted that the patient is unlikely to recover from her current condition. Patient's chemotherapy could not be continued due to patient's decompensated liver disease. Had multiple discussions with the patient's family regarding goals of care, and the patient's family agreed to proceed with a home hospice care. ED Course: -Initial vitals were BP 131/77, pulse 70s, respiratory 18, temp 98.1, O2 sat 97% on room air -Labs significant for WBC 0.5, platelet count 17, neutrophil % 13, sodium 132, GFR 47, glucose 161, calcium 8.1, T. bili 3.9, AST 36, ammonia 81. UA was negative -Imaging included abdominal/pelvis CT showed send findings from last admissions which are metastatic pulmonary nodule, cirrhosis, esophageal varices, cho lelithiasis and large amount of stool throughout the colon. -In the ED, patient was given fentanyl 25 x 1 and Zofran x1 -Patient was admitted for pancytopenia evaluation and management. Hospital Course: Upon admission, patient's stated that she patient was having hematuria likely due to thrombocytopenia caused by decompensated liver disease. The patient was transfused with 1 units of platelets. MELD Na 16, Child Berumen 11. Patient was given lactulose 20 mg 4 times daily, rifaximin 550 mg twice daily IV Protonix twice daily, IV octreotide, IV ceftriaxone 1 g for SBP prophylaxis, Levaquin 500 milligrams p.o. daily for neutropenia, and midodrine 10 mg 3 times daily for hypotension. Patient was receiving chemo treatment for her stage IV metastatic breast cancer. However with the worsening cirrhosis, patient was unlikely to tolerate the treatment. Patient had swallowing of in her mouth with odynophagia, bleeding source, and white patches. Patient has started empiric treatment with fluconazole 200 mg IV. Patient's hemoglobin dropped down so patient received 1 units of PRBC. Patient had worsening of thrombocytopenia and received another units of platelet. Patient's total bilirubin was increasing as well as lactate level elevation. On chest x-ray patient was still found to have a pneumonia on right base with mild to moderate right pleural effusion, however patient did not have any fevers or cough. Decided to continue on ceftriaxone IV. Had multiple discussions regarding goals of care. Patient's family decided to do home hospice care. Patient has been discharged with rectal lactulose, Augmentin, doxycycline, magic mouthwash, and rifaximin. Instructions: Please complete antibiotic regimen of Augmentin 875-125mg tablet twice a day and Doxycycline 100mg capsule twice a day for neutropenia and pneumonia Use lactulose 20 gram per rectum three times a day - achieve 3-4 bowel movements a day Swish and swallow nystatin oral suspension for oral candidiasis Stop taking lactulose by mouth and continue rifaximin 550 mg tablet Follow-up with your PCP within 1 week of discharge Stable to discharge to Home Hospice #Acute blood loss anemia #Hematuria #Normocytic anemia, likely multifactorial with ACD in setting of malignancy #Thrombocytopenia #Malignant neoplastm of right breast (ER/CO HER2 positive) s/p chemo #Decompensated liver disease #Hyperammonemia #Pneumonia #Dysphagia #2/2 Candidiasis 2/2 neutropenia #Hypotension likely secondary to worsening hepatorenal syndrome #Oral candidiasis Portal hypertension #Splenomegaly #Grade II esophageal varices status post banding (01/25/25) #Gallbladder wall thickening #Neutropenia, improving #Hx malignant neoplasm of right breast, metastasis to lungs #Pulmonary nodule in LLL Assessment and plan discussed with my attending physician Dr. Jenny Scales (PGY-1) - Internal medicine resident Time Spent with Patient Time attestation: Total time spent providing and/or coordinating discharge services: Time spent: Greater than 30 minutes Exam Vital Signs Temp Pulse Resp BP Pulse Ox O2 Del Method O2 Flow Rate 97.4 F 66 20 108/55 L 100 Nasal Cannula 0.5 04/29/25 11:45 04/29/25 13:44 04/29/25 11:45 04/29/25 13:44 04/29/25 11:45 04/29/25 11:45 04/29/25 11:45 Narrative Exam General: Frail, elderly, somnlent Eye: normal conjunctiva, no scleral icterus HENT: Normocephalic, atraumatic, hearing intact to conversation at normal volume, Diffusedly erythematous with multiple sores on inner lip and buccal, bleeding. Neck: Supple, non-tender, no JVD, no lymphadenopathy Lungs: Non-labored respirations, symmetric chest rise, Clear to auscultate bilaterally, No wheezing, rhonchi, crackles Heart: Peripheral pulses intact bilaterally, Regular Rate and Rhythm. Abdomen: Soft, non-tender, non-distended, no palpable masses Musculoskeletal: Normal range of motion and strength, No cyanosis or edema, No visible joint swelling, Mild ecchymosis on right arm Skin: Skin is warm, dry, no rashes or lesions. Psychiatric: Cooperative, appropriate mood and affect, Awake and alert, not agitated Neuro: Cranial nerves II-XII grossly intact. Strength 5/5 throughout. Sensations intact to light touch. Discharge Plan Plan Patient Disposition: Home w/HOSPICE Care Plan Goals: Please complete antibiotic regimen of Augmentin 875-125mg tablet twice a day and Doxycycline 100mg capsule twice a day for neutropenia and pneumonia Use lactulose 20 gram per rectum three times a day - achieve 3-4 bowel movements a day Swish and swallow nystatin oral suspension for oral candidiasis Stop taking lactulose by mouth and continue rifaximin 550 mg tablet Follow-up with your PCP within 1 week of discharge Prescriptions/Referrals Prescriptions/Med Rec: New nystatin 100,000 unit/mL suspension 1 ml PO QDAY 30 Days Qty: 30 0RF Rx Instructions: swish and swallow lactulose 20 gram packet 20 g CO TID 30 Days Qty: 15 0RF amoxicillin-pot clavulanate 875-125 mg tablet 1 tab PO BID 7 Days Qty: 14 0RF doxycycline monohydrate 100 mg capsule 100 mg PO BID 7 Days Qty: 14 0RF Continued rifaximin 550 mg tablet 550 mg PO BID Qty: 60 0RF Discontinued lactulose [Enulose] 10 gram/15 mL solution 20 g PO TID Qty: 3785 0RF Referrals: Michael Mcneal MD [Primary Care Provider, Family Practice] Patient/Caregiver Discharge Instructions Print Language: Latvian Stand Alone Forms: Elvi Award Info., Patient Portal Info Letter Discharge Order Discharge Orders: Discharge (Routine); Ordered 04/29/25 Ordered By: Jay Cha Quality Discharge Quality Measures VTE prophylaxis
[2025-04-29 15:54] LABS: Reflex Lactate? Y
--- NOTE | 2025-04-29 19:32 | PD.IMPROG ---
Documentation for date of: 04/29/25 Subjective Subjective Interval history: Late entry for the note When I met with the family last night the had agreed they wanted to pursue everything so I scheduled the upper endoscopy However today they change her mind and they want hospice care And I canceled the upper endoscopy procedure And I wholeheartedly agree with their decision Exam Vital Signs Temp Pulse Resp BP Pulse Ox O2 Del Method O2 Flow Rate 97.4 F 66 20 108/55 L 100 Nasal Cannula 0.5 04/29/25 11:45 04/29/25 13:44 04/29/25 11:45 04/29/25 13:44 04/29/25 11:45 04/29/25 11:45 04/29/25 11:45 Objective Labs 04/29/25 04:56 04/29/25 04:52 Labs: Laboratory Results - last 24 hr 04/29/25 04/29/25 04/29/25 04:52 04:56 12:47 WBC 13.2 H D RBC 3.10 L Hgb 8.2 L Hct 24.1 L MCV 78 L MCH 26.5 MCHC 34.0 RDW Std Deviation 53.4 H Plt Count 17 L* Neut % (Auto) 72 Lymph % (Auto) 5 L Charles % (Auto) 10 Eos % (Auto) 0 Baso % (Auto) 0 Neut # (Auto) 9.5 H Lymph # (Auto) 0.7 L Charles # (Auto) 1.3 H Eos # (Auto) 0.0 Baso # (Auto) 0.0 Immature Gran # (Auto) 1.66 H Absolute Nucleated RBC 0.25 H Immature Gran % 13 H Nucleated RBC % 2 H Sodium 137 Potassium 3.9 Chloride 103 Carbon Dioxide 24.7 Anion Gap 9 BUN 38 H Creatinine 2.3 H Estim Creat Clear Calc 27.1 L eGFR 24 L BUN/Creatinine Ratio 17 Glucose 188 H Calculated Osmolality 287 Lactic Acid 2.6 H Calcium 8.5 Corrected Calcium 9.1 Total Bilirubin 6.6 H AST 32 ALT 17 Alkaline Phosphatase 112 Ammonia 44 H Total Protein 5.1 L Albumin 3.3 L Globulin 1.8 L Albumin/Globulin Ratio 1.8 Misc Test Result Platelets confirmed Impressions Impression: Anemia blood loss Metastatic breast CA Agree with hospice care Will sign off the case Assessment & Plan A&P Narrative # Pancytopenia secondary to recently given first cycle of TCH for stage IV breast carcinoma of the right breast # Questionable rectal bleeding, anemia blood loss Before any invasive GI workup should be instituted goals of care needs to be discussed with the family and if they want everything else done then I will schedule invasive GI workup # Cirrhotic liver disease with advanced portal hypertension and periesophageal varices most likely [place] cirrhosis will follow the patient Thank you for the opportunity to participate in the care of this patient Time Spent With Patient Time: Total time spent is greater than 50% in coordination of care (as documented) at patient's floor/unit and/or counseling patient:
== END 2025-04-29 15:30 | disposition hospice, home (50) | DRG 279 ==
LOC: SERX 04-25 02:16 → SERHOLD 04-25 03:40 → S2SX 04-25 06:25 → S3NX 04-25 14:14
PROVIDERS: Nurse Practitioner Family; Admitting Provider Student in an Organized Health Care Education/Training Program; Emergency Provider Emergency Medicine; PCP Family Medicine; Visit Provider Internal Medicine
DX: K76.7 Hepatorenal syndrome (principal); K92.1 Melena; D61.818 Other pancytopenia; K76.6 Portal hypertension; R16.1 Splenomegaly, not elsewhere classified; D62 Acute posthemorrhagic anemia; R31.9 Hematuria, unspecified; Z91.148 Patient's other noncompliance with medication regimen for other reason; C78.00 Secondary malignant neoplasm of unspecified lung; C50.911 Malignant neoplasm of unspecified site of right female breast; Z17.31 Human epidermal growth factor receptor 2 positive status; I10 Essential (primary) hypertension; K76.82 Hepatic encephalopathy; R33.9 Retention of urine, unspecified; K75.81 Nonalcoholic steatohepatitis (NASH); B37.0 Candidal stomatitis; D61.810 Antineoplastic chemotherapy induced pancytopenia; D69.59 Other secondary thrombocytopenia; K59.00 Constipation, unspecified; K74.60 Unspecified cirrhosis of liver; R13.10 Dysphagia, unspecified; T45.1X5A Adverse effect of antineoplastic and immunosuppressive drugs, initial encounter; J18.9 Pneumonia, unspecified organism; K80.20 Calculus of gallbladder without cholecystitis without obstruction; Z51.5 Encounter for palliative care; Z79.899 Other long term (current) drug therapy; I85.10 Secondary esophageal varices without bleeding; D72.820 Lymphocytosis (symptomatic)
CPT/HCPCS: 36415; 71045; 74176; 80053; 80069; 81001; 82140; 82436; 82570; 83605; 83690; 83735; 84100; 84133; 84300; 85025; 85610; 85730; 86850; 86900; 86901; 86923; 86965; 87081; 87205; 93225; 96374; 96375; 99285; J0696; J1450; J2354; J2405; J2470; J3010; J3490; J7050; P9016; P9035; P9047; Q5101; A9270; P0947